=== PATIENT | female | born 1990 | race Caucasian/White ===

== ENCOUNTER 2016-11-08 17:25 | Emergency (ER) | payer MEDICARE, MEDICAID ==
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
[2016-11-08 18:37] LABS: Hematocrit 39 % (35-47); Hemoglobin 13.2 g/dl (12.0-16.0); Mean Corpuscular HGB Conc 33 g/dl (31-36); Mean Corpuscular Hemoglobin 28 pg (27-31); Mean Corpuscular Volume 83 fL (80-97); Mean Platelet Volume 9 um3 (7.4-10.4); Red Blood Count 4.75 10^6/ul (4.0-5.4); Red Cell Distribution Width 14 % (10.5-15); White Blood Count 6.5 10^3/ul (3.5-10.8)
[2016-11-08 18:47] LABS: Urine Bilirubin Negative (Negative); Urine Glucose Negative (Negative); Urine Nitrite Negative (Negative)
[2016-11-08 18:54] LABS: ALT 37 U/L (7-52); AST 22 U/L (13-39); Albumin 3.7 g/dL (3.2-5.2); Alkaline Phosphatase 75 U/L (34-104); Anion Gap 8 mmol/L (2-11); BUN/Creatinine Ratio 9.9 (8-20); Blood Urea Nitrogen 8 mg/dL (6-24); CO2 Carbon Dioxide 22 mmol/L (22-32); Calcium 9.1 mg/dL (8.6-10.3); Chloride 108 mmol/L (101-111); EGFR African American 109.9 (>60); EGFR Non-African American 85.5 (>60); Globulin 3.1 g/dL (2-4); Glucose 98 mg/dL (70-100); Potassium 3.9 mmol/L (3.5-5.0); Sodium 138 mmol/L (133-145); Total Protein 6.8 g/dL (6.4-8.9)
[2016-11-08 18:57] LABS: Benzodiazepine Urine Screen None Detected (None Detect)
[2016-11-08 19:03] LABS: Acetaminophen < 15 mcg/mL; Alcohol < 10 mg/dL (<10); Salicylate < 2.50 mg/dL (<30)
[2016-11-08 19:13] LABS: TSH (Thyroid Stimulating Horm) 6.97 mcIU/mL (0.34-5.60)
[2016-11-08 22:31] VITALS: BP 130/84
== END 2016-11-08 22:28 | disposition home or self-care (01) ==
LOC: ED 17:25
DX: F32.9 Major depressive disorder, single episode, unspecified (principal); F99 Mental disorder, not otherwise specified; R62.50 Unspecified lack of expected normal physiological development in childhood; F41.9 Anxiety disorder, unspecified; E07.9 Disorder of thyroid, unspecified
CPT/HCPCS: 36415; 80053; 80164; 80307; 80320; 80329; 81003; 84443; 84702; 85025; 99283; G0480

== ENCOUNTER 2016-11-09 12:57 | Inpatient (IN) | payer MEDICARE, MEDICAID ==
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
[2016-11-09 14:29] LABS: Urine Bilirubin Negative (Negative); Urine Glucose Negative (Negative); Urine Nitrite Negative (Negative)
[2016-11-09] MEDS ORDERED: LORazepam TAB(*) 1 MG PO ONE ×2 (14:48→19:15)
[2016-11-09] MEDS ORDERED: diPHENhydraMINE PO* 50 MG PO ONE (19:15)
[2016-11-09] MEDS ORDERED: diPHENhydraMINE PO* 50 MG ONE (19:17)
[2016-11-09] MEDS ORDERED: LORazepam TAB(*) 1 MG ONE (19:17)
[2016-11-10] MEDS ORDERED: Divalproex DR TAB(*) 500 MG PO ONE (08:52)
[2016-11-10] MEDS ORDERED: Topiramate TAB(*) 100 MG PO ONE (08:53)
[2016-11-10] MEDS ORDERED: Venlafaxine ER (NF) 150 MG CAP.ER PO ONE (08:54)
[2016-11-10] MEDS ORDERED: Methylphenidate TAB* 10 MG PO ONE (08:54)
[2016-11-10] MEDS ORDERED: Venlafaxine EXT RELEASE CAP* 75 MG PO ONE (10:00)
[2016-11-10] MEDS ORDERED: risperiDONE TAB* 1 MG PO ONE (12:00)
[2016-11-10] MEDS ORDERED: risperiDONE TAB* 2 MG PO SCH (12:00)
[2016-11-10] MEDS: Topiramate TAB(*) 100 MG PO SCH ×2 (12:24→21:40)
[2016-11-10] MEDS: risperiDONE TAB* 1 MG PO SCH (12:27)
[2016-11-10] MEDS: Divalproex DR TAB(*) 500 MG PO SCH ×2 (14:05→21:39)
--- NOTE | 2016-11-10 18:34 | PN ---
ED Flex Patient Progress Note Subjective: This is a 25 year-old F who is pending admission to [facility]. Pt resting comfortably and offers no complaints at this time. Objective: Vitals: Most recent vital signs documented below. General NAD, Alert and oriented x3. Heart: rrr Lungs: CTA without rales, rhonchi, or wheezing Laboratory: Current laboratory results documented below. Assessment: Stable awaiting admission to [facility] Plan: Pending psychiatric admit. Will follow up daily. Vital Signs Temp Pulse Resp BP Pulse Ox 97.2 F 96 16 121/79 98 11/10/16 11:28 11/10/16 11:28 11/10/16 11:28 11/10/16 11:28 11/10/16 11:28 Lab Results - Entire Visit 11/09/16 13:11 Urine Color Yellow Urine Appearance Cloudy Urine pH 7.0 Ur Specific [place] 1.014 Urine Protein Negative Urine Ketones Negative Urine Blood Negative Urine Nitrate Negative Urine Bilirubin Negative Urine Urobilinogen Negative Ur Leukocyte Esterase Negative Urine Glucose Negative
[2016-11-10] MEDS ORDERED: Al Hydrox/Mg Hydrox/Simet LIQ* 30 ML UDC PO PRN (20:27)
[2016-11-11] MEDS ORDERED: Vitamin THERAPEUTIC TAB ONE (05:33)
[2016-11-11] MEDS ORDERED: Venlafaxine EXT RELEASE CAP* 75 MG ONE (05:34)
[2016-11-11] MEDS: Levothyroxine TAB* 25 MCG TAB PO SCH (05:35)
[2016-11-11] MEDS: Topiramate TAB(*) 100 MG PO SCH ×2 (05:35→19:48)
[2016-11-11] MEDS: risperiDONE TAB* 1 MG PO SCH (05:35)
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
[2016-11-11] MEDS: Divalproex DR TAB(*) 500 MG PO SCH ×3 (14:54→19:48)
[2016-11-11] MEDS: Acetaminophen TAB* 325 MG PO PRN ×2 (15:34→20:18)
[2016-11-11] MEDS: Vitamin THERAPEUTIC TAB PO SCH (18:58)
[2016-11-11] MEDS: Venlafaxine EXT RELEASE CAP* 75 MG PO SCH (18:58)
[2016-11-11] MEDS: Ferrous Sulfate TAB* 325 MG PO SCH (18:59)
[2016-11-12] MEDS ORDERED: Haloperidol TAB* 5 MG ONE (05:02)
[2016-11-12] MEDS ORDERED: LORazepam TAB(*) 1 MG ONE (05:02)
[2016-11-12] MEDS: Levothyroxine TAB* 25 MCG TAB PO SCH (05:08)
[2016-11-12] MEDS: Ferrous Sulfate TAB* 325 MG PO SCH (08:18)
[2016-11-12] MEDS: risperiDONE TAB* 1 MG PO SCH (08:18)
[2016-11-12] MEDS: Topiramate TAB(*) 100 MG PO SCH ×2 (08:19→20:31)
[2016-11-12] MEDS: Divalproex DR TAB(*) 500 MG PO SCH ×3 (08:19→20:30)
[2016-11-12] MEDS: Vitamin THERAPEUTIC TAB PO SCH (08:19)
[2016-11-12] MEDS: Venlafaxine EXT RELEASE CAP* 75 MG PO SCH (08:20)
--- NOTE | 2016-11-12 11:48 | PN ---
Subjective - Subjective Service Type: 13157 Hosp care 15 min low complexity Subjective: Lyndsey was sleepy. She said she does not feel ready to go home because of urges to hurt herself ( denies acting on it or planning a suicide attempt). She said tomorrow will work for her. She acknowledged that her threatening and disruptive behavior was inappropriate. In Treatment Team the impression is (with input from [facility] staff) that she wants to avoid going to her residence prior to work at 1 pm tomorrow. Objective - Appearance Appearance: Obese Hygiene: Mal-odorous Grooming: Disheveled - Behavior Psychomotor Activities: Abnormal-Decreased - Attitude and Relatedness Attitude and Relatedness: Child Like Eye Contact: Good - Speech Quality: Unpressured Latencies: Normal Quantity: Terse - Mood Patient's Decription of Mood: "Sad" - Affect Observed Affect: Non-labile Affect Consistent with: Dysphoria - Thought Process Patient's Thought Process: Goal Directed, Impoverished Thought Content: No Passive Wish, No Suicidal Planning, No Homicidal Ideation, No Paranoid Ideation - Sensorium Experiencing Hallucinations: No, Sensorium is Clear - Level of Consciousness Level of Consciousness: Alert - Impulse Control Impulse Control: Poor - Insight and Judgement Insight and Judgement: Poor Assessment - Assessment Merits Inpatient Hospitalization: For Stabilization, To Initiate Treatment, For Ongoing Evaluation, For Discharge Planning Inpatient DSM-IV Dx: 1. Adjustment disorder, not otherwise specified. 2. Impulse control disorder. 3. Intellectual disability. 4. History of ADHD. 5. Depressive disorder, not otherwise specified. Clinical Impression: 25-year-old female with a history of intellectual disability, chronic impulse control problems, periodic self harm, admitted due to concern over acute suicidal ideation, minor self harm behaviors in the setting of apparent destabilizing family conflicts. Doing poorly here, with behavioral setbacks last evening. Unit programming is not expected to have durable benefit, and may compromise overall approach of outpt. behavior plan. Must aim for a brief admission with stabilizing purposes - plan discharge for tomorrow. Medication management: continuing the outpatient medication regimen. We have temporarily held controlled stimulants. Plan - Plan Treatment Plan: Name: LYNDSEY WISE Birthdate: 1990 [id number] Continued Medication Management: Continue Outpt Medication Medications: Current Medications Acetaminophen (Tylenol Tab*) 650 mg PO Q4H PRN PRN Reason: PAIN or TEMP > 101 F Last Admin: 11/11/16 20:18 Dose: 650 mg Al Hydrox/Mg Hydrox/Simethicone (Maalox Plus*) 30 ml PO Q4H PRN PRN Reason: INDIGESTION Divalproex Sodium (Depakote Dr Tab(*)) 500 mg PO TID [facility] Last Admin: 11/12/16 08:19 Dose: 500 mg Ferrous Sulfate (Ferrous Sulfate Tab*) 325 mg PO DAILY [facility] Last Admin: 11/12/16 08:18 Dose: 325 mg Levothyroxine Sodium (Synthroid Tab*) 25 mcg PO 0600 [facility] Last Admin: 11/12/16 05:08 Dose: 25 mcg Multivitamins (Theragran Tab*) 1 tab PO DAILY [facility] Last Admin: 11/12/16 08:19 Dose: 1 tab Risperidone (Risperdal*) 1 mg PO DAILY [facility] Last Admin: 11/12/16 08:18 Dose: 1 mg Topiramate (Topamax(*)) 100 mg PO BID [facility] Last Admin: 11/12/16 08:19 Dose: 100 mg Venlafaxine HCl (Effexor Xr Cap*) 150 mg PO DAILY [facility] Last Admin: 11/12/16 08:20 Dose: 150 mg - Discharge Plan Discharge Plan: Outpatient Follow Up
[2016-11-12] MEDS ORDERED: QUEtiapine TAB* 25 MG ONE (20:18)
[2016-11-12] MEDS ORDERED: QUEtiapine TAB* 25 MG PO PRN (20:27)
[2016-11-13] MEDS: Levothyroxine TAB* 25 MCG TAB PO SCH (07:19)
[2016-11-13 07:57] VITALS: BP 120/75
[2016-11-13] MEDS: risperiDONE TAB* 1 MG PO SCH (08:33)
[2016-11-13] MEDS: Vitamin THERAPEUTIC TAB PO SCH (08:33)
[2016-11-13] MEDS: Divalproex DR TAB(*) 500 MG PO SCH ×2 (08:33→14:01)
[2016-11-13] MEDS: Ferrous Sulfate TAB* 325 MG PO SCH (08:34)
[2016-11-13] MEDS: Venlafaxine EXT RELEASE CAP* 75 MG PO SCH (08:34)
[2016-11-13] MEDS: Topiramate TAB(*) 100 MG PO SCH (08:34)
[2016-11-13] MEDS: Acetaminophen TAB* 325 MG PO PRN (11:40)
--- NOTE | 2016-11-13 13:22 | DS ---
Subjective - Subjective Service Types: 24050 Hosp HI Day Mgmt simple under 30 min Discharge Date: 11/13/16 Subjective: Lyndsey agreed with discharge, affirms she would "be okay" and acknowledged doing better today. Last evening she endorsed some level of suicidal ideation and self harm or self harm urges, but affirms she is safe in her behavior. We reviewed aftercare plan, together here with staff from [facility]. She was regressed and ambivalent, preferring to "See mom first" rather than go to a mental health visit. Objective - Appearance Appearance: Obese Hygiene: Normal Grooming: Fairly Well Kept - Behavior Psychomotor Activities: Abnormal-Decreased - Attitude and Relatedness Attitude and Relatedness: Child Like Eye Contact: Poor - Speech Quality: Unpressured Latencies: Normal Quantity: Terse - Mood Patient's Decription of Mood: "Irritable" - Affect Observed Affect: Non-labile Affect Consistent with: Dysphoria - Thought Process Patient's Thought Process: Goal Directed, Impoverished Thought Content: No Passive Wish, No Suicidal Planning, No Homicidal Ideation, No Paranoid Ideation - Sensorium Experiencing Hallucinations: No, Sensorium is Clear - Level of Consciousness Level of Consciousness: Alert - Impulse Control Impulse Control: Poor - Insight and Judgement Insight and Judgement: Poor Treatment Course & Assessment Clinical Course & Impression: 25-year-old female with a history of intellectual disability, chronic impulse control problems, periodic self harm, admitted due to concern over acute suicidal ideation, minor self harm behaviors in the setting of apparent destabilizing family conflicts. 11/13/16 Clear for release. Lyndsey was basically stable in terms of dangerous behavior. She was aggressive and angry at times. Grabbed a staff member's arm once, made some threatening comments to peers in an instance. She expressed intermitted ideas of harming herself and some level of suicidal thinking, without active planning. She did not engage effectively in unit programming; and is not expected to have durable benefits from it. Discourse with [facility] supported shortest stay possible, as institutional behaviors and avoidance of routines and consequences may compromise overall approach of outpt. behavior plan. Medication management: continued the outpatient medication regimen, temporarily holding controlled stimulants. Lyndsey did not have a robust response here, and is not expected to. Risk of harm to self/other is high at baseline and elevated subacutely. Acute risk of serious harm (serious suicidal behavior or major violence) is not expected to be high. Factors are apparent low lethality and psychological seriousness behaviors - impulsive demonstrative behaviors in context of chronic limited coping abilities. Clear for Discharge: Acceptable Safety Profile, Low Utility of In Care Inpatient DSM-IV Dx: 1. Adjustment disorder, not otherwise specified. 2. Impulse control disorder. 3. Intellectual disability. 4. History of ADHD. 5. Depressive disorder, not otherwise specified. Discharge Planning - Discharge Planning Discharge Plan: Outpatient Follow Up Recommendations for Continuing Care: Medication Management, Psychotherapy, Routine Metabolic Monitoring, Therapeutic Drug Levels Medications: Current Medications Acetaminophen (Tylenol Tab*) 650 mg PO Q4H PRN PRN Reason: PAIN or TEMP > 101 F Last Admin: 11/13/16 11:40 Dose: 650 mg Al Hydrox/Mg Hydrox/Simethicone (Maalox Plus*) 30 ml PO Q4H PRN PRN Reason: INDIGESTION Divalproex Sodium (Depakote Dr Tab(*)) 500 mg PO TID [facility] Last Admin: 11/13/16 08:33 Dose: 500 mg Ferrous Sulfate (Ferrous Sulfate Tab*) 325 mg PO DAILY [facility] Last Admin: 11/13/16 08:34 Dose: 325 mg Levothyroxine Sodium (Synthroid Tab*) 25 mcg PO 0600 [facility] Last Admin: 11/13/16 07:19 Dose: 25 mcg Multivitamins (Theragran Tab*) 1 tab PO DAILY [facility] Last Admin: 11/13/16 08:33 Dose: 1 tab Quetiapine Fumarate (Seroquel Tab*) 50 mg PO Q4H PRN PRN Reason: AGITATION Risperidone (Risperdal*) 1 mg PO DAILY [facility] Last Admin: 11/13/16 08:33 Dose: 1 mg Topiramate (Topamax(*)) 100 mg PO BID [facility] Last Admin: 11/13/16 08:34 Dose: 100 mg Venlafaxine HCl (Effexor Xr Cap*) 150 mg PO DAILY [facility] Last Admin: 11/13/16 08:34 Dose: 150 mg Discharge Planning: Prescriptions provided for discharge [] Yes [x] No Follow up care details as per social work arrangements. Patient response to discharge plan: [] eager for discharge [x] agreeable with discharge plan [] ambivalent about discharge [] disagrees with discharge today
== END 2016-11-13 14:00 | disposition home or self-care (01) | DRG 882 ==
LOC: ED 12:57 → BSU 11-10 19:30
PROVIDERS: ADMIT Psychiatry & Neurology Psychiatry; ATTEND Psychiatry & Neurology Psychiatry
DX: F43.20 Adjustment disorder, unspecified (principal); Z68.42 Body mass index [BMI] 45.0-49.9, adult; F79 Unspecified intellectual disabilities; F32.9 Major depressive disorder, single episode, unspecified; F63.9 Impulse disorder, unspecified; F90.9 Attention-deficit hyperactivity disorder, unspecified type; E66.9 Obesity, unspecified; F63.81 Intermittent explosive disorder; E03.9 Hypothyroidism, unspecified; R62.50 Unspecified lack of expected normal physiological development in childhood; F41.9 Anxiety disorder, unspecified
CPT/HCPCS: 36415; 80053; 80164; 80307; 80320; 80329; 81003; 84443; 84702; 85025; 99222; 99231; 99238; 99283; A9270-GY; G0480

== ENCOUNTER 2017-01-26 10:14 | Emergency (ER) | payer MEDICARE, MEDICAID ==
[2017-01-26 10:41] LABS: Urine Bilirubin Negative (Negative); Urine Glucose Negative (Negative); Urine Nitrite Negative (Negative)
[2017-01-26 10:59] LABS: Hematocrit 39 % (35-47); Hemoglobin 12.9 g/dl (12.0-16.0); Mean Corpuscular HGB Conc 33 g/dl (31-36); Mean Corpuscular Hemoglobin 28 pg (27-31); Mean Corpuscular Volume 83 fL (80-97); Mean Platelet Volume 8 um3 (7.4-10.4); Red Blood Count 4.67 10^6/ul (4.0-5.4); Red Cell Distribution Width 15 % (10.5-15); White Blood Count 8.1 10^3/ul (3.5-10.8)
--- NOTE | 2017-01-26 11:14 | ED ---
Psychiatric Complaint - HPI Summary HPI Summary: Patient presents with her caregiver with SI due to feeling overwhelmed. She has a history of SI. She has a plan of using a knife to cut herself. She denies HI. - History Of Current Complaint Chief Complaint: EDMentalHealth Time Seen by Provider: 01/26/17 10:17 Hx Obtained From: Patient, Family/Rack Carrier Hx Last Menstrual Period: mid August ?: No Onset/Duration: Gradual Onset Timing: Constant Severity Initially: Severe Severity Currently: Severe Character: Depressed Aggravating Factor(s): Recent Stress - boyfriend Alleviating Factor(s): Nothing Associated Signs And Symptoms: Positive: Negative Related History: Positive For: Prior Psychiatric Issues Has Suicidal: Reports: Thoughts, With A Plan - Allergies/Home Medications Allergies/Adverse Reactions: Allergies Allergy/AdvReac Type Severity Reaction Status Date / Time No Known Allergies Allergy Verified 11/08/16 17:34 Home Medications: Home Medications Venlafaxine EXT RELEASE CAP* [Effexor Xr CAP*] 150 mg PO DAILY 01/26/17 [ History Confirmed 01/26/17] PMH/Surg Hx/FS Hx/Imm Hx Endocrine/Hematology History: Reports: Hx Thyroid Disease Denies: Hx Anticoagulant Therapy, Hx Diabetes Cardiovascular History: Denies: Hx Hypertension Respiratory History: Reports: Hx Seasonal Allergies Denies: Hx Asthma, Hx Chronic Obstructive Pulmonary Disease (COPD) GI History: Denies: Hx Ulcer Sensory History: Reports: Hx Contacts or Glasses Opthamlomology History: Reports: Hx Contacts or Glasses Neurological History: Reports: Hx Developmental Delay Psychiatric History: Reports: Hx Anxiety, Hx Attention Deficit Hyperactivity Disorder, Hx Depression, Hx Inpatient Treatment, Hx Community Mental Health Tx, Hx Suicide Attempt, Hx of Violent Episodes Against Others, Other Psychiatric Issues/Disorders - DEVELOPMENTALLY DELAYED Denies: Hx Eating Disorder Infectious Disease History: Denies: Hx Clostridium Difficile, Hx Hepatitis, Hx Human Immunodeficiency Virus (HIV), Hx of Known/Suspected MRSA, Hx Shingles, Hx Tuberculosis, Hx Known/ Suspected VRE, Hx Known/Suspected VRSA, History Other Infectious Disease, Traveled Outside the [place] in Last 30 Days - Family History Known Family History: Negative: Cardiac Disease - Social History Occupation: Disabled Lives: Assisted Living Alcohol Use: None Substance Use Type: Reports: None Smoking Status (MU): Never Smoked Tobacco Have You Smoked in the Last Year: No Review of Systems Positive: Depressed All Other Systems Reviewed And Are Negative: Yes Physical Exam Triage Information Reviewed: Yes Vital Signs Reviewed: Yes Appearance: Positive: Well-Appearing, No Pain Distress, Obese Skin: Positive: Warm, Skin Color Reflects Adequate Perfusion, Dry, Soft Head/Face: Positive: Normal Head/Face Inspection Eyes: Positive: EOMI, RITA, Conjunctiva Clear ENT: Positive: Hearing grossly normal, Pharynx normal Neck: Positive: Supple, Nontender, No Lymphadenopathy Respiratory/Lung Sounds: Positive: Clear to Auscultation, Breath Sounds Present Cardiovascular: Positive: RRR Abdomen Description: Positive: Nontender, Soft Bowel Sounds: Positive: Present Musculoskeletal: Negative: Edema Left, Edema Right Neurological: Positive: Sensory/Motor Intact, Alert, Oriented to Person Place, Time, NV Bundle Intact Distally, Normal Gait Psychiatric: Positive: Depressed AVPU Assessment: Alert Diagnostics - Laboratory Lab Results: Lab Results 01/26/17 Range/Units 10:25 Urine Color Yellow Urine Appearance Cloudy Urine pH 7.0 (5-9) Ur Specific [place] 1.009 L (1.010-1.030) Urine Protein Negative (Negative) Urine Ketones Negative (Negative) Urine Blood Negative (Negative) Urine Nitrate Negative (Negative) Urine Bilirubin Negative (Negative) Urine Urobilinogen Negative (Negative) Ur Leukocyte Esterase Negative (Negative) Urine Glucose Negative (Negative) Result Diagrams: 01/26/17 10:40 01/26/17 10:40 Lab Statement: Any lab studies that have been ordered have been reviewed, and results considered in the medical decision making process. Course/Dx - Differential Dx/Clinical Impression Differential Diagnosis/HQI/PQRI: Positive: Acute Psychosis, Anxiety, Bipolar Disorder, Depression, Homicidal Ideation, Schizophrenia, Suicidal Ideation Provider Diagnosis: Persistent mood [affective] disorder, unspecified - Physician Notifications Patient Is Medically Stable For: Psych Evaluation Discharge - Discharge Plan Condition: Stable Disposition: HOME Referrals: Macie Jarrett MD [Primary Care Provider] -
[2017-01-26 11:17] LABS: ALT 34 U/L (7-52); AST 25 U/L (13-39); Albumin 3.7 g/dL (3.2-5.2); Alkaline Phosphatase 72 U/L (34-104); Anion Gap 7 mmol/L (2-11); BUN/Creatinine Ratio 15.9 (8-20); Blood Urea Nitrogen 11 mg/dL (6-24); CO2 Carbon Dioxide 21 mmol/L (22-32); Chloride 109 mmol/L (101-111); EGFR African American 131.3 (>60); EGFR Non-African American 102.1 (>60); Globulin 3.1 g/dL (2-4); Glucose 91 mg/dL (70-100); Potassium 3.9 mmol/L (3.5-5.0); Sodium 137 mmol/L (133-145); Total Protein 6.8 g/dL (6.4-8.9)
[2017-01-26 11:24] LABS: Benzodiazepine Urine Screen None Detected (None Detect)
[2017-01-26 11:31] LABS: Acetaminophen < 15 mcg/mL; Alcohol < 10 mg/dL (<10); Salicylate < 2.50 mg/dL (<30)
[2017-01-26 11:41] LABS: TSH (Thyroid Stimulating Horm) 2.99 mcIU/mL (0.34-5.60)
[2017-01-26 15:06] VITALS: BP 126/86
== END 2017-01-26 15:30 | disposition home or self-care (01) ==
LOC: ED 10:14
DX: F39 Unspecified mood [affective] disorder (principal); F32.9 Major depressive disorder, single episode, unspecified; R45.851 Suicidal ideations
CPT/HCPCS: 36415; 80053; 80307; 80320; 80329; 81003; 84443; 85025; 99285; G0480

== ENCOUNTER 2017-02-03 10:13 | Emergency (ER) | payer MEDICARE, MEDICAID ==
[2017-02-03 10:47] LABS: Hematocrit 40 % (35-47); Hemoglobin 13.2 g/dl (12.0-16.0); Mean Corpuscular HGB Conc 33 g/dl (31-36); Mean Corpuscular Hemoglobin 28 pg (27-31); Mean Corpuscular Volume 83 fL (80-97); Mean Platelet Volume 8 um3 (7.4-10.4); Red Blood Count 4.77 10^6/ul (4.0-5.4); Red Cell Distribution Width 15 % (10.5-15); White Blood Count 8.8 10^3/ul (3.5-10.8)
[2017-02-03 10:51] LABS: Urine Bilirubin Negative (Negative); Urine Glucose Negative (Negative); Urine Nitrite Negative (Negative)
[2017-02-03 11:11] LABS: ALT 49 U/L (7-52); AST 36 U/L (13-39); Albumin 3.8 g/dL (3.2-5.2); Alkaline Phosphatase 84 U/L (34-104); Anion Gap 10 mmol/L (2-11); Blood Urea Nitrogen 16 mg/dL (6-24); CO2 Carbon Dioxide 20 mmol/L (22-32); Calcium 9.5 mg/dL (8.6-10.3); Chloride 108 mmol/L (101-111); EGFR African American 97.8 (>60); EGFR Non-African American 76.1 (>60); Globulin 3.3 g/dL (2-4); Glucose 95 mg/dL (70-100); Sodium 138 mmol/L (133-145); Total Protein 7.1 g/dL (6.4-8.9)
[2017-02-03 11:22] LABS: Benzodiazepine Urine Screen None Detected (None Detect)
[2017-02-03 11:44] LABS: Acetaminophen < 15 mcg/mL; Alcohol < 10 mg/dL (<10); Salicylate < 2.50 mg/dL (<30)
[2017-02-03 12:34] VITALS: BP 113/68
--- NOTE | 2017-02-03 14:04 | ED ---
Zach Kulkarni Adam, scribed for Bigg Wright MD on 02/03/17 at 1035 . Psychiatric Complaint - HPI Summary HPI Summary: Pt is a 26 year old female presenting with depression and SI. She states that she has been feeling like killing herself since yesterday because she hates her life. Her partner states that she recently lost her job which has contributed to her depression. She has a hx of depression but denies any hx of suicidal attempts. Her partner states that she was scratching her wrist with a fork yesterday in a suicidal gesture. Pt denies any other PMHx, FMHx, or surgical hx. She denies any hx of alcohol/tobacco/drug use. She lives at a custodial. - History Of Current Complaint Time Seen by Provider: 02/03/17 10:28 Hx Obtained From: Patient Onset/Duration: Gradual Onset, Lasting Days, Still Present Timing: Constant Severity Initially: Moderate Severity Currently: Moderate Character: Depressed Aggravating Factor(s): Recent Stress Alleviating Factor(s): Nothing Related History: Positive For: Prior Psychiatric Issues Has Suicidal: Reports: Thoughts, Demonstrates Gesture - Allergies/Home Medications Allergies/Adverse Reactions: Allergies Allergy/AdvReac Type Severity Reaction Status Date / Time No Known Allergies Allergy Verified 02/03/17 10:51 PMH/Surg Hx/FS Hx/Imm Hx Endocrine/Hematology History: Reports: Hx Thyroid Disease Denies: Hx Anticoagulant Therapy, Hx Diabetes Cardiovascular History: Denies: Hx Hypertension Respiratory History: Reports: Hx Seasonal Allergies Denies: Hx Asthma, Hx Chronic Obstructive Pulmonary Disease (COPD) GI History: Denies: Hx Ulcer Sensory History: Reports: Hx Contacts or Glasses Opthamlomology History: Reports: Hx Contacts or Glasses Neurological History: Reports: Hx Developmental Delay Psychiatric History: Reports: Hx Anxiety, Hx Attention Deficit Hyperactivity Disorder, Hx Depression, Hx Inpatient Treatment, Hx Community Mental Health Tx, Hx Suicide Attempt, Hx of Violent Episodes Against Others, Other Psychiatric Issues/Disorders - DEVELOPMENTALLY DELAYED Denies: Hx Eating Disorder Infectious Disease History: Denies: Hx Clostridium Difficile, Hx Hepatitis, Hx Human Immunodeficiency Virus (HIV), Hx of Known/Suspected MRSA, Hx Shingles, Hx Tuberculosis, Hx Known/ Suspected VRE, Hx Known/Suspected VRSA, History Other Infectious Disease, Traveled Outside the [place] in Last 30 Days - Family History Known Family History: Positive: None - Pt denies any FMHx Negative: Cardiac Disease - Social History Occupation: Unemployed Lives: Detention Alcohol Use: None Hx Substance Use: No Substance Use Type: Reports: None Hx Tobacco Use: No Smoking Status (MU): Never Smoked Tobacco Have You Smoked in the Last Year: No Review of Systems Skin: Negative Positive: Depressed All Other Systems Reviewed And Are Negative: Yes Physical Exam - Summary Physical Exam Summary: VITAL SIGNS: Reviewed. GENERAL: Patient is a well developed and nourished who is lying comfortable in the stretcher. Patient is not in any acute respiratory distress. HEAD AND FACE: No signs of trauma. No ecchymosis, hematomas or skull depressions. No sinus tenderness. EYES: PERRLA, EOMI x 2, No injected conjunctiva, no nystagmus. EARS: Hearing grossly intact. Ear canals and tympanic membranes are within normal limits. MOUTH: Oropharynx within normal limits. NECK: Supple, trachea is midline, no adenopathy, no JVD, no carotid bruit, no c- spine tenderness, neck with full ROM. CHEST: Symmetric, no tenderness at palpation LUNGS: Clear to auscultation bilaterally. No wheezing or crackles. CVS: Regular rate and rhythm, S1 and S2 present, no murmurs or gallops appreciated. ABDOMEN: Soft, non-tender. No signs of distention. No rebound no guarding, and no masses palpated. Bowel sounds are normal. EXTREMITIES: FROM in all major joints, no edema, no cyanosis or clubbing. NEURO: Alert and oriented x 3. No acute neurological deficits. Speech is normal and follows commands. SKIN: Dry and warm PSYCH: Depressed, quiet, positive suicidal thoughts w/o plan. No homicidal thoughts or plan. No signs of psychosis or pressure speech. No tangential speech. Triage Information Reviewed: Yes Vital Signs On Initial Exam: Initial Vitals Temp Pulse Resp BP Pulse Ox 98.5 F 78 26 104/79 97 02/03/17 10:20 02/03/17 10:20 02/03/17 10:20 02/03/17 10:20 02/03/17 10:20 Vital Signs Reviewed: Yes Diagnostics - Vital Signs Vital Signs Temp Pulse Resp BP Pulse Ox 02/03/17 10:20 98.5 F 78 26 104/79 97 - Laboratory Lab Results: Lab Results 02/03/17 02/03/17 Range/Units 10:30 10:30 WBC 8.8 (3.5-10.8) 10^3/ul RBC 4.77 (4.0-5.4) 10^6/ul Hgb 13.2 (12.0-16.0) g/dl Hct 40 (35-47) % MCV 83 (80-97) fL MCH 28 (27-31) pg MCHC 33 (31-36) g/dl RDW 15 (10.5-15) % Plt Count 236 (150-450) 10^3/ul MPV 8 (7.4-10.4) um3 Neut % (Auto) 69.8 (38-83) % Lymph % (Auto) 21.2 L (25-47) % [place] % (Auto) 6.5 (1-9) % Eos % (Auto) 1.6 (0-6) % Baso % (Auto) 0.9 (0-2) % Absolute Neuts (auto) 6.1 (1.5-7.7) 10^3/ul Absolute Lymphs (auto) 1.9 (1.0-4.8) 10^3/ul Absolute Monos (auto) 0.6 (0-0.8) 10^3/ul Absolute Eos (auto) 0.1 (0-0.6) 10^3/ul Absolute Basos (auto) 0.1 (0-0.2) 10^3/ul Absolute Nucleated RBC 0.01 10^3/ul Nucleated RBC % 0.1 Urine Color Yellow Urine Appearance Cloudy Urine pH 7.0 (5-9) Ur Specific [place] 1.016 (1.010-1.030) Urine Protein Negative (Negative) Urine Ketones Trace H (Negative) Urine Blood Negative (Negative) Urine Nitrate Negative (Negative) Urine Bilirubin Negative (Negative) Urine Urobilinogen Negative (Negative) Ur Leukocyte Esterase Negative (Negative) Urine Glucose Negative (Negative) Urine Ascorbic Acid * H (Negative) Result Diagrams: 02/03/17 10:30 02/03/17 10:30 Lab Statement: Any lab studies that have been ordered have been reviewed, and results considered in the medical decision making process. Course/Dx - Course Assessment/Plan: Pt is a 26 year old female presenting with depression and SI. She states that she has been feeling like killing herself since yesterday because she hates her life. Her partner states that she recently lost her job which has contributed to her depression. She has a hx of depression but denies any hx of suicidal attempts. Her partner states that she was scratching her wrist with a fork yesterday in a suicidal gesture. Pt denies any other PMHx, FMHx, or surgical hx. She denies any hx of alcohol/tobacco/drug use. She lives at a custodial. All blood work WNL. She is medically cleared. She is awaiting for a MHE. Patient is hemodynamically stable and A+O x 3. Patient was assessed By Dr. Avila (Psychiatry). He recommends to discharge patients home withf f/u with Mental health as an outpatient. - Differential Dx/Clinical Impression Differential Diagnosis/HQI/PQRI: Positive: Anxiety, Depression, Suicidal Ideation, Suicidal Gesture Provider Diagnosis: Suicidal ideation, Depression Discharge - Discharge Plan Condition: Stable Disposition: OTHER Discharge Disposition Comment: Pending mental health evaluation Referrals: Ethan Mcguire MD [Primary Care Provider] - The documentation as recorded by the Zach jordan Adam accurately reflects the service I personally performed and the decisions made by me, Bigg Wright MD.
== END 2017-02-03 13:58 | disposition home or self-care (01) ==
LOC: ED 10:13
DX: F32.9 Major depressive disorder, single episode, unspecified (principal); R45.851 Suicidal ideations; E07.9 Disorder of thyroid, unspecified; F41.9 Anxiety disorder, unspecified; R62.50 Unspecified lack of expected normal physiological development in childhood; F90.9 Attention-deficit hyperactivity disorder, unspecified type
CPT/HCPCS: 36415; 80053; 80307; 80320; 80329; 81003; 84443; 85025; 99285; G0480

== ENCOUNTER 2017-03-19 17:14 | Emergency (ER) | payer MEDICARE, MEDICAID ==
[2017-03-19] MEDS ORDERED: Magnesium CITRATE* 300 ML BTL PO ONE (19:27)
--- NOTE | 2017-03-19 19:37 | ED ---
Jason Kulkarni Benjamin, scribed for Hector Pan MD on 03/19/17 at 1925 . Abdominal Pain/Female - HPI Summary HPI Summary: 26yo female c/o constipation for 4 days, however, pt had BM during her stay in the ED. Pt states she normally have one BM per day. Denies any changes in diet, activities, or lifestyle lately. Pt describes her BM today as hard stool, without black tone or blood in it. Pt also reports diffuse cramping abdominal pain. Pain has eased up since she had a BM today, but still present. No GI surgical hx. - History of Current Complaint Chief Complaint: EDAbdPain Stated Complaint: CONSTIPATION Time Seen by Provider: 03/19/17 19:00 Hx Obtained From: Patient, Family/Paint Formulator - father Hx Last Menstrual Period: mid August ?: Yes Onset/Duration: Gradual Onset, Lasting Days - 4, Resolved Timing: Constant Severity Initially: Mild Severity Currently: Mild Pain Intensity: 5 Pain Scale Used: 0-10 Numeric Location: Diffuse Radiates: No Character: Cramping Aggravating Factor(s): Nothing Alleviating Factor(s): Bowel Movement Associated Signs and Symptoms: Positive: Constipation Allergies/Adverse Reactions: Allergies Allergy/AdvReac Type Severity Reaction Status Date / Time No Known Allergies Allergy Verified 02/03/17 10:51 PMH/Surg Hx/FS Hx/Imm Hx Endocrine/Hematology History: Reports: Hx Thyroid Disease Denies: Hx Anticoagulant Therapy, Hx Diabetes Cardiovascular History: Denies: Hx Hypertension Respiratory History: Reports: Hx Seasonal Allergies Denies: Hx Asthma, Hx Chronic Obstructive Pulmonary Disease (COPD) GI History: Denies: Hx Ulcer Sensory History: Reports: Hx Contacts or Glasses Opthamlomology History: Reports: Hx Contacts or Glasses Neurological History: Reports: Hx Developmental Delay Psychiatric History: Reports: Hx Anxiety, Hx Attention Deficit Hyperactivity Disorder, Hx Depression, Hx Inpatient Treatment, Hx Community Mental Health Tx, Hx Suicide Attempt, Hx of Violent Episodes Against Others, Other Psychiatric Issues/Disorders - DEVELOPMENTALLY DELAYED Denies: Hx Eating Disorder Infectious Disease History: No Infectious Disease History: Denies: Hx Clostridium Difficile, Hx Hepatitis, Hx Human Immunodeficiency Virus (HIV), Hx of Known/Suspected MRSA, Hx Shingles, Hx Tuberculosis, Hx Known/ Suspected VRE, Hx Known/Suspected VRSA, History Other Infectious Disease, Traveled Outside the [place] in Last 30 Days - Family History Known Family History: Positive: None - Pt denies any FMHx Negative: Cardiac Disease - Social History Occupation: Disabled Lives: With Family Alcohol Use: None Hx Substance Use: No Substance Use Type: Reports: None Hx Tobacco Use: No Smoking Status (MU): Never Smoked Tobacco Have You Smoked in the Last Year: No Review of Systems Constitutional: Negative Eyes: Negative ENT: Negative Cardiovascular: Negative Respiratory: Negative Positive: Abdominal Pain, Other - constipation Genitourinary: Negative Musculoskeletal: Negative Skin: Negative Neurological: Negative Psychological: Normal All Other Systems Reviewed And Are Negative: Yes Physical Exam Triage Information Reviewed: Yes Vital Signs On Initial Exam: Initial Vitals Temp Pulse Resp BP Pulse Ox 97.3 F 105 19 132/95 97 03/19/17 17:15 03/19/17 17:15 03/19/17 17:15 03/19/17 17:15 03/19/17 17:15 Vital Signs Reviewed: Yes Appearance: Positive: Well-Appearing, No Pain Distress, Obese Skin: Positive: Warm, Skin Color Reflects Adequate Perfusion, Dry Head/Face: Positive: Temporal Artery Tenderness Eyes: Positive: EOMI, RITA ENT: Positive: Normal ENT inspection Neck: Positive: Supple, Nontender Respiratory/Lung Sounds: Positive: Clear to Auscultation, Breath Sounds Present Cardiovascular: Positive: RRR Abdomen Description: Positive: No Organomegaly, Soft, Other: - minimal diffuse tenderness, no rebound, no guarding, no focal tenderness. Bowel Sounds: Positive: Hypoactive Musculoskeletal: Positive: Normal, Strength/ROM Intact Neurological: Positive: Normal, Sensory/Motor Intact Psychiatric: Positive: Normal, Affect/Mood Appropriate - Mike Coma Scale Coma Scale Total: 15 Diagnostics - Vital Signs Vital Signs Temp Pulse Resp BP Pulse Ox 03/19/17 19:06 90 97 03/19/17 19:03 116/72 03/19/17 17:15 97.3 F 105 19 132/95 97 - Laboratory Lab Statement: Any lab studies that have been ordered have been reviewed, and results considered in the medical decision making process. Abdominal Pain Fem Course/Dx - Course Course Of Treatment: NO CRITICAL CARE TIME. PATIENT HAD A BM IN ED AND FEELS BETTER. NO FEVER, NO FOCAL ABD PAIN. DISCUSSED LABS/CT BUT, WITH IMPROVEMENT AFTER BM AND NO FEVER/FOCAL PAIN, WILL TREAT CONSTIPATION; RETURN IF WORSE OR QUESTIONS OR CONCERNS. - Diagnoses Provider Diagnoses: Constipation, Abdominal pain Discharge - Discharge Plan Condition: Stable Disposition: HOME Prescriptions: Psyllium [Metamucil Fiber] 1 teasp PO DAILY #1 powder Referrals: Ethan Mcguire MD [Primary Care Provider] - Additional Instructions: FOLLOW UP WITH YOUR DOCTOR. TAKE THE MAGNESIUM CITRATE TONIGHT. DRINK PLENTY OF WATER EVERY DAY. TAKE THE METAMUCIL DAILY DIRECTED, 1 TEASPOON IN 8 OZ OF WATER, DAILY. RETURN TO THE EMERGENCY DEPARTMENT FOR ANY WORSENING OF YOUR CONDITION; PAIN, FEVER, VOMITING, YOU FEEL ILL, BLOOD IN YOUR STOOL OR QUESTIONS OR CONCERNS. The documentation as recorded by the Jason jordan Benjamin accurately reflects the service I personally performed and the decisions made by me, Hector Pan MD.
[2017-03-19 19:57] VITALS: BP 125/81
== END 2017-03-19 19:55 | disposition home or self-care (01) ==
LOC: ED 17:14
DX: K59.00 Constipation, unspecified (principal); R10.9 Unspecified abdominal pain; F90.9 Attention-deficit hyperactivity disorder, unspecified type; R62.50 Unspecified lack of expected normal physiological development in childhood
CPT/HCPCS: 99282; A9270-GY

== ENCOUNTER 2017-03-25 11:27 | Emergency (ER) | payer MEDICARE, MEDICAID ==
--- NOTE | 2017-03-25 13:02 | RAD ---
INDICATION: Right thumb injury. TECHNIQUE: 3 views of the right thumb were obtained. FINDINGS: The bones are in normal alignment. No fracture is seen. Joint spaces appear maintained. IMPRESSION: NO EVIDENCE FOR FRACTURE.
--- NOTE | 2017-03-25 13:05 | RAD ---
INDICATION: Right wrist injury. TECHNIQUE: 4 views of the right wrist were obtained. FINDINGS: The bones are normal alignment. There is a faint radiolucent line seen in the midportion of the scaphoid bone possibly representing a nondisplaced fracture. No other fractures are seen. Joint spaces appear maintained. IMPRESSION: POSSIBLE NONDISPLACED FRACTURE OF THE SCAPHOID BONE. RECOMMEND EITHER MR OR CT IMAGING FOR FURTHER EVALUATION.
--- NOTE | 2017-03-25 13:28 | UC ---
Hand/Wrist HPI - HPI Summary HPI Summary: 26 female presents with complaints of right wrist pain and thumb pain after an injury while playing basketball this morning 03/25/17. Patient states she was trying to catch a basketball when her wrist and thumb were bent backwards. Since she has been experiencing pain that worsens when making a fist and moving her thumb. She denies numbness/tingling. Is able to flex/extend with pain. Has not taken any medications. Admits to some swelling but denies bruising. No PMHx. - History Of Current Complaint Chief Complaint: UCUpperExtremity Stated Complaint: WRIST PAIN Time Seen by Provider: 03/25/17 12:38 Hx Obtained From: Patient Hx Last Menstrual Period: unknown ?: No Mechanism Of Injury: catching a basketball Onset/Duration: Sudden Onset, Still Present Severity Initially: Moderate Severity Currently: Moderate Pain Intensity: 6 Pain Scale Used: 0-10 Numeric Character Of Pain: Sharp, Aching Aggravating Factor(s): Movement, Extension, Internal/External Rotation Alleviating: Rest Associated Signs And Symptoms: Positive: Swelling Related History: Dominant Hand Right - Allergies/Home Medications Allergies/Adverse Reactions: Allergies Allergy/AdvReac Type Severity Reaction Status Date / Time No Known Allergies Allergy Verified 02/03/17 10:51 Home Medications: Home Medications Fexofenadine (NF) [Hannah 180 (NF)] 180 mg PO DAILY 03/25/17 [History Confirmed 03/25/17] PMH/Surg Hx/FS Hx/Imm Hx - Additional Past Medical History Additional PMH: denies diabetes, htn and asthma. is disabled Other History Of: Negative For: Anticoagulant Therapy - Surgical History Surgical History: None - Family History Known Family History: Positive: None - Pt denies any FMHx Negative: Cardiac Disease - Social History Alcohol Use: None Substance Use Type: None Smoking Status (MU): Never Smoked Tobacco Have You Smoked in the Last Year: No - Immunization History Most Recent Influenza Vaccination: 2016 Most Recent Tetanus Shot: unknown Most Recent Pneumonia Vaccination: never Review of Systems Constitutional: Negative Skin: Other - swelling right wrist Respiratory: Negative Cardiovascular: Negative Motor: Negative Neurovascular: Negative Musculoskeletal: Arthralgia, Edema - right wrist, Myalgia Neurological: Negative All Other Systems Reviewed And Are Negative: Yes Physical Exam Triage Information Reviewed: Yes Appearance: Well-Appearing, No Pain Distress, Well-Nourished, Pain Distress - mild when moving, Obese Vital Signs: Initial Vital Signs Temp 97.3 F 03/25/17 12:18 Pulse 89 03/25/17 12:18 Resp 18 03/25/17 12:18 BP 152/83 03/25/17 12:18 Pulse Ox 99 03/25/17 12:18 BP was re-taken and 100/60. Vital Signs Reviewed: Yes Eyes: Positive: Conjunctiva Clear ENT: Positive: Normal ENT inspection, Hearing grossly normal Neck: Positive: Supple, Nontender Respiratory: Positive: Chest non-tender, Lungs clear, Normal breath sounds, No respiratory distress, No accessory muscle use Cardiovascular: Positive: RRR, No Murmur, Pulses Normal - 2+ radial b/l, Brisk Capillary Refill - <2 seconds, neurovascular intact Musculoskeletal: Positive: Strength Limited @, ROM Limited @ - right wrist, able but causes pain especially with flexion/extension of thumb, Edema @ - very minimal when compared to left wrist, no ecchymosis or obvious deformity Neurological: Positive: Alert - sensation intact, Muscle Tone Normal Skin Exam: Normal Procedures - Splinting Pre-Made Type: velcro Splint: thumb spica Pre-Proc Neuro Vasc Exam: normal Post-Proc Neuro Vasc Exam: normal, unchanged from pre-exam Diagnostics - Radiology right thumb Xray Interpretation: No Acute Changes - no evidence for fracture right wrist Xray Interpretation: Positive (See Comments) - POSSIBLE NONDISPLACED FRACTURE OF THE SCAPHOID BONE. RECOMMEND EITHER MR OR CT IMAGING FOR FURTHER EVALUATION. Radiology Interpretation Completed By: Radiologist Hand/Wrist Course/Dx - Course Course Of Treatment: x-ray obtained of thumb and wrist. showed possible nondisplaced scaphoid fracture of right wrist. put in thumb spica splint. make an appointment with ortho within next couple of days for further imaging as recommended on x-ray and evaluation/casting. aware of worsening signs and symptoms to watch out for. Follow up with PCP. ibuprofen or aleve for pain/ inflammation. given naproxen while in office. - Differential Dx/Diagnosis Differential Diagnosis/HQI/PQRI: Dislocation, Fracture, Sprain, Strain, Other Provider Diagnoses: nondisplaced scaphoid fracture of right wrist Discharge - Discharge Plan Condition: Stable Disposition: HOME Patient Education Materials: Scaphoid Fracture (ED) Referrals: Ethan Mcguire MD [Primary Care Provider] - Maine Velasco MD [Medical Doctor] - Additional Instructions: Take ibuprofen/aleve for pain and inflammation. Rest, ice and elevate your wrist. Keep splint applied, do not remove. Do not get wet. Call and make an appointment with orthopedics to be seen in the next couple of days for further imaging and evaluation. If symptoms worsen or new symptoms develop such as increased pain, numbness/ tingling etc please return or seek medical attention promptly.
[2017-03-25] MEDS ORDERED: Naproxen TAB* 250 MG PO ONE (13:34)
[2017-03-25 14:02] VITALS: BP 100/60
== END 2017-03-25 14:32 | disposition home or self-care (01) ==
LOC: UCEAST 11:27
DX: S62.001A Unspecified fracture of navicular [scaphoid] bone of right wrist, initial encounter for closed fracture (principal)
CPT/HCPCS: 99213; A9270-GY; G0463

== ENCOUNTER → 2017-04-12 08:04 | Emergency (ER) | payer MEDICARE, MEDICAID ==
[2017-04-12 08:12] VITALS: BP 126/91
[2017-04-12 08:52] LABS: Urine Bacteria 1+ (Absent); Urine Bilirubin Negative (Negative); Urine Glucose Negative (Negative); Urine Nitrite Negative (Negative)
[2017-04-12 09:03] LABS: Hematocrit 39 % (35-47); Hemoglobin 12.8 g/dl (12.0-16.0); Mean Corpuscular HGB Conc 33 g/dl (31-36); Mean Corpuscular Hemoglobin 28 pg (27-31); Mean Corpuscular Volume 84 fL (80-97); Mean Platelet Volume 8 um3 (7.4-10.4); Red Blood Count 4.63 10^6/ul (4.0-5.4); Red Cell Distribution Width 15 % (10.5-15); White Blood Count 8.1 10^3/ul (3.5-10.8)
[2017-04-12 09:07] LABS: Benzodiazepine Urine Screen None Detected (None Detect)
[2017-04-12 09:14] LABS: ALT 31 U/L (7-52); AST 25 U/L (13-39); Albumin 3.8 g/dL (3.2-5.2); Alkaline Phosphatase 74 U/L (34-104); Anion Gap 9 mmol/L (2-11); BUN/Creatinine Ratio 15.4 (8-20); Blood Urea Nitrogen 12 mg/dL (6-24); CO2 Carbon Dioxide 20 mmol/L (22-32); Calcium 9.1 mg/dL (8.6-10.3); Chloride 108 mmol/L (101-111); EGFR African American 113.9 (>60); EGFR Non-African American 88.6 (>60); Globulin 3.1 g/dL (2-4); Glucose 102 mg/dL (70-100); Sodium 137 mmol/L (133-145); Total Protein 6.9 g/dL (6.4-8.9)
[2017-04-12 09:56] LABS: Acetaminophen < 15 mcg/mL; Alcohol < 10 mg/dL (<10); Salicylate < 2.50 mg/dL (<30)
[2017-04-12 10:06] LABS: TSH (Thyroid Stimulating Horm) 5.23 mcIU/mL (0.34-5.60)
--- NOTE | 2017-04-13 09:20 | ED ---
I, Oh,Soohyun, scribed for Bigg Wright MD on 04/12/17 at 0810 . Psychiatric Complaint - HPI Summary HPI Summary: This 26 y/o female presents to ED for SI with plan "I feel like killing myself" . Plan involves cutting. Pt identifies Father's Day as trigger. PMHx includes ADHD, MR, and impulse control disorder. Pt denies any FHx of depression. Pt currently lives in long-term. - History Of Current Complaint Hx Obtained From: Patient, Medical Records Hx Last Menstrual Period: unknown Onset/Duration: Sudden Onset, Still Present Timing: Constant Aggravating Factor(s): Nothing Alleviating Factor(s): Nothing Associated Signs And Symptoms: Positive: Negative Related History: Positive For: Prior Psychiatric Issues - Allergies/Home Medications Allergies/Adverse Reactions: Allergies Allergy/AdvReac Type Severity Reaction Status Date / Time No Known Allergies Allergy Verified 02/03/17 10:51 PMH/Surg Hx/FS Hx/Imm Hx Endocrine/Hematology History: Reports: Hx Thyroid Disease Denies: Hx Anticoagulant Therapy, Hx Diabetes Cardiovascular History: Denies: Hx Hypertension Respiratory History: Reports: Hx Seasonal Allergies Denies: Hx Asthma, Hx Chronic Obstructive Pulmonary Disease (COPD) GI History: Denies: Hx Ulcer Sensory History: Reports: Hx Contacts or Glasses Opthamlomology History: Reports: Hx Contacts or Glasses Neurological History: Reports: Hx Developmental Delay Psychiatric History: Reports: Hx Anxiety, Hx Attention Deficit Hyperactivity Disorder, Hx Depression, Hx Inpatient Treatment, Hx Community Mental Health Tx, Hx Suicide Attempt, Hx of Violent Episodes Against Others, Other Psychiatric Issues/Disorders - DEVELOPMENTALLY DELAYED Denies: Hx Eating Disorder Infectious Disease History: Denies: Hx Clostridium Difficile, Hx Hepatitis, Hx Human Immunodeficiency Virus (HIV), Hx of Known/Suspected MRSA, Hx Shingles, Hx Tuberculosis, Hx Known/ Suspected VRE, Hx Known/Suspected VRSA, History Other Infectious Disease - Family History Known Family History: Negative: Cardiac Disease - Social History Lives: [facility] Alcohol Use: None Hx Substance Use: No Substance Use Type: Reports: None Hx Tobacco Use: No Smoking Status (MU): Never Smoked Tobacco Have You Smoked in the Last Year: No Review of Systems Negative: Fever Positive: Depressed, Other - Positive All Other Systems Reviewed And Are Negative: Yes Physical Exam - Summary Physical Exam Summary: VITAL SIGNS: Reviewed. GENERAL: Patient is an OBESE FEMALE who is lying comfortable in the stretcher. Patient is not in any acute respiratory distress. HEAD AND FACE: No signs of trauma. No ecchymosis, hematomas or skull depressions. No sinus tenderness. EYES: PERRLA, EOMI x 2, No injected conjunctiva, no nystagmus. EARS: Hearing grossly intact. Ear canals and tympanic membranes are within normal limits. MOUTH: Oropharynx within normal limits. NECK: Supple, trachea is midline, no adenopathy, no JVD, no carotid bruit, no c- spine tenderness, neck with full ROM. CHEST: Symmetric, no tenderness at palpation LUNGS: Clear to auscultation bilaterally. No wheezing or crackles. CVS: Regular rate and rhythm, S1 and S2 present, no murmurs or gallops appreciated. ABDOMEN: Soft, non-tender. No signs of distention. No rebound no guarding, and no masses palpated. Bowel sounds are normal. EXTREMITIES: FROM in all major joints, no edema, no cyanosis or clubbing. NEURO: Alert and oriented x 3. No acute neurological deficits. Speech is normal and follows commands. SKIN: Dry and warm Psych: Depressed, quiet, and reports positive suicidal plan involving cutting. No homicidal thoughts or plan. No signs of psychosis or pressure speech. Triage Information Reviewed: Yes Vital Signs On Initial Exam: Initial Vitals Temp Pulse Resp BP Pulse Ox 99.2 F 92 20 126/91 98 04/12/17 08:08 04/12/17 08:08 04/12/17 08:08 04/12/17 08:08 04/12/17 08:08 Vital Signs Reviewed: Yes Diagnostics - Vital Signs Vital Signs Temp Pulse Resp BP Pulse Ox 04/12/17 08:08 99.2 F 92 20 126/91 98 - Laboratory Lab Results: Lab Results 04/12/17 04/12/17 04/12/17 Range/Units 08:30 08:30 08:51 WBC 8.1 (3.5-10.8) 10^3/ul RBC 4.63 (4.0-5.4) 10^6/ul Hgb 12.8 (12.0-16.0) g/dl Hct 39 (35-47) % MCV 84 (80-97) fL MCH 28 (27-31) pg MCHC 33 (31-36) g/dl RDW 15 (10.5-15) % Plt Count 234 (150-450) 10^3/ul MPV 8 (7.4-10.4) um3 Neut % (Auto) 72.1 (38-83) % Lymph % (Auto) 19.7 L (25-47) % [place] % (Auto) 5.9 (1-9) % Eos % (Auto) 1.6 (0-6) % Baso % (Auto) 0.7 (0-2) % Absolute Neuts (auto) 5.8 (1.5-7.7) 10^3/ul Absolute Lymphs (auto) 1.6 (1.0-4.8) 10^3/ul Absolute Monos (auto) 0.5 (0-0.8) 10^3/ul Absolute Eos (auto) 0.1 (0-0.6) 10^3/ul Absolute Basos (auto) 0.1 (0-0.2) 10^3/ul Absolute Nucleated RBC 0.01 10^3/ul Nucleated RBC % 0.1 Sodium (133-145) mmol/L Potassium (3.5-5.0) mmol/L Chloride (101-111) mmol/L Carbon Dioxide (22-32) mmol/L Anion Gap (2-11) mmol/L BUN (6-24) mg/dL Creatinine (0.51-0.95) mg/dL Est GFR ( Amer) (>60) Est GFR (Non-Af Amer) (>60) BUN/Creatinine Ratio (8-20) Glucose (70-100) mg/dL Calcium (8.6-10.3) mg/dL Total Bilirubin (0.2-1.0) mg/dL AST (13-39) U/L ALT (7-52) U/L Alkaline Phosphatase (34-104) U/L Total Protein (6.4-8.9) g/dL Albumin (3.2-5.2) g/dL Globulin (2-4) g/dL Albumin/Globulin Ratio (1-3) TSH (0.34-5.60) mcIU/mL Urine Color Yellow Urine Appearance Clear Urine pH 6.0 (5-9) Ur Specific [place] 1.006 L (1.010-1.030) Urine Protein Negative (Negative) Urine Ketones Negative (Negative) Urine Blood 1+ H (Negative) Urine Nitrate Negative (Negative) Urine Bilirubin Negative (Negative) Urine Urobilinogen Negative (Negative) Ur Leukocyte Esterase Negative (Negative) Urine WBC (Auto) Absent (Absent) Urine RBC (Auto) Trace(0-2/hpf) (Absent) Ur Squamous Epith Cells Present H (Absent) Urine Bacteria 1+ H (Absent) Urine Glucose Negative (Negative) Salicylates (<30) mg/dL Urine Opiates Screen None detected (None Detect) Acetaminophen mcg/mL Ur Barbiturates Screen None detected (None Detect) Ur Phencyclidine Scrn None detected (None Detect) Ur Amphetamines Screen None detected (None Detect) U Benzodiazepines Scrn None detected (None Detect) Urine Cocaine Screen None detected (None Detect) U Cannabinoids Screen None detected (None Detect) Serum Alcohol (<10) mg/dL 04/12/17 Range/Units 08:51 WBC (3.5-10.8) 10^3/ul RBC (4.0-5.4) 10^6/ul Hgb (12.0-16.0) g/dl Hct (35-47) % MCV (80-97) fL MCH (27-31) pg MCHC (31-36) g/dl RDW (10.5-15) % Plt Count (150-450) 10^3/ul MPV (7.4-10.4) um3 Neut % (Auto) (38-83) % Lymph % (Auto) (25-47) % [place] % (Auto) (1-9) % Eos % (Auto) (0-6) % Baso % (Auto) (0-2) % Absolute Neuts (auto) (1.5-7.7) 10^3/ul Absolute Lymphs (auto) (1.0-4.8) 10^3/ul Absolute Monos (auto) (0-0.8) 10^3/ul Absolute Eos (auto) (0-0.6) 10^3/ul Absolute Basos (auto) (0-0.2) 10^3/ul Absolute Nucleated RBC 10^3/ul Nucleated RBC % Sodium 137 (133-145) mmol/L Potassium 4.0 (3.5-5.0) mmol/L Chloride 108 (101-111) mmol/L Carbon Dioxide 20 L (22-32) mmol/L Anion Gap 9 (2-11) mmol/L BUN 12 (6-24) mg/dL Creatinine 0.78 (0.51-0.95) mg/dL Est GFR ( Amer) 113.9 (>60) Est GFR (Non-Af Amer) 88.6 (>60) BUN/Creatinine Ratio 15.4 (8-20) Glucose 102 H (70-100) mg/dL Calcium 9.1 (8.6-10.3) mg/dL Total Bilirubin 0.20 (0.2-1.0) mg/dL AST 25 (13-39) U/L ALT 31 (7-52) U/L Alkaline Phosphatase 74 (34-104) U/L Total Protein 6.9 (6.4-8.9) g/dL Albumin 3.8 (3.2-5.2) g/dL Globulin 3.1 (2-4) g/dL Albumin/Globulin Ratio 1.2 (1-3) TSH 5.23 (0.34-5.60) mcIU/mL Urine Color Urine Appearance Urine pH (5-9) Ur Specific [place] (1.010-1.030) Urine Protein (Negative) Urine Ketones (Negative) Urine Blood (Negative) Urine Nitrate (Negative) Urine Bilirubin (Negative) Urine Urobilinogen (Negative) Ur Leukocyte Esterase (Negative) Urine WBC (Auto) (Absent) Urine RBC (Auto) (Absent) Ur Squamous Epith Cells (Absent) Urine Bacteria (Absent) Urine Glucose (Negative) Salicylates < 2.50 (<30) mg/dL Urine Opiates Screen (None Detect) Acetaminophen < 15 mcg/mL Ur Barbiturates Screen (None Detect) Ur Phencyclidine Scrn (None Detect) Ur Amphetamines Screen (None Detect) U Benzodiazepines Scrn (None Detect) Urine Cocaine Screen (None Detect) U Cannabinoids Screen (None Detect) Serum Alcohol < 10 (<10) mg/dL Result Diagrams: 04/12/17 08:51 04/12/17 08:51 Lab Statement: Any lab studies that have been ordered have been reviewed, and results considered in the medical decision making process. Course/Dx - Course Assessment/Plan: This 26 y/o female presents to ED for SI with plan "I feel like killing myself". Plan involves cutting. Pt identifies Father's Day as trigger. PMHx includes ADHD, MR, and impulse control disorder. Pt denies any FHx of depression. Pt currently lives in long-term. All blood work WNL. He is medically cleared. He is awaiting for a MHE. Patient is hemodynamically stable and A+O x 3. Dr. Avila (Psychiatry) saw and examined the patient and clear the patient and recommends to discharge the patient home with outpatient follow up. - Differential Dx/Clinical Impression Differential Diagnosis/HQI/PQRI: Positive: Anxiety, Depression, Suicidal Ideation Provider Diagnosis: Depression, Mood disorder - Physician Notifications Patient Is Medically Stable For: Psych Evaluation - Medically cleared at 0808 AM Discharge - Discharge Plan Condition: Stable Disposition: HOME Referrals: Ethan Mcguire MD [Primary Care Provider] - The documentation as recorded by the Nabil jordan Soohyun accurately reflects the service I personally performed and the decisions made by me, Bigg Wright MD.
== END | disposition home or self-care (01) ==
LOC: ED 08:04
DX: F32.9 Major depressive disorder, single episode, unspecified (principal); R45.851 Suicidal ideations; E07.9 Disorder of thyroid, unspecified; J30.2 Other seasonal allergic rhinitis; E66.9 Obesity, unspecified
CPT/HCPCS: 36415; 80053; 80307; 80320; 80329; 81003; 81015; 84443; 85025; 87086; 99285; G0480

== ENCOUNTER 2017-04-20 20:57 | Emergency (ER) | payer MEDICARE, MEDICAID ==
[2017-04-20 21:35] LABS: Urine Bilirubin Negative (Negative); Urine Glucose Negative (Negative); Urine Nitrite Negative (Negative)
[2017-04-20 21:42] LABS: Benzodiazepine Urine Screen None Detected (None Detect)
[2017-04-20 21:44] LABS: Hematocrit 39 % (35-47); Hemoglobin 12.9 g/dl (12.0-16.0); Mean Corpuscular HGB Conc 33 g/dl (31-36); Mean Corpuscular Hemoglobin 28 pg (27-31); Mean Corpuscular Volume 86 fL (80-97); Mean Platelet Volume 9 um3 (7.4-10.4); Red Cell Distribution Width 14 % (10.5-15); White Blood Count 9.4 10^3/ul (3.5-10.8)
[2017-04-20] MEDS ORDERED: hydrOXYzine HCL TAB* 50 MG PO ONE (21:49)
[2017-04-20 21:58] LABS: ALT 24 U/L (7-52); AST 18 U/L (13-39); Albumin 3.9 g/dL (3.2-5.2); Alkaline Phosphatase 70 U/L (34-104); Anion Gap 8 mmol/L (2-11); BUN/Creatinine Ratio 16.1 (8-20); Blood Urea Nitrogen 14 mg/dL (6-24); CO2 Carbon Dioxide 19 mmol/L (22-32); Calcium 9.2 mg/dL (8.6-10.3); Chloride 108 mmol/L (101-111); EGFR African American 100.4 (>60); EGFR Non-African American 78.1 (>60); Glucose 99 mg/dL (70-100); Potassium 3.7 mmol/L (3.5-5.0); Sodium 135 mmol/L (133-145); Total Protein 6.9 g/dL (6.4-8.9)
[2017-04-20 22:10] LABS: Acetaminophen < 15 mcg/mL; Alcohol < 10 mg/dL (<10); Salicylate < 2.50 mg/dL (<30)
--- NOTE | 2017-04-21 00:04 | ED ---
Luis Fernando Kulkarni Salem, scribed for Eron Hook MD on 04/20/17 at 2122 . Psychiatric Complaint - HPI Summary HPI Summary: Patient is a 26 y/o F who presents with a psychiatric complaint. She reports SI since yesterday and states that she has a plan (with a butter knife). She states that she tried to cut her wrist with a fork. She denies trouble sleeping , loss of appetite, or hearing voices. She states that she was hospitalized 3 weeks ago at [facility]. Pt denies Tobacco, EtOH, or substance use. She is right- handed. She lives in a detention. - History Of Current Complaint Chief Complaint: EDMentalHealth Time Seen by Provider: 04/20/17 21:03 Hx Obtained From: Patient Hx Last Menstrual Period: unknown Onset/Duration: Gradual Onset, Lasting Days, Still Present Timing: Constant Severity Initially: Moderate Severity Currently: Moderate Character: Depressed Aggravating Factor(s): Nothing Alleviating Factor(s): Nothing Associated Signs And Symptoms: Positive: Negative Related History: Positive For: Prior Psychiatric Issues Has Suicidal: Reports: Thoughts - Allergies/Home Medications Allergies/Adverse Reactions: Allergies Allergy/AdvReac Type Severity Reaction Status Date / Time No Known Allergies Allergy Verified 02/03/17 10:51 Home Medications: Home Medications Hydrocortisone 1% CREAM* 1 applic TOPICAL DAILY 04/20/17 [History Confirmed ] Ketoconazole 2 % CREAM (NF) [Nizoral 2% CREAM (NF)] 1 applic TOPICAL EVERY OTHER DAY 04/20/17 [History Confirmed 04/20/17] Neutrogena T/Gel 1 applic TOPICAL EVERY OTHER DAY 04/20/17 [History Confirmed ] Triamcinolone NASAL SPRAY* [Nasacort Aq Nasal [place]*] 55 mcg INH DAILY 04/20/17 [History Confirmed 04/20/17] PMH/Surg Hx/FS Hx/Imm Hx Endocrine/Hematology History: Reports: Hx Thyroid Disease Denies: Hx Anticoagulant Therapy, Hx Diabetes Cardiovascular History: Denies: Hx Hypertension Respiratory History: Reports: Hx Seasonal Allergies Denies: Hx Asthma, Hx Chronic Obstructive Pulmonary Disease (COPD) GI History: Denies: Hx Ulcer Sensory History: Reports: Hx Contacts or Glasses Opthamlomology History: Reports: Hx Contacts or Glasses Neurological History: Reports: Hx Developmental Delay Psychiatric History: Reports: Hx Anxiety, Hx Attention Deficit Hyperactivity Disorder, Hx Depression, Hx Inpatient Treatment, Hx Community Mental Health Tx, Hx Suicide Attempt, Hx of Violent Episodes Against Others, Other Psychiatric Issues/Disorders - DEVELOPMENTALLY DELAYED Denies: Hx Eating Disorder Infectious Disease History: No Infectious Disease History: Denies: Hx Clostridium Difficile, Hx Hepatitis, Hx Human Immunodeficiency Virus (HIV), Hx of Known/Suspected MRSA, Hx Shingles, Hx Tuberculosis, Hx Known/ Suspected VRE, Hx Known/Suspected VRSA, History Other Infectious Disease, Traveled Outside the US in Last 30 Days - Family History Known Family History: Positive: None - Pt denies any FMHx. Negative: Cardiac Disease - Social History Alcohol Use: None Hx Substance Use: No Substance Use Type: Reports: None Hx Tobacco Use: No Smoking Status (MU): Never Smoked Tobacco Have You Smoked in the Last Year: No Review of Systems Constitutional: Negative Negative: Fever Positive: Depressed, Other - SI. See HPI. All Other Systems Reviewed And Are Negative: Yes Physical Exam - Summary Physical Exam Summary: The patient is well-nourished in no acute distress and in no acute pain. The skin is warm and dry and skin color reflects adequate perfusion. No evidence of cuts or scratches on extremities. HEENT: The head is normocephalic and atraumatic. The pupils are equal and reactive. The conjunctivae are clear and without drainage. Nares are patent and without drainage. Mouth reveals moist mucous membranes and the throat is without erythema and exudate. Neck is supple with full range of motion and non-tender. Respiratory: Chest is non-tender. Lungs are clear to auscultation and breath sounds are symmetrical and equal. Cardiovascular: Heart is regular rate and rhythm. There is no murmur or rub auscultated. Abdomen: The abdomen is soft, non-tender, and obese. Musculoskeletal: There is no back pain noted. Extremities are non-tender with full range of motion. Neurological: Patient is alert and oriented to person, place and time. The patient has symmetrical motor strength in all four extremities. Triage Information Reviewed: Yes Vital Signs On Initial Exam: Initial Vitals Temp Pulse Resp BP Pulse Ox 98.8 F 97 18 108/80 95 04/20/17 21:03 04/20/17 21:03 04/20/17 21:03 04/20/17 21:03 04/20/17 21:03 Vital Signs Reviewed: Yes Diagnostics - Vital Signs Vital Signs Temp Pulse Resp BP Pulse Ox 04/20/17 21:03 98.8 F 97 18 108/80 95 - Laboratory Lab Results: Lab Results 04/20/17 04/20/17 04/20/17 Range/Units 21:20 21:20 21:35 WBC 9.4 (3.5-10.8) 10^3/ul RBC 4.60 (4.0-5.4) 10^6/ul Hgb 12.9 (12.0-16.0) g/dl Hct 39 (35-47) % MCV 86 (80-97) fL MCH 28 (27-31) pg MCHC 33 (31-36) g/dl RDW 14 (10.5-15) % Plt Count 245 (150-450) 10^3/ul MPV 9 (7.4-10.4) um3 Neut % (Auto) 69.6 (38-83) % Lymph % (Auto) 21.9 L (25-47) % [place] % (Auto) 6.2 (1-9) % Eos % (Auto) 1.6 (0-6) % Baso % (Auto) 0.7 (0-2) % Absolute Neuts (auto) 6.6 (1.5-7.7) 10^3/ul Absolute Lymphs (auto) 2.1 (1.0-4.8) 10^3/ul Absolute Monos (auto) 0.6 (0-0.8) 10^3/ul Absolute Eos (auto) 0.1 (0-0.6) 10^3/ul Absolute Basos (auto) 0.1 (0-0.2) 10^3/ul Absolute Nucleated RBC 0.01 10^3/ul Nucleated RBC % 0.1 Sodium (133-145) mmol/L Potassium (3.5-5.0) mmol/L Chloride (101-111) mmol/L Carbon Dioxide (22-32) mmol/L Anion Gap (2-11) mmol/L BUN (6-24) mg/dL Creatinine (0.51-0.95) mg/dL Est GFR ( Amer) (>60) Est GFR (Non-Af Amer) (>60) BUN/Creatinine Ratio (8-20) Glucose (70-100) mg/dL Calcium (8.6-10.3) mg/dL Total Bilirubin (0.2-1.0) mg/dL AST (13-39) U/L ALT (7-52) U/L Alkaline Phosphatase (34-104) U/L Total Protein (6.4-8.9) g/dL Albumin (3.2-5.2) g/dL Globulin (2-4) g/dL Albumin/Globulin Ratio (1-3) TSH (0.34-5.60) mcIU/mL Urine Color Straw Urine Appearance Clear Urine pH 7.0 (5-9) Ur Specific [place] 1.005 L (1.010-1.030) Urine Protein Negative (Negative) Urine Ketones Negative (Negative) Urine Blood Negative (Negative) Urine Nitrate Negative (Negative) Urine Bilirubin Negative (Negative) Urine Urobilinogen Negative (Negative) Ur Leukocyte Esterase Negative (Negative) Urine Glucose Negative (Negative) Salicylates (<30) mg/dL Urine Opiates Screen None detected (None Detect) Acetaminophen mcg/mL Ur Barbiturates Screen None detected (None Detect) Valproic Acid (50-100) mcg/mL Ur Phencyclidine Scrn None detected (None Detect) Ur Amphetamines Screen None detected (None Detect) U Benzodiazepines Scrn None detected (None Detect) Urine Cocaine Screen None detected (None Detect) U Cannabinoids Screen None detected (None Detect) Serum Alcohol (<10) mg/dL 04/20/17 Range/Units 21:35 WBC (3.5-10.8) 10^3/ul RBC (4.0-5.4) 10^6/ul Hgb (12.0-16.0) g/dl Hct (35-47) % MCV (80-97) fL MCH (27-31) pg MCHC (31-36) g/dl RDW (10.5-15) % Plt Count (150-450) 10^3/ul MPV (7.4-10.4) um3 Neut % (Auto) (38-83) % Lymph % (Auto) (25-47) % [place] % (Auto) (1-9) % Eos % (Auto) (0-6) % Baso % (Auto) (0-2) % Absolute Neuts (auto) (1.5-7.7) 10^3/ul Absolute Lymphs (auto) (1.0-4.8) 10^3/ul Absolute Monos (auto) (0-0.8) 10^3/ul Absolute Eos (auto) (0-0.6) 10^3/ul Absolute Basos (auto) (0-0.2) 10^3/ul Absolute Nucleated RBC 10^3/ul Nucleated RBC % Sodium 135 (133-145) mmol/L Potassium 3.7 (3.5-5.0) mmol/L Chloride 108 (101-111) mmol/L Carbon Dioxide 19 L (22-32) mmol/L Anion Gap 8 (2-11) mmol/L BUN 14 (6-24) mg/dL Creatinine 0.87 (0.51-0.95) mg/dL Est GFR ( Amer) 100.4 (>60) Est GFR (Non-Af Amer) 78.1 (>60) BUN/Creatinine Ratio 16.1 (8-20) Glucose 99 (70-100) mg/dL Calcium 9.2 (8.6-10.3) mg/dL Total Bilirubin 0.30 (0.2-1.0) mg/dL AST 18 (13-39) U/L ALT 24 (7-52) U/L Alkaline Phosphatase 70 (34-104) U/L Total Protein 6.9 (6.4-8.9) g/dL Albumin 3.9 (3.2-5.2) g/dL Globulin 3.0 (2-4) g/dL Albumin/Globulin Ratio 1.3 (1-3) TSH 5.90 H (0.34-5.60) mcIU/mL Urine Color Urine Appearance Urine pH (5-9) Ur Specific [place] (1.010-1.030) Urine Protein (Negative) Urine Ketones (Negative) Urine Blood (Negative) Urine Nitrate (Negative) Urine Bilirubin (Negative) Urine Urobilinogen (Negative) Ur Leukocyte Esterase (Negative) Urine Glucose (Negative) Salicylates < 2.50 (<30) mg/dL Urine Opiates Screen (None Detect) Acetaminophen < 15 mcg/mL Ur Barbiturates Screen (None Detect) Valproic Acid 80.0 (50-100) mcg/mL Ur Phencyclidine Scrn (None Detect) Ur Amphetamines Screen (None Detect) U Benzodiazepines Scrn (None Detect) Urine Cocaine Screen (None Detect) U Cannabinoids Screen (None Detect) Serum Alcohol < 10 (<10) mg/dL Result Diagrams: 04/20/17 21:35 04/20/17 21:35 Lab Statement: Any lab studies that have been ordered have been reviewed, and results considered in the medical decision making process. Re-Evaluation - Re-Evaluation First Eval Re-Evaluation Time: 21:48 Comment: Pt is requesting something for anxiety. She receives Atarax at the detention. Course/Dx - Course Course Of Treatment: 26 y/o F presents with SI and plan consists of using a butter knife. She denies Tobacco, EtOH, or substance use. Pt received Atarax for anxiety in ED course. She is medically cleared at 2120. Pt pending mental health evaluation. - Differential Dx/Clinical Impression Differential Diagnosis/HQI/PQRI: Positive: Depression, Suicidal Ideation, Suicidal Gesture Provider Diagnosis: Suicidal ideation, Depression Discharge - Discharge Plan Condition: Stable Disposition: OTHER Discharge Disposition Comment: Pt signed out at shift change. Pending mental health evaluation. Referrals: Ethan Mcguire MD [Primary Care Provider] - The documentation as recorded by the Luis Fernando jordan Salem accurately reflects the service I personally performed and the decisions made by me, Eorn Hook MD.
[2017-04-21] MEDS ORDERED: chlorproMAZINE TAB* 50 MG PO PRN (00:54)
[2017-04-21] MEDS ORDERED: diPHENhydraMINE PO* 50 MG PO PRN (00:55)
[2017-04-21] MEDS ORDERED: Divalproex ER TAB(*) 500 MG ONE (00:58)
[2017-04-21] MEDS ORDERED: Divalproex ER TAB(*) 500 MG PO ONE (01:00)
[2017-04-21] MEDS ORDERED: Divalproex DR TAB(*) 500 MG PO ONE (01:00)
[2017-04-21 07:45] VITALS: BP 124/86
== END 2017-04-21 09:30 ==
LOC: ED 20:57
DX: F32.9 Major depressive disorder, single episode, unspecified (principal); R45.851 Suicidal ideations
CPT/HCPCS: 36415; 80053; 80164; 80307; 80320; 80329; 81003; 84443; 85025; 99285; A9270-GY; G0480

== ENCOUNTER → 2017-04-30 12:25 | Emergency (ER) | payer MEDICARE, MEDICAID ==
[2017-04-30 12:59] VITALS: BP 111/74
[2017-04-30 13:45] LABS: Urine Bilirubin Negative (Negative); Urine Glucose Negative (Negative); Urine Nitrite Negative (Negative)
[2017-04-30 13:53] LABS: Benzodiazepine Urine Screen None Detected (None Detect)
--- NOTE | 2017-04-30 17:31 | ED ---
Rohit Kulkarni SooYoung, scribed for Holly Serrano MD on 04/30/17 at 1403 . Psychiatric Complaint - HPI Summary HPI Summary: A 26 y/o F presents to ED BIBA with c/o SI with gesture onset THERAPIST'S ASSISTANT. Pt found a knife in an unlocked closet and used it to cut her wrists. Per [facility] nurse, pt said she wanted to be with her two brothers, who both passed a few years ago from an accident. Associated sx: angry, mild abd pain. Denies sore throat, BAILEY, fever, rash, dysuria. Pt denies physical complaints. Nml BM today. Pain rated as 4 out of 10 at bedside. Pt denies SI at bedside. Pt states she wants to go home. [facility]: unknown, a few months ago per [facility] nurse. She denies being sexually active. - History Of Current Complaint Chief Complaint: EDMentalHealth Time Seen by Provider: 04/30/17 13:00 Hx Obtained From: Patient, Family/Beer Brewer - Naun nurse from [facility] Hx Last Menstrual Period: unknown Onset/Duration: Sudden Onset, Lasting Hours, Still Present, Resolved - SI denied at bedside Severity Initially: Moderate Severity Currently: Moderate Character: Depressed, Angry Aggravating Factor(s): Nothing Alleviating Factor(s): Nothing Associated Signs And Symptoms: Positive: Hostile - per [facility] nurse Has Suicidal: Reports: Thoughts, Demonstrates Gesture Has Homicidal: Denies: Thoughts - Risk Factor(s) Completed Suicide Risk Factors: Past Suicide Attempt - Allergies/Home Medications Allergies/Adverse Reactions: Allergies Allergy/AdvReac Type Severity Reaction Status Date / Time No Known Allergies Allergy Verified 02/03/17 10:51 PMH/Surg Hx/FS Hx/Imm Hx Previously Healthy: No Endocrine/Hematology History: Reports: Hx Thyroid Disease Denies: Hx Anticoagulant Therapy, Hx Diabetes Cardiovascular History: Denies: Hx Hypertension Respiratory History: Reports: Hx Seasonal Allergies Denies: Hx Asthma, Hx Chronic Obstructive Pulmonary Disease (COPD) GI History: Denies: Hx Ulcer Sensory History: Reports: Hx Contacts or Glasses Opthamlomology History: Reports: Hx Contacts or Glasses Neurological History: Reports: Hx Developmental Delay Psychiatric History: Reports: Hx Anxiety, Hx Attention Deficit Hyperactivity Disorder, Hx Depression, Hx Inpatient Treatment, Hx Community Mental Health Tx, Hx Suicide Attempt, Hx of Violent Episodes Against Others, Other Psychiatric Issues/Disorders - DEVELOPMENTALLY DELAYED Denies: Hx Eating Disorder Infectious Disease History: No Infectious Disease History: Denies: Hx Clostridium Difficile, Hx Hepatitis, Hx Human Immunodeficiency Virus (HIV), Hx of Known/Suspected MRSA, Hx Shingles, Hx Tuberculosis, Hx Known/ Suspected VRE, Hx Known/Suspected VRSA, History Other Infectious Disease, Traveled Outside the [place] in Last 30 Days - Family History Known Family History: Negative: Cardiac Disease - Social History Occupation: Disabled Lives: [employer] Alcohol Use: None Hx Substance Use: No Substance Use Type: Reports: None Hx Tobacco Use: No Smoking Status (MU): Never Smoked Tobacco Have You Smoked in the Last Year: No Review of Systems Constitutional: Negative Eyes: Negative ENT: Negative Cardiovascular: Negative Respiratory: Negative Positive: Abdominal Pain Musculoskeletal: Negative Skin: Negative Neurological: Negative Psychological: Other - pos: SI with gesture Positive: Other - pos: angry per [facility] nurse All Other Systems Reviewed And Are Negative: Yes Physical Exam Triage Information Reviewed: Yes Vital Signs On Initial Exam: Initial Vitals Temp Pulse Resp BP Pulse Ox 98.0 F 86 15 111/74 98 04/30/17 12:51 04/30/17 12:51 04/30/17 12:51 04/30/17 12:51 04/30/17 12:51 Vital Signs Reviewed: Yes Appearance: Positive: Well-Appearing, No Pain Distress Skin: Positive: Warm, Skin Color Reflects Adequate Perfusion, Other - L wrist ventral surface 2cm superficial lac, bleeding controlled. Head/Face: Positive: Normal Head/Face Inspection Eyes: Positive: Conjunctiva Clear ENT: Positive: Normal ENT inspection Neck: Positive: Supple Respiratory/Lung Sounds: Positive: Clear to Auscultation, Breath Sounds Present Cardiovascular: Positive: RRR, Pulses are Symmetrical in both Upper and Lower Extremities. Negative: Murmur Abdomen Description: Positive: Soft, Other: - mild abd pain above umbilicus Bowel Sounds: Positive: Present Musculoskeletal: Positive: Strength/ROM Intact Neurological: Positive: Sensory/Motor Intact, Alert, Oriented to Person Place, Time. Negative: Facial Droop, Focal Deficit @, Slurred Speech Psychiatric: Positive: Normal Diagnostics - Vital Signs Vital Signs Temp Pulse Resp BP Pulse Ox 04/30/17 12:51 98.0 F 86 15 111/74 98 - Laboratory Lab Results: Lab Results 04/30/17 Range/Units 13:30 Urine Color Straw Urine Appearance Clear Urine pH 6.0 (5-9) Ur Specific [place] 1.005 L (1.010-1.030) Urine Protein Negative (Negative) Urine Ketones Negative (Negative) Urine Blood Negative (Negative) Urine Nitrate Negative (Negative) Urine Bilirubin Negative (Negative) Urine Urobilinogen Negative (Negative) Ur Leukocyte Esterase Negative (Negative) Urine Glucose Negative (Negative) Lab Statement: Any lab studies that have been ordered have been reviewed, and results considered in the medical decision making process. Course/Dx - Course Course Of Treatment: Pt is a 26 y/o F presenting with SI with gesture onset THERAPIST'S ASSISTANT. Pt found a knife in an unlocked closet and used it to cut her wrists. Per [facility] nurse, pt said she wanted to be with her two brothers, who both passed a few years ago from an accident. Associated sx: angry, mild abd pain. Pt denies other physical complaints. Pain rated as 4/10 at bedside. Denies SI at bedside. Pt states she wants to go home. [facility]: unknown, a few months ago per [facility] nurse. She denies being sexually active. Pt is medically cleared at 1403 for [facility]. Per [facility], pt will be D/C home. - Differential Dx/Clinical Impression Differential Diagnosis/HQI/PQRI: Positive: Acute Psychosis, Bipolar Disorder, Depression, Suicidal Ideation, Suicidal Gesture Provider Diagnosis: Suicide and self-inflicted injury Discharge - Discharge Plan Condition: Stable Disposition: HOME Referrals: Ethan Mcgiure MD [Primary Care Provider] - The documentation as recorded by the Rohit jordan SooYoung accurately reflects the service I personally performed and the decisions made by me, Holly Serrano MD.
== END | disposition home or self-care (01) ==
LOC: ED 12:25
DX: S61.519A Laceration without foreign body of unspecified wrist, initial encounter (principal); T14.91 Suicide attempt; X78.1XXA Intentional self-harm by knife, initial encounter; Y93.9 Activity, unspecified; Y92.89 Other specified places as the place of occurrence of the external cause
CPT/HCPCS: 36415; 80307; 81003; 99283

== ENCOUNTER → 2017-05-01 06:19 | Emergency (ER) | payer MEDICARE, MEDICAID ==
[2017-05-01 06:25] VITALS: BP 115/75
[2017-05-01 06:50] LABS: Urine Bilirubin Negative (Negative); Urine Glucose Negative (Negative); Urine Nitrite Negative (Negative)
[2017-05-01 07:18] LABS: Hematocrit 40 % (35-47); Hemoglobin 13.2 g/dl (12.0-16.0); Mean Corpuscular HGB Conc 33 g/dl (31-36); Mean Corpuscular Hemoglobin 28 pg (27-31); Mean Corpuscular Volume 86 fL (80-97); Mean Platelet Volume 9 um3 (7.4-10.4); Red Blood Count 4.65 10^6/ul (4.0-5.4); Red Cell Distribution Width 15 % (10.5-15); White Blood Count 7.3 10^3/ul (3.5-10.8)
[2017-05-01 07:23] LABS: Benzodiazepine Urine Screen None Detected (None Detect)
[2017-05-01 07:28] LABS: ALT 28 U/L (7-52); AST 22 U/L (13-39); Albumin 3.9 g/dL (3.2-5.2); Alkaline Phosphatase 66 U/L (34-104); Anion Gap 8 mmol/L (2-11); BUN/Creatinine Ratio 14.8 (8-20); Blood Urea Nitrogen 12 mg/dL (6-24); CO2 Carbon Dioxide 21 mmol/L (22-32); Calcium 9.3 mg/dL (8.6-10.3); Chloride 107 mmol/L (101-111); EGFR African American 109.1 (>60); EGFR Non-African American 84.8 (>60); Globulin 3.1 g/dL (2-4); Glucose 84 mg/dL (70-100); Sodium 136 mmol/L (133-145)
[2017-05-01 08:11] LABS: Acetaminophen < 15 mcg/mL; Alcohol < 10 mg/dL (<10); Salicylate < 2.50 mg/dL (<30)
[2017-05-01 08:21] LABS: TSH (Thyroid Stimulating Horm) 4.08 mcIU/mL (0.34-5.60)
--- NOTE | 2017-05-01 15:38 | ED ---
Tori Kulkarni Edward, scribed for Eron Hook MD on 05/01/17 at 0736 . Psychiatric Complaint - HPI Summary HPI Summary: 26 y/o female presents to ED SI starting yesterday. Patient cut her L arm yesterday with a knife, but denies any pain or weakness in the L arm. Denies issues with sleep, changes in appetite, hallucinations any cuts anywhere else. Also attempted to use forks and cut glass. No EtOH, tobacco or drug use. PMHx depression, anxiety, and SI. - History Of Current Complaint Chief Complaint: EDMentalHealth Time Seen by Provider: 05/01/17 07:25 Hx Obtained From: Patient Hx Last Menstrual Period: unknown Onset/Duration: Lasting Days - Since yesterday Timing: Constant Character: Depressed Related History: Positive For: Prior Psychiatric Issues - Depression, anxiety, suicide attempt Has Suicidal: Reports: Thoughts, Demonstrates Gesture - Cut arm with a knife yesterday, Has Prior Attempt(s) - Allergies/Home Medications Allergies/Adverse Reactions: Allergies Allergy/AdvReac Type Severity Reaction Status Date / Time No Known Allergies Allergy Verified 05/01/17 06:22 PMH/Surg Hx/FS Hx/Imm Hx Previously Healthy: No Endocrine/Hematology History: Reports: Hx Thyroid Disease Denies: Hx Anticoagulant Therapy, Hx Diabetes Cardiovascular History: Denies: Hx Hypertension Respiratory History: Reports: Hx Seasonal Allergies Denies: Hx Asthma, Hx Chronic Obstructive Pulmonary Disease (COPD) GI History: Denies: Hx Ulcer Sensory History: Reports: Hx Contacts or Glasses Opthamlomology History: Reports: Hx Contacts or Glasses Neurological History: Reports: Hx Developmental Delay Psychiatric History: Reports: Hx Anxiety, Hx Attention Deficit Hyperactivity Disorder, Hx Depression, Hx Inpatient Treatment, Hx Community Mental Health Tx, Hx Suicide Attempt, Hx of Violent Episodes Against Others, Other Psychiatric Issues/Disorders - DEVELOPMENTALLY DELAYED Denies: Hx Eating Disorder Infectious Disease History: No Infectious Disease History: Denies: Hx Clostridium Difficile, Hx Hepatitis, Hx Human Immunodeficiency Virus (HIV), Hx of Known/Suspected MRSA, Hx Shingles, Hx Tuberculosis, Hx Known/ Suspected VRE, Hx Known/Suspected VRSA, History Other Infectious Disease, Traveled Outside the [place] in Last 30 Days - Family History Known Family History: Negative: Cardiac Disease - Social History Alcohol Use: None Hx Substance Use: No Substance Use Type: Reports: None Hx Tobacco Use: No Smoking Status (MU): Never Smoked Tobacco Have You Smoked in the Last Year: No Review of Systems Constitutional: Negative Eyes: Negative ENT: Negative Cardiovascular: Negative Respiratory: Negative Gastrointestinal: Negative Genitourinary: Negative Musculoskeletal: Negative Skin: Negative Neurological: Negative Positive: Depressed All Other Systems Reviewed And Are Negative: Yes Physical Exam - Summary Physical Exam Summary: The patient is well-nourished in no acute distress and in no acute pain. Skin: The skin is warm and dry and skin color reflects adequate perfusion. There is a superficial laceration on the dorsal aspect of the L forearm; distal neurovascular intact. HEENT: The head is normocephalic and atraumatic. The pupils are equal and reactive. The conjunctivae are clear and without drainage. Nares are patent and without drainage. Mouth reveals moist mucous membranes and the throat is without erythema and exudate. The external ears are intact. The ear canals are patent and without drainage. The tympanic membranes are intact. Neck is supple with full range of motion and non-tender. There are no carotid bruits. There is no neck vein distension. Respiratory: Chest is non-tender. Lungs are clear to auscultation and breath sounds are symmetrical and equal. Cardiovascular: Hear is regular rate and rhythm. There is no murmur or rub auscultated. There is no peripheral edema and pulses are symmetrical and equal. Abdomen: The abdomen is soft and non-tender. There are normal bowel sounds heard in all four quadrants and there is no organomegaly palpated. Musculoskeletal: There is no back pain noted. Extremities are non-tender with full range of motion. There is good capillary refill. There is no peripheral edema or calf tenderness elicited. Neurological: Patient is alert and oriented to person, place and time. The patient has symmetrical motor strength in all four extremities. Cranial nerves are grossly intact. Deep tendon reflexes are symmetrical and equal in all four extremities. Psychiatric: The patient has an appropriate affect and does not exhibit any anxiety or depression. Triage Information Reviewed: Yes Vital Signs On Initial Exam: Initial Vitals Temp Pulse Resp BP Pulse Ox 96.8 F 93 18 115/75 98 05/01/17 06:22 05/01/17 06:22 05/01/17 06:22 05/01/17 06:22 05/01/17 06:22 Vital Signs Reviewed: Yes Diagnostics - Vital Signs Vital Signs Temp Pulse Resp BP Pulse Ox 05/01/17 06:22 96.8 F 93 18 115/75 98 - Laboratory Lab Results: Lab Results 05/01/17 05/01/17 05/01/17 Range/Units 06:41 06:41 07:06 WBC 7.3 (3.5-10.8) 10^3/ul RBC 4.65 (4.0-5.4) 10^6/ul Hgb 13.2 (12.0-16.0) g/dl Hct 40 (35-47) % MCV 86 (80-97) fL MCH 28 (27-31) pg MCHC 33 (31-36) g/dl RDW 15 (10.5-15) % Plt Count 186 (150-450) 10^3/ul MPV 9 (7.4-10.4) um3 Neut % (Auto) 68.0 (38-83) % Lymph % (Auto) 22.6 L (25-47) % [place] % (Auto) 7.0 (1-9) % Eos % (Auto) 1.7 (0-6) % Baso % (Auto) 0.7 (0-2) % Absolute Neuts (auto) 5.0 (1.5-7.7) 10^3/ul Absolute Lymphs (auto) 1.7 (1.0-4.8) 10^3/ul Absolute Monos (auto) 0.5 (0-0.8) 10^3/ul Absolute Eos (auto) 0.1 (0-0.6) 10^3/ul Absolute Basos (auto) 0.1 (0-0.2) 10^3/ul Absolute Nucleated RBC 0.01 10^3/ul Nucleated RBC % 0.1 Urine Color Straw Urine Appearance Clear Urine pH 6.0 (5-9) Ur Specific [place] 1.005 L (1.010-1.030) Urine Protein Negative (Negative) Urine Ketones Negative (Negative) Urine Blood Negative (Negative) Urine Nitrate Negative (Negative) Urine Bilirubin Negative (Negative) Urine Urobilinogen Negative (Negative) Ur Leukocyte Esterase Negative (Negative) Urine Glucose Negative (Negative) Urine Opiates Screen None detected (None Detect) Ur Barbiturates Screen None detected (None Detect) Ur Phencyclidine Scrn None detected (None Detect) Ur Amphetamines Screen None detected (None Detect) U Benzodiazepines Scrn None detected (None Detect) Urine Cocaine Screen None detected (None Detect) U Cannabinoids Screen None detected (None Detect) Result Diagrams: 05/01/17 07:06 05/01/17 07:06 Lab Statement: Any lab studies that have been ordered have been reviewed, and results considered in the medical decision making process. Course/Dx - Course Assessment/Plan: Patient was medically cleared for U evaluation @ 09:[address] Eron Hook. Dx depression per last repairer. - Differential Dx/Clinical Impression Differential Diagnosis/HQI/PQRI: Positive: Depression, Suicidal Ideation, Suicidal Gesture Provider Diagnosis: Depressed Discharge - Discharge Plan Condition: Stable Disposition: HOME Patient Education Materials: Depression (ED) Referrals: Ethan Mcguire MD [Primary Care Provider] - 3 Days (Please follow up in 2-3 days.) The documentation as recorded by the Tori jordan Edward accurately reflects the service I personally performed and the decisions made by Miladys robles Drew, MD.
== END | disposition home or self-care (01) ==
LOC: ED 06:19
DX: F32.9 Major depressive disorder, single episode, unspecified (principal)
CPT/HCPCS: 36415; 80053; 80164; 80201; 80307; 80320; 80329; 81003; 84443; 85025; 99284; G0480

== ENCOUNTER 2017-05-07 21:10 | Emergency (ER) | payer MEDICARE, MEDICAID ==
[2017-05-07] MEDS ORDERED: Naproxen TAB* 250 MG PO ONE (23:39)
--- NOTE | 2017-05-07 23:53 | ED ---
Upper Extremity Pain - HPI Summary HPI Summary: 26 female presents with complaints of left wrist pain after punching a garage door on purpose this morning around 11:30am 05/07/17. Patient states she was angry. Denies any other injuries. States the pain is on the back of her hand, thumb and wrist. Admits to swelling and bruising. Was seen at her primary care office who told her to get an x-ray. Patient stated the pain was so bad that she wanted to get an x-ray tonight and is the reason she came to the ED. Took ibuprofen 400mg around 7pm with some relief. Has been wrapping it with an thong bandage. Denies numbness/tingling. - History of Current Complaint Chief Complaint: EDExtremityUpper Stated Complaint: LT WRIST PAIN Time Seen by Provider: 05/07/17 22:27 Hx Obtained From: Patient Hx Last Menstrual Period: unknown Mechanism Of Injury: Blunt Trauma - punched a garage door Onset/Duration: Started Hours Ago, Traumatic, Still Present, Worse Since Timing: Constant Severity Initially: Moderate Severity Currently: Moderate Pain Location: Hand - left Character: Aching Aggravating Factor(s): Movement Alleviating Factor(s): Rest, Compression Associated Signs & Symptoms: Positive: Swelling, Bruising - Allergies/Home Medications Allergies/Adverse Reactions: Allergies Allergy/AdvReac Type Severity Reaction Status Date / Time No Known Allergies Allergy Verified 05/07/17 21:17 PMH/Surg Hx/FS Hx/Imm Hx Endocrine/Hematology History: Reports: Hx Thyroid Disease Denies: Hx Anticoagulant Therapy, Hx Diabetes Cardiovascular History: Denies: Hx Hypertension Respiratory History: Reports: Hx Seasonal Allergies Denies: Hx Asthma, Hx Chronic Obstructive Pulmonary Disease (COPD) GI History: Denies: Hx Ulcer Sensory History: Reports: Hx Contacts or Glasses Opthamlomology History: Reports: Hx Contacts or Glasses Neurological History: Reports: Hx Developmental Delay Psychiatric History: Reports: Hx Anxiety, Hx Attention Deficit Hyperactivity Disorder, Hx Depression, Hx Inpatient Treatment, Hx Community Mental Health Tx, Hx Suicide Attempt, Hx of Violent Episodes Against Others, Other Psychiatric Issues/Disorders - DEVELOPMENTALLY DELAYED Denies: Hx Eating Disorder - Surgical History Surgery Procedure, Year, and Place: none - Immunization History Immunizations Up to Date: Yes Infectious Disease History: No Infectious Disease History: Denies: Hx Clostridium Difficile, Hx Hepatitis, Hx Human Immunodeficiency Virus (HIV), Hx of Known/Suspected MRSA, Hx Shingles, Hx Tuberculosis, Hx Known/ Suspected VRE, Hx Known/Suspected VRSA, History Other Infectious Disease, Traveled Outside the [place] in Last 30 Days - Family History Known Family History: Positive: None - Pt denies any FMHx. Negative: Cardiac Disease - Social History Alcohol Use: None Hx Substance Use: No Substance Use Type: Reports: None Hx Tobacco Use: No Smoking Status (MU): Never Smoked Tobacco Have You Smoked in the Last Year: No Review of Systems Constitutional: Negative Cardiovascular: Negative Respiratory: Negative Positive: Arthralgia, Myalgia, Decreased ROM, Edema - left hand/ wrist Positive: Bruising - hand Neurological: Negative All Other Systems Reviewed And Are Negative: Yes Physical Exam Triage Information Reviewed: Yes Vital Signs On Initial Exam: Initial Vitals Temp Pulse Resp BP Pulse Ox 96.5 F 88 16 111/78 98 05/07/17 21:10 05/07/17 21:10 05/07/17 21:10 05/07/17 21:10 05/07/17 21:10 Vital Signs Reviewed: Yes Appearance: Positive: Well-Appearing, Well-Nourished, Pain Distress - mild when moving or touching left hand/wrist Skin: Positive: Warm, Skin Color Reflects Adequate Perfusion, Dry. Negative: Numb, Tender, Cyanosis @, Erythema @ Head/Face: Positive: Normal Head/Face Inspection Eyes: Positive: Normal, Conjunctiva Clear ENT: Positive: Hearing grossly normal Neck: Positive: Supple, Nontender Respiratory/Lung Sounds: Positive: Clear to Auscultation, Breath Sounds Present. Negative: Rales, Rhonchi, Wheezes Cardiovascular: Positive: Normal, RRR, Pulses are Symmetrical in both Upper and Lower Extremities - 2+ radial b/l. Negative: Murmur, Rub Musculoskeletal: Positive: Strength/ROM Intact - of fingers and wrist, Limited @ - left hand and wrist due to pain, Pain @ - dorsal left hand due on palpation and with movement,, Edema Left - posterior hand when compared to right, mild little ecchymosis also noted, Other - no crepitus, step off, or obvious deformity noted. edema of left dorsal hand noted.. Negative: Interruption @ Neurological: Positive: Normal, Sensory/Motor Intact - sensation intact, Alert, Oriented to Person Place, Time, CN Intact II-III, Reflexes Intact, NV Bundle Intact Distally, Normal Gait Diagnostics - Vital Signs Vital Signs Temp Pulse Resp BP Pulse Ox 05/07/17 22:40 96.5 F 88 16 111/78 98 05/07/17 21:10 96.5 F 88 16 111/78 98 - Laboratory Lab Statement: Any lab studies that have been ordered have been reviewed, and results considered in the medical decision making process. - Radiology left wrist Xray Interpretation: No Acute Changes Radiology Interpretation Completed By: ED Physician - Dr Jimenez left hand Xray Interpretation: No Acute Changes Radiology Interpretation Completed By: ED Physician - Dr Jimenez Course/Dx - Course Course Of Treatment: give naproxen for pain and inflammation. x-ray of left wrist and hand obtained and negative at this time. Thong wrap, RICE and NSAIDs. Follow up with PCP. Aware of worsening signs and symptoms to watch out for. - Diagnoses Differential Diagnosis/HQI/PQRI: Positive: Fracture (Closed), Hematoma, Strain, Sprain Provider Diagnoses: Contusion of left hand, Sprain of hand, left Discharge - Discharge Plan Condition: Stable Disposition: HOME Patient Education Materials: Hand Sprain (ED), Contusion in Adults (ED) Referrals: Ethan Mcguire MD [Primary Care Provider] - Additional Instructions: Continue icing, resting, elevation and thong wrap for the next week, while symptoms persist. Continue taking ibuprofen or naproxen for pain and inflammation, with food, for the next 3-5 days. If symptoms persist or do not improve within the next week please seek medical attention and possibly make an appointment with orthopedics. Follow up with PCP.
[2017-05-08 01:22] VITALS: BP 119/69
--- NOTE | 2017-05-08 08:03 | RAD ---
HISTORY: Left], injury COMPARISONS: October 23, 2013 VIEWS: 4, Frontal, lateral, and oblique views of the left hand FINDINGS: BONE DENSITY: Normal. BONES: There is no displaced fracture. JOINTS: There is no arthropathy. ALIGNMENT: There is no dislocation. SOFT TISSUES: Unremarkable. OTHER FINDINGS: None. IMPRESSION: NO ACUTE OSSEOUS INJURY. IF SYMPTOMS PERSIST, RECOMMEND REPEAT IMAGING.
--- NOTE | 2017-05-08 08:03 | RAD ---
HISTORY: Pain, injury, left wrist COMPARISONS: None VIEWS: 3, Frontal, lateral, and oblique views of the left wrist FINDINGS: BONE DENSITY: Normal. BONES: There is no displaced fracture. JOINTS: There is no arthropathy. ALIGNMENT: There is no dislocation. SOFT TISSUES: Unremarkable. OTHER FINDINGS: None. IMPRESSION: NO ACUTE OSSEOUS INJURY. IF SYMPTOMS PERSIST, RECOMMEND REPEAT IMAGING.
== END 2017-05-08 01:22 | disposition home or self-care (01) ==
LOC: ED 21:10
DX: S60.222A Contusion of left hand, initial encounter (principal); S63.92XA Sprain of unspecified part of left wrist and hand, initial encounter; M25.532 Pain in left wrist; W22.8XXA Striking against or struck by other objects, initial encounter; Y93.89 Activity, other specified; Y92.89 Other specified places as the place of occurrence of the external cause
CPT/HCPCS: 99281; A9270-GY

== ENCOUNTER 2017-06-01 13:07 | Emergency (ER) | payer MEDICARE, MEDICAID ==
[2017-06-01] MEDS ORDERED: Acetaminophen TAB* 325 MG PO ONE (15:29)
--- NOTE | 2017-06-01 15:34 | UC ---
Jason Kulkarni Benjamin, scribed for Silva Scott MD on 06/01/17 at 1530 . Hand/Wrist HPI - HPI Summary HPI Summary: 26yo female sprained left wrist last week playing basketball. Then yesterday, pt played basketball with her existing wrist injury without her brace when pt injured her left wrist again. Pain has gotten worse after her second sprain. 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 Pt reports pain through her left wrist and 2nd and 3rd fingers but denies any elbow or shoulder pain. Pt denies any fall episode. Pt RHD. Hx of right hand fx, thyroid disorder, and mood disorder. Reviewed pts medication and allergy lists. - History Of Current Complaint Chief Complaint: UCUpperExtremity Stated Complaint: WRIST RE-INJURY Hx Obtained From: Patient Hx Last Menstrual Period: now Onset/Duration: Sudden Onset - 1 week, Still Present, Worse Since - yesterday Severity Initially: Moderate Severity Currently: Severe Pain Intensity: 10 Pain Scale Used: 0-10 Numeric Character Of Pain: Aching Aggravating Factor(s): Movement Alleviating: Ice, OTC Meds - tylenol Associated Signs And Symptoms: Positive: Swelling Related History: Dominant Hand Right - Allergies/Home Medications Allergies/Adverse Reactions: Allergies Allergy/AdvReac Type Severity Reaction Status Date / Time No Known Allergies Allergy Verified 06/01/17 14:02 Home Medications: Home Medications ARIPiprazole TAB* [Abilify TAB*] 15 mg PO DAILY 06/01/17 [History Confirmed 05/11] Norgestimate-Eth Estradiol(NF) [Ortho Tri-Cyclen (NF)] 1 tab PO DAILY 06/01/17 [ History Confirmed 06/01/17] Psyllium IRIS* [Metamucil IRIS*] 1 pkt PO DAILY 06/01/17 [History Confirmed ] PMH/Surg Hx/FS Hx/Imm Hx Previously Healthy: Yes Endocrine History: Thyroid Disease Psychological History: Other - mood disorder; ADHD; development delay Other Psychological History: mood d/o Other History Of: Negative For: Anticoagulant Therapy - Surgical History Surgical History: None Surgery Procedure, Year, and Place: none - Family History Known Family History: Positive: None - Pt denies any FMHx. Negative: Cardiac Disease, Hypertension - Social History Occupation: Disabled Lives: Alone Alcohol Use: None Substance Use Type: None Smoking Status (MU): Never Smoked Tobacco Have You Smoked in the Last Year: No - Immunization History Most Recent Influenza Vaccination: 2016 Most Recent Tetanus Shot: unknown Most Recent Pneumonia Vaccination: never Review of Systems Constitutional: Negative Skin: Negative Eyes: Negative ENT: Negative Respiratory: Negative Cardiovascular: Negative Gastrointestinal: Negative Genitourinary: Negative Motor: Negative Neurovascular: Negative Musculoskeletal: Arthralgia - left wrist, Decreased ROM - left wrist, due to pain, Edema - left wrist Neurological: Negative Psychological: Negative All Other Systems Reviewed And Are Negative: Yes Physical Exam Triage Information Reviewed: Yes Appearance: Well-Appearing, No Pain Distress, Well-Nourished Vital Signs: Initial Vital Signs Temp 96.6 F 06/01/17 13:57 Pulse 89 06/01/17 13:57 Resp 20 06/01/17 13:57 BP 134/83 06/01/17 13:57 Pulse Ox 100 06/01/17 13:57 Vital Signs Reviewed: Yes Eyes: Negative: Discharge ENT: Positive: Hearing grossly normal Neck: Positive: Supple, Nontender Respiratory: Positive: Normal breath sounds, No respiratory distress, No accessory muscle use Cardiovascular: Positive: Other: Musculoskeletal: Positive: Other: - + flex/ext elbow + pronate/supinate elbow + flex/ext wrist with pain lateral aspect right wrist no crepitus no snuffbox pain No pain along carpals, metacarpals, phalynx Neurological: Positive: Other: - + thumb up, a ok, finger spread, finger cross Psychological Exam: Normal Skin Exam: Normal Skin: Positive: Other - no edema, ecchymosis Diagnostics - Radiology Left wrist XR Xray Interpretation: No Acute Changes Radiology Interpretation Completed By: Radiologist Re-Evaluation - Re-Evaluation First Eval Re-Evaluation Time: 16:08 Comment: Discussed imaging results with the pt, as well as pt's course of treatment and disposition. Hand/Wrist Course/Dx - Course Course Of Treatment: Pt with wrist pain. Pt states injured approx 1 week ago - pt was playing basketball yesterday without wrist splint and reinjured. Pt with pain on left distal radius. no edema. no snuffbox. Will check imaging. APAP. if neg - splint. medical forms completed for facility - Differential Dx/Diagnosis Provider Diagnoses: left wrist sprain Discharge - Discharge Plan Condition: Stable Disposition: HOME Patient Education Materials: Wrist Sprain (ED) Referrals: Ethan Mcguire MD [Primary Care Provider] - Additional Instructions: - Wear briseida wrap for comfort and support until you are seen in follow-up - Apply ice (20 min at a time) every 2-3 hours for the next 2 days - Okay to alternate ibuprofen (Advil, Motrin) 400mg and Tylenol 650mg every 3hours for pain. Take with food. Do NOT Take for more than 4-5 day - Contact your doctor to arrange a follow-up appointment in 5-7 days. - Contact your doctor or return with questions or concerns The documentation as recorded by the Jason jordan Benjamin accurately reflects the service I personally performed and the decisions made by , Silva Scott MD.
[2017-06-01 15:39] VITALS: BP 132/98
--- NOTE | 2017-06-01 15:57 | RAD ---
HISTORY: Distal radius pain, injury COMPARISONS: May 08, 2017 VIEWS: 3, Frontal, lateral, and oblique views of the left wrist FINDINGS: BONE DENSITY: Normal. BONES: There is no displaced fracture. JOINTS: There is no arthropathy. ALIGNMENT: There is no dislocation. SOFT TISSUES: Unremarkable. OTHER FINDINGS: None. IMPRESSION: NO ACUTE OSSEOUS INJURY. IF SYMPTOMS PERSIST, RECOMMEND REPEAT IMAGING.
== END 2017-06-01 16:13 | disposition home or self-care (01) ==
LOC: UCEAST 13:07
DX: S63.502A Unspecified sprain of left wrist, initial encounter (principal); E07.9 Disorder of thyroid, unspecified; F90.9 Attention-deficit hyperactivity disorder, unspecified type; F39 Unspecified mood [affective] disorder; R62.50 Unspecified lack of expected normal physiological development in childhood; Y93.67 Activity, basketball; X58.XXXA Exposure to other specified factors, initial encounter
CPT/HCPCS: 99212; A9270-GY; G0463

== ENCOUNTER 2017-06-07 18:24 | Emergency (ER) | payer MEDICARE, MEDICAID ==
[2017-06-07 18:33] VITALS: BP 137/87
[2017-06-07 19:02] LABS: Urine Bacteria 1+ (Absent); Urine Bilirubin Negative (Negative); Urine Glucose Negative (Negative); Urine Nitrite Negative (Negative)
[2017-06-07 19:10] LABS: Hematocrit 37 % (35-47); Hemoglobin 12.5 g/dl (12.0-16.0); Mean Corpuscular HGB Conc 34 g/dl (31-36); Mean Corpuscular Hemoglobin 28 pg (27-31); Mean Corpuscular Volume 83 fL (80-97); Mean Platelet Volume 8 um3 (7.4-10.4); Red Blood Count 4.46 10^6/ul (4.0-5.4); Red Cell Distribution Width 14 % (10.5-15); White Blood Count 8.7 10^3/ul (3.5-10.8)
[2017-06-07 19:12] LABS: Benzodiazepine Urine Screen None Detected (None Detect)
[2017-06-07 19:24] LABS: ALT 25 U/L (7-52); AST 19 U/L (13-39); Albumin 3.7 g/dL (3.2-5.2); Alkaline Phosphatase 66 U/L (34-104); Anion Gap 6 mmol/L (2-11); BUN/Creatinine Ratio 14.6 (8-20); Blood Urea Nitrogen 12 mg/dL (6-24); CO2 Carbon Dioxide 22 mmol/L (22-32); Calcium 8.9 mg/dL (8.6-10.3); Chloride 108 mmol/L (101-111); EGFR African American 107.5 (>60); EGFR Non-African American 83.6 (>60); Glucose 101 mg/dL (70-100); Sodium 136 mmol/L (133-145); Total Protein 6.7 g/dL (6.4-8.9)
[2017-06-07 19:46] LABS: Acetaminophen < 15 mcg/mL; Alcohol < 10 mg/dL (<10); Salicylate < 2.50 mg/dL (<30)
[2017-06-07 19:56] LABS: TSH (Thyroid Stimulating Horm) 3.11 mcIU/mL (0.34-5.60)
--- NOTE | 2017-06-07 21:05 | ED ---
Rohit Kulkarni SooYoung, scribed for Karli Davis MD on 06/07/17 at 1918 . 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 Pt states being depressed and she attempted to cut her throat and wrist. She notes recent family problems, a lot of yelling. Denies taking drugs. Pert PMHx: psychiatrist illness. Pt lives in a care home. 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 Hx Last Menstrual Period: now Onset/Duration: Sudden Onset, Still Present Character: Depressed Related History: Positive For: Prior Psychiatric Issues Has Suicidal: Reports: Demonstrates Gesture - Allergies/Home Medications Allergies/Adverse Reactions: Allergies Allergy/AdvReac Type Severity Reaction Status Date / Time No Known Allergies Allergy Verified 06/01/17 14:02 PMH/Surg Hx/FS Hx/Imm Hx Previously Healthy: No Endocrine/Hematology History: Reports: Hx Thyroid Disease Denies: Hx Anticoagulant Therapy, Hx Diabetes Cardiovascular History: Denies: Hx Hypertension Respiratory History: Reports: Hx Seasonal Allergies Denies: Hx Asthma, Hx Chronic Obstructive Pulmonary Disease (COPD) GI History: Denies: Hx Ulcer Sensory History: Reports: Hx Contacts or Glasses Opthamlomology History: Reports: Hx Contacts or Glasses Neurological History: Reports: Hx Developmental Delay Psychiatric History: Reports: Hx Anxiety, Hx Attention Deficit Hyperactivity Disorder, Hx Depression, Hx Inpatient Treatment, Hx Community Mental Health Tx, Hx Suicide Attempt, Hx of Violent Episodes Against Others, Other Psychiatric Issues/Disorders - DEVELOPMENTALLY DELAYED Denies: Hx Eating Disorder - Surgical History Surgery Procedure, Year, and Place: none Infectious Disease History: No Infectious Disease History: Denies: Hx Clostridium Difficile, Hx Hepatitis, Hx Human Immunodeficiency Virus (HIV), Hx of Known/Suspected MRSA, Hx Shingles, Hx Tuberculosis, Hx Known/ Suspected VRE, Hx Known/Suspected VRSA, History Other Infectious Disease, Traveled Outside the [place] in Last 30 Days - Family History Known Family History: Positive: Other - pos: depression Negative: Cardiac Disease, Hypertension - Social History Occupation: Disabled Lives: Correction Alcohol Use: None Hx Substance Use: No Substance Use Type: Reports: None Hx Tobacco Use: No Smoking Status (MU): Never Smoked Tobacco Have You Smoked in the Last Year: No Review of Systems Negative: Fever Psychological: Other - pos: SI with gesture Positive: Depressed All Other Systems Reviewed And Are Negative: Yes Physical Exam Triage Information Reviewed: Yes Vital Signs On Initial Exam: Initial Vitals Temp Pulse Resp BP Pulse Ox 97.6 F 93 20 137/87 99 06/07/17 18:31 06/07/17 18:31 06/07/17 18:31 06/07/17 18:31 06/07/17 18:31 Vital Signs Reviewed: Yes Appearance: Positive: Well-Appearing, No Pain Distress Skin: Positive: Warm, Skin Color Reflects Adequate Perfusion, Dry Eyes: Positive: EOMI, RITA Neck: Positive: Supple, Nontender Respiratory/Lung Sounds: Positive: Clear to Auscultation, Breath Sounds Present. Negative: Rales, Rhonchi, Wheezes Cardiovascular: Positive: RRR. Negative: Murmur, Rub, Other - ne: gallop Abdomen Description: Positive: Nontender, Soft. Negative: Distended, Guarding, Other: - neg: rebounding Bowel Sounds: Positive: Present Musculoskeletal: Positive: Strength/ROM Intact. Negative: Edema Left, Edema Right Neurological: Positive: Sensory/Motor Intact, Alert, Oriented to Person Place, Time, CN Intact II-III Psychiatric: Positive: Affect/Mood Appropriate - Mike Coma Scale Coma Scale Total: 15 Diagnostics - Vital Signs Vital Signs Temp Pulse Resp BP Pulse Ox 06/07/17 18:50 97.6 F 91 16 137/87 95 06/07/17 18:31 97.6 F 93 20 137/87 99 - Laboratory Lab Results: Lab Results 06/07/17 Range/Units 18:50 Urine Color Yellow Urine Appearance Cloudy Urine pH 6.0 (5-9) Ur Specific [place] 1.008 L (1.010-1.030) Urine Protein Negative (Negative) Urine Ketones Negative (Negative) Urine Blood Negative (Negative) Urine Nitrate Negative (Negative) Urine Bilirubin Negative (Negative) Urine Urobilinogen Negative (Negative) Ur Leukocyte Esterase 1+ H (Negative) Urine WBC (Auto) Trace(0-5/hpf) (Absent) Urine RBC (Auto) Trace(0-2/hpf) (Absent) Ur Squamous Epith Cells Present H (Absent) Urine Bacteria 1+ H (Absent) Urine Glucose Negative (Negative) Urine Ascorbic Acid * H (Negative) Result Diagrams: 06/07/17 19:00 06/07/17 19:00 Lab Statement: Any lab studies that have been ordered have been reviewed, and results considered in the medical decision making process. Course/Dx - Course Course Of Treatment: Pt is medically cleared for MHE at 1956. Pt will be signed out to Dr. Jimenez for further evaluation - Differential Dx/Clinical Impression Provider Diagnosis: Suicide gesture Discharge - Discharge Plan Condition: Stable Disposition: OTHER Discharge Disposition Comment: to be determined The documentation as recorded by the Rohit jordan SooYoung accurately reflects the service I personally performed and the decisions made by me, Karli Davis MD.
== END 2017-06-07 21:54 ==
LOC: ED 18:24
DX: R45.851 Suicidal ideations (principal); F32.9 Major depressive disorder, single episode, unspecified; Z86.39 Personal history of other endocrine, nutritional and metabolic disease
CPT/HCPCS: 36415; 80053; 80164; 80307; 80320; 80329; 81003; 81015; 84443; 85025; 87086; 99284; G0480

== ENCOUNTER 2017-06-10 19:00 | Emergency (ER) | payer MEDICARE, MEDICAID ==
[2017-06-10 19:05] VITALS: BP 128/87
[2017-06-10 20:15] LABS: Urine Bilirubin Negative (Negative); Urine Glucose Negative (Negative); Urine Nitrite Negative (Negative)
[2017-06-10 20:59] LABS: Benzodiazepine Urine Screen None Detected (None Detect)
--- NOTE | 2017-06-10 23:34 | ED ---
Marianna Kulkarni Alfonso, scribed for Hector Pan MD on 06/10/17 at 1916 . Altered Mental Status - HPI Summary HPI Summary: This patient is a 26 year old F brought in by police 941 to [facility] for SI earlier today. She states I feel like cutting myself with a knife. The patient rates the pain 0/10 in severity. Symptoms aggravated and alleviated by nothing. Patient reports medication compliance. Patient denies substance use today. PMHx of anxiety, ADHD, depression, suicide attempts, and violent episodes against others. Patient medically cleared for MHE at 1950. - History Of Current Complaint Chief Complaint: EDMentalHealth Stated Complaint: 941 Hx Obtained From: Patient Onset/Duration: Still Present Timing: Constant Severity Initially: Mild Severity Currently: Mild Aggravating Factor(s): Nothing Alleviating Factor(s): Nothing Has Suicidal: Thoughts, With A Plan - Allergies/Home Medications Allergies/Adverse Reactions: Allergies Allergy/AdvReac Type Severity Reaction Status Date / Time No Known Allergies Allergy Verified 06/01/17 14:02 PMH/Surg Hx/FS Hx/Imm Hx Endocrine/Hematology History: Reports: Hx Thyroid Disease Denies: Hx Anticoagulant Therapy, Hx Diabetes Cardiovascular History: Denies: Hx Hypertension Respiratory History: Reports: Hx Seasonal Allergies Denies: Hx Asthma, Hx Chronic Obstructive Pulmonary Disease (COPD) GI History: Denies: Hx Ulcer Sensory History: Reports: Hx Contacts or Glasses Opthamlomology History: Reports: Hx Contacts or Glasses Neurological History: Reports: Hx Developmental Delay Psychiatric History: Reports: Hx Anxiety, Hx Attention Deficit Hyperactivity Disorder, Hx Depression, Hx Inpatient Treatment, Hx Community Mental Health Tx, Hx Suicide Attempt, Hx of Violent Episodes Against Others, Other Psychiatric Issues/Disorders - DEVELOPMENTALLY DELAYED Denies: Hx Eating Disorder - Surgical History Surgery Procedure, Year, and Place: none Infectious Disease History: Denies: Hx Clostridium Difficile, Hx Hepatitis, Hx Human Immunodeficiency Virus (HIV), Hx of Known/Suspected MRSA, Hx Shingles, Hx Tuberculosis, Hx Known/ Suspected VRE, Hx Known/Suspected VRSA, History Other Infectious Disease, Traveled Outside the [place] in Last 30 Days - Family History Known Family History: Positive: Other - pos: depression Negative: Cardiac Disease, Hypertension - Social History Alcohol Use: None Hx Substance Use: No Substance Use Type: Reports: None Hx Tobacco Use: No Smoking Status (MU): Never Smoked Tobacco Have You Smoked in the Last Year: No Review of Systems Negative: Fever Neurological: Other - Positive SI, I feel like cutting myself with a knife." Negative substance use today. All Other Systems Reviewed And Are Negative: Yes Physical Exam Triage Information Reviewed: Yes Vital Signs On Initial Exam: Initial Vitals Temp Pulse Resp BP Pulse Ox 96.9 F 83 17 128/87 98 06/10/17 19:03 06/10/17 19:03 06/10/17 19:03 06/10/17 19:03 06/10/17 19:03 Vital Signs Reviewed: Yes Appearance: Positive: Well-Appearing, No Pain Distress Skin: Positive: Warm, Skin Color Reflects Adequate Perfusion, Dry Head/Face: Positive: Normal Head/Face Inspection Eyes: Positive: EOMI, RITA ENT: Positive: Normal ENT inspection Neck: Positive: Supple, Nontender Respiratory/Lung Sounds: Positive: Clear to Auscultation, Breath Sounds Present Cardiovascular: Positive: RRR Abdomen Description: Positive: Nontender, Soft Bowel Sounds: Positive: Present Musculoskeletal: Positive: Normal, Strength/ROM Intact Neurological: Positive: Normal, Sensory/Motor Intact, Alert, Oriented to Person Place, Time Psychiatric: Positive: Other - Angry Diagnostics - Vital Signs Vital Signs Temp Pulse Resp BP Pulse Ox 06/10/17 19:03 96.9 F 83 17 128/87 98 - Laboratory Lab Results: Lab Results 06/10/17 06/10/17 Range/Units 19:50 19:50 Urine Color Yellow Urine Appearance Clear Urine pH 7.0 (5-9) Ur Specific [place] 1.011 (1.010-1.030) Urine Protein Negative (Negative) Urine Ketones Negative (Negative) Urine Blood Negative (Negative) Urine Nitrate Negative (Negative) Urine Bilirubin Negative (Negative) Urine Urobilinogen Negative (Negative) Ur Leukocyte Esterase Negative (Negative) Urine Glucose Negative (Negative) Urine Ascorbic Acid * H (Negative) Urine Opiates Screen None detected (None Detect) Ur Barbiturates Screen None detected (None Detect) Ur Phencyclidine Scrn None detected (None Detect) Ur Amphetamines Screen None detected (None Detect) U Benzodiazepines Scrn None detected (None Detect) Urine Cocaine Screen None detected (None Detect) U Cannabinoids Screen None detected (None Detect) Lab Statement: Any lab studies that have been ordered have been reviewed, and results considered in the medical decision making process. Altered Mental Statu Course/Dx - Course Course Of Treatment: DISCHARGE HOME AFTER MHE - Diagnoses Discharge Diagnoses: Mental health problem Discharge - Discharge Plan Condition: Stable Disposition: HOME Patient Education Materials: Depression (ED), Suicide Prevention for Adults (ED ) Referrals: Ethan Mcguire MD [Primary Care Provider] - The documentation as recorded by the Marianna jordan Alfonso accurately reflects the service I personally performed and the decisions made by me, Hector Pan MD.
== END 2017-06-10 22:04 | disposition home or self-care (01) ==
LOC: ED 19:00
DX: Z00.8 Encounter for other general examination (principal); R45.851 Suicidal ideations
CPT/HCPCS: 36415; 80307; 81003; 99285

== ENCOUNTER → 2017-06-11 09:32 | Emergency (ER) | payer MEDICARE, MEDICAID ==
--- NOTE | 2017-06-11 10:25 | RAD ---
HISTORY: Left hand pain and injury COMPARISONS: May 08, 2017 VIEWS: 3, Frontal, lateral, and oblique views of the left hand FINDINGS: BONE DENSITY: Normal. BONES: There is no displaced fracture. JOINTS: There is no arthropathy. ALIGNMENT: There is no dislocation. SOFT TISSUES: Unremarkable. OTHER FINDINGS: None. IMPRESSION: NO ACUTE OSSEOUS INJURY. IF SYMPTOMS PERSIST, RECOMMEND REPEAT IMAGING.
[2017-06-11 10:45] LABS: Urine Bilirubin Negative (Negative); Urine Glucose Negative (Negative); Urine Nitrite Negative (Negative)
[2017-06-11 10:48] LABS: Hematocrit 38 % (35-47); Hemoglobin 12.7 g/dl (12.0-16.0); Mean Corpuscular HGB Conc 33 g/dl (31-36); Mean Corpuscular Hemoglobin 27 pg (27-31); Mean Corpuscular Volume 83 fL (80-97); Mean Platelet Volume 8 um3 (7.4-10.4); Red Blood Count 4.62 10^6/ul (4.0-5.4); Red Cell Distribution Width 14 % (10.5-15); White Blood Count 6.8 10^3/ul (3.5-10.8)
--- NOTE | 2017-06-11 10:50 | ED ---
Psychiatric Complaint - HPI Summary HPI Summary: 26 female presents to ED as 941 with thoughts of wanting to hurt herself and others. Patient states these thoughts have been ongoing since Thursday. She was here last night and discharged home. Patient states on Thursday she attempted to hurt herself with a fork. Patient has not hurt herself since. She states her roommates make her angry and cause her to want to hurt herself and others. She also punched a wall while at care home and complains of left hand pain/ soreness. Patient denies hallucinations and use of alcohol or drugs. Has been taking her mental health medications. No other complaints or PMHx. - History Of Current Complaint Chief Complaint: EDMentalHealth Time Seen by Provider: 06/11/17 09:54 Hx Obtained From: Patient Hx Last Menstrual Period: now ?: No Onset/Duration: Sudden Onset, Lasting Days, Still Present Timing: Constant Severity Initially: Moderate Severity Currently: Moderate Character: Depressed, Angry, Frustrated Aggravating Factor(s): Recent Stress - "roommates" Alleviating Factor(s): Nothing Associated Signs And Symptoms: Positive: Negative Related History: Positive For: Prior Psychiatric Issues Has Suicidal: Reports: Thoughts, With A Plan, Demonstrates Gesture - thursday, Has Prior Attempt(s) Has Homicidal: Reports: Thoughts. Denies: With A Plan, Demonstrates Gesture - Allergies/Home Medications Allergies/Adverse Reactions: Allergies Allergy/AdvReac Type Severity Reaction Status Date / Time No Known Allergies Allergy Verified 06/11/17 09:49 Home Medications: Home Medications [place] Tar Extract [Neutrogena T/Gel] 0.5 % TOPICAL EVERY OTHER DAY 06/11/17 [ History Confirmed 06/11/17] Hydrocortisone 1% CREAM* [Hytone Cream 1%*] 1 applic TOPICAL DAILY PRN 06/11/17 [History Confirmed 06/11/17] Triamcinolone NASAL SPRAY* [Nasacort AQ Nasal [place]*] 1 spray BOTH NARES DAILY 06/11/17 [History Confirmed 06/11/17] Venlafaxine ER (NF) [Effexor ER (NF)] 150 mg PO DAILY 06/11/17 [History Confirmed 06/11/17] PMH/Surg Hx/FS Hx/Imm Hx Endocrine/Hematology History: Reports: Hx Thyroid Disease Denies: Hx Anticoagulant Therapy, Hx Diabetes Cardiovascular History: Denies: Hx Hypertension Respiratory History: Reports: Hx Seasonal Allergies Denies: Hx Asthma, Hx Chronic Obstructive Pulmonary Disease (COPD) GI History: Denies: Hx Ulcer Sensory History: Reports: Hx Contacts or Glasses Opthamlomology History: Reports: Hx Contacts or Glasses Neurological History: Reports: Hx Developmental Delay Psychiatric History: Reports: Hx Anxiety, Hx Attention Deficit Hyperactivity Disorder, Hx Depression, Hx Inpatient Treatment, Hx Community Mental Health Tx, Hx Suicide Attempt, Hx of Violent Episodes Against Others, Other Psychiatric Issues/Disorders - DEVELOPMENTALLY DELAYED Denies: Hx Eating Disorder - Surgical History Surgery Procedure, Year, and Place: none - Immunization History Immunizations Up to Date: Yes Infectious Disease History: Denies: Hx Clostridium Difficile, Hx Hepatitis, Hx Human Immunodeficiency Virus (HIV), Hx of Known/Suspected MRSA, Hx Shingles, Hx Tuberculosis, Hx Known/ Suspected VRE, Hx Known/Suspected VRSA, History Other Infectious Disease, Traveled Outside the [place] in Last 30 Days - Family History Known Family History: Positive: None - Pt denies any FMHx. , Other - pos: depression Negative: Cardiac Disease, Hypertension - Social History Alcohol Use: None Hx Substance Use: No Substance Use Type: Reports: None Hx Tobacco Use: No Smoking Status (MU): Never Smoked Tobacco Have You Smoked in the Last Year: No Review of Systems Constitutional: Negative Cardiovascular: Negative Respiratory: Negative Gastrointestinal: Negative Skin: Negative Neurological: Negative Positive: Anxious, Depressed, Other - suicidal All Other Systems Reviewed And Are Negative: Yes Physical Exam Triage Information Reviewed: Yes Vital Signs On Initial Exam: Initial Vitals Temp Pulse Resp BP Pulse Ox 96.4 F 80 18 123/91 98 06/11/17 09:49 06/11/17 09:49 06/11/17 09:49 06/11/17 09:49 06/11/17 09:49 Vital Signs Reviewed: Yes Appearance: Positive: Well-Appearing, No Pain Distress, Well-Nourished Skin: Positive: Warm, Skin Color Reflects Adequate Perfusion, Dry. Negative: Cold, Soft, Pale, Erythema @ Head/Face: Positive: Normal Head/Face Inspection Eyes: Positive: Conjunctiva Clear ENT: Positive: Pharynx normal Neck: Positive: Supple, Nontender, No Lymphadenopathy Respiratory/Lung Sounds: Positive: Clear to Auscultation, Breath Sounds Present. Negative: Rales, Rhonchi, Wheezes Cardiovascular: Positive: Normal, RRR, Pulses are Symmetrical in both Upper and Lower Extremities. Negative: Murmur, Rub Abdomen Description: Positive: Nontender, Soft Bowel Sounds: Positive: Present Musculoskeletal: Positive: Strength/ROM Intact, Limited @ - painful left hand movement, but able, Abnormal @, Pain @ - left dorsal hand, Other - no edema appreciated however some ecchymosis noted over 4/5th PIP. No crepitus, step off or obvious deformity.. Negative: Interruption @, Eleni Sign Left, Eleni Sign Right Neurological: Positive: Normal, Sensory/Motor Intact - sensation intact, Alert, Oriented to Person Place, Time, CN Intact II-III, Reflexes Intact, NV Bundle Intact Distally, Normal Gait Psychiatric: Positive: Affect/Mood Appropriate, Other - appears to be attention seeking - Mike Coma Scale Best Eye Response: 4 - Spontaneous Best Motor Response: 6 - Obeys Commands Best Verbal Response: 5 - Oriented Diagnostics - Vital Signs Vital Signs Temp Pulse Resp BP Pulse Ox 06/11/17 09:49 96.4 F 80 18 123/91 98 - Laboratory Result Diagrams: 06/11/17 10:40 06/11/17 10:40 Lab Statement: Any lab studies that have been ordered have been reviewed, and results considered in the medical decision making process. - Radiology left hand Xray Interpretation: No Acute Changes - NO ACUTE OSSEOUS INJURY. IF SYMPTOMS PERSIST, RECOMMEND REPEAT IMAGING. Radiology Interpretation Completed By: Radiologist Course/Dx - Course Course Of Treatment: x-ray of left hand obtained and negative. labs and urinalysis obtained. unremarkable. cleared for mental health evaluation. normal PE findings. given briseida bandage for left hand. no concern for any medical issues at this time. spoke with MARIE and DR Avila psychiatrist who stated patient will be discharged home as it appears to be attention seeking, lives at care home, is safe and spoke with outpatient psychiatrist. Will be d/c home. - Differential Dx/Clinical Impression Differential Diagnosis/HQI/PQRI: Positive: Acute Psychosis, Depression, Homicidal Ideation, Suicidal Ideation, Suicidal Gesture Provider Diagnosis: Suicidal thoughts, Mood disorder - Physician Notifications Discussed Care Of Patient With: Dr Austin SAALZAR Time Discussed With Above Provider: 12:55 Instructed by Provider To: Other - patient will follow up with at home psych who was spoken to today as well Patient Is Medically Stable For: Psych Evaluation Discharge - Discharge Plan Condition: Stable Disposition: HOME Patient Education Materials: Mood Disorders (ED) Referrals: Ethan Mcguire MD [Primary Care Provider] -
[2017-06-11 11:00] LABS: Benzodiazepine Urine Screen None Detected (None Detect)
[2017-06-11 11:02] LABS: ALT 26 U/L (7-52); AST 23 U/L (13-39); Albumin 3.7 g/dL (3.2-5.2); Alkaline Phosphatase 56 U/L (34-104); Anion Gap 7 mmol/L (2-11); BUN/Creatinine Ratio 10.8 (8-20); Blood Urea Nitrogen 8 mg/dL (6-24); CO2 Carbon Dioxide 20 mmol/L (22-32); Calcium 9.3 mg/dL (8.6-10.3); Chloride 110 mmol/L (101-111); EGFR African American 121.1 (>60); EGFR Non-African American 94.1 (>60); Globulin 3.2 g/dL (2-4); Glucose 88 mg/dL (70-100); Sodium 137 mmol/L (133-145); Total Protein 6.9 g/dL (6.4-8.9)
[2017-06-11 11:25] LABS: Acetaminophen < 15 mcg/mL; Alcohol < 10 mg/dL (<10); Salicylate < 2.50 mg/dL (<30)
[2017-06-11 11:36] LABS: TSH (Thyroid Stimulating Horm) 3.29 mcIU/mL (0.34-5.60)
[2017-06-11 14:11] VITALS: BP 121/84
== END | disposition home or self-care (01) ==
LOC: ED 09:32
DX: F41.9 Anxiety disorder, unspecified (principal); T14.91 Suicide attempt; F32.9 Major depressive disorder, single episode, unspecified; F39 Unspecified mood [affective] disorder
CPT/HCPCS: 36415; 80053; 80307; 80320; 80329; 81003; 84443; 85025; 99284; G0480

== ENCOUNTER 2017-06-16 13:49 | Emergency (ER) | payer MEDICARE, MEDICAID ==
[2017-06-16 14:29] VITALS: BP 128/72
[2017-06-16 15:03] LABS: Urine Bilirubin Negative (Negative); Urine Glucose Negative (Negative); Urine Nitrite Negative (Negative)
[2017-06-16 15:04] LABS: Benzodiazepine Urine Screen None Detected (None Detect)
[2017-06-16 15:23] LABS: Hematocrit 38 % (35-47); Hemoglobin 12.8 g/dl (12.0-16.0); Mean Corpuscular HGB Conc 34 g/dl (31-36); Mean Corpuscular Hemoglobin 28 pg (27-31); Mean Corpuscular Volume 82 fL (80-97); Mean Platelet Volume 8 um3 (7.4-10.4); Red Blood Count 4.62 10^6/ul (4.0-5.4); Red Cell Distribution Width 14 % (10.5-15); White Blood Count 8.2 10^3/ul (3.5-10.8)
[2017-06-16 15:41] LABS: ALT 24 U/L (7-52); AST 21 U/L (13-39); Albumin 3.8 g/dL (3.2-5.2); Alkaline Phosphatase 57 U/L (34-104); Anion Gap 7 mmol/L (2-11); BUN/Creatinine Ratio 9.8 (8-20); Blood Urea Nitrogen 8 mg/dL (6-24); CO2 Carbon Dioxide 23 mmol/L (22-32); Calcium 9.2 mg/dL (8.6-10.3); Chloride 106 mmol/L (101-111); EGFR African American 107.5 (>60); EGFR Non-African American 83.6 (>60); Globulin 3.1 g/dL (2-4); Glucose 85 mg/dL (70-100); Potassium 3.8 mmol/L (3.5-5.0); Sodium 136 mmol/L (133-145); Total Protein 6.9 g/dL (6.4-8.9)
[2017-06-16 16:03] LABS: Acetaminophen < 15 mcg/mL; Alcohol < 10 mg/dL (<10); Salicylate < 2.50 mg/dL (<30)
[2017-06-16 16:06] LABS: TSH (Thyroid Stimulating Horm) 2.36 mcIU/mL (0.34-5.60)
[2017-06-16] MEDS ORDERED: LORazepam TAB(*) 1 MG PO ONE (17:44)
[2017-06-16] MEDS ORDERED: LORazepam TAB(*) 1 MG ONE (17:47)
--- NOTE | 2017-06-16 20:35 | ED ---
Giacomo Kulkarni Rebecca, scribed for Bigg Ortega MD on 06/16/17 at 1426 . Psychiatric Complaint - HPI Summary HPI Summary: Pt is a 26 y/o F BIBA as a 945 who presents to ED c/o SIs s/p attempt [employer]. [facility] called the pt in to the hospital today after she attempted suicide. Pt reports that she tried hanging herself with a rope earlier today. She was stopped by staff prior to any injury or harm. When asked why she has SI she states "I just hate my life" and that she ahs for "a while." No recent stressors prompting symptoms today. Sx aggravated and alleviated by nothing. PMHx anxiety, depression. Pt denies any prior suicide attempts, though she has a documented PMHx of suicide attempt. SHx no drug or alcohol use. NKDA. Pt is a resident at the [facility]. - History Of Current Complaint Chief Complaint: EDMentalHealth Time Seen by Provider: 06/16/17 14:24 Hx Obtained From: Patient Hx Last Menstrual Period: now Onset/Duration: Still Present Aggravating Factor(s): Nothing Alleviating Factor(s): Nothing Related History: Positive For: Prior Psychiatric Issues - Anxiety, depression Has Suicidal: Reports: Thoughts, With A Plan, Demonstrates Gesture - Tried to hand self with rope earlier today - Allergies/Home Medications Allergies/Adverse Reactions: Allergies Allergy/AdvReac Type Severity Reaction Status Date / Time No Known Allergies Allergy Verified 06/11/17 09:49 PMH/Surg Hx/FS Hx/Imm Hx Endocrine/Hematology History: Reports: Hx Thyroid Disease Denies: Hx Anticoagulant Therapy, Hx Diabetes Cardiovascular History: Denies: Hx Hypertension Respiratory History: Reports: Hx Seasonal Allergies Denies: Hx Asthma, Hx Chronic Obstructive Pulmonary Disease (COPD) GI History: Denies: Hx Ulcer Sensory History: Reports: Hx Contacts or Glasses Opthamlomology History: Reports: Hx Contacts or Glasses Neurological History: Reports: Hx Developmental Delay Psychiatric History: Reports: Hx Anxiety, Hx Attention Deficit Hyperactivity Disorder, Hx Depression, Hx Inpatient Treatment, Hx Community Mental Health Tx, Hx Suicide Attempt, Hx of Violent Episodes Against Others, Other Psychiatric Issues/Disorders - DEVELOPMENTALLY DELAYED Denies: Hx Eating Disorder - Surgical History Surgery Procedure, Year, and Place: none Infectious Disease History: Denies: Hx Clostridium Difficile, Hx Hepatitis, Hx Human Immunodeficiency Virus (HIV), Hx of Known/Suspected MRSA, Hx Shingles, Hx Tuberculosis, Hx Known/ Suspected VRE, Hx Known/Suspected VRSA, History Other Infectious Disease - Family History Known Family History: Positive: Other - pos: depression Negative: Cardiac Disease, Hypertension - Social History Alcohol Use: None Hx Substance Use: No Substance Use Type: Reports: None Hx Tobacco Use: No Smoking Status (MU): Never Smoked Tobacco Have You Smoked in the Last Year: No Review of Systems Negative: Fever 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 All Other Systems Reviewed And Are Negative: Yes Physical Exam Triage Information Reviewed: Yes Vital Signs On Initial Exam: Initial Vitals Temp Pulse Resp BP Pulse Ox 97.3 F 88 16 128/72 99 06/16/17 14:18 06/16/17 14:18 06/16/17 14:18 06/16/17 14:18 06/16/17 14:18 Vital Signs Reviewed: Yes Appearance: Positive: Well-Appearing, No Pain Distress Skin: Positive: Warm Head/Face: Positive: Normal Head/Face Inspection Eyes: Positive: EOMI ENT: Positive: Pharynx normal Neck: Positive: Nontender Respiratory/Lung Sounds: Positive: Clear to Auscultation, Breath Sounds Present Cardiovascular: Positive: RRR. Negative: Murmur Abdomen Description: Positive: Nontender Musculoskeletal: Positive: Strength/ROM Intact Neurological: Positive: Sensory/Motor Intact, Alert, Oriented to Person Place, Time, CN Intact II-III Psychiatric: Positive: Depressed, Other - verbalizes suicidal ideation Diagnostics - Vital Signs Vital Signs Temp Pulse Resp BP Pulse Ox 06/16/17 14:18 97.3 F 88 16 128/72 99 - Laboratory Lab Results: Lab Results 06/16/17 06/16/17 Range/Units 14:10 14:10 Urine Color Yellow Urine Appearance Cloudy Urine pH 5.0 (5-9) Ur Specific [place] 1.014 (1.010-1.030) Urine Protein Negative (Negative) Urine Ketones Negative (Negative) Urine Blood Negative (Negative) Urine Nitrate Negative (Negative) Urine Bilirubin Negative (Negative) Urine Urobilinogen Negative (Negative) Ur Leukocyte Esterase Negative (Negative) Urine Glucose Negative (Negative) Urine Opiates Screen None detected (None Detect) Ur Barbiturates Screen None detected (None Detect) Ur Phencyclidine Scrn None detected (None Detect) Ur Amphetamines Screen None detected (None Detect) U Benzodiazepines Scrn None detected (None Detect) Urine Cocaine Screen None detected (None Detect) U Cannabinoids Screen None detected (None Detect) Result Diagrams: 06/16/17 15:15 06/16/17 15:15 Lab Statement: Any lab studies that have been ordered have been reviewed, and results considered in the medical decision making process. Course/Dx - Course Course Of Treatment: 26 yr old with threat of SI by hanging with a rope. Awaiting mental health eval and final dispo. Signed out to Dr Montes with dispo pending. - Differential Dx/Clinical Impression Provider Diagnosis: Suicidal ideation Discharge - Discharge Plan Condition: Good Disposition: OTHER Discharge Disposition Comment: sign out to Dr Montes 1900 with dispo pending. The documentation as recorded by the Giacomo jordan Rebecca accurately reflects the service I personally performed and the decisions made by , Bigg Ortega MD.
== END 2017-06-16 21:00 | disposition home or self-care (01) ==
LOC: ED 13:49
DX: R45.851 Suicidal ideations (principal)
CPT/HCPCS: 36415; 80053; 80307; 80320; 80329; 81003; 84443; 84702; 85025; 99283; A9270-GY; G0480

== ENCOUNTER 2017-07-06 21:21 | Inpatient (IN) | payer MEDICARE, MEDICAID ==
[2017-07-06 22:10] LABS: Hematocrit 38 % (35-47); Hemoglobin 12.7 g/dl (12.0-16.0); Mean Corpuscular HGB Conc 34 g/dl (31-36); Mean Corpuscular Hemoglobin 28 pg (27-31); Mean Corpuscular Volume 82 fL (80-97); Mean Platelet Volume 9 um3 (7.4-10.4); Red Blood Count 4.58 10^6/ul (4.0-5.4); Red Cell Distribution Width 15 % (10.5-15); White Blood Count 8.7 10^3/ul (3.5-10.8)
[2017-07-06 22:18] LABS: ALT 15 U/L (7-52); AST 13 U/L (13-39); Albumin 3.6 g/dL (3.2-5.2); Alkaline Phosphatase 66 U/L (34-104); Anion Gap 8 mmol/L (2-11); BUN/Creatinine Ratio 11.6 (8-20); Blood Urea Nitrogen 10 mg/dL (6-24); CO2 Carbon Dioxide 24 mmol/L (22-32); Calcium 9.1 mg/dL (8.6-10.3); Chloride 105 mmol/L (101-111); EGFR African American 101.8 (>60); EGFR Non-African American 79.2 (>60); Globulin 2.8 g/dL (2-4); Glucose 102 mg/dL (70-100); Potassium 3.8 mmol/L (3.5-5.0); Sodium 137 mmol/L (133-145); Total Protein 6.4 g/dL (6.4-8.9)
[2017-07-06] MEDS ORDERED: LORazepam TAB(*) 1 MG PO ONE (22:36)
[2017-07-06] MEDS ORDERED: LORazepam TAB(*) 1 MG ONE (22:37)
[2017-07-06 22:46] LABS: Urine Bacteria 1+ (Absent); Urine Bilirubin Negative (Negative); Urine Glucose Negative (Negative); Urine Nitrite Negative (Negative)
[2017-07-06 23:00] LABS: Acetaminophen < 15 mcg/mL; Alcohol < 10 mg/dL (<10); Salicylate < 2.50 mg/dL (<30)
[2017-07-06 23:02] LABS: Benzodiazepine Urine Screen None Detected (None Detect)
[2017-07-06 23:10] LABS: TSH (Thyroid Stimulating Horm) 3.94 mcIU/mL (0.34-5.60)
[2017-07-06] MEDS ORDERED: Acetaminophen TAB* 325 MG PO ONE (23:33)
[2017-07-07] MEDS ORDERED: Haloperidol INJ IV/IM* 5 MG/ML AMP IM ONE (01:02)
[2017-07-07] MEDS ORDERED: diPHENhydraMINE IV* 50 MG/ML 1 ml VIAL (BENADRYL) IM ONE (01:02)
[2017-07-07] MEDS ORDERED: diPHENhydraMINE IV* 50 MG/ML 1 ml VIAL (BENADRYL) ONE (01:03)
[2017-07-07] MEDS ORDERED: Haloperidol INJ IV/IM* 5 MG/ML AMP ONE (01:03)
[2017-07-07] MEDS ORDERED: Acetaminophen TAB* 325 MG PO PRN (02:17)
[2017-07-07] MEDS ORDERED: Al Hydrox/Mg Hydrox/Simet LIQ* 30 ML UDC PO PRN (02:17)
[2017-07-07] MEDS ORDERED: Hydrocortisone 1% CREAM* 30 GM TUBE TOPICAL PRN (02:19)
--- NOTE | 2017-07-07 02:34 | ED ---
Sterling Kulkarni Nikita, scribed for Hector Pan MD on 07/06/17 at 2137 . Psychiatric Complaint - HPI Summary HPI Summary: This patient is a 26 year old F BIBA and police to ED with psychiatric complaint since 1200. Pt was angry because of abdominal pain. A worker from [employer] reports that the pt seemed fine. Then the pt was found walking up a street trying to perform self-harm on her L wrist with a fork. Pt does not want to live. Pt refuses to take night medications. Symptoms aggravated by nothing. Symptoms alleviated by nothing. - History Of Current Complaint Chief Complaint: EDMentalHealth Time Seen by Provider: 07/06/17 21:26 Hx Obtained From: Patient Hx Last Menstrual Period: now Onset/Duration: Sudden Onset - 1200, Still Present Timing: Constant Character: Angry - about stomach ache Aggravating Factor(s): Nothing Alleviating Factor(s): Nothing Related History: Positive For: Prior Psychiatric Issues Has Suicidal: Reports: Thoughts - wants to kill herself, With A Plan - cuts her L wrist with a fork, Demonstrates Gesture, Has Prior Attempt(s) - Allergies/Home Medications Allergies/Adverse Reactions: Allergies Allergy/AdvReac Type Severity Reaction Status Date / Time No Known Allergies Allergy Verified 07/06/17 21:38 Home Medications: Home Medications Chlorhexidine MOUTHWASH 0.12%* [Peridex Mouth Wash 0.12%*] 5 ml MT BID 07/07/17 [History Confirmed 07/07/17] PMH/Surg Hx/FS Hx/Imm Hx Endocrine/Hematology History: Reports: Hx Thyroid Disease Denies: Hx Anticoagulant Therapy, Hx Diabetes Cardiovascular History: Denies: Hx Hypertension Respiratory History: Reports: Hx Seasonal Allergies Denies: Hx Asthma, Hx Chronic Obstructive Pulmonary Disease (COPD) GI History: Denies: Hx Ulcer Sensory History: Reports: Hx Contacts or Glasses Opthamlomology History: Reports: Hx Contacts or Glasses Neurological History: Reports: Hx Developmental Delay Psychiatric History: Reports: Hx Anxiety, Hx Attention Deficit Hyperactivity Disorder, Hx Depression, Hx Inpatient Treatment, Hx Community Mental Health Tx, Hx Suicide Attempt, Hx of Violent Episodes Against Others, Other Psychiatric Issues/Disorders - DEVELOPMENTALLY DELAYED Denies: Hx Eating Disorder - Surgical History Surgery Procedure, Year, and Place: none Infectious Disease History: Denies: Hx Clostridium Difficile, Hx Hepatitis, Hx Human Immunodeficiency Virus (HIV), Hx of Known/Suspected MRSA, Hx Shingles, Hx Tuberculosis, Hx Known/ Suspected VRE, Hx Known/Suspected VRSA, History Other Infectious Disease, Traveled Outside the [place] in Last 30 Days - Family History Known Family History: Positive: Other - pos: depression Negative: Cardiac Disease, Hypertension - Social History Alcohol Use: None Hx Substance Use: No Substance Use Type: Reports: None Hx Tobacco Use: No Smoking Status (MU): Never Smoked Tobacco Have You Smoked in the Last Year: No Review of Systems Positive: Abdominal Pain - Not currently complaining of pain Positive: Other - Pt was angry at her abdominal pain at onset. Pt attempted self -harm at L wrist with a fork. Pt does not want to live. Pt refuses to take night medications. All Other Systems Reviewed And Are Negative: Yes Physical Exam - Summary Physical Exam Summary: General: well-appearing, no pain distress Skin: warm, color reflects adequate perfusion, dry Head: normal Eyes: EOMI, RITA ENT: normal Neck: supple, nontender Respiratory: CTA, breath sounds present Cardiovascular: RRR Abdomen: soft, nontender Bowel: present Musculoskeletal: normal, strength/ROM intact, old scar at L wrist, no new lacerations or cuts Neurological: normal, sensory/motor intact, A&O x3 Triage Information Reviewed: Yes Vital Signs On Initial Exam: Initial Vitals Temp Pulse Resp BP Pulse Ox 97.6 F 105 18 136/76 97 07/06/17 21:33 07/06/17 21:33 07/06/17 21:33 07/06/17 21:33 07/06/17 21:33 Vital Signs Reviewed: Yes Diagnostics - Vital Signs Vital Signs Temp Pulse Resp BP Pulse Ox 07/06/17 22:38 20 07/06/17 21:33 97.6 F 105 18 136/76 97 - Laboratory Lab Results: Lab Results 07/06/17 07/06/17 07/06/17 Range/Units 21:29 21:29 21:53 WBC (3.5-10.8) 10^3/ul RBC (4.0-5.4) 10^6/ul Hgb (12.0-16.0) g/dl Hct (35-47) % MCV (80-97) fL MCH (27-31) pg MCHC (31-36) g/dl RDW (10.5-15) % Plt Count (150-450) 10^3/ul MPV (7.4-10.4) um3 Neut % (Auto) (38-83) % Lymph % (Auto) (25-47) % [place] % (Auto) (1-9) % Eos % (Auto) (0-6) % Baso % (Auto) (0-2) % Absolute Neuts (auto) (1.5-7.7) 10^3/ul Absolute Lymphs (auto) (1.0-4.8) 10^3/ul Absolute Monos (auto) (0-0.8) 10^3/ul Absolute Eos (auto) (0-0.6) 10^3/ul Absolute Basos (auto) (0-0.2) 10^3/ul Absolute Nucleated RBC 10^3/ul Nucleated RBC % Sodium 137 (133-145) mmol/L Potassium 3.8 (3.5-5.0) mmol/L Chloride 105 (101-111) mmol/L Carbon Dioxide 24 (22-32) mmol/L Anion Gap 8 (2-11) mmol/L BUN 10 (6-24) mg/dL Creatinine 0.86 (0.51-0.95) mg/dL Est GFR ( Amer) 101.8 (>60) Est GFR (Non-Af Amer) 79.2 (>60) BUN/Creatinine Ratio 11.6 (8-20) Glucose 102 H (70-100) mg/dL Calcium 9.1 (8.6-10.3) mg/dL Total Bilirubin 0.20 (0.2-1.0) mg/dL AST 13 (13-39) U/L ALT 15 (7-52) U/L Alkaline Phosphatase 66 (34-104) U/L Total Protein 6.4 (6.4-8.9) g/dL Albumin 3.6 (3.2-5.2) g/dL Globulin 2.8 (2-4) g/dL Albumin/Globulin Ratio 1.3 (1-3) TSH 3.94 (0.34-5.60) mcIU/mL Beta HCG, Quant < 0.60 mIU/mL Urine Color Straw Urine Appearance Clear Urine pH 6.0 (5-9) Ur Specific [place] 1.006 L (1.010-1.030) Urine Protein Negative (Negative) Urine Ketones Negative (Negative) Urine Blood 2+ H (Negative) Urine Nitrate Negative (Negative) Urine Bilirubin Negative (Negative) Urine Urobilinogen Negative (Negative) Ur Leukocyte Esterase Negative (Negative) Urine WBC (Auto) 1+(6-10/hpf) H (Absent) Urine RBC (Auto) Trace(0-2/hpf) (Absent) Ur Squamous Epith Cells Present H (Absent) Urine Bacteria 1+ H (Absent) Urine Glucose Negative (Negative) Salicylates < 2.50 (<30) mg/dL Urine Opiates Screen None detected (None Detect) Acetaminophen < 15 mcg/mL Ur Barbiturates Screen None detected (None Detect) Valproic Acid 69.0 (50-100) mcg/mL Ur Phencyclidine Scrn None detected (None Detect) Ur Amphetamines Screen None detected (None Detect) U Benzodiazepines Scrn None detected (None Detect) Urine Cocaine Screen None detected (None Detect) U Cannabinoids Screen None detected (None Detect) Serum Alcohol < 10 (<10) mg/dL 07/06/17 Range/Units 21:53 WBC 8.7 (3.5-10.8) 10^3/ul RBC 4.58 (4.0-5.4) 10^6/ul Hgb 12.7 (12.0-16.0) g/dl Hct 38 (35-47) % MCV 82 (80-97) fL MCH 28 (27-31) pg MCHC 34 (31-36) g/dl RDW 15 (10.5-15) % Plt Count 278 (150-450) 10^3/ul MPV 9 (7.4-10.4) um3 Neut % (Auto) 65.9 (38-83) % Lymph % (Auto) 24.3 L (25-47) % [place] % (Auto) 6.2 (1-9) % Eos % (Auto) 3.0 (0-6) % Baso % (Auto) 0.6 (0-2) % Absolute Neuts (auto) 5.7 (1.5-7.7) 10^3/ul Absolute Lymphs (auto) 2.1 (1.0-4.8) 10^3/ul Absolute Monos (auto) 0.5 (0-0.8) 10^3/ul Absolute Eos (auto) 0.3 (0-0.6) 10^3/ul Absolute Basos (auto) 0.1 (0-0.2) 10^3/ul Absolute Nucleated RBC 0 10^3/ul Nucleated RBC % 0 Sodium (133-145) mmol/L Potassium (3.5-5.0) mmol/L Chloride (101-111) mmol/L Carbon Dioxide (22-32) mmol/L Anion Gap (2-11) mmol/L BUN (6-24) mg/dL Creatinine (0.51-0.95) mg/dL Est GFR ( Amer) (>60) Est GFR (Non-Af Amer) (>60) BUN/Creatinine Ratio (8-20) Glucose (70-100) mg/dL Calcium (8.6-10.3) mg/dL Total Bilirubin (0.2-1.0) mg/dL AST (13-39) U/L ALT (7-52) U/L Alkaline Phosphatase (34-104) U/L Total Protein (6.4-8.9) g/dL Albumin (3.2-5.2) g/dL Globulin (2-4) g/dL Albumin/Globulin Ratio (1-3) TSH (0.34-5.60) mcIU/mL Beta HCG, Quant mIU/mL Urine Color Urine Appearance Urine pH (5-9) Ur Specific [place] (1.010-1.030) Urine Protein (Negative) Urine Ketones (Negative) Urine Blood (Negative) Urine Nitrate (Negative) Urine Bilirubin (Negative) Urine Urobilinogen (Negative) Ur Leukocyte Esterase (Negative) Urine WBC (Auto) (Absent) Urine RBC (Auto) (Absent) Ur Squamous Epith Cells (Absent) Urine Bacteria (Absent) Urine Glucose (Negative) Salicylates (<30) mg/dL Urine Opiates Screen (None Detect) Acetaminophen mcg/mL Ur Barbiturates Screen (None Detect) Valproic Acid (50-100) mcg/mL Ur Phencyclidine Scrn (None Detect) Ur Amphetamines Screen (None Detect) U Benzodiazepines Scrn (None Detect) Urine Cocaine Screen (None Detect) U Cannabinoids Screen (None Detect) Serum Alcohol (<10) mg/dL Result Diagrams: 07/06/17 21:53 07/06/17 21:53 Lab Statement: Any lab studies that have been ordered have been reviewed, and results considered in the medical decision making process. Course/Dx - Course Course Of Treatment: ADMIT MHU Assessment/Plan: This patient is a 26 year old F BIBA and police to ED with psychiatric complaint since 1200. Pt was angry because of abdominal pain. A worker from [employer] reports that the pt seemed fine. Then the pt was found walking up a street trying to perform self-harm on her L wrist with a fork. Pt does not want to live. Pt refuses to take night medications. Symptoms aggravated by nothing. Symptoms alleviated by nothing. Pt will be admitted. Pt is agreeable with this plan. - Differential Dx/Clinical Impression Provider Diagnosis: Mental health problem Discharge - Discharge Plan Condition: Stable Disposition: ADMITTED TO [facility] The documentation as recorded by the Sterling jordan Nikita accurately reflects the service I personally performed and the decisions made by me, Hector Pan MD.
[2017-07-07] MEDS: Levothyroxine TAB* 25 MCG TAB PO SCH (07:34)
[2017-07-07] MEDS: Ferrous Sulfate TAB* 325 MG PO SCH ×2 (07:56→09:02)
[2017-07-07] MEDS: Cetirizine* 10 MG TAB PO SCH (07:56)
[2017-07-07] MEDS: Divalproex DR TAB(*) 500 MG PO SCH ×3 (07:57→21:50)
[2017-07-07] MEDS: Venlafaxine EXT RELEASE CAP* 75 MG PO SCH (07:57)
[2017-07-07] MEDS: ARIPiprazole TAB* 20 MG PO SCH (07:57)
[2017-07-07] MEDS: Fluticasone NASAL SPRAY 50MCG* 16 gm SPRAY BTL BOTH NARES SCH (07:59)
[2017-07-07] MEDS: Norgestimate-Eth Estradiol(NF) TAB PO SCH (08:04)
[2017-07-07] MEDS: Chlorhexidine MOUTHWASH 0.12%* 15 ML UDC SWISH SPIT SCH ×2 (08:19→21:42)
[2017-07-07] MEDS ORDERED: [UNRECOGNIZED DRUG - OTHER] TOPICAL SCH (09:00)
[2017-07-07] MEDS ORDERED: Influenza VAC *QUAD* 2017-18* 0.5 ML SYRINGE IM ONE (09:00)
[2017-07-07] MEDS ORDERED: NEUTROGENA T TOPICAL SCH (09:00)
[2017-07-07] MEDS ORDERED: NIZORAL TOPICAL SCH (09:00)
--- NOTE | 2017-07-07 14:54 | HP ---
PSYCHIATRIC ASSESSMENT: DATE OF ADMISSION: 07/07/17 JUSTIFICATION FOR ADMISSION: The patient is in need of 24-hour supervision and care secondary to suicidal ideations with the plan to cut her wrist. HISTORY OF PRESENT ILLNESS: The patient is a 26-year-old intellectually disabled white female with a history of borderline personality disorder in chronic self harm as well as chronic suicidal ideation in the community, who returns to the hospital being brought in by representatives of her residential program through the [facility] secondary to suicidal ideations. The patient is reporting that she is sad because her brother 2 years ago and this is the anniversary of his , she has been thinking about cutting herself. She reports that she does not like other residents at the [facility] and that she thinks about harming them. This is a typical presentation given that the fact that the patient has multiple ER visits, for example she was seen 6 times in the ED during the month of May, non of which required hospitalization. Typically the patient is highly behavioral and attention seeking and we try not to hospitalize her, given the fact that hospitalization tends to worsen her behaviors. The patient denies recent psychotic symptoms, she denies dissociative symptoms or PTSD. She denies persistent symptoms of depression, anhedonia, or neurovegetative symptoms. Reports good quality sleep with short sleep latency with adequate energy through the day. PAST PSYCHIATRIC HISTORY: She has had six hospitalizations in 2014 under similar circumstances along with another hospitalization in October 2016 under the service of Dr. Solitario Sanchez. Currently she has outpatient care at [facility], where she is enrolled in the [facility] program. She currently sees Dr. Isaac Medrano for psychiatric treatment in [facility] for psychotherapy. Most recently she has been receiving behavioral services through the [facility]. Prior diagnoses included ADHD, impulse control disorder, intermittent explosive disorder, depression, intellectual disability. She has a tendency towards parasuicidal behavior in terms of cutting herself, but she has no history of seriously harming herself or others. PAST MEDICAL HISTORY: Significant for anemia, obesity, and hypothyroidism. MEDICATIONS: Her current medications are as follows: 1. She takes Abilify 20 mg daily. 2. Zyrtec 10 mg daily. 3. Chlorhexidine mouthwash 15mL swish and spit once daily. 4. Depakote 500 mg p.o. t.i.d. 5. Ferrous sulfate 325 mg p.o. daily. 6. Flonase 1 spray for both nares inhaled once daily. 7. Hydrocortisone 1% cream applied topically once daily. 8. Synthroid 25 mcg daily. 9. Effexor 150 mg p.o. daily. 10. Dgrft-Gle-Nvjzov 1 tablet p.o. daily. ALLERGIES: She has No known drug allergies. SUBSTANCE USE HISTORY: No denies use of alcohol, illicit drugs or tobacco. FAMILY PSYCHIATRIC HISTORY: Previously has denied illnesses or suicides in the family. SOCIAL HISTORY: The patient resides in a shelter in [place] with apparently 10 other residents. She does has a roommate, this is coeducational. She reports getting along well with some of her peers, but dislikes others. She enjoys television in her leisure time and also enjoys reading. She grew up in the [facility], raised by both of her parents. Both of her parents have . She has one sister who resides with the family in [place], [place]. 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 She had been living with her parents until approximately 3 to 4 years ago when she moved into the [facility] and her parents remained involved in her life. REVIEW OF SYSTEMS: She denies headache or double vision. She denies sore throat, cough, chest pain, or difficulty breathing. She denies abdominal pain, nausea, vomiting, diarrhea, or constipation. She denies difficulty walking, rashes, enlarged lymph nodes, changes in weight or fevers. PHYSICAL EXAMINATION VITAL SIGNS: Blood pressure 134/86, heart rate 90, respiratory rate 16, temperature is 97.4, oxygen saturations are 99% on room air. HEENT: Head is normocephalic, atraumatic. NECK: Supple. CHEST: Clear to auscultation bilaterally. CARDIAC: Exam reveals normal heart sounds. ABDOMEN: Soft, obese, and nontender. NEUROLOGICAL: She is grossly intact with no focal deficits. SKIN: Exam reveals superficial cutting to left dorsal wrist. LABORATORY DATA: CBC is within normal limits. Complete blood count in within normal limits. Urinalysis shows 2+ blood, 1+ white blood cells, and 1+ bacteria. Urine drug screen is negative for all substances tested and her valproic acid level is therapeutic at 69. MENTAL STATUS EXAMINATION: The patient is an obese, white female causally dressed with dyed short black hair. She is clean, well groomed, clam, cooperative. Mood appears to be euthymic with a full affect. Thought process is linear and goal directed. Thought content is significant for her desire to be in the hospital. She is endorsing suicidal ideation with thoughts of cutting her wrist as well as violent ideation stating she wants to punch staff at the [facility] in the face. Insight and judgment appear to be poor given her over utilization of hospital psychiatric resources. Cognitively, she is developmentally delayed and quite limited, although she is awake and alert. DIAGNOSES: Are as follows: [place] I: Unspecified mood disorder. [place] II: Borderline personality disorder; mild intellectual disability. [place] III: Obesity, hypothyroidism, and chronic anemia. [place] IV: Severe housing stressors. [place] V: At this time is 50. IMPRESSION: The patient is a 26-year-old single white female with a history of intellectual deficits and borderline personality disorder, who tends to utilize hospital psychiatric resources when she desires attention. I do not think that this setting is likely to be helpful to her as she appears to simply want attention. We will contact family and staff at the [facility] for further collateral information. PLAN: The patient is admitted to the adult behavioral health unit, where she was placed on q. 15-minute checks for her own safety. We will be renewing her medications as previously prescribed on the outpatient setting. The patient will be referred back to the [facility] for further housing support and we will be taking with [facility] to make the referral for further outpatient treatment. [id number]/[facility] #: [id number] MADELINE
[2017-07-07] MEDS ORDERED: diPHENhydraMINE PO* 50 MG PO PRN (18:37)
[2017-07-07] MEDS ORDERED: LORazepam TAB(*) 1 MG PO PRN (18:37)
[2017-07-07] MEDS ORDERED: LORazepam TAB(*) 1 MG ONE (18:41)
[2017-07-07] MEDS ORDERED: diPHENhydraMINE PO* 50 MG ONE (18:42)
[2017-07-08] MEDS: Levothyroxine TAB* 25 MCG TAB PO SCH (07:30)
[2017-07-08 08:19] VITALS: BP 118/78
[2017-07-08] MEDS: Chlorhexidine MOUTHWASH 0.12%* 15 ML UDC SWISH SPIT SCH (10:13)
[2017-07-08] MEDS: Fluticasone NASAL SPRAY 50MCG* 16 gm SPRAY BTL BOTH NARES SCH (10:13)
[2017-07-08] MEDS: Ferrous Sulfate TAB* 325 MG PO SCH (10:13)
[2017-07-08] MEDS: ARIPiprazole TAB* 20 MG PO SCH (10:13)
[2017-07-08] MEDS: Venlafaxine EXT RELEASE CAP* 75 MG PO SCH (10:15)
[2017-07-08] MEDS: Divalproex DR TAB(*) 500 MG PO SCH (10:15)
[2017-07-08] MEDS: Cetirizine* 10 MG TAB PO SCH (10:15)
[2017-07-08] MEDS: Norgestimate-Eth Estradiol(NF) TAB PO SCH (10:25)
--- NOTE | 2017-07-09 01:35 | DS ---
DISCHARGE SUMMARY: DATE OF ADMISSION: 07/07/17 DATE OF DISCHARGE: 07/08/17 DISCHARGE DIAGNOSES: [place] I: Unspecified mood disorder. [place] II: Borderline personality disorder, mild intellectual disability. [place] III: Obesity, hypothyroidism, and chronic anemia. [place] IV: Severe housing stressors. [place] V: At the time of admission was 50 and at the time of discharge was 60. CONDITION AT THE TIME OF DISCHARGE: Improved. The patient is denying suicidal or homicidal ideations. She has been safe on all checks. Most of what we have observed during this brief hospitalization are behaviors characteristic of her attention seeking pathology. This clinician feels that borderline personality disorder is her main diagnosis at this time and she often uses inpatient and emergency room resources in order to gain attention. The patient does not have any history of serious suicide attempts, but mostly self-harm and agitated behavior towards peers when she wants something and is not getting it. This clinician strongly feels that inpatient psychiatric hospitalization has extremely low benefit and I would caution other clinicians to reconsider inpatient hospitalizations as an affective modality in her treatment. With that being said, the patient is willing to go back to the [facility], which is providing her residential services and they are willing to pick her up this afternoon. The patient is agreeable to following up with [facility] and remaining on her medications. MENTAL STATUS EXAM: At the time of discharge, the patient is an obese white female, casually dressed with dyed short black hair. She is clean and well groomed, calm, cooperative. Mood appears to be euthymic with a full affect. Thought process is linear and goal-directed. Thought content is significant for her disagreement with discharge. She feels specifically that this unit provides her meaningful treatment and would like to remain on the unit. She denies suicidal or homicidal ideations currently. Insight and judgment appeared to be poor given her over utilization of hospital psychiatric resources. Cognitively, she is developmentally delayed and quite limited, although she is awake and alert. DISCHARGE INSTRUCTIONS: To the patient are as follows: A. Medications: 1. She is taking Abilify 20 mg p.o. daily. 2. Zyrtec 10 mg p.o. daily. 3. Chlorhexidine mouthwash 15 mL swish and spit once daily. 4. Depakote 500 mg p.o. t.i.d. 5. Ferrous sulfate 325 mg p.o. daily. 6. Flonase 1 spray for both nares inhaled once daily. 7. Cortisone 1% cream applied topically once daily. 8. Synthroid 25 mcg p.o. daily. 9. Effexor 150 mg p.o. daily. 10. Ortho Tri-Cyclen 1 tablet p.o. daily. B. Diet: Regular. C. Activity: As tolerated. The patient is a nonsmoker. There are no laboratory or diagnostic studies pending at the time of discharge. D. Followup care: The patient will be seen tomorrow, which is 07/09/17, at the [facility] program. She will also be seeing Dr. Isaac Medrano within 2 weeks of discharge, who is her outpatient psychiatrist. HOSPITAL COURSE: Part A: Reason for admission: The patient is a 26-year-old intellectually disabled white female with a history of borderline personality disorder with chronic self-harm as well as chronic suicidal ideation in the community who returns to the hospital being brought in by representatives of her residential treatment program through the [facility] secondary to suicidal ideation. The patient is reporting that she is sad because her brother 2 years ago and this is the anniversary of his . She has been thinking about cutting herself. She reported that she did not like the other residence at the [facility] and she thinks about harming them. This is a typical presentation given the fact that the patient has had multiple ER visits. For example, she was seen 6 times in the ED during the month of May , none of which required hospitalization. Typically, the patient is highly behavioral and attention seeking and we try not to hospitalize her given the fact that hospitalization tends to worsen her behaviors. The patient denies recent psychotic symptoms. She denies dissociative symptoms of PTSD. She denies persistent symptoms of depression, anhedonia, neurovegetative symptoms. At the time of admission, she was reporting good quality sleep with short sleep latency and adequate energy throughout the day. Part B: Psychiatric treatment rendered: The patient was admitted to the adult behavioral health unit and placed on q.15-minute checks for her own safety. Due to her typical presentation, she was often quite needy, attention seeking, threatening herself at times, but then laughing about it, inappropriately trying to enter the nurses station and then giggling to staff. We did not observe any behavior that was consistent with her claimed thoughts of suicide. Instead, she appeared to want to make friends on the unit and use this as a place to socialize. She had limited benefit from group programing due to her cognitive and intellectual deficits, which are well documented. At this time, we feel that she is not benefiting much from the inpatient setting and we feel that outpatient treatment is much more appropriate for her. She is being referred back to the [facility] where she receives not only residential services, but also behavioral modification and she will be following up with [facility]. [id number]/[facility] #: [id number] MADELINE
== END 2017-07-08 14:05 | disposition home or self-care (01) | DRG 885 ==
LOC: ED 21:21 → BSU 07-07 01:42
PROVIDERS: ADMIT Psychiatry & Neurology Psychiatry; ATTEND Psychiatry & Neurology Psychiatry
PROC: 3E0234Z Introduction of Serum, Toxoid and Vaccine into Muscle, Percutaneous Approach (ICD-10-PCS; principal; 2017-07-07)
DX: F39 Unspecified mood [affective] disorder (principal); R45.851 Suicidal ideations; Z68.42 Body mass index [BMI] 45.0-49.9, adult; E66.9 Obesity, unspecified; F60.3 Borderline personality disorder; F70 Mild intellectual disabilities; E03.9 Hypothyroidism, unspecified; D64.9 Anemia, unspecified; R62.50 Unspecified lack of expected normal physiological development in childhood; F41.9 Anxiety disorder, unspecified; F90.9 Attention-deficit hyperactivity disorder, unspecified type; F32.9 Major depressive disorder, single episode, unspecified; J30.2 Other seasonal allergic rhinitis; Z91.5 Personal history of self-harm; Z81.8 Family history of other mental and behavioral disorders; Z23 Encounter for immunization
CPT/HCPCS: 36415; 80053; 80164; 80307; 80320; 80329; 81003; 81015; 84443; 84702; 85025; 87086; 90686; A9270-GY; G0480; J1200; J1630

== ENCOUNTER 2017-07-13 23:22 | Emergency (ER) | payer MEDICARE, MEDICAID ==
[2017-07-14 04:20] VITALS: BP 127/76
[2017-07-14] MEDS ORDERED: Azithromycin TAB* 250 MG PO ONE (05:36)
--- NOTE | 2017-07-14 14:24 | RAD ---
INDICATION: Cough and shortness of breath COMPARISON: Chest x-ray dated January 04, 2014 report TECHNIQUE: PA and lateral views of the chest were obtained. FINDINGS: The heart and mediastinum are normal in size and contour. The lungs are grossly clear. There is no evidence of large pleural effusion. Visualized bones are normal for the patient's age. There is no radiographic evidence of free air beneath the diaphragm IMPRESSION: No radiographic evidence of acute cardiopulmonary disease.
--- NOTE | 2017-07-15 04:14 | ED ---
Giacomo Kulkarni Rebecca, scribed for Hector Pan MD on 07/14/17 at 0538 . Shortness of Breath - HPI Summary HPI Summary: Pt is a 26 y/o F BIBA who presents to ED c/o SOB. Sx began yesterday and is characterized as dyspnea at rest. Sx aggravated and alleviated by nothing. Additionally c/o productive cough with green sputum and slight ear pain. Denies wheezing. Pt is a resident at the [facility] and is accompanied by a staff member. Confirms she has used an albuterol inhaler before. - History of Current Complaint Chief Complaint: EDShortnessOfBreath Time Seen by Provider: 07/14/17 05:29 Hx Obtained From: Patient Onset/Duration: Lasting Days - yesterday, Still Present Dyspnea At: Rest Aggrevating Factors: Nothing Alleviating Factors: Nothing Associated Signs & Symptoms: Cough (Productive) - Allergy/Home Medications Allergies/Adverse Reactions: Allergies Allergy/AdvReac Type Severity Reaction Status Date / Time No Known Allergies Allergy Verified 07/13/17 23:40 PMH/Surg Hx/FS Hx/Imm Hx Endocrine/Hematology History: Reports: Hx Thyroid Disease Denies: Hx Anticoagulant Therapy, Hx Diabetes Cardiovascular History: Denies: Hx Hypertension Respiratory History: Reports: Hx Seasonal Allergies Denies: Hx Asthma, Hx Chronic Obstructive Pulmonary Disease (COPD) GI History: Denies: Hx Ulcer Sensory History: Reports: Hx Contacts or Glasses Denies: Hx Hearing Aid Opthamlomology History: Reports: Hx Contacts or Glasses Neurological History: Reports: Hx Developmental Delay Psychiatric History: Reports: Hx Anxiety, Hx Attention Deficit Hyperactivity Disorder, Hx Depression, Hx Inpatient Treatment, Hx Community Mental Health Tx, Hx Suicide Attempt, Hx of Violent Episodes Against Others, Other Psychiatric Issues/Disorders - DEVELOPMENTALLY DELAYED Denies: Hx Eating Disorder - Surgical History Surgery Procedure, Year, and Place: none Infectious Disease History: No Infectious Disease History: Denies: Hx Clostridium Difficile, Hx Hepatitis, Hx Human Immunodeficiency Virus (HIV), Hx of Known/Suspected MRSA, Hx Shingles, Hx Tuberculosis, Hx Known/ Suspected VRE, Hx Known/Suspected VRSA, History Other Infectious Disease, Traveled Outside the [place] in Last 30 Days - Family History Known Family History: Positive: Other - pos: depression Negative: Cardiac Disease, Hypertension - Social History Alcohol Use: None Hx Substance Use: No Substance Use Type: Reports: None Hx Tobacco Use: No Smoking Status (MU): Never Smoked Tobacco Amount Used/How Often: pt does not and has never used tobacco products of any kind Have You Smoked in the Last Year: No Review of Systems Positive: Ear Ache - slight Positive: Shortness Of Breath, Cough - productive, Other - NEGATIVE: Wheezing All Other Systems Reviewed And Are Negative: Yes Physical Exam - Summary Physical Exam Summary: General: well-appearing, no pain distress Skin: warm, color reflects adequate perfusion, dry Head: normal Eyes: EOMI, RITA ENT: rhinorrhea Neck: supple, nontender Respiratory: CTA, breath sounds present Cardiovascular: RRR Abdomen: soft, nontender Bowel: present Musculoskeletal: normal, strength/ROM intact Neurological: normal, sensory/motor intact, A&O x3 Psychological: affect/mood appropriate Triage Information Reviewed: Yes Vital Signs On Initial Exam: Initial Vitals Temp Pulse Resp BP Pulse Ox 97.2 F 103 20 129/88 98 07/13/17 23:38 07/13/17 23:38 07/13/17 23:38 07/13/17 23:38 07/13/17 23:38 Vital Signs Reviewed: Yes - Mike Coma Scale Coma Scale Total: 15 Diagnostics - Vital Signs Vital Signs Temp Pulse Resp BP Pulse Ox 07/14/17 04:16 98.2 F 84 18 127/76 100 07/14/17 03:08 97.6 F 79 18 119/75 100 07/14/17 01:57 97.9 F 88 14 121/80 97 07/14/17 00:36 97.4 F 102 20 129/91 99 07/13/17 23:40 97.2 F 103 20 129/88 98 07/13/17 23:38 97.2 F 103 20 129/88 98 - Laboratory Lab Statement: Any lab studies that have been ordered have been reviewed, and results considered in the medical decision making process. - Radiology CXR Xray Interpretation: No Acute Changes Radiology Interpretation Completed By: ED Physician Course/Dx - Course Assessment/Plan: Pt is a 26 y/o F BIBA who presents to ED c/o SOB. Sx began yesterday and is characterized as dyspnea at rest. Sx aggravated and alleviated by nothing. Additionally c/o productive cough with green sputum and slight ear pain. Denies wheezing. Pt is a resident at the [facility] and is accompanied by a staff member. Confirms she has used an albuterol inhaler before. CXR, as read by ED physician, reveals no acute findings. In the ED course, pt received Zithromax. She will be D/C to home with Dx of bronchitis, Rx for Zithromax and a follow up with her PCP. She understands and agrees. Elevated BP noted and advised to f/u with PCP. - Diagnoses Provider Diagnoses: Bronchitis Discharge - Discharge Plan Condition: Stable Disposition: HOME Prescriptions: Azithromycin TAB* [Zithromax TAB (Z-IRIS) 250 mg #6 tabs] 250 mg PO DAILY #4 tab Patient Education Materials: Acute Bronchitis (ED) Referrals: Ethan Mcguire MD [Primary Care Provider] - Additional Instructions: FOLLOW UP WITH YOUR DOCTOR. RETURN TO THE EMERGENCY DEPARTMENT FOR ANY WORSENING OF YOUR CONDITION OR QUESTIONS OR CONCERNS. The documentation as recorded by the Giacomo jordan Rebecca accurately reflects the service I personally performed and the decisions made by me, Hector Pan MD.
== END 2017-07-14 05:51 | disposition home or self-care (01) ==
LOC: ED 23:22
DX: J40 Bronchitis, not specified as acute or chronic (principal); R06.02 Shortness of breath; H92.09 Otalgia, unspecified ear; R05 Cough
CPT/HCPCS: 71020; 99282; A9270-GY

== ENCOUNTER 2017-07-20 21:25 | Emergency (ER) | payer MEDICARE, MEDICAID ==
[2017-07-20 21:31] VITALS: BP 120/83
[2017-07-20 23:19] LABS: Hematocrit 39 % (35-47); Mean Corpuscular HGB Conc 34 g/dl (31-36); Mean Corpuscular Hemoglobin 28 pg (27-31); Mean Corpuscular Volume 82 fL (80-97); Mean Platelet Volume 8 um3 (7.4-10.4); Red Blood Count 4.71 10^6/ul (4.0-5.4); Red Cell Distribution Width 15 % (10.5-15); White Blood Count 8.8 10^3/ul (3.5-10.8)
[2017-07-20 23:27] LABS: Urine Bilirubin Negative (Negative); Urine Glucose Negative (Negative); Urine Nitrite Negative (Negative)
[2017-07-20 23:32] LABS: ALT 16 U/L (7-52); AST 17 U/L (13-39); Albumin 3.8 g/dL (3.2-5.2); Alkaline Phosphatase 63 U/L (34-104); Anion Gap 7 mmol/L (2-11); BUN/Creatinine Ratio 9.6 (8-20); Blood Urea Nitrogen 9 mg/dL (6-24); CO2 Carbon Dioxide 25 mmol/L (22-32); Chloride 104 mmol/L (101-111); EGFR African American 91.9 (>60); EGFR Non-African American 71.4 (>60); Globulin 3.1 g/dL (2-4); Glucose 94 mg/dL (70-100); Potassium 4.1 mmol/L (3.5-5.0); Sodium 136 mmol/L (133-145); Total Protein 6.9 g/dL (6.4-8.9)
[2017-07-20 23:33] LABS: Acetaminophen < 15 mcg/mL; Alcohol < 10 mg/dL (<10); Salicylate < 2.50 mg/dL (<30)
[2017-07-20 23:41] LABS: Benzodiazepine Urine Screen None Detected (None Detect)
[2017-07-20 23:43] LABS: TSH (Thyroid Stimulating Horm) 7.19 mcIU/mL (0.34-5.60)
--- NOTE | 2017-07-21 06:58 | ED ---
Kobe Kulkarni Nilda, scribed for Hector Pan MD on 07/21/17 at 0449 . Psychiatric Complaint - HPI Summary HPI Summary: Pt is a 26 y.o F accompanied by house staff member with a chief complaint of depression with SI. Symptoms are aggravated and alleviated by nothing. Patient notes that she feels safe returning home. She is currently on thyroid medication and missed a dose today. - History Of Current Complaint Chief Complaint: EDMentalHealth Time Seen by Provider: 07/20/17 23:41 Hx Obtained From: Patient Hx Last Menstrual Period: now Onset/Duration: Still Present Character: Depressed Aggravating Factor(s): Nothing Alleviating Factor(s): Nothing Related History: Positive For: Prior Psychiatric Issues - anxiety, depression, ADHD Has Suicidal: Reports: Thoughts - Allergies/Home Medications Allergies/Adverse Reactions: Allergies Allergy/AdvReac Type Severity Reaction Status Date / Time No Known Allergies Allergy Verified 07/20/17 21:31 PMH/Surg Hx/FS Hx/Imm Hx Endocrine/Hematology History: Reports: Hx Thyroid Disease Denies: Hx Anticoagulant Therapy, Hx Diabetes Cardiovascular History: Denies: Hx Hypertension Respiratory History: Reports: Hx Seasonal Allergies Denies: Hx Asthma, Hx Chronic Obstructive Pulmonary Disease (COPD) GI History: Denies: Hx Ulcer Sensory History: Reports: Hx Contacts or Glasses Denies: Hx Hearing Aid Opthamlomology History: Reports: Hx Contacts or Glasses Neurological History: Reports: Hx Developmental Delay Psychiatric History: Reports: Hx Anxiety, Hx Attention Deficit Hyperactivity Disorder, Hx Depression, Hx Inpatient Treatment, Hx Community Mental Health Tx, Hx Suicide Attempt, Hx of Violent Episodes Against Others, Other Psychiatric Issues/Disorders - DEVELOPMENTALLY DELAYED Denies: Hx Eating Disorder - Surgical History Surgery Procedure, Year, and Place: none Infectious Disease History: No Infectious Disease History: Denies: Hx Clostridium Difficile, Hx Hepatitis, Hx Human Immunodeficiency Virus (HIV), Hx of Known/Suspected MRSA, Hx Shingles, Hx Tuberculosis, Hx Known/ Suspected VRE, Hx Known/Suspected VRSA, History Other Infectious Disease, Traveled Outside the [place] in Last 30 Days - Family History Known Family History: Positive: None - Pt denies any FMHx. , Other - pos: depression Negative: Cardiac Disease, Hypertension - Social History Alcohol Use: None Hx Substance Use: No Substance Use Type: Reports: None Hx Tobacco Use: No Smoking Status (MU): Never Smoked Tobacco Amount Used/How Often: pt does not and has never used tobacco products of any kind Have You Smoked in the Last Year: No Review of Systems Negative: Shortness Of Breath Positive: Depressed - suicidal ideation All Other Systems Reviewed And Are Negative: Yes Physical Exam - Summary Physical Exam Summary: General: well-appearing, no pain distress Skin: warm, color reflects adequate perfusion, dry Head: normal Eyes: EOMI, RITA ENT: normal Neck: supple, nontender Respiratory: CTA, breath sounds present Cardiovascular: RRR Abdomen: soft, nontender Bowel: present Musculoskeletal: normal, strength/ROM intact Neurological: normal, sensory/motor intact, A&O x3 Psychological: affect/mood appropriate Triage Information Reviewed: Yes Vital Signs On Initial Exam: Initial Vitals Temp Pulse Resp BP Pulse Ox 97.9 F 90 18 120/83 99 07/20/17 21:27 07/20/17 21:27 07/20/17 21:27 07/20/17 21:27 07/20/17 21:27 Vital Signs Reviewed: Yes - [place] Coma Scale Coma Scale Total: 15 Diagnostics - Vital Signs Vital Signs Temp Pulse Resp BP Pulse Ox 07/20/17 21:27 97.9 F 90 18 120/83 99 - Laboratory Lab Results: Lab Results 07/20/17 07/20/17 07/20/17 Range/Units 21:49 21:49 23:08 WBC (3.5-10.8) 10^3/ul RBC (4.0-5.4) 10^6/ul Hgb (12.0-16.0) g/dl Hct (35-47) % MCV (80-97) fL MCH (27-31) pg MCHC (31-36) g/dl RDW (10.5-15) % Plt Count (150-450) 10^3/ul MPV (7.4-10.4) um3 Neut % (Auto) (38-83) % Lymph % (Auto) (25-47) % [place] % (Auto) (1-9) % Eos % (Auto) (0-6) % Baso % (Auto) (0-2) % Absolute Neuts (auto) (1.5-7.7) 10^3/ul Absolute Lymphs (auto) (1.0-4.8) 10^3/ul Absolute Monos (auto) (0-0.8) 10^3/ul Absolute Eos (auto) (0-0.6) 10^3/ul Absolute Basos (auto) (0-0.2) 10^3/ul Absolute Nucleated RBC 10^3/ul Nucleated RBC % Sodium 136 (133-145) mmol/L Potassium 4.1 (3.5-5.0) mmol/L Chloride 104 (101-111) mmol/L Carbon Dioxide 25 (22-32) mmol/L Anion Gap 7 (2-11) mmol/L BUN 9 (6-24) mg/dL Creatinine 0.94 (0.51-0.95) mg/dL Est GFR ( Amer) 91.9 (>60) Est GFR (Non-Af Amer) 71.4 (>60) BUN/Creatinine Ratio 9.6 (8-20) Glucose 94 (70-100) mg/dL Calcium 9.0 (8.6-10.3) mg/dL Total Bilirubin 0.20 (0.2-1.0) mg/dL AST 17 (13-39) U/L ALT 16 (7-52) U/L Alkaline Phosphatase 63 (34-104) U/L Total Protein 6.9 (6.4-8.9) g/dL Albumin 3.8 (3.2-5.2) g/dL Globulin 3.1 (2-4) g/dL Albumin/Globulin Ratio 1.2 (1-3) TSH 7.19 H (0.34-5.60) mcIU/mL Urine Color Straw Urine Appearance Clear Urine pH 6.0 (5-9) Ur Specific [place] 1.006 L (1.010-1.030) Urine Protein Negative (Negative) Urine Ketones Negative (Negative) Urine Blood Negative (Negative) Urine Nitrate Negative (Negative) Urine Bilirubin Negative (Negative) Urine Urobilinogen Negative (Negative) Ur Leukocyte Esterase Negative (Negative) Urine Glucose Negative (Negative) Salicylates < 2.50 (<30) mg/dL Urine Opiates Screen None detected (None Detect) Acetaminophen < 15 mcg/mL Ur Barbiturates Screen None detected (None Detect) Valproic Acid 92.0 (50-100) mcg/mL Ur Phencyclidine Scrn None detected (None Detect) Ur Amphetamines Screen None detected (None Detect) U Benzodiazepines Scrn None detected (None Detect) Urine Cocaine Screen None detected (None Detect) U Cannabinoids Screen None detected (None Detect) Serum Alcohol < 10 (<10) mg/dL 07/20/17 Range/Units 23:08 WBC 8.8 (3.5-10.8) 10^3/ul RBC 4.71 (4.0-5.4) 10^6/ul Hgb 13.0 (12.0-16.0) g/dl Hct 39 (35-47) % MCV 82 (80-97) fL MCH 28 (27-31) pg MCHC 34 (31-36) g/dl RDW 15 (10.5-15) % Plt Count 322 (150-450) 10^3/ul MPV 8 (7.4-10.4) um3 Neut % (Auto) 65.3 (38-83) % Lymph % (Auto) 26.5 (25-47) % [place] % (Auto) 5.7 (1-9) % Eos % (Auto) 2.3 (0-6) % Baso % (Auto) 0.2 (0-2) % Absolute Neuts (auto) 5.7 (1.5-7.7) 10^3/ul Absolute Lymphs (auto) 2.3 (1.0-4.8) 10^3/ul Absolute Monos (auto) 0.5 (0-0.8) 10^3/ul Absolute Eos (auto) 0.2 (0-0.6) 10^3/ul Absolute Basos (auto) 0 (0-0.2) 10^3/ul Absolute Nucleated RBC 0.01 10^3/ul Nucleated RBC % 0.1 Sodium (133-145) mmol/L Potassium (3.5-5.0) mmol/L Chloride (101-111) mmol/L Carbon Dioxide (22-32) mmol/L Anion Gap (2-11) mmol/L BUN (6-24) mg/dL Creatinine (0.51-0.95) mg/dL Est GFR ( Amer) (>60) Est GFR (Non-Af Amer) (>60) BUN/Creatinine Ratio (8-20) Glucose (70-100) mg/dL Calcium (8.6-10.3) mg/dL Total Bilirubin (0.2-1.0) mg/dL AST (13-39) U/L ALT (7-52) U/L Alkaline Phosphatase (34-104) U/L Total Protein (6.4-8.9) g/dL Albumin (3.2-5.2) g/dL Globulin (2-4) g/dL Albumin/Globulin Ratio (1-3) TSH (0.34-5.60) mcIU/mL Urine Color Urine Appearance Urine pH (5-9) Ur Specific [place] (1.010-1.030) Urine Protein (Negative) Urine Ketones (Negative) Urine Blood (Negative) Urine Nitrate (Negative) Urine Bilirubin (Negative) Urine Urobilinogen (Negative) Ur Leukocyte Esterase (Negative) Urine Glucose (Negative) Salicylates (<30) mg/dL Urine Opiates Screen (None Detect) Acetaminophen mcg/mL Ur Barbiturates Screen (None Detect) Valproic Acid (50-100) mcg/mL Ur Phencyclidine Scrn (None Detect) Ur Amphetamines Screen (None Detect) U Benzodiazepines Scrn (None Detect) Urine Cocaine Screen (None Detect) U Cannabinoids Screen (None Detect) Serum Alcohol (<10) mg/dL Result Diagrams: 07/20/17 23:08 07/20/17 23:08 Lab Statement: Any lab studies that have been ordered have been reviewed, and results considered in the medical decision making process. Course/Dx - Course Course Of Treatment: DISCUSSED RESULTS WITH PATIENT. SHE WILL F/U WITH HER PMD FOR THE ELEVATED TSH. DENIES SI/HI. FEELS SAFE GOING HOME. SPEEDER HAND ALSO FEELS SAFE PATIENT GOING HOME. NO CRITICAL CARE TIME. - Differential Dx/Clinical Impression Provider Diagnosis: Mental health problem, Hypothyroidism Discharge - Discharge Plan Condition: Stable Disposition: HOME Patient Education Materials: Hypothyroidism (ED) Referrals: Ethan Mcguire MD [Primary Care Provider] - Additional Instructions: FOLLOW UP WITH YOUR DOCTOR. CALL THEM TOMORROW ABOUT YOUR TSH BEING ELEVATED. RETURN TO THE EMERGENCY DEPARTMENT FOR ANY WORSENING OF YOUR CONDITION OR QUESTIONS OR CONCERNS. The documentation as recorded by the oKbe jordan Nilda accurately reflects the service I personally performed and the decisions made by me, Hector Pan MD.
== END 2017-07-21 00:05 | disposition home or self-care (01) ==
LOC: ED 21:25
DX: F99 Mental disorder, not otherwise specified (principal); F32.9 Major depressive disorder, single episode, unspecified; E03.9 Hypothyroidism, unspecified; F41.9 Anxiety disorder, unspecified; F90.9 Attention-deficit hyperactivity disorder, unspecified type; R62.50 Unspecified lack of expected normal physiological development in childhood
CPT/HCPCS: 36415; 80053; 80164; 80307; 80320; 80329; 81003; 84443; 85025; 99282; G0480

== ENCOUNTER 2017-07-21 17:28 | Emergency (ER) | payer MEDICARE, MEDICAID ==
[2017-07-21] MEDS ORDERED: NS 0.9% 1000 ML* 2,000 ML IV ONE (19:28)
[2017-07-21 19:46] LABS: Hematocrit 40 % (35-47); Hemoglobin 13.3 g/dl (12.0-16.0); Mean Corpuscular HGB Conc 33 g/dl (31-36); Mean Corpuscular Hemoglobin 27 pg (27-31); Mean Corpuscular Volume 82 fL (80-97); Mean Platelet Volume 8 um3 (7.4-10.4); Red Blood Count 4.87 10^6/ul (4.0-5.4); Red Cell Distribution Width 15 % (10.5-15); White Blood Count 8.4 10^3/ul (3.5-10.8)
[2017-07-21 19:49] LABS: Urine Bilirubin Negative (Negative); Urine Glucose Negative (Negative); Urine Nitrite Negative (Negative)
[2017-07-21 20:05] LABS: ALT 15 U/L (7-52); AST 16 U/L (13-39); Albumin 3.7 g/dL (3.2-5.2); Alkaline Phosphatase 55 U/L (34-104); Anion Gap 7 mmol/L (2-11); BUN/Creatinine Ratio 13.1 (8-20); Blood Urea Nitrogen 11 mg/dL (6-24); CO2 Carbon Dioxide 25 mmol/L (22-32); Calcium 9.4 mg/dL (8.6-10.3); Chloride 104 mmol/L (101-111); EGFR African American 104.6 (>60); EGFR Non-African American 81.3 (>60); Globulin 3.4 g/dL (2-4); Glucose 98 mg/dL (70-100); Lipase 11 U/L (11.0-82.0); Potassium 4.2 mmol/L (3.5-5.0); Sodium 136 mmol/L (133-145); Total Protein 7.1 g/dL (6.4-8.9)
[2017-07-21] MEDS ORDERED: Pantoprazole IV* 40 MG IV ONE (20:06)
[2017-07-21] MEDS ORDERED: Ketorolac INJ* 30 MG/ML 1 ML VIAL IV ONE (20:06)
[2017-07-21] MEDS ORDERED: Ondansetron INJ* 2 MG/ML VIAL IV ONE (20:06)
[2017-07-21] MEDS ORDERED: Iohexol 300* (CONTRAST) 10 ML SDV IV ONE (21:42)
--- NOTE | 2017-07-21 21:45 | RAD ---
INDICATION: Upper abdominal pain. COMPARISON: There are no prior studies available for comparison. TECHNIQUE: Multiple real-time images of the right upper quadrant were obtained. FINDINGS: The gallbladder is not visualized. The liver is mildly enlarged. No significant focal abnormality is seen. No intra or extra hepatic ductal distention is noted. The common bile duct measures 0.5 cm in diameter. The pancreas is partially obscured by overlying bowel gas. The visualized portion of the pancreas appears to be within normal limits. The right kidney is normal in size without evidence for hydronephrosis. IMPRESSION: 1. THE GALLBLADDER IS NOT VISUALIZED. 2. THE LIVER IS MILDLY ENLARGED.
--- NOTE | 2017-07-22 00:14 | ED ---
Marianna Kulkarni Alfonso, scribed for Hector Pan MD on 07/21/17 at 2006 . Abdominal Pain/Female - HPI Summary HPI Summary: This patient is a 26 year old F BIBA to [facility] with a chief complaint of abdominal pain since last night. The patient rates the sharp pain 9/10 in severity. Symptoms aggravated by movement and palpation. Symptoms alleviated by nothing. Patient reports chills, nausea (mild), vomiting (once), and diarrhea ( since yesterday). Patient denies fever, urinary symptoms, blood in the stools, and vaginal discharge. LMP last month. She denies abdominal PSHx. She denies PMHx of GERD. - History of Current Complaint Chief Complaint: EDAbdPain Stated Complaint: ABD/WRIST PAIN Time Seen by Provider: 07/21/17 19:54 Hx Obtained From: Patient Hx Last Menstrual Period: last month Onset/Duration: Sudden Onset, Lasting Days - last night, Still Present Timing: Constant Severity Currently: Severe Pain Intensity: 8 Pain Scale Used: 0-10 Numeric Character: Sharp Aggravating Factor(s): Movement, Other: - palpation Alleviating Factor(s): Nothing Associated Signs and Symptoms: Positive: Other: - chills, nausea (mild), vomiting (once), and diarrhea (since yesterday). Patient denies fever, urinary symptoms, blood in the stools, and vaginal discharge. Allergies/Adverse Reactions: Allergies Allergy/AdvReac Type Severity Reaction Status Date / Time No Known Allergies Allergy Verified 07/20/17 21:31 PMH/Surg Hx/FS Hx/Imm Hx Endocrine/Hematology History: Reports: Hx Thyroid Disease Denies: Hx Anticoagulant Therapy, Hx Diabetes Cardiovascular History: Denies: Hx Hypertension Respiratory History: Reports: Hx Seasonal Allergies Denies: Hx Asthma, Hx Chronic Obstructive Pulmonary Disease (COPD) GI History: Denies: Hx Gastroesophageal Reflux Disease, Hx Ulcer Sensory History: Reports: Hx Contacts or Glasses Denies: Hx Hearing Aid Opthamlomology History: Reports: Hx Contacts or Glasses Neurological History: Reports: Hx Developmental Delay Psychiatric History: Reports: Hx Anxiety, Hx Attention Deficit Hyperactivity Disorder, Hx Depression, Hx Inpatient Treatment, Hx Community Mental Health Tx, Hx Suicide Attempt, Hx of Violent Episodes Against Others, Other Psychiatric Issues/Disorders - DEVELOPMENTALLY DELAYED Denies: Hx Eating Disorder - Surgical History Surgery Procedure, Year, and Place: none Infectious Disease History: No Infectious Disease History: Denies: Hx Clostridium Difficile, Hx Hepatitis, Hx Human Immunodeficiency Virus (HIV), Hx of Known/Suspected MRSA, Hx Shingles, Hx Tuberculosis, Hx Known/ Suspected VRE, Hx Known/Suspected VRSA, History Other Infectious Disease, Traveled Outside the [place] in Last 30 Days - Family History Known Family History: Positive: Other - pos: depression Negative: Cardiac Disease, Hypertension - Social History Alcohol Use: None Hx Substance Use: No Substance Use Type: Reports: None Hx Tobacco Use: No Smoking Status (MU): Never Smoked Tobacco Amount Used/How Often: pt does not and has never used tobacco products of any kind Have You Smoked in the Last Year: No Review of Systems Positive: Chills. Negative: Fever Positive: Abdominal Pain, Vomiting, Diarrhea, Nausea, Other - negative blood in the stools Positive: no symptoms reported, other - Negative vaginal discharge All Other Systems Reviewed And Are Negative: Yes Physical Exam - Summary Physical Exam Summary: General: well-appearing, mild pain distress Skin: warm, color reflects adequate perfusion, dry Head: normal Eyes: EOMI, RITA ENT: normal Neck: supple, nontender Respiratory: CTA, breath sounds present Cardiovascular: RRR Abdomen: soft. LUQ, RUQ, and epigastrium tenderness. Non tender in lower abdomen. Bowel: present Musculoskeletal: normal, strength/ROM intact Neurological: normal, sensory/motor intact, A&O x3 Psychological: affect/mood appropriate Triage Information Reviewed: Yes Vital Signs On Initial Exam: Initial Vitals Temp Pulse Resp BP Pulse Ox 97.7 F 95 20 132/88 98 07/21/17 17:29 07/21/17 17:29 07/21/17 17:29 07/21/17 17:29 07/21/17 17:29 Vital Signs Reviewed: Yes - [place] Coma Scale Coma Scale Total: 15 Diagnostics - Vital Signs Vital Signs Temp Pulse Resp BP Pulse Ox 07/21/17 20:00 86 97 07/21/17 19:30 91 109/88 96 07/21/17 19:00 83 109/82 97 07/21/17 18:58 87 97 07/21/17 17:29 97.7 F 95 20 132/88 98 - Laboratory Lab Results: Lab Results 07/21/17 07/21/17 07/21/17 Range/Units 19:15 19:35 19:35 WBC 8.4 (3.5-10.8) 10^3/ul RBC 4.87 (4.0-5.4) 10^6/ul Hgb 13.3 (12.0-16.0) g/dl Hct 40 (35-47) % MCV 82 (80-97) fL MCH 27 (27-31) pg MCHC 33 (31-36) g/dl RDW 15 (10.5-15) % Plt Count 303 (150-450) 10^3/ul MPV 8 (7.4-10.4) um3 Neut % (Auto) 64.9 (38-83) % Lymph % (Auto) 25.8 (25-47) % [place] % (Auto) 7.0 (1-9) % Eos % (Auto) 1.7 (0-6) % Baso % (Auto) 0.6 (0-2) % Absolute Neuts (auto) 5.4 (1.5-7.7) 10^3/ul Absolute Lymphs (auto) 2.2 (1.0-4.8) 10^3/ul Absolute Monos (auto) 0.6 (0-0.8) 10^3/ul Absolute Eos (auto) 0.1 (0-0.6) 10^3/ul Absolute Basos (auto) 0.1 (0-0.2) 10^3/ul Absolute Nucleated RBC 0 10^3/ul Nucleated RBC % 0 Lactic Acid 1.7 (0.5-2.0) mmol/L Urine Color Yellow Urine Appearance Cloudy Urine pH 6.0 (5-9) Ur Specific [place] 1.006 L (1.010-1.030) Urine Protein Negative (Negative) Urine Ketones Negative (Negative) Urine Blood Negative (Negative) Urine Nitrate Negative (Negative) Urine Bilirubin Negative (Negative) Urine Urobilinogen Negative (Negative) Ur Leukocyte Esterase Negative (Negative) Urine Glucose Negative (Negative) Result Diagrams: 07/21/17 19:35 07/21/17 19:35 Lab Statement: Any lab studies that have been ordered have been reviewed, and results considered in the medical decision making process. - CT A/P CT Interpretation Completed By: Radiologist - 1. There is no acute abdominal and pelvic process. 2. There is absence of the gallbladder, consistent with cholecystectomy. - Additional Comments Diagnostic Additional Comments: US gallbladder reveals, per radiologist, 1. THE GALLBLADDER IS NOT VISUALIZED. 2. THE LIVER IS MILDLY ENLARGED. ED physician has reviewed this radiology report and agrees. Abdominal Pain Fem Course/Dx - Course Course Of Treatment: IMPROVED IN ED. DISCUSSED RESULTS WITH PATIENT. F/U PMD; RETURN IF WORSE. - Diagnoses Provider Diagnoses: Abdominal pain Discharge - Discharge Plan Condition: Stable Disposition: HOME Patient Education Materials: Abdominal Pain (ED) Referrals: Ethan Mcguire MD [Primary Care Provider] - Additional Instructions: FOLLOW UP WITH YOUR DOCTOR. RETURN TO THE EMERGENCY DEPARTMENT FOR ANY WORSENING OF YOUR CONDITION; PAIN, FEVER, VOMITING OR QUESTIONS OR CONCERNS. The documentation as recorded by the Marianna jordan Alfonso accurately reflects the service I personally performed and the decisions made by me, Hector Pan MD.
[2017-07-22 00:27] VITALS: BP 117/67
--- NOTE | 2017-07-22 07:55 | RAD ---
CLINICAL HISTORY: Upper abdominal pain COMPARISON: 12 ultrasound dated July 21, 2017 TECHNIQUE: Multiple contiguous axial CT scans were obtained of the abdomen and pelvis after the administration of intravenous contrast. Coronal and sagittal multiplanar reformations are submitted for review. Oral contrast was administered. Delayed images were obtained through the abdomen and pelvis. FINDINGS: LUNG BASES: The lung bases are clear. LIVER: The liver measures 21 cm in long axis. There are no focal hepatic parenchymal masses. BILE DUCTS: There is no intrahepatic or extrahepatic biliary dilatation. GALLBLADDER: The gallbladder is not visualized. PANCREAS: The pancreas is normal, without mass or ductal dilatation. SPLEEN: Normal in size and appearance. UPPER GI TRACT: Evaluation of the gastrointestinal tract is limited by incomplete gastric distention. The upper GI tract is unremarkable. SMALL BOWEL AND MESENTERY: The small bowel is normal in contour, course, and caliber. There is no obstruction or dilatation. COLON: The colon is normal in contour, course, caliber. There is no pericolonic inflammatory change. ADRENALS: Normal bilaterally. KIDNEYS: There is an extrarenal pelvis on the right. 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 PELVIC ORGANS: There is a 1.4 cm right ovarian cyst. AORTA: The aorta is normal. IVC: Unremarkable LYMPH NODES: There is no lymphadenopathy by size criteria. ABDOMINAL WALL: There is no evidence for abdominal wall hernia. BONES AND SOFT TISSUES: Unremarkable OTHER: None IMPRESSION: 1. HEPATOMEGALY. 2. THE GALLBLADDER IS NOT VISUALIZED.
== END 2017-07-22 00:27 | disposition home or self-care (01) ==
LOC: ED 17:28
DX: R10.9 Unspecified abdominal pain (principal); R16.0 Hepatomegaly, not elsewhere classified
CPT/HCPCS: 36415; 74177; 76705; 80053; 81003; 83605; 83690; 84702; 85025; 86140; 96374; 96375; 99282; J1885; J2405; Q9967

== ENCOUNTER 2017-07-23 11:46 | Emergency (ER) | payer MEDICARE, MEDICAID ==
[2017-07-23 13:04] LABS: Urine Bacteria Absent (Absent); Urine Bilirubin Negative (Negative); Urine Glucose Negative (Negative); Urine Nitrite Negative (Negative)
[2017-07-23 13:37] LABS: Benzodiazepine Urine Screen None Detected (None Detect)
[2017-07-23 14:03] LABS: Acetaminophen < 15 mcg/mL; Alcohol < 10 mg/dL (<10)
[2017-07-23 14:44] LABS: ALT 17 U/L (7-52); AST 20 U/L (13-39); Albumin 3.5 g/dL (3.2-5.2); Alkaline Phosphatase 48 U/L (34-104); Anion Gap 10 mmol/L (2-11); BUN/Creatinine Ratio 10.7 (8-20); Blood Urea Nitrogen 9 mg/dL (6-24); CO2 Carbon Dioxide 20 mmol/L (22-32); Calcium 8.7 mg/dL (8.6-10.3); Chloride 106 mmol/L (101-111); EGFR African American 104.6 (>60); EGFR Non-African American 81.3 (>60); Globulin 2.5 g/dL (2-4); Glucose 73 mg/dL (70-100); Potassium 4.4 mmol/L (3.5-5.0); Sodium 136 mmol/L (133-145)
[2017-07-23 15:02] LABS: TSH (Thyroid Stimulating Horm) 3.21 mcIU/mL (0.34-5.60)
[2017-07-23 15:08] LABS: Salicylate < 2.50 mg/dL (<30)
--- NOTE | 2017-07-23 15:10 | ED ---
Psychiatric Complaint - HPI Summary HPI Summary: Patient presents to the ED from mental health after stating to her counselor she is suicidal. She is denying suicidal thoughts on arrival. Denies HI. Denies drug or alcohol use. She states she is wanting to go home, is in NAD and has never had attempts of SI prior. Denies any physical symptoms. - History Of Current Complaint Chief Complaint: EDMentalHealth Time Seen by Provider: 07/23/17 11:56 Hx Obtained From: Patient Hx Last Menstrual Period: last month ?: No Onset/Duration: Sudden Onset Timing: Seconds Severity Initially: Mild Severity Currently: None Character: Depressed, Angry Aggravating Factor(s): Nothing Alleviating Factor(s): Counseling Associated Signs And Symptoms: Positive: Negative Related History: Positive For: Prior Psychiatric Issues Has Suicidal: Reports: Thoughts - none currently - Risk Factor(s) Completed Suicide Risk Factors: Negative - Allergies/Home Medications Allergies/Adverse Reactions: Allergies Allergy/AdvReac Type Severity Reaction Status Date / Time No Known Allergies Allergy Verified 07/23/17 12:03 PMH/Surg Hx/FS Hx/Imm Hx Previously Healthy: Yes Endocrine/Hematology History: Reports: Hx Thyroid Disease Denies: Hx Anticoagulant Therapy, Hx Diabetes Cardiovascular History: Denies: Hx Hypertension Respiratory History: Reports: Hx Seasonal Allergies Denies: Hx Asthma, Hx Chronic Obstructive Pulmonary Disease (COPD) GI History: Denies: Hx Gastroesophageal Reflux Disease, Hx Ulcer History: Denies: Hx Renal Disease Sensory History: Reports: Hx Contacts or Glasses Denies: Hx Hearing Aid Opthamlomology History: Reports: Hx Contacts or Glasses Neurological History: Reports: Hx Developmental Delay Psychiatric History: Reports: Hx Anxiety, Hx Attention Deficit Hyperactivity Disorder, Hx Depression, Hx Inpatient Treatment, Hx Community Mental Health Tx, Hx Suicide Attempt, Hx of Violent Episodes Against Others, Other Psychiatric Issues/Disorders - DEVELOPMENTALLY DELAYED Denies: Hx Eating Disorder - Surgical History Surgery Procedure, Year, and Place: none Infectious Disease History: Unable to Obtain/Confirm Infectious Disease History: Denies: Hx Clostridium Difficile, Hx Hepatitis, Hx Human Immunodeficiency Virus (HIV), Hx of Known/Suspected MRSA, Hx Shingles, Hx Tuberculosis, Hx Known/ Suspected VRE, Hx Known/Suspected VRSA, History Other Infectious Disease, Traveled Outside the [place] in Last 30 Days - Family History Known Family History: Positive: None - Pt denies any FMHx. , Other - pos: depression Negative: Cardiac Disease, Hypertension - Social History Occupation: Employed Part-time Lives: With Family Alcohol Use: None Hx Substance Use: No Substance Use Type: Reports: None Hx Tobacco Use: No Smoking Status (MU): Never Smoked Tobacco Amount Used/How Often: pt does not and has never used tobacco products of any kind Have You Smoked in the Last Year: No Review of Systems Constitutional: Negative Negative: Fever, Chills, Fatigue Eyes: Negative Cardiovascular: Negative Respiratory: Negative Gastrointestinal: Negative Positive: no symptoms reported, see HPI Musculoskeletal: Negative Neurological: Negative Positive: Anxious, Depressed All Other Systems Reviewed And Are Negative: Yes Physical Exam Triage Information Reviewed: Yes Vital Signs On Initial Exam: Initial Vitals Temp Pulse Resp BP Pulse Ox 97.8 F 86 16 135/64 98 07/23/17 11:46 07/23/17 11:46 07/23/17 11:46 07/23/17 11:46 07/23/17 11:46 Vital Signs Reviewed: Yes Appearance: Positive: Well-Appearing, Well-Nourished Skin: Positive: Warm, Skin Color Reflects Adequate Perfusion Head/Face: Positive: Normal Head/Face Inspection Eyes: Positive: EOMI, RITA, Conjunctiva Clear Neck: Positive: Nontender, No Lymphadenopathy Respiratory/Lung Sounds: Positive: Clear to Auscultation, Breath Sounds Present Cardiovascular: Positive: Normal, RRR Musculoskeletal: Positive: Normal, Strength/ROM Intact Neurological: Positive: Sensory/Motor Intact, Alert, Oriented to Person Place, Time Psychiatric: Positive: Anxious AVPU Assessment: Alert Diagnostics - Vital Signs Vital Signs Temp Pulse Resp BP Pulse Ox 07/23/17 11:46 97.8 F 86 16 135/64 98 - Laboratory Lab Results: Lab Results 07/23/17 07/23/17 07/23/17 Range/Units 12:15 12:15 13:03 Sodium 136 (133-145) mmol/L Potassium 4.4 (3.5-5.0) mmol/L Chloride 106 (101-111) mmol/L Carbon Dioxide 20 L (22-32) mmol/L Anion Gap 10 (2-11) mmol/L BUN 9 (6-24) mg/dL Creatinine 0.84 (0.51-0.95) mg/dL Est GFR ( Amer) 104.6 (>60) Est GFR (Non-Af Amer) 81.3 (>60) BUN/Creatinine Ratio 10.7 (8-20) Glucose 73 (70-100) mg/dL Calcium 8.7 (8.6-10.3) mg/dL Total Bilirubin 0.20 (0.2-1.0) mg/dL AST 20 (13-39) U/L ALT 17 (7-52) U/L Alkaline Phosphatase 48 (34-104) U/L Total Protein 6.0 L (6.4-8.9) g/dL Albumin 3.5 (3.2-5.2) g/dL Globulin 2.5 (2-4) g/dL Albumin/Globulin Ratio 1.4 (1-3) TSH Pending Urine Color Yellow Urine Appearance Clear Urine pH 7.0 (5-9) Ur Specific [place] 1.018 (1.010-1.030) Urine Protein Negative (Negative) Urine Ketones Negative (Negative) Urine Blood Negative (Negative) Urine Nitrate Negative (Negative) Urine Bilirubin Negative (Negative) Urine Urobilinogen Negative (Negative) Ur Leukocyte Esterase Trace H (Negative) Urine WBC (Auto) Trace(0-5/hpf) (Absent) Urine RBC (Auto) Trace(0-2/hpf) (Absent) Ur Squamous Epith Cells Present H (Absent) Urine Bacteria Absent (Absent) Urine Glucose Negative (Negative) Salicylates Pending Urine Opiates Screen None detected (None Detect) Acetaminophen < 15 mcg/mL Ur Barbiturates Screen None detected (None Detect) Ur Phencyclidine Scrn None detected (None Detect) Ur Amphetamines Screen None detected (None Detect) U Benzodiazepines Scrn None detected (None Detect) Urine Cocaine Screen None detected (None Detect) U Cannabinoids Screen None detected (None Detect) Serum Alcohol < 10 (<10) mg/dL Result Diagrams: 07/23/17 15:25 07/23/17 13:03 Lab Statement: Any lab studies that have been ordered have been reviewed, and results considered in the medical decision making process. Course/Dx - Course Course Of Treatment: Patient denies any SI. She is cleared for MHU. See HPI. - Differential Dx/Clinical Impression Differential Diagnosis/HQI/PQRI: Positive: Depression, Suicide Attempt, Suicidal Ideation, Suicidal Gesture Provider Diagnosis: Suicidal thoughts Discharge - Discharge Plan Condition: Stable Disposition: HOME Referrals: [facility] [Outside] (Meet with Ivelisse from [facility]) Ethan Mcguire MD [Primary Care Provider] -
[2017-07-23 15:33] LABS: Hematocrit 38 % (35-47); Hemoglobin 12.5 g/dl (12.0-16.0); Mean Corpuscular HGB Conc 33 g/dl (31-36); Mean Corpuscular Hemoglobin 27 pg (27-31); Mean Corpuscular Volume 82 fL (80-97); Mean Platelet Volume 9 um3 (7.4-10.4); Red Blood Count 4.59 10^6/ul (4.0-5.4); Red Cell Distribution Width 14 % (10.5-15); White Blood Count 8.5 10^3/ul (3.5-10.8)
[2017-07-23 15:45] LABS: Add Diff/Slide Review? Manual Diff Added; Comments Flag Yes
[2017-07-23 15:56] VITALS: BP 108/49
[2017-07-23 16:25] LABS: Eosinophils % 2 % (0-6); Immature Granulocytes 4 % (0-9); Neutrophil % 71 % (38-83)
[2017-07-23 16:26] LABS: Add Path Review? YES; Macrocytosis 1+; Microcytosis 1+
== END 2017-07-23 19:15 | disposition home or self-care (01) ==
LOC: ED 11:46
DX: R45.851 Suicidal ideations (principal); R62.50 Unspecified lack of expected normal physiological development in childhood; F90.9 Attention-deficit hyperactivity disorder, unspecified type
CPT/HCPCS: 36415; 80053; 80164; 80307; 80320; 80329; 81003; 81015; 84443; 85025; 85060; 87086; 99285; G0480

== ENCOUNTER 2017-09-14 13:11 | Emergency (ER) | payer MEDICARE, MEDICAID ==
[2017-09-14] MEDS ORDERED: Ketorolac INJ* 30 MG/ML 1 ML VIAL IV ONE (13:48)
[2017-09-14] MEDS ORDERED: Aspirin Low Dose CHEW TAB* 81 MG PO ONE (13:48)
--- NOTE | 2017-09-14 14:14 | RAD ---
INDICATION: 2 days of chest pain COMPARISON: Similar radiograph dated July 14, 2017 TECHNIQUE: Single AP portable view of the chest was obtained. FINDINGS: Image quality is compromised due to the relative inferiority of a portable chest x-ray. The heart and mediastinum exhibit normal size and contour. The lungs are grossly clear. There is no evidence of a large pleural effusion. Visualized bones are normal for the patient's age. IMPRESSION: No radiographic evidence for acute cardiopulmonary abnormality on this portable chest x-ray.
[2017-09-14 14:28] LABS: Hematocrit 39 % (35-47); Hemoglobin 13.1 g/dl (12.0-16.0); Mean Corpuscular HGB Conc 33 g/dl (31-36); Mean Corpuscular Hemoglobin 27 pg (27-31); Mean Corpuscular Volume 82 fL (80-97); Mean Platelet Volume 9 um3 (7.4-10.4); Red Blood Count 4.81 10^6/ul (4.0-5.4); Red Cell Distribution Width 15 % (10.5-15); White Blood Count 8.3 10^3/ul (3.5-10.8)
[2017-09-14 14:46] LABS: Albumin 3.9 g/dL (3.2-5.2); BUN/Creatinine Ratio 9.5 (8-20); Calcium 8.9 mg/dL (8.6-10.3); EGFR African American 104.6 (>60); EGFR Non-African American 81.3 (>60); Globulin 3.1 g/dL (2-4); Potassium 4.1 mmol/L (3.5-5.0); Total Bilirubin 0.2 mg/dL (0.2-1.0)
[2017-09-14 14:48] LABS: Troponin I 0.01 ng/mL (<0.04)
[2017-09-14 15:23] LABS: TSH (Thyroid Stimulating Horm) 4.75 mcIU/mL (0.34-5.60)
[2017-09-14 17:45] VITALS: BP 129/94
--- NOTE | 2017-09-14 18:38 | ED ---
Marianna Kulkarni Alfonso, scribed for Bigg Wright MD on 09/14/17 at 1352 . HPI Chest Pain - HPI Summary HPI Summary: This patient is a 26 year old F BIBA to [facility] with a chief complaint of sharp CP since yesterday. The patient rates the pain 6/10 in severity. Symptoms aggravated by movement and deep breaths. Symptoms alleviated by nothing. Patient reports fever and productive cough (2 days). Patient denies chills, vaginal discharge, and vaginal bleeding. LMP 08/21/17. - History of Current Complaint Chief Complaint: EDChestPainROMI Time Seen by Provider: 09/14/17 13:43 Hx Obtained From: Patient Hx Last Menstrual Period: 08/21/17 Onset/Duration: Started Days Ago, Still Present Timing: Constant Current Severity: Moderate Pain Intensity: 6 Pain Scale Used: 0-10 Numeric Character: Sharp/Stabbing Aggravating Factor(s): Movement, Deep Breaths Alleviating Factor(s): Nothing Associated Signs and Symptoms: Positive: Other: - Patient reports fever and productive cough (2 days). Patient denies chills, vaginal discharge, and vaginal bleeding. - Additional Pertinent History Primary Care Physician: CHRIS - Allergy/Home Medications Allergies/Adverse Reactions: Allergies Allergy/AdvReac Type Severity Reaction Status Date / Time No Known Allergies Allergy Verified 07/23/17 12:03 PMH/Surg Hx/FS Hx/Imm Hx Endocrine/Hematology History: Reports: Hx Thyroid Disease Denies: Hx Anticoagulant Therapy, Hx Diabetes Cardiovascular History: Denies: Hx Hypertension Respiratory History: Reports: Hx Seasonal Allergies Denies: Hx Asthma, Hx Chronic Obstructive Pulmonary Disease (COPD) GI History: Denies: Hx Gastroesophageal Reflux Disease, Hx Ulcer History: Denies: Hx Renal Disease Sensory History: Reports: Hx Contacts or Glasses Denies: Hx Hearing Aid Opthamlomology History: Reports: Hx Contacts or Glasses Neurological History: Reports: Hx Developmental Delay Psychiatric History: Reports: Hx Anxiety, Hx Attention Deficit Hyperactivity Disorder, Hx Depression, Hx Inpatient Treatment, Hx Community Mental Health Tx, Hx Suicide Attempt, Hx of Violent Episodes Against Others, Other Psychiatric Issues/Disorders - DEVELOPMENTALLY DELAYED Denies: Hx Eating Disorder - Surgical History Surgery Procedure, Year, and Place: none Infectious Disease History: No Infectious Disease History: Denies: Hx Clostridium Difficile, Hx Hepatitis, Hx Human Immunodeficiency Virus (HIV), Hx of Known/Suspected MRSA, Hx Shingles, Hx Tuberculosis, Hx Known/ Suspected VRE, Hx Known/Suspected VRSA, History Other Infectious Disease, Traveled Outside the [place] in Last 30 Days - Family History Known Family History: Positive: Other - pos: depression Negative: Cardiac Disease, Hypertension - Social History Alcohol Use: None Hx Substance Use: No Substance Use Type: Reports: None Hx Tobacco Use: No Smoking Status (MU): Never Smoked Tobacco Amount Used/How Often: pt does not and has never used tobacco products of any kind Have You Smoked in the Last Year: No Review of Systems Positive: Fever. Negative: Chills Positive: Chest Pain Positive: Cough Positive: other - Negative vaginal bleeding.. Negative: discharge All Other Systems Reviewed And Are Negative: Yes Physical Exam - Summary Physical Exam Summary: VITAL SIGNS: Reviewed. GENERAL: Patient is a well-developed and obese female who is lying comfortable in the stretcher. Patient is not in any acute respiratory distress. HEAD AND FACE: No signs of trauma. No ecchymosis, hematomas or skull depressions. No sinus tenderness. EYES: PERRLA, EOMI x 2, No injected conjunctiva, no nystagmus. EARS: Hearing grossly intact. Ear canals and tympanic membranes are within normal limits. MOUTH: Oropharynx within normal limits. NECK: Supple, trachea is midline, no adenopathy, no JVD, no carotid bruit, no c- spine tenderness, neck with full ROM. CHEST: Symmetric, tenderness at palpation LUNGS: Clear to auscultation bilaterally. No wheezing or crackles. CVS: Regular rate and rhythm, S1 and S2 present, no murmurs or gallops appreciated. ABDOMEN: Soft, non-tender. No signs of distention. No rebound no guarding, and no masses palpated. Bowel sounds are normal. EXTREMITIES: FROM in all major joints, no edema, no cyanosis or clubbing. NEURO: Alert and oriented x 3. No acute neurological deficits. Speech is normal and follows commands. SKIN: Dry and warm Triage Information Reviewed: Yes Vital Signs On Initial Exam: Initial Vitals Temp Pulse Resp BP Pulse Ox 98.7 F 93 20 112/68 99 09/14/17 13:34 09/14/17 13:34 09/14/17 13:34 09/14/17 13:34 09/14/17 13:34 Vital Signs Reviewed: Yes - [place] Coma Scale Coma Scale Total: 15 Diagnostics - Vital Signs Vital Signs Temp Pulse Resp BP Pulse Ox 09/14/17 13:34 98.7 F 93 20 112/68 99 - Laboratory Lab Results: Lab Results 09/14/17 09/14/17 09/14/17 Range/Units 14:13 14:13 14:13 WBC 8.3 (3.5-10.8) 10^3/ul RBC 4.81 (4.0-5.4) 10^6/ul Hgb 13.1 (12.0-16.0) g/dl Hct 39 (35-47) % MCV 82 (80-97) fL MCH 27 (27-31) pg MCHC 33 (31-36) g/dl RDW 15 (10.5-15) % Plt Count 278 (150-450) 10^3/ul MPV 9 (7.4-10.4) um3 Neut % (Auto) 67.6 (38-83) % Lymph % (Auto) 24.4 L (25-47) % [place] % (Auto) 5.2 (1-9) % Eos % (Auto) 2.1 (0-6) % Baso % (Auto) 0.7 (0-2) % Absolute Neuts (auto) 5.6 (1.5-7.7) 10^3/ul Absolute Lymphs (auto) 2.0 (1.0-4.8) 10^3/ul Absolute Monos (auto) 0.4 (0-0.8) 10^3/ul Absolute Eos (auto) 0.2 (0-0.6) 10^3/ul Absolute Basos (auto) 0.1 (0-0.2) 10^3/ul Absolute Nucleated RBC 0.01 10^3/ul Nucleated RBC % 0.1 Sodium 136 (133-145) mmol/L Potassium 4.1 (3.5-5.0) mmol/L Chloride 105 (101-111) mmol/L Carbon Dioxide 26 (22-32) mmol/L Anion Gap 5 (2-11) mmol/L BUN 8 (6-24) mg/dL Creatinine 0.84 (0.51-0.95) mg/dL Est GFR ( Amer) 104.6 (>60) Est GFR (Non-Af Amer) 81.3 (>60) BUN/Creatinine Ratio 9.5 (8-20) Glucose 86 (70-100) mg/dL Calcium 8.9 (8.6-10.3) mg/dL Total Bilirubin 0.20 (0.2-1.0) mg/dL AST 16 (13-39) U/L ALT 13 (7-52) U/L Alkaline Phosphatase 48 (34-104) U/L Total Creatine Kinase 130 (10-223) U/L Troponin I 0.01 (<0.04) ng/mL B-Natriuretic Peptide 30 ( - 100) pg/mL Total Protein 7.0 (6.4-8.9) g/dL Albumin 3.9 (3.2-5.2) g/dL Globulin 3.1 (2-4) g/dL Albumin/Globulin Ratio 1.3 (1-3) TSH 4.75 (0.34-5.60) mcIU/mL 11/20/17 Range/Units 16:38 WBC (3.5-10.8) 10^3/ul RBC (4.0-5.4) 10^6/ul Hgb (12.0-16.0) g/dl Hct (35-47) % MCV (80-97) fL MCH (27-31) pg MCHC (31-36) g/dl RDW (10.5-15) % Plt Count (150-450) 10^3/ul MPV (7.4-10.4) um3 Neut % (Auto) (38-83) % Lymph % (Auto) (25-47) % [place] % (Auto) (1-9) % Eos % (Auto) (0-6) % Baso % (Auto) (0-2) % Absolute Neuts (auto) (1.5-7.7) 10^3/ul Absolute Lymphs (auto) (1.0-4.8) 10^3/ul Absolute Monos (auto) (0-0.8) 10^3/ul Absolute Eos (auto) (0-0.6) 10^3/ul Absolute Basos (auto) (0-0.2) 10^3/ul Absolute Nucleated RBC 10^3/ul Nucleated RBC % Sodium (133-145) mmol/L Potassium (3.5-5.0) mmol/L Chloride (101-111) mmol/L Carbon Dioxide (22-32) mmol/L Anion Gap (2-11) mmol/L BUN (6-24) mg/dL Creatinine (0.51-0.95) mg/dL Est GFR ( Amer) (>60) Est GFR (Non-Af Amer) (>60) BUN/Creatinine Ratio (8-20) Glucose (70-100) mg/dL Calcium (8.6-10.3) mg/dL Total Bilirubin (0.2-1.0) mg/dL AST (13-39) U/L ALT (7-52) U/L Alkaline Phosphatase (34-104) U/L Total Creatine Kinase (10-223) U/L Troponin I 0.00 (<0.04) ng/mL B-Natriuretic Peptide ( - 100) pg/mL Total Protein (6.4-8.9) g/dL Albumin (3.2-5.2) g/dL Globulin (2-4) g/dL Albumin/Globulin Ratio (1-3) TSH (0.34-5.60) mcIU/mL Result Diagrams: 09/14/17 14:13 09/14/17 14:13 Lab Statement: Any lab studies that have been ordered have been reviewed, and results considered in the medical decision making process. - Radiology CXR Radiology Interpretation Completed By: Radiologist - No radiographic evidence for acute cardiopulmonary abnormality on this portable chest x-ray. ED physician has reviewed this radiology report and agrees. - EKG 1354 Cardiac Rate: NL EKG Rhythm: Sinus Rhythm - BPM 82 EKG Interpretation: Normal axis. No ST elevation. Chest Pain Course/Dx - Course Assessment/Plan: This patient is a 26 year old F BIBA to [facility] with a chief complaint of sharp CP since yesterday. The patient rates the pain 6/10 in severity. Symptoms aggravated by movement and deep breaths. Symptoms alleviated by nothing. Patient reports fever and productive cough (2 days). Patient denies chills, vaginal discharge, and vaginal bleeding. LMP 08/21/17. An EKG reveals Sinus Rhythm. CXR reveals, per radiologist, No radiographic evidence for acute cardiopulmonary abnormality on this portable chest x-ray. ED physician has reviewed this radiology report and agrees. Test results with no significant abnormalities. Troponin 1 is 0.00 and second troponin 4 hours later was 0.00. Symptoms improved with Toradol. I have no suspicion for PE since the patient is not hypoxic or tachycardic. I have no suspicion for acute coronary syndrome because the patient has no comorbidities and negative troponins. Patient will be discharged with follow up from PCP. The patient is agreeable with this plan. The patient is hemodynamically stable, alert and oriented x3. - Diagnoses Provider Diagnoses: Atypical chest pain Discharge - Discharge Plan Condition: Stable Disposition: HOME Patient Education Materials: Chest Pain (ED) Referrals: Ethan Mcguire MD [Primary Care Provider] - 1 Week Additional Instructions: RETURN TO THE EMERGENCY DEPARTMENT FOR CHANGING OR WORSENING SYMPTOMS. The documentation as recorded by the Marianna jordan Alfonso accurately reflects the service I personally performed and the decisions made by Kyle robles Walter, MD.
== END 2017-09-14 17:44 | disposition home or self-care (01) ==
LOC: ED 13:11
DX: R07.89 Other chest pain (principal)
CPT/HCPCS: 36415; 71010; 80053; 82550; 83880; 84443; 84484; 85025; 93005; 96374; 99283; A9270-GY; J1885

== ENCOUNTER 2017-10-08 13:28 | Emergency (ER) | payer MEDICARE, MEDICAID ==
[2017-10-08 13:53] VITALS: BP 119/68
--- NOTE | 2017-10-08 14:53 | UC ---
Respiratory Complaint HPI - HPI Summary HPI Summary: 26 year old female with history of hypothyrodism, behavioral disease and ? learning disability here with a complaint of productive cough for 3 days. Reports productive cough and later developed chest pain. She reports subjective fever but no n/v/d or any other complaints. She also reports bilateral ear pain. R>>L. Reports itchiness. - History of Current Complaint Chief Complaint: UCRespiratory Stated Complaint: COUGH Time Seen by Provider: 10/08/17 14:38 Hx Last Menstrual Period: 09/08/17 Onset/Duration: Gradual Onset Severity Initially: Mild Severity Currently: Mild Alleviating Factors: Bronchodilator - Allergies/Home Medications Allergies/Adverse Reactions: Allergies Allergy/AdvReac Type Severity Reaction Status Date / Time No Known Allergies Allergy Verified 10/08/17 13:53 PMH/Surg Hx/FS Hx/Imm Hx Previously Healthy: No Endocrine History: Thyroid Disease Other History Of: Negative For: Anticoagulant Therapy - Surgical History Surgical History: None Surgery Procedure, Year, and Place: none - Family History Known Family History: Positive: None - Pt denies any FMHx. , Other - pos: depression Negative: Cardiac Disease, Hypertension - Social History Alcohol Use: None Substance Use Type: None Smoking Status (MU): Never Smoked Tobacco Amount Used/How Often: pt does not and has never used tobacco products of any kind Have You Smoked in the Last Year: No - Immunization History Most Recent Influenza Vaccination: 2016 Most Recent Tetanus Shot: unknown Most Recent Pneumonia Vaccination: never Review of Systems Constitutional: Fever ENT: Sore Throat, Ear Ache Respiratory: Shortness Of Breath, Cough Gastrointestinal: Abdominal Pain, Vomiting Genitourinary: Negative All Other Systems Reviewed And Are Negative: Yes Physical Exam Triage Information Reviewed: Yes Appearance: Well-Appearing, No Pain Distress, Well-Nourished Vital Signs: Initial Vital Signs Temp 36.2 C 10/08/17 13:47 Pulse 91 10/08/17 13:47 Resp 16 10/08/17 13:47 BP 119/68 10/08/17 13:47 Pulse Ox 100 10/08/17 13:47 ENT: Positive: Pharyngeal erythema, TM bulging - Right, Uvula midline Respiratory: Positive: Lungs clear, Normal breath sounds, No respiratory distress Cardiovascular: Positive: RRR, No Murmur Abdomen Description: Positive: Nontender, No Organomegaly, Soft Neurological: Positive: Alert UC Diagnostic Evaluation - Laboratory O2 Sat by Pulse Oximetry: 100 - EKG Cardiac Rate: NL Cardiac Rhythm: Sinus: Normal Respiratory Course/Dx - Course Course Of Treatment: Patient has signs c/w viral illness with superimposed otitis media. - Differential Dx/Diagnosis Differential Diagnosis/HQI/PQRI: Bronchitis, Lower Resp Infection, Sinusitis Provider Diagnoses: Viral illness Discharge - Discharge Plan Condition: Good Disposition: HOME Prescriptions: Amoxicillin/Clavulanate TAB* [Augmentin TAB 875*] 875 mg PO BID 10 Days #20 tab Patient Education Materials: Otitis Media (ED) Forms: *Work Release Referrals: Ethan Mcguire MD [Primary Care Provider] - Additional Instructions: The antibiotics might decrease the efficacy of your control. Use protection when having intercourse to prevent .
[2017-10-08] MEDS: Amoxicillin/Clavulanate TAB* 875 MG PO ONE (15:02)
== END 2017-10-08 15:10 | disposition home or self-care (01) ==
LOC: UCEAST 13:28
DX: B34.9 Viral infection, unspecified (principal); H92.03 Otalgia, bilateral
CPT/HCPCS: 93005; 99212; A9270-GY; G0463

== ENCOUNTER 2017-10-09 16:16 | Emergency (ER) | payer MEDICARE, MEDICAID ==
--- NOTE | 2017-10-09 17:04 | ED ---
Psychiatric Complaint - HPI Summary HPI Summary: Pt here as she "tried to kill herself today with a butterknife". She does not provide a specific trigger - just that she was stressed. Points to Lt forearm where she cut herself - no marte are observed and pt states, "there's nothing there". Denies substance use and reports she lives by herself but has family in the area. She was out shopping today and bought gift cards as gifts. Looking forward to [place]. Denies physical complaints at this time. - History Of Current Complaint Chief Complaint: EDMentalHealth Time Seen by Provider: 10/09/17 16:27 Hx Obtained From: Patient Hx Last Menstrual Period: 09/08/17 - Allergies/Home Medications Allergies/Adverse Reactions: Allergies Allergy/AdvReac Type Severity Reaction Status Date / Time No Known Allergies Allergy Verified 10/14/17 02:25 PMH/Surg Hx/FS Hx/Imm Hx Previously Healthy: Yes Endocrine/Hematology History: Reports: Hx Thyroid Disease - hypo Denies: Hx Anticoagulant Therapy, Hx Diabetes Cardiovascular History: Denies: Hx Hypertension Respiratory History: Reports: Hx Seasonal Allergies Denies: Hx Asthma, Hx Chronic Obstructive Pulmonary Disease (COPD) GI History: Denies: Hx Gastroesophageal Reflux Disease, Hx Ulcer History: Denies: Hx Renal Disease Sensory History: Reports: Hx Contacts or Glasses Denies: Hx Hearing Aid Opthamlomology History: Reports: Hx Contacts or Glasses Neurological History: Reports: Hx Developmental Delay Psychiatric History: Reports: Hx Anxiety, Hx Attention Deficit Hyperactivity Disorder, Hx Depression, Hx Inpatient Treatment, Hx Community Mental Health Tx, Hx Suicide Attempt, Hx of Violent Episodes Against Others, Other Psychiatric Issues/Disorders - DEVELOPMENTALLY DELAYED Denies: Hx Eating Disorder - Surgical History Surgery Procedure, Year, and Place: none Infectious Disease History: No Infectious Disease History: Denies: Hx Clostridium Difficile, Hx Hepatitis, Hx Human Immunodeficiency Virus (HIV), Hx of Known/Suspected MRSA, Hx Shingles, Hx Tuberculosis, Hx Known/ Suspected VRE, Hx Known/Suspected VRSA, History Other Infectious Disease, Traveled Outside the [place] in Last 30 Days - Family History Known Family History: Positive: Other - pos: depression Negative: Cardiac Disease, Hypertension - Social History Occupation: Disabled Lives: Alone - per pt Alcohol Use: None Hx Substance Use: No Substance Use Type: Reports: None Hx Tobacco Use: No Smoking Status (MU): Never Smoked Tobacco Amount Used/How Often: pt does not and has never used tobacco products of any kind Have You Smoked in the Last Year: No Review of Systems Constitutional: Negative Negative: Fever, Chills, Fatigue ENT: Negative Negative: Sore Throat, Ear Ache, Nasal Discharge Cardiovascular: Negative Negative: Chest Pain Respiratory: Negative Negative: Shortness Of Breath, Cough Gastrointestinal: Negative Negative: Abdominal Pain, Vomiting, Diarrhea, Nausea Positive: no symptoms reported Musculoskeletal: Negative Skin: Negative Neurological: Negative Psychological: Other - as in HPI All Other Systems Reviewed And Are Negative: Yes Physical Exam Triage Information Reviewed: Yes Vital Signs On Initial Exam: Initial Vitals Temp Pulse Resp BP Pulse Ox 97.3 F 85 12 118/75 98 10/09/17 16:18 10/09/17 16:18 10/09/17 16:18 10/09/17 16:18 10/09/17 16:18 Vital Signs Reviewed: Yes Appearance: Positive: Well-Appearing, No Pain Distress, Obese Skin: Positive: Warm, Dry - no signs of self harm Head/Face: Positive: Normal Head/Face Inspection Eyes: Positive: Normal, EOMI, Conjunctiva Clear ENT: Positive: Normal ENT inspection, Hearing grossly normal, Pharynx normal - mucosa moist Neck: Positive: Supple, Nontender Respiratory/Lung Sounds: Positive: Clear to Auscultation, Breath Sounds Present Cardiovascular: Positive: Normal, RRR, S1, S2. Negative: Murmur, Rub Abdomen Description: Positive: Nontender, No Organomegaly, Soft Bowel Sounds: Positive: Present Musculoskeletal: Positive: Normal, Strength/ROM Intact Neurological: Positive: Normal, Sensory/Motor Intact, Alert, Oriented to Person Place, Time, CN Intact II-III Psychiatric: Positive: Other - giddy at times Diagnostics - Vital Signs Vital Signs Temp Pulse Resp BP Pulse Ox 10/09/17 16:18 97.3 F 85 12 118/75 98 - Laboratory Result Diagrams: 10/09/17 17:30 10/09/17 17:30 Lab Statement: Any lab studies that have been ordered have been reviewed, and results considered in the medical decision making process. Course/Dx - Course Course Of Treatment: Pt here w/ reports of "I tried to kill myself today" - "I cut my arm with a butterknife" - Lt arm is where she shows me her area of attempt. No marte are observed on arm and she acknowledges this as well. Pt has developmental delays as well as behavioral outbursts. Medically she is clear and awaiting MH evaluation. Discussed and signed out to Katie Garay PA-C. - Differential Dx/Clinical Impression Provider Diagnosis: Suicidal behavior with attempted self-injury Discharge - Discharge Plan Condition: Good Disposition: HOME Referrals: Ethan Mcguire MD [Primary Care Provider] - Additional Instructions: Per completion of a mental health evaluation, you are cleared for release and do not require inpatient psychiatric hospitalization at this time. Please go to nearest emergency room or call 911 if safety concerns arise or condition worsens. Arrange follow up appointment with Dr. Medrano Important Phone Numbers: [facility] [phone] Suicide Prevention and Crisis Services [phone] National Suicide Prevention Lifeline [phone] (7057) [facility] [phone] Alcoholics Anonymous [phone] [facility] [phone] [place] [employer] [phone]
[2017-10-09 17:47] LABS: Hematocrit 41 % (35-47); Hemoglobin 13.7 g/dl (12.0-16.0); Mean Corpuscular HGB Conc 34 g/dl (31-36); Mean Corpuscular Hemoglobin 28 pg (27-31); Mean Corpuscular Volume 82 fL (80-97); Mean Platelet Volume 9 um3 (7.4-10.4); Platelet Count 288 10^3/ul (150-450); Red Blood Count 4.93 10^6/ul (4.0-5.4); Red Cell Distribution Width 16 % (10.5-15); White Blood Count 8.9 10^3/ul (3.5-10.8)
[2017-10-09 17:55] LABS: EGFR Non-African American 87.3 (>60)
[2017-10-09 18:05] LABS: Monocytes % 8 % (0-13)
[2017-10-09 18:07] LABS: ABS Basophils 0 10^3/ul (0-0.2); ABS Eosinophils 0.2 10^3/ul (0-0.6); ABS Lymphocytes 2.2 10^3/ul (1.0-4.8); ABS Monocytes 0.7 10^3/ul (0-0.8); ABS Neutrophils 5.8 10^3/ul (1.5-7.7); ABS Nucleated RBC 0 10^3/ul
[2017-10-09 18:20] LABS: Urine Appearance Clear; Urine Blood Negative (Negative); Urine Color Straw; Urine Ketones Negative (Negative); Urine Protein Negative (Negative); Urine Specific Gravity 1.006 (1.010-1.030); Urine Urobilinogen Negative (Negative)
[2017-10-09] MEDS ORDERED: LORazepam TAB(*) 1 MG PO ONE (18:33)
[2017-10-09] MEDS ORDERED: LORazepam TAB(*) 1 MG ONE (18:37)
--- NOTE | 2017-10-09 22:35 | PN ---
Progress Note - Progress Note Date of Service: 10/09/17 Note: Patient signed out by Annette OLIVO pending MHE. Per dr coon after completion of mental health exam patient safe to be discharge home Diagnosis: impulse control disorder Disposition: home condition:stable
[2017-10-09 22:52] VITALS: BP 120/65
== END 2017-10-09 22:45 | disposition home or self-care (01) ==
LOC: ED 16:16
DX: T14.91XA Suicide attempt, initial encounter (principal); X78.8XXA Intentional self-harm by other sharp object, initial encounter; Y92.9 Unspecified place or not applicable
CPT/HCPCS: 36415; 80053; 80307; 80320; 80329; 81003; 84443; 84702; 85025; 85060; 99284; A9270-GY; G0480

== ENCOUNTER 2017-10-10 18:01 | Emergency (ER) | payer MEDICARE, MEDICAID ==
[2017-10-10] MEDS ORDERED: Ondansetron INJ* 2 MG/ML VIAL IV ONE (18:25)
[2017-10-10] MEDS ORDERED: NS 0.9% 1000 ML* 1,000 ML IV ONE (18:25)
[2017-10-10] MEDS ORDERED: Ketorolac INJ* 30 MG/ML 1 ML VIAL IV PUSH ONE (18:26)
--- NOTE | 2017-10-10 18:56 | ED ---
GI/ HPI - HPI Summary HPI Summary: 26F presents with nausea, vomiting, and diarrhea today. She admits to generalized abdominal pain. She has not taken anything for pain. She denies any fever. She denies any cough. She denies sore throat. She denies any vaginal discharge, dysuria, hematuria, frequency, flank pain, urgency. She denies any mucus or blood in her stool. She has been on augmentin for past two days for an ear infection. She denies any one else being sick. She has vomited multiple times and had couple episodes of diarrhea. - History of Current Complaint Chief Complaint: EDAbdPain Time Seen by Provider: 10/10/17 18:17 Stated Complaint: LOWER ABD PAIN Hx Last Menstrual Period: 09/08/17 Pain Intensity: 5 - Additional Pertinent History Primary Care Physician: CHRIS - Allergy/Home Medications Allergies/Adverse Reactions: Allergies Allergy/AdvReac Type Severity Reaction Status Date / Time No Known Allergies Allergy Verified 10/10/17 18:16 PMH/Surg Hx/FS Hx/Imm Hx Endocrine/Hematology History: Reports: Hx Thyroid Disease - hypo Denies: Hx Anticoagulant Therapy, Hx Diabetes Cardiovascular History: Denies: Hx Hypertension Respiratory History: Reports: Hx Seasonal Allergies Denies: Hx Asthma, Hx Chronic Obstructive Pulmonary Disease (COPD) GI History: Denies: Hx Gastroesophageal Reflux Disease, Hx Ulcer History: Denies: Hx Renal Disease Sensory History: Reports: Hx Contacts or Glasses Opthamlomology History: Reports: Hx Contacts or Glasses Neurological History: Reports: Hx Developmental Delay Psychiatric History: Reports: Hx Anxiety, Hx Attention Deficit Hyperactivity Disorder, Hx Depression, Hx Inpatient Treatment, Hx Community Mental Health Tx, Hx Suicide Attempt, Hx of Violent Episodes Against Others, Other Psychiatric Issues/Disorders - DEVELOPMENTALLY DELAYED Denies: Hx Eating Disorder - Surgical History Surgery Procedure, Year, and Place: none - Immunization History Date of Influenza Vaccine: 08/2017 Infectious Disease History: No Infectious Disease History: Denies: Hx Clostridium Difficile, Hx Hepatitis, Hx Human Immunodeficiency Virus (HIV), Hx of Known/Suspected MRSA, Hx Shingles, Hx Tuberculosis, Hx Known/ Suspected VRE, Hx Known/Suspected VRSA, History Other Infectious Disease, Traveled Outside the [place] in Last 30 Days - Family History Known Family History: Positive: Other - pos: depression Negative: Cardiac Disease, Hypertension - Social History Alcohol Use: None Hx Substance Use: No Substance Use Type: Reports: None Hx Tobacco Use: No Smoking Status (MU): Never Smoked Tobacco Amount Used/How Often: pt does not and has never used tobacco products of any kind Have You Smoked in the Last Year: No Review of Systems Negative: Fever Negative: Chest Pain Negative: Shortness Of Breath All Other Systems Reviewed And Are Negative: Yes Physical Exam Triage Information Reviewed: Yes Vital Signs On Initial Exam: Initial Vitals Temp Pulse Resp BP Pulse Ox 98.9 F 86 16 116/90 98 10/10/17 18:13 10/10/17 18:13 10/10/17 18:13 10/10/17 18:13 10/10/17 18:13 Vital Signs Reviewed: Yes Appearance: Positive: Well-Appearing Skin: Positive: Warm, Dry Head/Face: Positive: Normal Head/Face Inspection Eyes: Positive: Normal, EOMI, RITA, Conjunctiva Clear ENT: Positive: Normal ENT inspection, Pharynx normal, TMs normal Respiratory/Lung Sounds: Positive: Clear to Auscultation, Breath Sounds Present Cardiovascular: Positive: Normal, RRR Abdomen Description: Positive: Soft, Other: - mild diffuse tenderness Bowel Sounds: Positive: Present Musculoskeletal: Positive: Normal Neurological: Positive: Normal Psychiatric: Positive: Normal Diagnostics - Vital Signs Vital Signs Temp Pulse Resp BP Pulse Ox 10/10/17 18:13 98.9 F 86 16 116/90 98 - Laboratory Result Diagrams: 10/10/17 19:34 10/10/17 19:34 Lab Statement: Any lab studies that have been ordered have been reviewed, and results considered in the medical decision making process. Re-Evaluation - Re-Evaluation First Eval Re-Evaluation Time: 20:23 Change: Improved Comment: feeling better, unable to give stool sample. GIGU Course/Dx - Course Course Of Treatment: 26F presents with nausea, vomiting, and diarrhea today. She admits to generalized abdominal pain. She has not taken anything for pain. She denies any fever. She denies any cough. She denies sore throat. She denies any vaginal discharge, dysuria, hematuria, frequency, flank pain, urgency. She denies any mucus or blood in her stool. She has been on augmentin for past two days. She denies any one else being sick. She has vomited multiple times and had couple episodes of diarrhea. on exam mild diffuse tenderness abdomen. labs normal wbc. gave fluids feeling better. patient unable to provide stool sample will in ED to check for c diff. encourage to follow up with primary if continues to have diarrhea to give stool sample. patient understand and agrees with plan. - Diagnoses Differential Diagnoses - Female: Gastroenteritis (Viral), Gastroenteritis ( Bacterial), Other - c diff Provider Diagnoses: Abdominal pain, Nausea vomiting and diarrhea Discharge - Discharge Plan Condition: Good Disposition: HOME Prescriptions: Ondansetron ODT TAB* [Zofran 4 MG Odt TAB*] 4 mg PO Q6H PRN #12 tab.odt PRN Reason: Nausea Patient Education Materials: Acute Nausea and Vomiting (ED) Referrals: Ethan Mcguire MD [Primary Care Provider] - Additional Instructions: Can take Zofran every 6 hours as needed for nausea Drink small amounts of fluid as tolerated When able to eat follow BRAT diet: Bananas, rice, applesauce, toast Take ibuprofen or Tylenol for pain as needed every 6 hours Follow up with primary within 5 days Return to ED if develop fever that does not respond to Tylenol or ibuprofen, severe abdominal pain, or any new or worsening symptoms
[2017-10-10 19:47] LABS: Hematocrit 42 % (35-47); Hemoglobin 14.2 g/dl (12.0-16.0); Mean Corpuscular HGB Conc 34 g/dl (31-36); Mean Corpuscular Hemoglobin 28 pg (27-31); Mean Corpuscular Volume 82 fL (80-97); Mean Platelet Volume 9 um3 (7.4-10.4); Red Cell Distribution Width 16 % (10.5-15); White Blood Count 8.9 10^3/ul (3.5-10.8)
[2017-10-10 20:06] LABS: Urine Bacteria 1+ (Absent); Urine Bilirubin Negative (Negative); Urine Glucose Negative (Negative); Urine Nitrite Negative (Negative)
[2017-10-10 20:12] LABS: ALT 17 U/L (7-52); AST 19 U/L (13-39); Albumin 3.8 g/dL (3.2-5.2); Alkaline Phosphatase 53 U/L (34-104); Anion Gap 6 mmol/L (2-11); BUN/Creatinine Ratio 9.4 (8-20); Blood Urea Nitrogen 8 mg/dL (6-24); CO2 Carbon Dioxide 25 mmol/L (22-32); Calcium 9.4 mg/dL (8.6-10.3); Chloride 105 mmol/L (101-111); EGFR African American 103.2 (>60); EGFR Non-African American 80.2 (>60); Globulin 3.3 g/dL (2-4); Glucose 94 mg/dL (70-100); Lipase 12 U/L (11.0-82.0); Potassium 3.7 mmol/L (3.5-5.0); Sodium 136 mmol/L (133-145); Total Protein 7.1 g/dL (6.4-8.9)
[2017-10-10 20:57] VITALS: BP 141/87
== END 2017-10-10 20:56 | disposition home or self-care (01) ==
LOC: ED 18:01
DX: R10.84 Generalized abdominal pain (principal); R11.2 Nausea with vomiting, unspecified; R19.7 Diarrhea, unspecified; Z32.02 Encounter for pregnancy test, result negative; E03.9 Hypothyroidism, unspecified; J30.2 Other seasonal allergic rhinitis; R62.50 Unspecified lack of expected normal physiological development in childhood; F90.9 Attention-deficit hyperactivity disorder, unspecified type; F41.9 Anxiety disorder, unspecified; F32.9 Major depressive disorder, single episode, unspecified
CPT/HCPCS: 36415; 80053; 81003; 81015; 83690; 84702; 85025; 86141; 87086; 96374; 96375; 99282; J1885; J2405

== ENCOUNTER 2017-10-11 04:16 | Emergency (ER) | payer MEDICARE, MEDICAID ==
[2017-10-11 04:23] VITALS: BP 135/83
--- NOTE | 2017-10-11 06:41 | ED ---
Farnaz Kulkarni Jason, scribed for Abraham Bazan on 10/11/17 at 0434 . Psychiatric Complaint - HPI Summary HPI Summary: This patient is a 26 year old F presenting to [facility] with a chief complaint of SI since 0400 today. She states that she is suicidal because she hates her life and hates being alone. The patient was [facility] several hours ago and has returned due to SI. The patient rates the pain 0/10 in severity. Symptoms aggravated by nothing. Symptoms alleviated by nothing. Patient reports depression and anxiety. Patient denies schizophrenia, and suicidal action. - History Of Current Complaint Chief Complaint: EDMentalHealth Time Seen by Provider: 10/11/17 04:23 Hx Obtained From: Patient Hx Last Menstrual Period: 09/08/17 Onset/Duration: Gradual Onset, Still Present Character: Depressed Aggravating Factor(s): Nothing Alleviating Factor(s): Nothing Has Suicidal: Reports: Thoughts. Denies: Demonstrates Gesture - Allergies/Home Medications Allergies/Adverse Reactions: Allergies Allergy/AdvReac Type Severity Reaction Status Date / Time No Known Allergies Allergy Verified 10/11/17 04:23 PMH/Surg Hx/FS Hx/Imm Hx Previously Healthy: No Endocrine/Hematology History: Reports: Hx Thyroid Disease - hypo Denies: Hx Anticoagulant Therapy, Hx Diabetes Cardiovascular History: Denies: Hx Hypertension Respiratory History: Reports: Hx Seasonal Allergies Denies: Hx Asthma, Hx Chronic Obstructive Pulmonary Disease (COPD) GI History: Denies: Hx Gastroesophageal Reflux Disease, Hx Ulcer History: Denies: Hx Renal Disease Sensory History: Reports: Hx Contacts or Glasses Opthamlomology History: Reports: Hx Contacts or Glasses Neurological History: Reports: Hx Developmental Delay Psychiatric History: Reports: Hx Anxiety, Hx Attention Deficit Hyperactivity Disorder, Hx Depression, Hx Inpatient Treatment, Hx Community Mental Health Tx, Hx Suicide Attempt, Hx of Violent Episodes Against Others, Other Psychiatric Issues/Disorders - DEVELOPMENTALLY DELAYED Denies: Hx Eating Disorder - Surgical History Surgery Procedure, Year, and Place: none - Immunization History Date of Influenza Vaccine: 08/2017 Infectious Disease History: No Infectious Disease History: Denies: Hx Clostridium Difficile, Hx Hepatitis, Hx Human Immunodeficiency Virus (HIV), Hx of Known/Suspected MRSA, Hx Shingles, Hx Tuberculosis, Hx Known/ Suspected VRE, Hx Known/Suspected VRSA, History Other Infectious Disease, Traveled Outside the [place] in Last 30 Days - Family History Known Family History: Positive: Other - pos: depression Negative: Cardiac Disease, Hypertension - Social History Alcohol Use: None Hx Substance Use: No Substance Use Type: Reports: None Hx Tobacco Use: No Smoking Status (MU): Never Smoked Tobacco Amount Used/How Often: pt does not and has never used tobacco products of any kind Have You Smoked in the Last Year: No Review of Systems Negative: Fever Positive: Anxious, Depressed, Other - SI All Other Systems Reviewed And Are Negative: Yes Physical Exam - Summary Physical Exam Summary: Appearance: no pain distress, depressed affect Skin: warm, dry, reflects adequate perfusion Head/face: normal Eyes: EOMI, RITA ENT: normal Neck: supple, non-tender Respiratory: CTA, breath sounds present Cardiovascular: RRR, pulses symmetrical Abdomen: non-tender, soft Bowel: present Musculoskeletal: normal, strength/ROM intact Neuro: normal, sensory motor intact, A&Ox3 Triage Information Reviewed: Yes Vital Signs On Initial Exam: Initial Vitals Temp Pulse Resp BP Pulse Ox 98.1 F 72 16 135/83 99 10/11/17 04:20 10/11/17 04:20 10/11/17 04:20 10/11/17 04:20 10/11/17 04:20 Vital Signs Reviewed: Yes Diagnostics - Vital Signs Vital Signs Temp Pulse Resp BP Pulse Ox 10/11/17 04:20 98.1 F 72 16 135/83 99 - Laboratory Lab Statement: Any lab studies that have been ordered have been reviewed, and results considered in the medical decision making process. Course/Dx - Course Course Of Treatment: This patient is a 26 year old F presenting to [facility] with a chief complaint of SI since 399 today. The patient was cleard for a mental health evaluation at 0430 today. Patient will be discharged with a diagnosis of depression. Per completion of a mental health evaluation, the patient is cleared for release and does not require inpatient psychiatric hospitalization at this time. The patient is agreeable with this plan. - Differential Dx/Clinical Impression Differential Diagnosis/HQI/PQRI: Positive: Anxiety, Depression, Suicidal Ideation Provider Diagnosis: Depression Discharge - Discharge Plan Condition: Stable Disposition: HOME Patient Education Materials: Depression (ED) Referrals: Ethan Mcguire MD [Primary Care Provider] - 3 Days Additional Instructions: Per completion of a mental health evaluation, you are cleared for release and do not require inpatient psychiatric hospitalization at this time. Please go to nearest emergency room or call 911 if safety concerns arise or condition worsens. Follow up with Dr. Medrano. Important Phone Numbers: [facility] [phone] Suicide Prevention and Crisis Services [phone] National Suicide Prevention Lifeline [phone] (7726) [facility] [phone] Alcoholics Anonymous [phone] [facility] [phone] [facility] Police [phone] The documentation as recorded by the Farnaz jordan Jason accurately reflects the service I personally performed and the decisions made by , Abraham Bazan.
== END 2017-10-11 05:21 | disposition home or self-care (01) ==
LOC: ED 04:16
DX: F32.9 Major depressive disorder, single episode, unspecified (principal); F41.9 Anxiety disorder, unspecified
CPT/HCPCS: 99285

== ENCOUNTER 2017-10-12 15:00 | Emergency (ER) | payer MEDICARE, MEDICAID ==
[2017-10-12 15:22] LABS: Mean Corpuscular Hemoglobin 28 pg (27-31); Platelet Count 288 10^3/ul (150-450)
[2017-10-12 15:26] LABS: Hematocrit 41 % (35-47); Hemoglobin 13.6 g/dl (12.0-16.0); Mean Corpuscular HGB Conc 34 g/dl (31-36); Mean Corpuscular Volume 83 fL (80-97); Mean Platelet Volume 9 um3 (7.4-10.4); Red Blood Count 4.92 10^6/ul (4.0-5.4); Red Cell Distribution Width 15 % (10.5-15); White Blood Count 9.3 10^3/ul (3.5-10.8)
[2017-10-12 15:39] LABS: EGFR Non-African American 70.6 (>60)
[2017-10-12 15:57] LABS: Monocytes % 2 % (0-13)
[2017-10-12 15:58] LABS: ABS Basophils 0 10^3/ul (0-0.2); ABS Eosinophils 0.2 10^3/ul (0-0.6); ABS Lymphocytes 1.1 10^3/ul (1.0-4.8); ABS Monocytes 0.2 10^3/ul (0-0.8); ABS Neutrophils 7.8 10^3/ul (1.5-7.7)
[2017-10-12 16:28] LABS: Urine Appearance Cloudy; Urine Blood 3+ (Negative); Urine Color Amber; Urine Ketones Trace (Negative); Urine Protein 1+(30 mg/dL) (Negative); Urine Specific Gravity 1.032 (1.010-1.030); Urine Urobilinogen Negative (Negative)
[2017-10-12] MEDS ORDERED: LORazepam TAB(*) 1 MG PO ONE (16:44)
--- NOTE | 2017-10-12 18:27 | ED ---
Jose R Kulkarni Angela, scribed for Ray Uribe MD on 10/12/17 at 1514 . Psychiatric Complaint - HPI Summary HPI Summary: This pt is a 26 y/o female presenting to [facility] via EMS c/o SI today. Pt reports she does not feel safe and decided to come to the ED. Pt notes she spoke to a coordinator and was encouraged to come to the ED for a MHE. Pt was in the ED on 10/09/17 for a suicide attempt, cutting herself on her left forearm. She was discharged after MHE evaluation by Dr. Avila. PMHx includes anxiety and depression. - History Of Current Complaint Time Seen by Provider: 10/12/17 15:09 Hx Obtained From: Patient Hx Last Menstrual Period: 09/08/17 Onset/Duration: Lasting Days, Still Present Timing: Constant Character: Depressed, Anxious Has Suicidal: Reports: Thoughts. Denies: With A Plan - Allergies/Home Medications Allergies/Adverse Reactions: Allergies Allergy/AdvReac Type Severity Reaction Status Date / Time No Known Allergies Allergy Verified 10/11/17 04:23 PMH/Surg Hx/FS Hx/Imm Hx Endocrine/Hematology History: Reports: Hx Thyroid Disease - hypo Denies: Hx Anticoagulant Therapy, Hx Diabetes Cardiovascular History: Denies: Hx Hypertension Respiratory History: Reports: Hx Seasonal Allergies Denies: Hx Asthma, Hx Chronic Obstructive Pulmonary Disease (COPD) GI History: Denies: Hx Gastroesophageal Reflux Disease, Hx Ulcer History: Denies: Hx Renal Disease Sensory History: Reports: Hx Contacts or Glasses Opthamlomology History: Reports: Hx Contacts or Glasses Neurological History: Reports: Hx Developmental Delay Psychiatric History: Reports: Hx Anxiety, Hx Attention Deficit Hyperactivity Disorder, Hx Depression, Hx Inpatient Treatment, Hx Community Mental Health Tx, Hx Suicide Attempt, Hx of Violent Episodes Against Others, Other Psychiatric Issues/Disorders - DEVELOPMENTALLY DELAYED Denies: Hx Eating Disorder - Surgical History Surgery Procedure, Year, and Place: none - Immunization History Date of Influenza Vaccine: 08/2017 Infectious Disease History: Denies: Hx Clostridium Difficile, Hx Hepatitis, Hx Human Immunodeficiency Virus (HIV), Hx of Known/Suspected MRSA, Hx Shingles, Hx Tuberculosis, Hx Known/ Suspected VRE, Hx Known/Suspected VRSA, History Other Infectious Disease, Traveled Outside the [place] in Last 30 Days - Family History Known Family History: Positive: Other - pos: depression Negative: Cardiac Disease, Hypertension - Social History Alcohol Use: None Hx Substance Use: No Substance Use Type: Reports: None Hx Tobacco Use: No Smoking Status (MU): Never Smoked Tobacco Amount Used/How Often: pt does not and has never used tobacco products of any kind Have You Smoked in the Last Year: No Review of Systems Negative: Fever, Chills Eyes: Negative ENT: Negative Cardiovascular: Negative Respiratory: Negative Gastrointestinal: Negative Psychological: Other - SI thoughts/plan All Other Systems Reviewed And Are Negative: Yes Physical Exam - Summary Physical Exam Summary: Appearance: The patient is well-nourished in no acute distress and in no acute pain. Skin: The skin is warm and dry and skin color reflects adequate perfusion. There is an old scar on her left wrist. HEENT: The head is normocephalic and atraumatic. The pupils are equal and reactive. The conjunctivae are clear and without drainage. Nares are patent and without drainage. Mouth reveals moist mucous membranes and the throat is without erythema and exudate. The external ears are intact. The ear canals are patent and without drainage. The tympanic membranes are intact. Neck: the neck is supple with full range of motion and non-tender. There are no carotid bruits. There is no neck vein distension. Respiratory: Chest is non-tender. Lungs are clear to auscultation and breath sounds are symmetrical and equal. Cardiovascular: Heart is regular rate and rhythm. There is no murmur or rub auscultated. There is no peripheral edema and pulses are symmetrical and equal. Abdomen: The abdomen is soft and non-tender. There are normal bowel sounds heard in all four quadrants and there is no organomegaly palpated. Musculoskeletal: There is no back tenderness noted. Extremities are non-tender with full range of motion. There is good capillary refill. There is no peripheral edema or calf tenderness elicited. Neurological: Patient is alert and oriented to person, place and time. The patient has symmetrical motor strength in all four extremities. Cranial nerves are grossly intact. Deep tendon reflexes are symmetrical and equal in all four extremities. Psychiatric: The patient has an appropriate affect. Triage Information Reviewed: Yes Vital Signs On Initial Exam: Initial Vitals Temp Pulse Resp BP Pulse Ox 97.7 F 98 18 120/80 98 10/12/17 15:05 10/12/17 15:05 10/12/17 15:05 10/12/17 15:05 10/12/17 15:05 Vital Signs Reviewed: Yes Diagnostics - Vital Signs Vital Signs Temp Pulse Resp BP Pulse Ox 10/12/17 15:05 97.7 F 98 18 120/80 98 - Laboratory Lab Results: Lab Results 10/12/17 10/12/17 10/12/17 Range/Units 15:14 15:14 16:10 WBC 9.3 (3.5-10.8) 10^3/ul RBC 4.92 (4.0-5.4) 10^6/ul Hgb 13.6 (12.0-16.0) g/dl Hct 41 (35-47) % MCV 83 (80-97) fL MCH 28 (27-31) pg MCHC 34 (31-36) g/dl RDW 15 (10.5-15) % Plt Count 288 (150-450) 10^3/ul MPV 9 (7.4-10.4) um3 Absolute Neuts (auto) 7.8 H (1.5-7.7) 10^3/ul Absolute Lymphs (auto) 1.1 (1.0-4.8) 10^3/ul Absolute Monos (auto) 0.2 (0-0.8) 10^3/ul Absolute Eos (auto) 0.2 (0-0.6) 10^3/ul Absolute Basos (auto) 0 (0-0.2) 10^3/ul Absolute Nucleated RBC Not Reportable Neutrophils % 84 H (38-83) % Lymphocytes % 12 L (25-47) % Monocytes % 2 (0-13) % Eosinophils % 2 (0-6) % Normal RBC Morphology Normal (Normal) Hem Pathologist Commnt Pending Sodium 138 (133-145) mmol/L Potassium 4.0 (3.5-5.0) mmol/L Chloride 108 (101-111) mmol/L Carbon Dioxide 23 (22-32) mmol/L Anion Gap 7 (2-11) mmol/L BUN 10 (6-24) mg/dL Creatinine 0.95 (0.51-0.95) mg/dL Est GFR ( Amer) 90.7 (>60) Est GFR (Non-Af Amer) 70.6 (>60) BUN/Creatinine Ratio 10.5 (8-20) Glucose 89 (70-100) mg/dL Calcium 9.2 (8.6-10.3) mg/dL Total Bilirubin 0.30 (0.2-1.0) mg/dL AST 16 (13-39) U/L ALT 16 (7-52) U/L Alkaline Phosphatase 60 (34-104) U/L Total Protein 7.1 (6.4-8.9) g/dL Albumin 3.9 (3.2-5.2) g/dL Globulin 3.2 (2-4) g/dL Albumin/Globulin Ratio 1.2 (1-3) TSH 3.55 (0.34-5.60) mcIU/mL Beta HCG, Quant < 0.60 mIU/mL Urine Color Urine Appearance Urine pH (5-9) Ur Specific [place] (1.010-1.030) Urine Protein (Negative) Urine Ketones (Negative) Urine Blood (Negative) Urine Nitrate (Negative) Urine Bilirubin (Negative) Urine Urobilinogen (Negative) Ur Leukocyte Esterase (Negative) Urine WBC (Auto) (Absent) Urine RBC (Auto) (Absent) Ur Squamous Epith Cells (Absent) Urine Bacteria (Absent) Urine Glucose (Negative) Urine Ascorbic Acid (Negative) Salicylates < 2.50 (<30) mg/dL Urine Opiates Screen None detected (None Detect) Acetaminophen < 15 mcg/mL Ur Barbiturates Screen None detected (None Detect) Ur Phencyclidine Scrn None detected (None Detect) Ur Amphetamines Screen None detected (None Detect) U Benzodiazepines Scrn None detected (None Detect) Urine Cocaine Screen None detected (None Detect) U Cannabinoids Screen None detected (None Detect) Serum Alcohol < 10 (<10) mg/dL /18/17 Range/Units 16:10 WBC (3.5-10.8) 10^3/ul RBC (4.0-5.4) 10^6/ul Hgb (12.0-16.0) g/dl Hct (35-47) % MCV (80-97) fL MCH (27-31) pg MCHC (31-36) g/dl RDW (10.5-15) % Plt Count (150-450) 10^3/ul MPV (7.4-10.4) um3 Absolute Neuts (auto) (1.5-7.7) 10^3/ul Absolute Lymphs (auto) (1.0-4.8) 10^3/ul Absolute Monos (auto) (0-0.8) 10^3/ul Absolute Eos (auto) (0-0.6) 10^3/ul Absolute Basos (auto) (0-0.2) 10^3/ul Absolute Nucleated RBC Neutrophils % (38-83) % Lymphocytes % (25-47) % Monocytes % (0-13) % Eosinophils % (0-6) % Normal RBC Morphology (Normal) Hem Pathologist Commnt Sodium (133-145) mmol/L Potassium (3.5-5.0) mmol/L Chloride (101-111) mmol/L Carbon Dioxide (22-32) mmol/L Anion Gap (2-11) mmol/L BUN (6-24) mg/dL Creatinine (0.51-0.95) mg/dL Est GFR ( Amer) (>60) Est GFR (Non-Af Amer) (>60) BUN/Creatinine Ratio (8-20) Glucose (70-100) mg/dL Calcium (8.6-10.3) mg/dL Total Bilirubin (0.2-1.0) mg/dL AST (13-39) U/L ALT (7-52) U/L Alkaline Phosphatase (34-104) U/L Total Protein (6.4-8.9) g/dL Albumin (3.2-5.2) g/dL Globulin (2-4) g/dL Albumin/Globulin Ratio (1-3) TSH (0.34-5.60) mcIU/mL Beta HCG, Quant mIU/mL Urine Color Rocio Urine Appearance Cloudy Urine pH 5.0 (5-9) Ur Specific [place] 1.032 H (1.010-1.030) Urine Protein 1+(30 mg/dl) H (Negative) Urine Ketones Trace H (Negative) Urine Blood 3+ H (Negative) Urine Nitrate Negative (Negative) Urine Bilirubin Negative (Negative) Urine Urobilinogen Negative (Negative) Ur Leukocyte Esterase Trace H (Negative) Urine WBC (Auto) 1+(6-10/hpf) H (Absent) Urine RBC (Auto) 3+(>10/hpf) H (Absent) Ur Squamous Epith Cells Present H (Absent) Urine Bacteria Absent (Absent) Urine Glucose Negative (Negative) Urine Ascorbic Acid * H (Negative) Salicylates (<30) mg/dL Urine Opiates Screen (None Detect) Acetaminophen mcg/mL Ur Barbiturates Screen (None Detect) Ur Phencyclidine Scrn (None Detect) Ur Amphetamines Screen (None Detect) U Benzodiazepines Scrn (None Detect) Urine Cocaine Screen (None Detect) U Cannabinoids Screen (None Detect) Serum Alcohol (<10) mg/dL Result Diagrams: 10/12/17 15:14 10/12/17 15:14 Lab Statement: Any lab studies that have been ordered have been reviewed, and results considered in the medical decision making process. Course/Dx - Course Assessment/Plan: Pt is medically cleared at 17:14. Pt is waiting for MHE. - Differential Dx/Clinical Impression Provider Diagnosis: Borderline personality disorder Discharge - Discharge Plan Condition: Stable Disposition: OTHER Discharge Disposition Comment: Signed out to Dr. Bazan at change of shift. Referrals: Ethan Mcguire MD [Primary Care Provider] - The documentation as recorded by the Jose R jordan Angela accurately reflects the service I personally performed and the decisions made by me, Ray Uribe MD.
[2017-10-12 20:47] VITALS: BP 114/83
[2017-10-13] MEDS ORDERED: LORazepam TAB(*) 1 MG PO ONE ×2 (02:07→02:12)
[2017-10-13] MEDS ORDERED: Haloperidol TAB* 5 MG PO ONE (02:08)
[2017-10-13] MEDS ORDERED: diPHENhydraMINE PO* 50 MG PO ONE (02:09)
--- NOTE | 2017-10-13 06:48 | ED ---
Babatunde Kulkarni Tiffany, scribed for Abraham Bazan on 10/13/17 at 0642 . Progress - Consult/PCP Time Called: 19:20 Course/Dx - Course Course Of Treatment: Patient will be signed out to Dr. Adame at shift change, awaiting mental health evaluation. - Diagnoses Provider Diagnoses: Borderline personality disorder The documentation as recorded by the Babatunde jordan Tiffany accurately reflects the service I personally performed and the decisions made by Beni robles Emmanuel.
--- NOTE | 2017-10-13 09:38 | PN ---
ED Flex Patient Progress Note Date of Service: 10/12/17 Subjective: This is a 26 year-old F who is pending discharge to home once outpatient clinic appointment is set up. Pt offers no complaints at this time. Sleeping upon arrival. Was placed back into ED due to patient attempting to walk out of flex continuously. Objective: Vitals: Most recent vital signs documented below. General NAD, Alert and oriented x3. Heart: rrr at 90 bpm Lungs: CTA or with rales, rhonchi, wheezing Laboratory: Current laboratory results documented below. Assessment: pending discharge home after report with Dr Avila and making outpatient clinic appointment for follow up. depression Plan: Pending discharge. will follow up daily. Vital Signs Temp Pulse Resp BP Pulse Ox 98.1 F 104 16 114/83 100 10/12/17 20:46 10/12/17 20:46 10/13/17 02:16 10/12/17 20:46 10/12/17 20:46 Lab Results - Entire Visit 10/12/17 10/12/17 10/12/17 16:10 16:10 15:14 WBC 9.3 RBC 4.92 Hgb 13.6 Hct 41 MCV 83 MCH 28 MCHC 34 RDW 15 Plt Count 288 MPV 9 Absolute Neuts (auto) 7.8 H Absolute Lymphs (auto) 1.1 Absolute Monos (auto) 0.2 Absolute Eos (auto) 0.2 Absolute Basos (auto) 0 Absolute Nucleated RBC Not Reportable Neutrophils % 84 H Lymphocytes % 12 L Monocytes % 2 Eosinophils % 2 Normal RBC Morphology Normal Sodium Potassium Chloride Carbon Dioxide Anion Gap BUN Creatinine Est GFR ( Amer) Est GFR (Non-Af Amer) BUN/Creatinine Ratio Glucose Calcium Total Bilirubin AST ALT Alkaline Phosphatase Total Protein Albumin Globulin Albumin/Globulin Ratio TSH Beta HCG, Quant Urine Color Rocio Urine Appearance Cloudy Urine pH 5.0 Ur Specific [place] 1.032 H Urine Protein 1+(30 mg/dl) H Urine Ketones Trace H Urine Blood 3+ H Urine Nitrate Negative Urine Bilirubin Negative Urine Urobilinogen Negative Ur Leukocyte Esterase Trace H Urine WBC (Auto) 1+(6-10/hpf) H Urine RBC (Auto) 3+(>10/hpf) H Ur Squamous Epith Cells Present H Urine Bacteria Absent Urine Glucose Negative Urine Ascorbic Acid * H Salicylates Urine Opiates Screen None detected Acetaminophen Ur Barbiturates Screen None detected Ur Phencyclidine Scrn None detected Ur Amphetamines Screen None detected U Benzodiazepines Scrn None detected Urine Cocaine Screen None detected U Cannabinoids Screen None detected Serum Alcohol 10/12/17 15:14 WBC RBC Hgb Hct MCV MCH MCHC RDW Plt Count MPV Absolute Neuts (auto) Absolute Lymphs (auto) Absolute Monos (auto) Absolute Eos (auto) Absolute Basos (auto) Absolute Nucleated RBC Neutrophils % Lymphocytes % Monocytes % Eosinophils % Normal RBC Morphology Sodium 138 Potassium 4.0 Chloride 108 Carbon Dioxide 23 Anion Gap 7 BUN 10 Creatinine 0.95 Est GFR ( Amer) 90.7 Est GFR (Non-Af Amer) 70.6 BUN/Creatinine Ratio 10.5 Glucose 89 Calcium 9.2 Total Bilirubin 0.30 AST 16 ALT 16 Alkaline Phosphatase 60 Total Protein 7.1 Albumin 3.9 Globulin 3.2 Albumin/Globulin Ratio 1.2 TSH 3.55 Beta HCG, Quant < 0.60 Urine Color Urine Appearance Urine pH Ur Specific [place] Urine Protein Urine Ketones Urine Blood Urine Nitrate Urine Bilirubin Urine Urobilinogen Ur Leukocyte Esterase Urine WBC (Auto) Urine RBC (Auto) Ur Squamous Epith Cells Urine Bacteria Urine Glucose Urine Ascorbic Acid Salicylates < 2.50 Urine Opiates Screen Acetaminophen < 15 Ur Barbiturates Screen Ur Phencyclidine Scrn Ur Amphetamines Screen U Benzodiazepines Scrn Urine Cocaine Screen U Cannabinoids Screen Serum Alcohol < 10
== END 2017-10-13 10:20 ==
LOC: ED 15:00
DX: F60.3 Borderline personality disorder (principal); R45.851 Suicidal ideations; Z32.02 Encounter for pregnancy test, result negative; E03.9 Hypothyroidism, unspecified; R62.50 Unspecified lack of expected normal physiological development in childhood; F90.9 Attention-deficit hyperactivity disorder, unspecified type; F41.9 Anxiety disorder, unspecified; F32.9 Major depressive disorder, single episode, unspecified
CPT/HCPCS: 36415; 80053; 80307; 80320; 80329; 81003; 81015; 84443; 84702; 85025; 85060; 87086; 99285; A9270-GY; G0480

== ENCOUNTER 2017-10-14 02:20 | Emergency (ER) | payer MEDICARE, MEDICAID ==
[2017-10-14 02:25] VITALS: BP 95/72
--- NOTE | 2017-10-14 04:36 | ED ---
Gina Kulkarni Emily, scribed for Cathryn Roach MD on 10/14/17 at 0412 . Abdominal Pain/Female - HPI Summary HPI Summary: This patient is a 26 year old F BIBA to [facility] with a chief complaint of abd pain that began today. The patient rates the pain 6/10 in severity. Symptoms aggravated by nothing. Symptoms alleviated by nothing. Patient reports BAILEY, CP, SOB, and diarrhea. Patient denies dysuria, blurred vision, hematuria, dysuria, leg swelling, fever, and chills. Pt has a hx of anxiety and depression. - History of Current Complaint Chief Complaint: EDAbdPain Stated Complaint: ABD PAIN, DIZZINESS, SHAKY Time Seen by Provider: 10/14/17 03:54 Hx Obtained From: Patient Hx Last Menstrual Period: 09/08/17 Onset/Duration: Sudden Onset, Lasting Hours, Still Present Timing: Hours Severity Initially: Moderate Severity Currently: Moderate Pain Intensity: 6 Pain Scale Used: 0-10 Numeric Aggravating Factor(s): Nothing Alleviating Factor(s): Nothing Associated Signs and Symptoms: Positive: Other: - Positive BAILEY, CP, SOB, and diarrhea. Negative dysuria, blurred vision, hematuria, dysuria, leg swelling, fever, and chills Allergies/Adverse Reactions: Allergies Allergy/AdvReac Type Severity Reaction Status Date / Time No Known Allergies Allergy Verified 10/14/17 02:25 PMH/Surg Hx/FS Hx/Imm Hx Previously Healthy: No Endocrine/Hematology History: Reports: Hx Thyroid Disease - hypo Denies: Hx Anticoagulant Therapy, Hx Diabetes Cardiovascular History: Denies: Hx Hypertension Respiratory History: Reports: Hx Seasonal Allergies Denies: Hx Asthma, Hx Chronic Obstructive Pulmonary Disease (COPD) GI History: Denies: Hx Gastroesophageal Reflux Disease, Hx Ulcer History: Denies: Hx Renal Disease Sensory History: Reports: Hx Contacts or Glasses Opthamlomology History: Reports: Hx Contacts or Glasses Neurological History: Reports: Hx Developmental Delay Psychiatric History: Reports: Hx Anxiety, Hx Attention Deficit Hyperactivity Disorder, Hx Depression, Hx Inpatient Treatment, Hx Community Mental Health Tx, Hx Suicide Attempt, Hx of Violent Episodes Against Others, Other Psychiatric Issues/Disorders - DEVELOPMENTALLY DELAYED Denies: Hx Eating Disorder - Surgical History Surgery Procedure, Year, and Place: none - Immunization History Date of Influenza Vaccine: 08/2017 Infectious Disease History: No Infectious Disease History: Denies: Hx Clostridium Difficile, Hx Hepatitis, Hx Human Immunodeficiency Virus (HIV), Hx of Known/Suspected MRSA, Hx Shingles, Hx Tuberculosis, Hx Known/ Suspected VRE, Hx Known/Suspected VRSA, History Other Infectious Disease, Traveled Outside the [place] in Last 30 Days - Family History Known Family History: Positive: Other - pos: depression Negative: Cardiac Disease, Hypertension - Social History Occupation: Disabled Lives: Alone Alcohol Use: None Hx Substance Use: No Substance Use Type: Reports: None Hx Tobacco Use: No Smoking Status (MU): Never Smoked Tobacco Amount Used/How Often: pt does not and has never used tobacco products of any kind Have You Smoked in the Last Year: No Review of Systems Negative: Fever, Chills Negative: Blurred Vision, Diplopia Negative: Ear Ache Positive: Chest Pain Positive: Shortness Of Breath Positive: Abdominal Pain, Diarrhea Negative: dysuria, hematuria Negative: Edema Positive: Headache All Other Systems Reviewed And Are Negative: No Physical Exam - Summary Physical Exam Summary: Appearance: Alert, conversive, nontoxic appearing Skin: Warm, dry, no mottling, no rashes, no contusions HEENT: EOMI, PERRL, moist mucous membranes Neck: No masses on the neck, supple Respiratory: Clear to auscultation, breath sounds present, no rales, no rhonchi , no wheezes Cardiovascular: RRR, pulses are symmetrical in both lower and upper extremities Abdomen: Soft, non-tender Bowel Sounds: Present Musculoskeletal: No CVA tenderness, no obvious deformity, moving all extremities in a grossly normal manner Neurological: A&Ox3, CN II-XII Intact, moving all extremities symmetrically Psychiatric: Anxious Triage Information Reviewed: Yes Vital Signs On Initial Exam: Initial Vitals Temp Pulse Resp BP Pulse Ox 97.1 F 82 16 95/72 99 10/14/17 02:20 10/14/17 02:20 10/14/17 02:20 10/14/17 02:20 10/14/17 02:20 Vital Signs Reviewed: Yes Diagnostics - Vital Signs Vital Signs Temp Pulse Resp BP Pulse Ox 10/14/17 02:20 97.1 F 82 16 95/72 99 - Laboratory Lab Statement: Any lab studies that have been ordered have been reviewed, and results considered in the medical decision making process. Abdominal Pain Fem Course/Dx - Course Course Of Treatment: This patient is a 26 year old F BIBA to [facility] with a chief complaint of abd pain that began today. Pt has a hx of anxiety and depression. Physical Exam Findings. Anxious. Patient will be discharged with follow up from PCP. The patient is agreeable with this plan. - Diagnoses Provider Diagnoses: Anxiety disorder Discharge - Discharge Plan Condition: Stable Disposition: HOME Patient Education Materials: Generalized Anxiety Disorder (ED) Referrals: Ethan Mcguire MD [Primary Care Provider] - Additional Instructions: follow up with your primary care physician this week. return if worse or any new symptoms. Please take all medications as previously instructed. The documentation as recorded by the Gina jordan Emily accurately reflects the service I personally performed and the decisions made by , Cathryn Roach MD.
== END 2017-10-14 04:15 | disposition home or self-care (01) ==
LOC: ED 02:20
DX: F41.9 Anxiety disorder, unspecified (principal); R51 Headache; R07.9 Chest pain, unspecified; R06.02 Shortness of breath; R19.7 Diarrhea, unspecified
CPT/HCPCS: 99282

== ENCOUNTER 2017-10-14 18:44 | Emergency (ER) | payer MEDICARE, MEDICAID ==
[2017-10-14] MEDS ORDERED: diPHENhydraMINE PO* 25 MG PO ONE (19:31)
--- NOTE | 2017-10-14 19:35 | ED ---
Dizziness - HPI Summary HPI Summary: 26F presents dizziness today. She states her dizziness started before she ate dinner at [employer]. She admits to nausea and generalized abdominal pain s/p eatting dinner because she ate too much. She states this is the same pain that she had a couple days ago. She states she is dizzy all the time. not worst with positional changes. She denies any chest pain or SOB. She appears anxious. was seen her this morning for same symptoms. She is frequency patient in ED. no previous abdominal surgeries. She denies any vomiting but while in ED she stuck her fingers down her throat to try to vomit. She denies any diarrhea. no dysuria, hematuria, urgency or frequency. - History Of Current Complaint Chief Complaint: EDDizziness Stated Complaint: DIZZINESS Time Seen by Provider: 10/14/17 19:18 - Allergies/Home Medications Allergies/Adverse Reactions: Allergies Allergy/AdvReac Type Severity Reaction Status Date / Time No Known Allergies Allergy Verified 10/14/17 02:25 PMH/Surg Hx/FS Hx/Imm Hx Endocrine/Hematology History: Reports: Hx Thyroid Disease - hypo Denies: Hx Anticoagulant Therapy, Hx Diabetes Cardiovascular History: Denies: Hx Hypertension Respiratory History: Reports: Hx Seasonal Allergies Denies: Hx Asthma, Hx Chronic Obstructive Pulmonary Disease (COPD) GI History: Denies: Hx Gastroesophageal Reflux Disease, Hx Ulcer History: Denies: Hx Renal Disease Sensory History: Reports: Hx Contacts or Glasses Opthamlomology History: Reports: Hx Contacts or Glasses Neurological History: Reports: Hx Developmental Delay Psychiatric History: Reports: Hx Anxiety, Hx Attention Deficit Hyperactivity Disorder, Hx Depression, Hx Inpatient Treatment, Hx Community Mental Health Tx, Hx Suicide Attempt, Hx of Violent Episodes Against Others, Other Psychiatric Issues/Disorders - DEVELOPMENTALLY DELAYED Denies: Hx Eating Disorder - Surgical History Surgery Procedure, Year, and Place: none - Immunization History Date of Influenza Vaccine: 08/2017 Infectious Disease History: No Infectious Disease History: Denies: Hx Clostridium Difficile, Hx Hepatitis, Hx Human Immunodeficiency Virus (HIV), Hx of Known/Suspected MRSA, Hx Shingles, Hx Tuberculosis, Hx Known/ Suspected VRE, Hx Known/Suspected VRSA, History Other Infectious Disease, Traveled Outside the [place] in Last 30 Days - Family History Known Family History: Positive: Other - pos: depression Negative: Cardiac Disease, Hypertension - Social History Alcohol Use: None Hx Substance Use: No Substance Use Type: Reports: None Hx Tobacco Use: No Smoking Status (MU): Never Smoked Tobacco Amount Used/How Often: pt does not and has never used tobacco products of any kind Have You Smoked in the Last Year: No Review of Systems Negative: Fever Negative: Chest Pain Negative: Shortness Of Breath Positive: Abdominal Pain, Nausea. Negative: Vomiting, Diarrhea Neurological: Other - dizziness All Other Systems Reviewed And Are Negative: Yes Physical Exam Triage Information Reviewed: Yes Vital Signs On Initial Exam: Initial Vitals Temp Pulse Resp BP Pulse Ox 97.8 F 99 22 106/73 96 10/14/17 18:45 10/14/17 18:45 10/14/17 18:45 10/14/17 18:45 10/14/17 18:45 Vital Signs Reviewed: Yes Appearance: Positive: Well-Appearing Skin: Positive: Warm, Dry Head/Face: Positive: Normal Head/Face Inspection Eyes: Positive: Normal, Conjunctiva Clear ENT: Positive: Normal ENT inspection, Pharynx normal, TMs normal Respiratory/Lung Sounds: Positive: Clear to Auscultation, Breath Sounds Present Cardiovascular: Positive: Normal, RRR Abdomen Description: Positive: Soft, Other: - diffuse tenderness mild Bowel Sounds: Positive: Present Neurological: Positive: Sensory/Motor Intact, Alert, Oriented to Person Place, Time, CN Intact II-III, Finger to Nose - Mike Coma Scale Best Eye Response: 4 - Spontaneous Best Motor Response: 6 - Obeys Commands Best Verbal Response: 5 - Oriented Coma Scale Total: 15 Diagnostics - Vital Signs Vital Signs Temp Pulse Resp BP Pulse Ox 10/14/17 19:08 94 127/84 10/14/17 18:45 97.8 F 99 22 106/73 96 - Laboratory Result Diagrams: 10/14/17 19:25 10/14/17 19:25 Lab Statement: Any lab studies that have been ordered have been reviewed, and results considered in the medical decision making process. Dizzy Course/Dx - Course Course Of Treatment: 26F presents dizziness today. She states her dizziness started before she ate dinner at [employer]. She admits to nausea and generalized abdominal pain s/p eatting dinner because she ate too much. She states this is the same pain that she had a couple days ago. She states she is dizzy all the time. not worst with positional changes. She denies any chest pain or SOB. She appears anxious. was seen her this morning for same symptoms. She is frequency patient in ED. no previous abdominal surgeries. She denies any vomiting but while in ED she stuck her fingers down her throat to try to vomit. She denies any diarrhea. no dysuria, hematuria, urgency or frequency. normal neuro exam. orthostatic likely due to psych meds. no nystagmus. patient resting comfortable in bed. appears anxious. abdomen soft, mild diffuse tenderness. labs similiar to previous. will discharge to follow up with primary. patient understand and agrees with plan. - Diagnoses Differential Diagnosis/HQI/PQRI: Anxiety, Benign Paroxysmal Positional Vertigo, Metabolic Abnormality Provider Diagnoses: Dizziness, Abdominal pain Discharge - Discharge Plan Condition: Good Disposition: HOME Patient Education Materials: Dizziness (ED) Referrals: Ethan Mcguire MD [Primary Care Provider] - Additional Instructions: Follow up with primary within 5 days Stay hydrated Return to ED if develop any new or worsening symptoms
[2017-10-14 19:38] LABS: Hematocrit 39 % (35-47); Hemoglobin 13.2 g/dl (12.0-16.0); Mean Corpuscular HGB Conc 34 g/dl (31-36); Mean Corpuscular Hemoglobin 28 pg (27-31); Mean Corpuscular Volume 83 fL (80-97); Mean Platelet Volume 9 um3 (7.4-10.4); Red Blood Count 4.74 10^6/ul (4.0-5.4); Red Cell Distribution Width 15 % (10.5-15); White Blood Count 9.7 10^3/ul (3.5-10.8)
[2017-10-14 19:49] LABS: Albumin 3.8 g/dL (3.2-5.2); BUN/Creatinine Ratio 10.7 (8-20); Calcium 9.3 mg/dL (8.6-10.3); EGFR African American 104.6 (>60); EGFR Non-African American 81.3 (>60); Magnesium 1.8 mg/dL (1.9-2.7); Potassium 3.8 mmol/L (3.5-5.0); Total Bilirubin 0.2 mg/dL (0.2-1.0); Total Protein 6.8 g/dL (6.4-8.9)
[2017-10-14 19:51] LABS: Troponin I 0.01 ng/mL (<0.04)
[2017-10-14 21:08] VITALS: BP 95/71
== END 2017-10-14 21:05 | disposition home or self-care (01) ==
LOC: ED 18:44
DX: R42 Dizziness and giddiness (principal); R10.9 Unspecified abdominal pain; E03.9 Hypothyroidism, unspecified; R62.50 Unspecified lack of expected normal physiological development in childhood; F90.9 Attention-deficit hyperactivity disorder, unspecified type; F32.9 Major depressive disorder, single episode, unspecified
CPT/HCPCS: 36415; 80053; 80164; 83735; 84484; 85025; 99283; A9270-GY

== ENCOUNTER 2017-10-16 11:19 | Inpatient (IN) | payer MEDICARE, MEDICAID ==
[2017-10-16] MEDS ORDERED: diPHENhydraMINE IV* 50 MG/ML 1 ml VIAL (BENADRYL) IM ONE (11:44)
[2017-10-16] MEDS ORDERED: LORazepam INJ* 2 MG/ML 1 ML VIAL IM ONE (11:44)
[2017-10-16] MEDS ORDERED: Haloperidol INJ IV/IM* 5 MG/ML AMP IM ONE (11:44)
[2017-10-16] MEDS ORDERED: Haloperidol INJ IV/IM* 5 MG/ML AMP ONE (11:49)
[2017-10-16] MEDS ORDERED: diPHENhydraMINE IV* 50 MG/ML 1 ml VIAL (BENADRYL) ONE (11:49)
[2017-10-16] MEDS ORDERED: LORazepam INJ* 2 MG/ML 1 ML VIAL ONE (11:49)
--- NOTE | 2017-10-16 11:53 | ED ---
Psychiatric Complaint - HPI Summary HPI Summary: 26 female presents as a 945 brought in by police after stating she wanted to kill her self with a knife while at her outpatient psych appointment. Patient is very angry and frustrated upon examination and not speaking very much other than stating she wants to kill herself. Patient has not attempted other than punching things, hitting her head and attempting to choke herself with her hands. Visible during examination. Took her depakote and synthroid this morning. No alcohol or drug use. States everything has been making her more stressed. No other complaints at this time. No PMHx. Does have psych history that she takes medication for. Denies auditory and visual hallucinations. Threatening to hurt staff. - History Of Current Complaint Chief Complaint: EDMentalHealth Time Seen by Provider: 10/16/17 11:21 Hx Obtained From: Patient, Other: - [facility] Hx Last Menstrual Period: 09/08/17 Onset/Duration: Sudden Onset Timing: Constant Severity Currently: Moderate Character: Angry, Frustrated Aggravating Factor(s): Recent Stress Alleviating Factor(s): Nothing Associated Signs And Symptoms: Positive: Negative Related History: Positive For: Prior Psychiatric Issues Has Suicidal: Reports: Thoughts, With A Plan, Demonstrates Gesture - hitting her head, punching things, attempting to choke herself with her hands Has Homicidal: Reports: Thoughts - threatening to hurt staff. Denies: With A Plan - Allergies/Home Medications Allergies/Adverse Reactions: Allergies Allergy/AdvReac Type Severity Reaction Status Date / Time No Known Allergies Allergy Verified 10/14/17 02:25 Home Medications: Home Medications Norgestimate-Eth Estradiol(NF) [Ortho Tri-Cyclen (NF)] 1 tab PO DAILY 10/16/17 [ History Confirmed 10/16/17] PMH/Surg Hx/FS Hx/Imm Hx Endocrine/Hematology History: Reports: Hx Thyroid Disease - hypo Denies: Hx Anticoagulant Therapy, Hx Diabetes Cardiovascular History: Denies: Hx Hypertension Respiratory History: Reports: Hx Seasonal Allergies Denies: Hx Asthma, Hx Chronic Obstructive Pulmonary Disease (COPD) GI History: Denies: Hx Gastroesophageal Reflux Disease, Hx Ulcer History: Denies: Hx Renal Disease Sensory History: Reports: Hx Contacts or Glasses Opthamlomology History: Reports: Hx Contacts or Glasses Neurological History: Reports: Hx Developmental Delay Psychiatric History: Reports: Hx Anxiety, Hx Attention Deficit Hyperactivity Disorder, Hx Depression, Hx Inpatient Treatment, Hx Community Mental Health Tx, Hx Suicide Attempt, Hx of Violent Episodes Against Others, Other Psychiatric Issues/Disorders - DEVELOPMENTALLY DELAYED Denies: Hx Eating Disorder - Surgical History Surgery Procedure, Year, and Place: none - Immunization History Date of Influenza Vaccine: 08/2017 Infectious Disease History: No Infectious Disease History: Denies: Hx Clostridium Difficile, Hx Hepatitis, Hx Human Immunodeficiency Virus (HIV), Hx of Known/Suspected MRSA, Hx Shingles, Hx Tuberculosis, Hx Known/ Suspected VRE, Hx Known/Suspected VRSA, History Other Infectious Disease, Traveled Outside the [place] in Last 30 Days - Family History Known Family History: Positive: Other - pos: depression Negative: Cardiac Disease, Hypertension - Social History Alcohol Use: None Hx Substance Use: No Substance Use Type: Reports: None Hx Tobacco Use: No Smoking Status (MU): Never Smoked Tobacco Amount Used/How Often: pt does not and has never used tobacco products of any kind Have You Smoked in the Last Year: No Review of Systems Constitutional: Negative Cardiovascular: Negative Respiratory: Negative Positive: Other - suicidal, frustrated, angry All Other Systems Reviewed And Are Negative: Yes Physical Exam Triage Information Reviewed: Yes Vital Signs On Initial Exam: Initial Vitals Temp Pulse Resp BP Pulse Ox 98.3 F 85 16 123/69 99 10/16/17 11:31 10/16/17 11:31 10/16/17 11:31 10/16/17 11:31 10/16/17 11:31 Vital Signs Reviewed: Yes Appearance: Positive: Well-Appearing, No Pain Distress, Well-Nourished, Obese Skin: Positive: Warm, Skin Color Reflects Adequate Perfusion, Dry, Other - no signs of self harm noted, limited exam due to patient incooperative Head/Face: Negative: Scalp Eyes: Positive: Normal, EOMI, RITA, Conjunctiva Clear ENT: Positive: Hearing grossly normal, Pharynx normal Neck: Positive: Supple, Nontender Respiratory/Lung Sounds: Positive: Clear to Auscultation, Breath Sounds Present. Negative: Rales, Rhonchi, Wheezes Cardiovascular: Positive: Normal, RRR, Pulses are Symmetrical in both Upper and Lower Extremities. Negative: Murmur, Rub Musculoskeletal: Positive: Normal, Strength/ROM Intact Neurological: Positive: Normal, Sensory/Motor Intact, Alert, Oriented to Person Place, Time, NV Bundle Intact Distally, Normal Gait Psychiatric: Positive: Other - angry, frustrated, yelling, punching things, hitting her head with her hand - Mike Coma Scale Best Eye Response: 4 - Spontaneous Best Motor Response: 6 - Obeys Commands Best Verbal Response: 5 - Oriented Coma Scale Total: 15 Diagnostics - Vital Signs Vital Signs Temp Pulse Resp BP Pulse Ox 10/16/17 11:31 98.3 F 85 16 123/69 99 - Laboratory Result Diagrams: 10/16/17 12:58 10/16/17 12:58 Lab Statement: Any lab studies that have been ordered have been reviewed, and results considered in the medical decision making process. Re-Evaluation - Re-Evaluation First Eval Re-Evaluation Time: 14:55 Comment: sleeping Course/Dx - Course Course Of Treatment: brought in by police as 945 when at psych appointment and stating she is experiencing strong suicidal thoughts with gesture. Also stating she will harm staff. Patient very frustrated and angry upon exam. Attempting to hurt herself while on exam. Patient was given ativan, haldol and benadryl to calm her down and to refrain her from hurting herself. Vitals were monitored throughout visit. She was cleared for mental health examination with labs and urine. No other medical concern at this time. Labs and urine unremarkable. Patient has been in ED multiplt times with same complaint in the past week. Patient was still sedated at shift change. pending another psych eval. Spoke with Mayo SALAZAR who is awaiting patient to wake upfor another eval and dispo decision. Vitals checked constantly throughout stay. Was signed out to Dr Drake at shift change. - Differential Dx/Clinical Impression Differential Diagnosis/HQI/PQRI: Positive: Acute Psychosis, Anxiety, Bipolar Disorder, Depression, Homicidal Ideation, Suicide Attempt, Suicidal Ideation, Suicidal Gesture Provider Diagnosis: Suicidal ideation - Physician Notifications Discussed Care Of Patient With: Dr Noelle Nicole at shift change Patient Is Medically Stable For: Psych Evaluation Discharge - Discharge Plan Condition: Stable Disposition: OTHER Discharge Disposition Comment: signed out to Dr Drake at shift change Referrals: Ethan Mcguire MD [Primary Care Provider] -
[2017-10-16 13:12] LABS: Hematocrit 37 % (35-47); Hemoglobin 12.5 g/dl (12.0-16.0); Mean Corpuscular HGB Conc 34 g/dl (31-36); Mean Corpuscular Hemoglobin 28 pg (27-31); Mean Corpuscular Volume 82 fL (80-97); Mean Platelet Volume 8 um3 (7.4-10.4); Red Cell Distribution Width 16 % (10.5-15); White Blood Count 6.6 10^3/ul (3.5-10.8)
[2017-10-16 13:27] LABS: ALT 14 U/L (7-52); AST 14 U/L (13-39); Albumin 3.5 g/dL (3.2-5.2); Alkaline Phosphatase 57 U/L (34-104); Anion Gap 7 mmol/L (2-11); BUN/Creatinine Ratio 8.9 (8-20); Blood Urea Nitrogen 7 mg/dL (6-24); CO2 Carbon Dioxide 22 mmol/L (22-32); Calcium 8.8 mg/dL (8.6-10.3); Chloride 107 mmol/L (101-111); EGFR African American 112.3 (>60); EGFR Non-African American 87.3 (>60); Globulin 2.8 g/dL (2-4); Glucose 89 mg/dL (70-100); Potassium 3.7 mmol/L (3.5-5.0); Sodium 136 mmol/L (133-145); Total Protein 6.3 g/dL (6.4-8.9)
[2017-10-16 13:47] LABS: Acetaminophen < 15 mcg/mL; Alcohol < 10 mg/dL (<10); Salicylate < 2.50 mg/dL (<30)
[2017-10-16 14:03] LABS: TSH (Thyroid Stimulating Horm) 2.05 mcIU/mL (0.34-5.60)
[2017-10-16 14:06] LABS: Urine Bilirubin Negative (Negative); Urine Glucose Negative (Negative); Urine Nitrite Negative (Negative)
[2017-10-16 15:06] LABS: Benzodiazepine Urine Screen None Detected (None Detect)
[2017-10-16] MEDS ORDERED: Al Hydrox/Mg Hydrox/Simet LIQ* 30 ML UDC PO PRN (19:08)
[2017-10-16] MEDS ORDERED: GuaiFENesin DM* 5 ML UDC PO PRN (19:10)
[2017-10-16] MEDS ORDERED: Hydrocortisone 1% CREAM* 30 GM TUBE TOPICAL PRN (19:10)
--- NOTE | 2017-10-16 19:53 | ED ---
I, Katie Harrison, scribed for Ben Drake MD on 10/16/17 at 1953 . Progress - Consult/PCP Time Called: 17:00 Re-Evaluation - Re-Evaluation First Eval Re-Evaluation Time: 14:55 Comment: sleeping Course/Dx - Course Course Of Treatment: brought in by police as 945 when at psych appointment and stating she is experiencing strong suicidal thoughts with gesture. Also stating she will harm staff. Patient very frustrated and angry upon exam. Attempting to hurt herself while on exam. Patient was given ativan, haldol and benadryl to calm her down and to refrain her from hurting herself. Vitals were monitored throughout visit. She was cleared for mental health examination with labs and urine. No other medical concern at this time. Labs and urine unremarkable. Patient has been in ED multiplt times with same complaint in the past week. Patient was still sedated at shift change. pending another psych eval. Spoke with Mayo SALAZAR who is awaiting patient to wake upfor another eval and dispo decision. Vitals checked constantly throughout stay. Was signed out to Dr Drake at shift change. - Diagnoses Provider Diagnoses: Suicidal ideation, Borderline personality disorder, Unspecified mood [affective ] disorder The documentation as recorded by the eloyibHunter harper Stephanie accurately reflects the service I personally performed and the decisions made by me, Ben Drake MD.
[2017-10-16] MEDS: Divalproex DR TAB(*) 500 MG PO SCH (21:51)
[2017-10-16] MEDS: Amoxicillin/Clavulanate TAB* 875 MG PO SCH (21:52)
[2017-10-16] MEDS ORDERED: Mirtazapine TAB* 15 MG ONE (23:34)
[2017-10-16] MEDS ORDERED: LORazepam TAB(*) 1 MG ONE (23:34)
[2017-10-16] MEDS: Mirtazapine TAB* 15 MG PO SCH (23:45)
[2017-10-17] MEDS ORDERED: LORazepam TAB(*) 1 MG ONE ×2 (02:22→10:04)
[2017-10-17] MEDS ORDERED: diPHENhydraMINE PO* 50 MG ONE ×2 (02:23→10:04)
[2017-10-17] MEDS ORDERED: Haloperidol TAB* 5 MG ONE ×2 (02:23→10:05)
[2017-10-17] MEDS: Vitamin THERAPEUTIC TAB PO SCH (08:08)
[2017-10-17] MEDS: Venlafaxine EXT RELEASE CAP* 75 MG PO SCH (08:08)
[2017-10-17] MEDS: Divalproex DR TAB(*) 500 MG PO SCH ×3 (08:08→22:08)
[2017-10-17] MEDS: Levothyroxine TAB* 25 MCG TAB PO SCH (08:08)
[2017-10-17] MEDS: Ferrous Sulfate TAB* 325 MG PO SCH (08:08)
[2017-10-17] MEDS: Amoxicillin/Clavulanate TAB* 875 MG PO SCH ×2 (08:11→22:09)
[2017-10-17] MEDS: Norgestimate-Eth Estradiol(NF) TAB PO SCH (08:11)
[2017-10-17] MEDS ORDERED: ARIPiprazole TAB* 20 MG PO SCH (09:00)
[2017-10-17] MEDS: Mirtazapine TAB* 15 MG PO SCH (22:08)
--- NOTE | 2017-10-18 01:57 | HP ---
HISTORY AND PHYSICAL: DATE OF ADMISSION: IDENTIFYING DATA: Lyndsey is a 26-year-old single, domiciled, unemployed, intellectually disabled female, who was referred by her providers at [facility] because of suicidal ideation and inability to contract for safety and she was admitted on emergency status. CHIEF COMPLAINT: "I told my therapist that I felt angry and I had thoughts of cutting myself with a knife!" HISTORY OF PRESENT ILLNESS: Lyndsey has a history of previous inpatient psychiatric hospitalizations. She is currently connected to [facility] program at [facility]. She sees psychiatrist, Dr. Isaac Medrano , for management of her medications. She has previous diagnoses of mild intellectual disability, borderline personality disorder, and unspecified depressive and anxiety disorders. She has not been fully compliant with taking prescribed Effexor XR 150 mg daily, Depakote 500 mg 3 times daily, and at her visit with her psychiatrist on 10/14/17 Abilify was discontinued and she was started on Remeron because of insomnia. She previously lived in a shelter run by [facility] in [place] for about 2 years and about 3 weeks ago, she moved out to live in an apartment at the [facility]. Last , 10/15/17, she spent a night at her mother and she woke up on Thursday night feeling angry, sad, irritable with strong urges to self harm. She went to the [facility] program at [facility] that she attends daily and she told her providers she was feeling suicidal, had a plan to cut herself with a knife. She describes stressors of the holidays bringing memories of 2 brothers. Her 2 brothers reportedly were killed in a 4- lee accident in 2014. Additionally, she lists adjustment to her new dwelling and feeling socially isolated. REVIEW OF PSYCHIATRIC SYMPTOMS: The patient stated "I have been depressed all my life." She described recurrent periods lasting an hour to a week with sad mood, crying spells, decreased interest, difficulty with sleep, passive , urges to self mutilate, and feeling of worthlessness and helplessness. She denied classic manic symptoms other than irritability and impulsivity. She denied decreased need for sleep, increased goal directedness, racing thoughts, pressured speech, or grandiosity. The patient reported heightened anxiety in crowded environment and recurring panic attacks. She denied excessive worrying , irritability or muscle tension. The patient was classified learning disabled when she attended school, but she was unable to elaborate further about the nature of her difficulties. She denied symptoms of eating disorder. PAST PSYCHIATRIC HISTORY: This is her seventh or eighth inpatient psychiatric admission since 2014. Most recent admission was here in the June of 2017 in similar circumstances. The patient was diagnosed in the past with ADHD, impulse control disorder, intermittent explosive disorder, depression, intellectual disability. SUICIDE/HOMICIDE HISTORY: She has never made a lonnie suicide attempt, but she has a history of self injurious behavior. She denies any history of violence. PAST MEDICAL HISTORY: Remarkable for anemia, obesity and hypothyroidism for which she is on Synthroid 25 mcg daily. She is also on oral contraceptive pills. REVIEW OF MEDICAL SYMPTOMS: Obesity. MEDICATIONS: The patient report that she has had several previous trials of medication in the past but was unable to recall medication names. She was recently switched from Abilify to mirtazapine. FAMILY HISTORY: The patient denies any family history of psychiatric illnesses or completed suicides. SUBSTANCE ABUSE HISTORY: The patient denies the use of tobacco, alcohol, illicit drugs or misuse of her prescribed medications. PERSONAL AND SOCIAL HISTORY: She grew up in [place], [place]. Her parents are still and still live there. In 2014, her 2 brothers, aged 19 and 21, in a 4-lee accident. The patient has another 22-year-old sister, who reportedly lives at home. The patient spent 2 years at [facility] and recently transitioned to living independently in an apartment at [facility]. She completed high school with an IEP diploma. The patient attends the [facility] program daily. She identifies as being heterosexual, denies dating or sexual activity. She complains of feeling socially isolated. She visits with her mother as often as she can. PHYSICAL EXAMINATION ADMISSION VITAL SIGNS: Blood pressure is 103/78, pulse is 77, respiration is 16 , and temperature 98.7. The patient declined physical examination citing lack of need. We will reattempt during this admission. MENTAL STATUS EXAMINATION: Finds a morbidly obese 26-year-old white female with dark hair, who is dressed in hospital scrubs. She is poorly groomed. She is guarded and minimally cooperative. Her affect is irritable. Mood is dysphoric. No evidence of formal thought disorder. No overt delusions. She denies auditory or visual hallucinations. No abnormal movements are observed. Insight and judgment are limited. Impulse control is tenuous in this setting. The patient was medicated for agitation twice a day before. Attention, memory and concentration are all poor. Fund of knowledge is adequate. Intelligence is estimated to be in mildly intellectually disabled range. SUMMARY: A 26-year-old female with history of intellectual disability, self injury, psychiatric hospitalizations, current outpatient care, questionable adherence with prescribed medication, who was referred by her outpatient providers and because of suicidal ideation and inability to contract for safety and she was admitted on emergency status for safety. Her medical history is remarkable for anemia, obesity, and hypothyroidism. She denied any family history of psychiatric illnesses or completed suicides. She described stressors of anniversary of the of her brothers, adjustment to new living situation and feeling socially isolated. DIAGNOSTIC IMPRESSION: Mild intellectual disability. Unspecified mood disorder. Borderline personality disorder, by history. Obesity. Hypothyroidism. Chronic anemia. TREATMENT PLAN: Admit to mental health unit, 15-minute checks, full code status , legal status is emergency. Initiate comprehensive milieu, individual and group psychotherapeutic supports. Medication management will continue her current outpatient regimen of medication until conferring with her outpatient psychiatrist. Discharge planning will involve coordination of her aftercare with [facility]. [id number]/[facility] #: [id number] MADELINE
[2017-10-18] MEDS: Acetaminophen TAB* 325 MG PO PRN (03:50)
[2017-10-18] MEDS: Divalproex DR TAB(*) 500 MG PO SCH ×3 (07:00→20:38)
[2017-10-18] MEDS: Vitamin THERAPEUTIC TAB PO SCH (07:00)
[2017-10-18] MEDS: Venlafaxine EXT RELEASE CAP* 75 MG PO SCH (07:00)
[2017-10-18] MEDS: Levothyroxine TAB* 25 MCG TAB PO SCH ×2 (07:00→08:09)
[2017-10-18] MEDS: Ferrous Sulfate TAB* 325 MG PO SCH (07:00)
[2017-10-18] MEDS: diPHENhydraMINE PO* 50 MG PO PRN ×2 (07:57→15:50)
[2017-10-18] MEDS: LORazepam TAB(*) 1 MG PO PRN ×2 (07:57→15:51)
[2017-10-18] MEDS: Norgestimate-Eth Estradiol(NF) TAB PO SCH (08:09)
[2017-10-18] MEDS: Amoxicillin/Clavulanate TAB* 875 MG PO SCH ×2 (08:09→21:43)
[2017-10-18] MEDS: Haloperidol TAB* 5 MG PO PRN (08:17)
[2017-10-18] MEDS: Mirtazapine TAB* 15 MG PO SCH (21:43)
[2017-10-19] MEDS: diPHENhydraMINE PO* 50 MG PO PRN ×3 (04:10→21:42)
[2017-10-19] MEDS: LORazepam TAB(*) 1 MG PO PRN ×2 (04:10→10:36)
[2017-10-19] MEDS: Venlafaxine EXT RELEASE CAP* 75 MG PO SCH ×2 (06:46→10:30)
[2017-10-19] MEDS: Ferrous Sulfate TAB* 325 MG PO SCH ×2 (06:46→10:28)
[2017-10-19] MEDS: Levothyroxine TAB* 25 MCG TAB PO SCH (06:46)
[2017-10-19] MEDS: Divalproex DR TAB(*) 500 MG PO SCH ×4 (06:47→20:44)
[2017-10-19] MEDS: Norgestimate-Eth Estradiol(NF) TAB PO SCH (08:49)
[2017-10-19] MEDS: Amoxicillin/Clavulanate TAB* 875 MG PO SCH ×2 (10:08→20:44)
[2017-10-19] MEDS: Vitamin THERAPEUTIC TAB PO SCH (10:10)
[2017-10-19] MEDS: Acetaminophen TAB* 325 MG PO PRN (15:59)
--- NOTE | 2017-10-19 16:59 | PN ---
Subjective - Subjective Subjective: Lyndsey endorses restful sleep, euthymic mood, denies SI/HI or urges for sib or A/ VH. "I am keeping myself together!. She denies side effects from prescribed meds. She requests staff pass and computer privileges. Per staff, she is safe on checks and in intact behavioral control. Objective - Appearance Appearance: Obese Dysmorphic Features: No Hygiene: Normal Grooming: Well Kept - Behavior Psychomotor Activities: Normal Exhibits Abnormal Movement: No - Attitude and Relatedness Attitude and Relatedness: Superficially Cooperative Eye Contact: Fair - Speech Quality: Unpressured Latencies: Normal Quantity: Terse - Mood Patient's Decription of Mood: "Okay" - Affect Observed Affect: Constricted Affect Consistent with: Dysphoria - Thought Process Patient's Thought Process: Coherent, Goal Directed Thought Content: No Passive Wish, No Suicidal Planning, No Homicidal Ideation, No Paranoid Ideation - Sensorium Experiencing Hallucinations: No, Sensorium is Clear - Level of Consciousness Level of Consciousness: Alert Orientation: Yes Intact - Impulse Control Impulse Control: Intact - Insight and Judgement Insight and Judgement: Poor - Group Participation Particating in Group Activities: Yes - Medication Management Medication Management Adherence: Yes Assessment - Assessment Merits Inpatient Hospitalization: For Ongoing Evaluation, Consolidate Improvements, For Discharge Planning Inpatient DSM-IV Dx: Unspecifed mood disorder; Mild intellectual disability; Borderline PD. Clinical Impression: SUMMARY: A 26-year-old female with history of intellectual disability, self injury, psychiatric hospitalizations, current outpatient care, questionable adherence with prescribed medication, who was referred by her outpatient providers and because of suicidal ideation and inability to contract for safety and she was admitted on emergency status for safety. Her medical history is remarkable for anemia, obesity, and hypothyroidism. She denied any family history of psychiatric illnesses or completed suicides. She described stressors of anniversary of the of her brothers, adjustment to new living situation and feeling socially isolated. Stabilizing in this structured setting. Plan - Plan Treatment Plan: Name: LYNDSEY WISE Birthdate: 1990 [id number] Continued Medication Management: Continue Outpt Medication Medications: Current Medications Acetaminophen (Tylenol Tab*) 650 mg PO Q4H PRN PRN Reason: for pain; or Temp >101 F Last Admin: 10/19/17 15:59 Dose: 650 mg Al Hydrox/Mg Hydrox/Simethicone (Maalox Plus*) 30 ml PO Q4H PRN PRN Reason: INDIGESTION Amoxicillin/Clavulanate Potassium (Augmentin Tab*) 875 mg PO BID [facility] Last Admin: 10/19/17 10:08 Dose: Not Given Diphenhydramine HCl (Benadryl Po*) 50 mg PO Q6H PRN PRN Reason: ANXIETY, AGITATION Last Admin: 10/19/17 10:37 Dose: 50 mg Divalproex Sodium (Depakote Dr Tab(*)) 500 mg PO TID [facility] Last Admin: 10/19/17 13:58 Dose: 500 mg Ferrous Sulfate (Ferrous Sulfate Tab*) 325 mg PO DAILY [facility] Last Admin: 10/19/17 10:28 Dose: Not Given Guaifenesin/Dextromethorphan (Robitussin Dm*) 10 ml PO Q6H PRN PRN Reason: COUGH Haloperidol (Haldol Tab*) 5 mg PO Q6H PRN PRN Reason: ANXIETY, AGITATION Last Admin: 10/18/17 08:17 Dose: 5 mg Hydrocortisone (Hytone Cream 1%*) 1 applic TOPICAL DAILY PRN PRN Reason: ITCHING Levothyroxine Sodium (Synthroid Tab*) 25 mcg PO 0800 [facility] Last Admin: 10/19/17 06:46 Dose: 25 mcg Lorazepam (Ativan Tab(*)) 2 mg PO Q6H PRN PRN Reason: ANXIETY, AGITATION Last Admin: 10/19/17 10:36 Dose: 2 mg Mirtazapine (Remeron Tab*) 15 mg PO BEDTIME [facility] Last Admin: 10/18/17 21:43 Dose: 15 mg Multivitamins (Theragran Tab*) 1 tab PO DAILY [facility] Last Admin: 10/19/17 10:10 Dose: Not Given Norgestimate (Ortho Tri-Cyclen (Nf)) 1 tab PO DAILY [facility] Last Admin: 10/19/17 08:49 Dose: Not Given Venlafaxine HCl (Effexor Xr Cap*) 150 mg PO DAILY [facility] Last Admin: 10/19/17 10:30 Dose: Not Given - Discharge Plan Discharge Plan: Outpatient Follow Up Outpatient Program: [facility]
[2017-10-19] MEDS: Mirtazapine TAB* 15 MG PO SCH (21:42)
[2017-10-19] MEDS: Nystatin CREAM* 15 GM TUBE TOPICAL SCH (21:43)
[2017-10-20] MEDS: Acetaminophen TAB* 325 MG PO PRN ×2 (05:21→09:42)
[2017-10-20] MEDS: Venlafaxine EXT RELEASE CAP* 75 MG PO SCH ×2 (05:41→08:38)
[2017-10-20] MEDS: Divalproex DR TAB(*) 500 MG PO SCH ×3 (05:41→14:16)
[2017-10-20] MEDS: Levothyroxine TAB* 25 MCG TAB PO SCH ×2 (05:41→08:37)
[2017-10-20] MEDS: Ferrous Sulfate TAB* 325 MG PO SCH ×2 (05:41→08:37)
[2017-10-20 08:11] VITALS: BP 132/80
[2017-10-20] MEDS: Vitamin THERAPEUTIC TAB PO SCH (08:38)
[2017-10-20] MEDS: Norgestimate-Eth Estradiol(NF) TAB PO SCH (08:38)
[2017-10-20] MEDS: Nystatin CREAM* 15 GM TUBE TOPICAL SCH (09:14)
[2017-10-20] MEDS: Amoxicillin/Clavulanate TAB* 875 MG PO SCH (09:25)
[2017-10-20] MEDS: Haloperidol TAB* 5 MG PO PRN (09:42)
[2017-10-20] MEDS: LORazepam TAB(*) 1 MG PO PRN (10:01)
--- NOTE | 2017-10-21 02:03 | DS ---
DISCHARGE SUMMARY: DATE OF ADMISSION: 10/16/17 DATE OF DISCHARGE: 10/20/17 DISCHARGE DIAGNOSES: Are as follows: [place] I: Unspecified mood disorder. [place] II: Borderline personality disorder, mild intellectual disability. [place] III: Obesity, hypothyroidism, chronic anemia. [place] IV: Severe housing stressors. [place] V: At the time of admission was 49 and at the time of discharge is 59. CONDITION AT THE TIME OF DISCHARGE: Improved. The patient is denying suicidal or homicidal ideations. She has been safe on all checks, although she was making suicidal statements at times. During this hospitalization, it is perceived that these were due to her need to receive attention. For this reason , she was given privileges such as being able to use the comfort room and to go outside attended by staff. Most of what we have observed during this hospitalization were behaviors characteristic of her attention seeking. This clinician feels that her borderline personality pathology is her main diagnosis at this time and she often uses inpatient and emergency room resources in order to attain the attention she craves. The patient does not have any history of serious suicide attempts, but mostly self harm and agitative behavior towards peers and staff members when she want something and is not getting it. This clinician strongly feels that inpatient psychiatric hospitalization has extremely low benefit and I would caution other clinicians to reconsider inpatient hospitalizations as an effective modality in her treatment. She is willing to return to her apartment as provided by the [facility] and is willing to follow up with the [facility] program. We have had conversations with her outpatient providers and they are in agreement with this plan. MENTAL STATUS EXAM: At the time of discharge, the patient is an obese white female, casually dressed with dyed short black hair. She is clean, well groomed , calm, cooperative. Mood appears to be euthymic with a full affect. Thought process is linear and goal directed. Thought content is significant for her desire to be discharged from the hospital. She denies suicidal or homicidal ideations. Insight and judgment appeared to be poor given her over utilization of hospital psychiatric resources. Cognitively, she is developmentally delayed and quite limited, although she is awake and alert. DISCHARGE INSTRUCTIONS: To the patient are as follows: A. Medications: The patient is taking, 1. Depakote 500 mg p.o. t.i.d. 2. Ferrous sulfate 325 mg p.o. daily. 3. Cortisone 1% cream applied topically once daily. 4. Synthroid 25 mcg p.o. daily. 5. Effexor 150 mg p.o. daily. 6. Remeron 15 mg p.o. q.h.s. 7. Ortho Tri-Cyclen 1 tablet p.o. daily. B. Diet is regular. C. Activities: As tolerated. The patient is a nonsmoker. There are no laboratory or diagnostic studies pending at the time of discharge. D. Followup care: The patient will be seen on October 22 at 1 p.m. with her outpatient psychiatrist, Dr. Isaac Medrano. She also attends the [facility] program on a daily basis and will go there next on 10/21/17, which is the day after discharge. In addition, she receives housing and case management services through the [facility] who are made aware of her discharge. E. Substance abuse followup is nonapplicable. HOSPITAL COURSE: Part A: Reason for admission: The patient is a 26-year-old intellectually disabled white female with a history of borderline personality disorder with chronic self-harm as well as chronic suicidal ideations in the community, who returns to our hospital for her 8th visit in 1 week, having been sent by the [facility] secondary to suicidal ideations. Lyndsey has a history of making suicidal statements when upset. She is currently connected with the [facility] at [facility] and sees her psychiatrist, Dr. Isaac Medrano for management of her medications. Recently, she had her Abilify discontinued and she was started on Remeron because of insomnia. She previously lived in a chcf run by the [facility] in [place] for about 2 years, but 3 weeks prior to this admission, she moved out to live in an apartment in the [facility]. Last , 10/15/17, she spent a night with her mother and woke up on Thursday night feeling angry, sad, irritable with strong urges to self harm. She went to the [facility] program at [facility] and told provider she was feeling suicidal and had a plan to cut herself with a knife. She describes stressors of the holidays bringing memories of her 2 brothers who apparently were killed in a 4 lee accident in 2014. Additionally with her adjustment to her new apartment and feelings of social isolation as being stressors related to this decompensation. Part B: Psychiatric treatment rendered: The patient was admitted to the adult behavioral health unit and placed on q.15 minute checks for her own safety. Due to her typical presentation, she was often quite needy, attention seeking, threatening herself at times, but then laughing about it inappropriately, requesting staff attention when other patients on the unit were in Crisis. We did not observe any behavior that was consistent with her claimed thoughts of suicide, instead she appeared to want to make friends on the unit and use it as a place to socialize. She had limited benefit from group programming due to her cognitive and intellectual deficits, which are well documented and most frequently she skipped groups entirely. At this time, we feel that she is not benefiting much from the inpatient setting and we feel that outpatient treatment is a much more appropriate level of care for her. She is being referred back to the [facility] where she receives not only residential services, but also behavioral modification and case management and will also be following up with [facility]. [id number]/[facility] #: [id number] MADELINE
== END 2017-10-20 14:25 | disposition home or self-care (01) | DRG 885 ==
LOC: ED 11:19 → BSU 19:08
PROVIDERS: ADMIT Psychiatry & Neurology Psychiatry; ATTEND Psychiatry & Neurology Psychiatry
DX: F39 Unspecified mood [affective] disorder (principal); R45.851 Suicidal ideations; E66.01 Morbid (severe) obesity due to excess calories; Z68.41 Body mass index [BMI] 40.0-44.9, adult; F60.3 Borderline personality disorder; E03.9 Hypothyroidism, unspecified; K21.9 Gastro-esophageal reflux disease without esophagitis; F90.9 Attention-deficit hyperactivity disorder, unspecified type; F41.9 Anxiety disorder, unspecified; F32.9 Major depressive disorder, single episode, unspecified; J30.2 Other seasonal allergic rhinitis; R40.2362 Coma scale, best motor response, obeys commands, at arrival to emergency department; R40.2142 Coma scale, eyes open, spontaneous, at arrival to emergency department; R40.2252 Coma scale, best verbal response, oriented, at arrival to emergency department; F63.81 Intermittent explosive disorder; G47.00 Insomnia, unspecified; F70 Mild intellectual disabilities; D64.9 Anemia, unspecified; Z91.5 Personal history of self-harm; Z81.8 Family history of other mental and behavioral disorders; Z56.0 Unemployment, unspecified
CPT/HCPCS: 36415; 80053; 80164; 80307; 80320; 80329; 81003; 84443; 85025; 99222; 99231; 99238; A9270-GY; G0480; J1200; J1630; J2060

== ENCOUNTER 2017-10-22 13:06 | Emergency (ER) | payer MEDICARE, MEDICAID ==
[2017-10-22 13:46] VITALS: BP 129/78
--- NOTE | 2017-10-22 14:34 | UC ---
Upper Extremity HPI - HPI Summary HPI Summary: Pt presents with report of right wrist pain x 3 days. Pt denies trauma. States pain worse with movement. Pt has taken Motrin with little improvement. Pt is RHD. Pt denies fevers, chills. No edema. No ecchymosis. Pt with paresthesia all fingers. No weakness. No elbow, shoulder. No other complaints Pt's medications reviewed this visit - History of Current Complaint Chief Complaint: UCUpperExtremity Stated Complaint: PAIN IN RIGHT WRIST Time Seen by Provider: 10/22/17 14:26 Hx Obtained From: Patient Hx Last Menstrual Period: 10/15/17 Severity Initially: Mild Severity Currently: Mild Location Of Pain: Is Discrete @ - right wrist Character: Unable to Describe Aggravating Factor(s): Movement Alleviating Factor(s): OTC Meds, Rest Associated Signs And Symptoms: Positive: Negative - Allergies/Home Medications Allergies/Adverse Reactions: Allergies Allergy/AdvReac Type Severity Reaction Status Date / Time Amoxicillin [From Augmentin] Allergy Rash And Verified 10/22/17 13:46 Itching Clavulanic Acid Allergy Rash And Verified 10/22/17 13:46 [From Augmentin] Itching Home Medications: Home Medications Acetaminophen [Qc Pain Relief] 325 mg PO Q6H PRN 10/22/17 [History Confirmed ] Ibuprofen [Advil] 400 mg PO Q6H PRN 10/22/17 [History Confirmed 10/22/17] PMH/Surg Hx/FS Hx/Imm Hx Previously Healthy: Yes Psychological History: Anxiety, Depression Other History Of: Negative For: Anticoagulant Therapy - Surgical History Surgical History: None Surgery Procedure, Year, and Place: none - Family History Known Family History: Positive: Other - pos: depression Negative: Cardiac Disease, Hypertension - Social History Occupation: Disabled Lives: With Family Alcohol Use: None Substance Use Type: None Smoking Status (MU): Never Smoked Tobacco Amount Used/How Often: pt does not and has never used tobacco products of any kind Have You Smoked in the Last Year: No - Immunization History Most Recent Influenza Vaccination: 08/2017 Most Recent Tetanus Shot: unknown Most Recent Pneumonia Vaccination: never Review of Systems Constitutional: Negative Skin: Negative Neurovascular: Other - + paresthesia Musculoskeletal: Other: All Other Systems Reviewed And Are Negative: Yes Physical Exam Triage Information Reviewed: Yes Appearance: Well-Appearing, No Pain Distress, Well-Nourished Vital Signs: Initial Vital Signs Temp 98.0 F 10/22/17 13:43 Pulse 100 10/22/17 13:43 Resp 16 10/22/17 13:43 BP 129/78 10/22/17 13:43 Pulse Ox 99 10/22/17 13:43 Vital Signs Reviewed: Yes Eyes: Positive: Conjunctiva Clear Neck exam: Normal Neck: Positive: Supple, Nontender, No Lymphadenopathy Respiratory Exam: Normal Respiratory: Positive: Chest non-tender, Lungs clear, Normal breath sounds Cardiovascular: Positive: Other: - 2+ radial, 2+ ulnar CBT < 2 sec all digits Musculoskeletal: Positive: Other: - + TTP wrist right hand radius> ulnar no snuffbox pain no pain carpals, metacarpals no pain elbow Neurological: Positive: Other: - + thumb up, a ok, finger spread, finger cross Psychological Exam: Normal Skin Exam: Normal Diagnostics - Radiology No standard instances Radiology Interpretation Completed By: Radiologist - Attending Doctor: Silva Scott ([id number]) Visitor Services Coordinator: Osbaldo Coley ([id number]) Office Messenger: SUSANNEANCE (NUANCE) Report Date: 10/22/2017 14:50:00 Report Status: Final Begin of Report Content Patient Name: JAMIE WISE Medical Record#: [id number] Ordering Physician: Silva Scott MD Acct.#: [id number] : 1990 Age: 26 Sex: F Location: [facility] Exam Date: 10/22/17 1450 ADM Status: REG ER Order Information: WRIST RIGHT 3+ VWS Accession Number: [id number] CPT: 81041 INDICATION: Right wrist pain distal radius and ulna. TECHNIQUE: 3 views of the right wrist were obtained. FINDINGS: The bones are normal alignment. There is a prominent ulnar styloid process. No significant focal osseous abnormality or fracture is seen. Joint spaces appear maintained. IMPRESSION: PROMINENT ULNAR STYLOID PROCESS, OTHERWISE UNREMARKABLE STUDY. Upper Extremity Course/Dx - Course Course Of Treatment: Pt with pain right wrist radial>ulnar. no trauma. no crepitus, edema or ecchymosis. Will check xray. APAP. ice. splint. pcp f/ u. Pt comfortable and in agreement with plan - Differential Dx/Diagnosis Provider Diagnoses: wrist sprain, right Discharge - Discharge Plan Condition: Stable Disposition: HOME Patient Education Materials: Wrist Sprain (ED) Referrals: Ethan Mcguire MD [Primary Care Provider] - Additional Instructions: - wear splint for comfort and support as much as possible for the next 5-7 days - Alternate ibuprofen (Advil, Motrin) 600mg and tylenol every 3hours as needed for pain. Take with food. - okay to apply ice (20 minutes at a time) 2-3 times a day. Do not put ice directly on your skin as this can cause frostbite - Contact your doctor to schedule a follow-up appointment next week. Contact your doctor or return with questions or concerns
[2017-10-22] MEDS ORDERED: Acetaminophen TAB* 325 MG PO ONE (14:35)
--- NOTE | 2017-10-22 15:48 | RAD ---
INDICATION: Right wrist pain distal radius and ulna. TECHNIQUE: 3 views of the right wrist were obtained. FINDINGS: The bones are normal alignment. There is a prominent ulnar styloid process. No significant focal osseous abnormality or fracture is seen. Joint spaces appear maintained. IMPRESSION: PROMINENT ULNAR STYLOID PROCESS, OTHERWISE UNREMARKABLE STUDY.
== END 2017-10-22 15:52 | disposition home or self-care (01) ==
LOC: UCEAST 13:06
DX: S63.501A Unspecified sprain of right wrist, initial encounter (principal); X58.XXXA Exposure to other specified factors, initial encounter; Y93.9 Activity, unspecified; Y92.9 Unspecified place or not applicable; Y99.9 Unspecified external cause status
CPT/HCPCS: 99212; A9270-GY; G0463

== ENCOUNTER 2017-10-23 16:12 | Emergency (ER) | payer MEDICARE, MEDICAID ==
[2017-10-23] MEDS ORDERED: LORazepam TAB(*) 1 MG PO ONE ×2 (16:37→18:15)
[2017-10-23] MEDS ORDERED: LORazepam TAB(*) 1 MG ONE (16:40)
[2017-10-23 17:06] LABS: ABS Basophils 0.1 10^3/ul (0-0.2); ABS Eosinophils 0.1 10^3/ul (0-0.6); ABS Lymphocytes 1.7 10^3/ul (1.0-4.8); ABS Monocytes 0.4 10^3/ul (0-0.8); ABS Neutrophils 5.7 10^3/ul (1.5-7.7); ABS Nucleated RBC 0 10^3/ul; Eosinophil % 1.5 % (0-6); Hematocrit 40 % (35-47); Hemoglobin 13.4 g/dl (12.0-16.0); Lymphocyte % 21.6 % (25-47); Mean Corpuscular HGB Conc 33 g/dl (31-36); Mean Corpuscular Hemoglobin 28 pg (27-31); Mean Corpuscular Volume 83 fL (80-97); Mean Platelet Volume 9 um3 (7.4-10.4); Nucleated Red Blood Cells % 0; Platelet Count 250 10^3/ul (150-450); Red Blood Count 4.88 10^6/ul (4.0-5.4); Red Cell Distribution Width 16 % (10.5-15)
[2017-10-23 17:08] LABS: Urine Appearance Cloudy; Urine Blood Negative (Negative); Urine Color Yellow; Urine Ketones Trace (Negative); Urine Protein Negative (Negative); Urine Specific Gravity 1.021 (1.010-1.030); Urine Urobilinogen Negative (Negative)
[2017-10-23 17:20] LABS: EGFR Non-African American 75.1 (>60)
[2017-10-23 21:32] VITALS: BP 0/0
--- NOTE | 2017-11-03 11:44 | ED ---
Jose R Kulkarni Angela, scribed for Jhon Adame MD on 10/23/17 at 1631 . Psychiatric Complaint - HPI Summary HPI Summary: This pt is a 26 y/o female presenting to [facility] c/o SI thoughts and plan. Pt states "I just hate my life." She reports her SI plan is to overdose on her medication pills. Pt has had multiple visits to the ED. Pt notes she has been admitted before for psychiatric issues. Medications include Depakote. - History Of Current Complaint Chief Complaint: EDMentalHealth Time Seen by Provider: 10/23/17 16:19 Hx Obtained From: Patient Hx Last Menstrual Period: 10/15/17 Onset/Duration: Lasting Days, Still Present Timing: Days Character: Depressed Related History: Positive For: Prior Psychiatric Issues Has Suicidal: Reports: Thoughts, With A Plan - Allergies/Home Medications Allergies/Adverse Reactions: Allergies Allergy/AdvReac Type Severity Reaction Status Date / Time Amoxicillin [From Augmentin] Allergy Rash And Verified 10/22/17 13:46 Itching Clavulanic Acid Allergy Rash And Verified 10/22/17 13:46 [From Augmentin] Itching PMH/Surg Hx/FS Hx/Imm Hx Endocrine/Hematology History: Reports: Hx Thyroid Disease - hypo Denies: Hx Anticoagulant Therapy, Hx Diabetes Cardiovascular History: Denies: Hx Hypertension Respiratory History: Reports: Hx Seasonal Allergies Denies: Hx Asthma, Hx Chronic Obstructive Pulmonary Disease (COPD) GI History: Denies: Hx Gastroesophageal Reflux Disease, Hx Ulcer History: Denies: Hx Renal Disease Sensory History: Reports: Hx Contacts or Glasses - Reportedly uses contacts, unconfirmed by Pt at this time. Denies: Hx Hearing Aid Opthamlomology History: Reports: Hx Contacts or Glasses - Reportedly uses contacts, unconfirmed by Pt at this time. Neurological History: Reports: Hx Developmental Delay Psychiatric History: Reports: Hx Anxiety, Hx Attention Deficit Hyperactivity Disorder, Hx Depression, Hx Inpatient Treatment, Hx Community Mental Health Tx, Hx Suicide Attempt, Hx of Violent Episodes Against Others, Other Psychiatric Issues/Disorders - developmental delays Denies: Hx Eating Disorder - Surgical History Surgery Procedure, Year, and Place: none - Immunization History Date of Influenza Vaccine: 08/2017 Infectious Disease History: No Infectious Disease History: Denies: Hx Clostridium Difficile, Hx Hepatitis, Hx Human Immunodeficiency Virus (HIV), Hx of Known/Suspected MRSA, Hx Shingles, Hx Tuberculosis, Hx Known/ Suspected VRE, Hx Known/Suspected VRSA, History Other Infectious Disease, Traveled Outside the [place] in Last 30 Days - Family History Known Family History: Positive: Other - pos: depression Negative: Cardiac Disease, Hypertension - Social History Alcohol Use: None Hx Substance Use: No Substance Use Type: Reports: None Hx Tobacco Use: No Smoking Status (MU): Never Smoked Tobacco Amount Used/How Often: pt does not and has never used tobacco products of any kind Have You Smoked in the Last Year: No Review of Systems Negative: Fever, Chills Negative: Erythema Negative: Sore Throat Negative: Chest Pain Negative: Shortness Of Breath, Cough Negative: Abdominal Pain, Vomiting, Nausea Negative: dysuria, hematuria Negative: Myalgia, Edema Negative: Rash Neurological: Other - NEG: dizziness Psychological: Other - SI thoughts and plan Positive: Depressed All Other Systems Reviewed And Are Negative: Yes Physical Exam - Summary Physical Exam Summary: Constitutional: Well-developed, Well-nourished, Alert. (-) Distressed Skin: Warm, Dry HENT: Normocephalic; Atraumatic Eyes: Conjunctiva normal Neck: Musculoskeletal ROM normal neck. (-) JVD, (-) Stridor, (-) Tracheal deviation Cardio: Rhythm regular, rate normal, Heart sounds normal; Intact distal pulses; The pedal pulses are 2+ and symmetric. Radial pulses are 2+ and symmetric. (-) Murmur Pulmonary/Chest wall: Effort normal. (-) Respiratory distress, (-) Wheezes, (-) Rales Abd: Soft, (-) Tenderness, (-) Distension, (-) Guarding, (-) Rebound Musculoskeletal: (-) Edema Lymph: (-) Cervical adenopathy Neuro: Alert, Oriented x3 Psych: depressed Triage Information Reviewed: Yes Vital Signs On Initial Exam: Initial Vitals Temp Pulse Resp BP Pulse Ox 97.6 F 98 20 127/94 97 10/23/17 16:14 10/23/17 16:14 10/23/17 16:14 10/23/17 16:14 10/23/17 16:14 Vital Signs Reviewed: Yes Diagnostics - Vital Signs Vital Signs Temp Pulse Resp BP Pulse Ox 10/23/17 16:14 97.6 F 98 20 127/94 97 - Laboratory Lab Results: Lab Results 10/23/17 10/23/17 10/23/17 Range/Units 16:46 16:46 16:50 WBC (3.5-10.8) 10^3/ul RBC (4.0-5.4) 10^6/ul Hgb (12.0-16.0) g/dl Hct (35-47) % MCV (80-97) fL MCH (27-31) pg MCHC (31-36) g/dl RDW (10.5-15) % Plt Count (150-450) 10^3/ul MPV (7.4-10.4) um3 Neut % (Auto) (38-83) % Lymph % (Auto) (25-47) % Guadalupe % (Auto) (1-9) % Eos % (Auto) (0-6) % Baso % (Auto) (0-2) % Absolute Neuts (auto) (1.5-7.7) 10^3/ul Absolute Lymphs (auto) (1.0-4.8) 10^3/ul Absolute Monos (auto) (0-0.8) 10^3/ul Absolute Eos (auto) (0-0.6) 10^3/ul Absolute Basos (auto) (0-0.2) 10^3/ul Absolute Nucleated RBC 10^3/ul Nucleated RBC % Sodium 137 (133-145) mmol/L Potassium 3.6 (3.5-5.0) mmol/L Chloride 107 (101-111) mmol/L Carbon Dioxide 22 (22-32) mmol/L Anion Gap 8 (2-11) mmol/L BUN 5 L (6-24) mg/dL Creatinine 0.90 (0.51-0.95) mg/dL Est GFR ( Amer) 96.6 (>60) Est GFR (Non-Af Amer) 75.1 (>60) BUN/Creatinine Ratio 5.6 L (8-20) Glucose 99 (70-100) mg/dL Calcium 9.2 (8.6-10.3) mg/dL Total Bilirubin 0.20 (0.2-1.0) mg/dL AST 20 (13-39) U/L ALT 16 (7-52) U/L Alkaline Phosphatase 58 (34-104) U/L Total Protein 6.8 (6.4-8.9) g/dL Albumin 3.7 (3.2-5.2) g/dL Globulin 3.1 (2-4) g/dL Albumin/Globulin Ratio 1.2 (1-3) TSH 2.08 (0.34-5.60) mcIU/mL Urine Color Yellow Urine Appearance Cloudy Urine pH 5.0 (5-9) Ur Specific Berclair 1.021 (1.010-1.030) Urine Protein Negative (Negative) Urine Ketones Trace H (Negative) Urine Blood Negative (Negative) Urine Nitrate Negative (Negative) Urine Bilirubin Negative (Negative) Urine Urobilinogen Negative (Negative) Ur Leukocyte Esterase Negative (Negative) Urine Glucose Negative (Negative) Salicylates < 2.50 (<30) mg/dL Urine Opiates Screen None detected (None Detect) Acetaminophen < 15 mcg/mL Ur Barbiturates Screen None detected (None Detect) Valproic Acid 59.0 (50-100) mcg/mL Ur Phencyclidine Scrn None detected (None Detect) Ur Amphetamines Screen None detected (None Detect) U Benzodiazepines Scrn None detected (None Detect) Urine Cocaine Screen None detected (None Detect) U Cannabinoids Screen None detected (None Detect) Serum Alcohol < 10 (<10) mg/dL 10/23/ Range/Units 16:50 WBC 8.0 (3.5-10.8) 10^3/ul RBC 4.88 (4.0-5.4) 10^6/ul Hgb 13.4 (12.0-16.0) g/dl Hct 40 (35-47) % MCV 83 (80-97) fL MCH 28 (27-31) pg MCHC 33 (31-36) g/dl RDW 16 H (10.5-15) % Plt Count 250 (150-450) 10^3/ul MPV 9 (7.4-10.4) um3 Neut % (Auto) 71.3 (38-83) % Lymph % (Auto) 21.6 L (25-47) % [place]upe % (Auto) 4.9 (1-9) % Eos % (Auto) 1.5 (0-6) % Baso % (Auto) 0.7 (0-2) % Absolute Neuts (auto) 5.7 (1.5-7.7) 10^3/ul Absolute Lymphs (auto) 1.7 (1.0-4.8) 10^3/ul Absolute Monos (auto) 0.4 (0-0.8) 10^3/ul Absolute Eos (auto) 0.1 (0-0.6) 10^3/ul Absolute Basos (auto) 0.1 (0-0.2) 10^3/ul Absolute Nucleated RBC 0 10^3/ul Nucleated RBC % 0 Sodium (133-145) mmol/L Potassium (3.5-5.0) mmol/L Chloride (101-111) mmol/L Carbon Dioxide (22-32) mmol/L Anion Gap (2-11) mmol/L BUN (6-24) mg/dL Creatinine (0.51-0.95) mg/dL Est GFR ( Amer) (>60) Est GFR (Non-Af Amer) (>60) BUN/Creatinine Ratio (8-20) Glucose (70-100) mg/dL Calcium (8.6-10.3) mg/dL Total Bilirubin (0.2-1.0) mg/dL AST (13-39) U/L ALT (7-52) U/L Alkaline Phosphatase (34-104) U/L Total Protein (6.4-8.9) g/dL Albumin (3.2-5.2) g/dL Globulin (2-4) g/dL Albumin/Globulin Ratio (1-3) TSH (0.34-5.60) mcIU/mL Urine Color Urine Appearance Urine pH (5-9) Ur Specific Berclair (1.010-1.030) Urine Protein (Negative) Urine Ketones (Negative) Urine Blood (Negative) Urine Nitrate (Negative) Urine Bilirubin (Negative) Urine Urobilinogen (Negative) Ur Leukocyte Esterase (Negative) Urine Glucose (Negative) Salicylates (<30) mg/dL Urine Opiates Screen (None Detect) Acetaminophen mcg/mL Ur Barbiturates Screen (None Detect) Valproic Acid (50-100) mcg/mL Ur Phencyclidine Scrn (None Detect) Ur Amphetamines Screen (None Detect) U Benzodiazepines Scrn (None Detect) Urine Cocaine Screen (None Detect) U Cannabinoids Screen (None Detect) Serum Alcohol (<10) mg/dL Result Diagrams: 10/23/17 16:50 10/23/17 16:50 Lab Statement: Any lab studies that have been ordered have been reviewed, and results considered in the medical decision making process. Course/Dx - Course Course Of Treatment: This pt is a 26 y/o female presenting to [facility] c/o SI thoughts and plan. Pt states "I just hate my life." She reports her SI plan is to overdose on her medication pills. Pt has had multiple visits to the ED. Pt notes she has been admitted before for psychiatric issues. Medications include Depakote. Pt is medically cleared at 18:16. She is awaiting MHE. Pt will be signed out to the next ED attending, pending disposition, awaiting MHE. - Differential Dx/Clinical Impression Provider Diagnosis: Depression Discharge - Discharge Plan Condition: Stable Disposition: OTHER Discharge Disposition Comment: signed out to the next ED attending, pending dispo, awaiting MHE. Patient Education Materials: Anxiety (ED) Referrals: Ethan Mcguire MD [Primary Care Provider] - Additional Instructions: Per completion of a mental health evaluation, you are cleared for release and do not require inpatient psychiatric hospitalization at this time. Please go to nearest emergency room or call 911 if safety concerns arise or condition worsens. Important Phone Numbers: [facility]~~ ph:[phone] Suicide Prevention and Crisis Services~~~~~~~~~~~~~~~~~~~~~~~ ph:[phone] National Suicide Prevention Lifeline~~~~~~~~~~~~~~~~~~~~~~~ ~~ ph:[phone] (5344) [facility]~~~~~~~~~~~~~~~~~~ ~~ ph:[phone] Alcoholics Anonymous~~~~~~~~~~~~~~~~~~~~~~~~~~~~~~~~~~~~~~~~~~~~~~~~~ ph:[phone] [facility]~~~~~~ ~~ ph:[phone] [employer] ph:[phone] Follow up with [facility] and [facility] services. [facility] contacted and encouraged to consider applying for ACT services via [facility]. The documentation as recorded by the Jose R jordan Angela accurately reflects the service I personally performed and the decisions made by me, Jhon Adame MD.
== END 2017-10-23 19:10 ==
LOC: ED 16:12
DX: F32.9 Major depressive disorder, single episode, unspecified (principal); Z88.3 Allergy status to other anti-infective agents
CPT/HCPCS: 36415; 80053; 80164; 80307; 80320; 80329; 81003; 84443; 85025; 99285; A9270-GY; G0480

== ENCOUNTER 2018-05-28 12:21 | Emergency (ER) | payer MEDICAID, MEDICARE ==
[2018-05-28 12:29] VITALS: BP 109/71
--- NOTE | 2018-05-28 12:48 | RAD ---
HISTORY: twisted wrist 2 days ago COMPARISONS: October 22, 2017 VIEWS: 3, Frontal, lateral, and oblique views of the right wrist FINDINGS: BONE DENSITY: Normal. BONES: There is no displaced fracture. JOINTS: There is no arthropathy. ALIGNMENT: There is no dislocation. SOFT TISSUES: Unremarkable. OTHER FINDINGS: None. IMPRESSION: NO ACUTE OSSEOUS INJURY. IF SYMPTOMS PERSIST, RECOMMEND REPEAT IMAGING.
--- NOTE | 2018-05-28 14:00 | UC ---
Upper Extremity HPI - HPI Summary HPI Summary: Patient is a 27-year-old female presenting to the with a complaint of right dorsal wrist pain after twisting the wrist while climbing a tree yesterday. Endorses 5/10 pain, constant and throbbing. Denies any numbness or tingling. Denies any ecchymosis or other color changes. She has never injured the wrist in the past. She has not taken any medications [employer]. - History of Current Complaint Chief Complaint: UCUpperExtremity Stated Complaint: RIGHT WRIST PAIN Time Seen by Provider: 05/28/18 12:32 Hx Obtained From: Patient Hx Last Menstrual Period: 05/24/18 ?: No Onset/Duration: Sudden Onset Severity Initially: Mild Severity Currently: Mild Pain Intensity: 2 Pain Scale Used: 0-10 Numeric Location Of Pain: Is Discrete @ - Dorsal wrist pain Aggravating Factor(s): Movement, Lifting, Flexion Alleviating Factor(s): Nothing, Compression Associated Signs And Symptoms: Positive: Negative Related History: Dominant Hand Right - Risk Factors Non-Orthopedic Risk Factor: Negative DVT Risk Factors: Negative Septic Arthritis Risk Factor: Negative Compartment Syndrome Risk Factors: Pain - Allergies/Home Medications Allergies/Adverse Reactions: Allergies Allergy/AdvReac Type Severity Reaction Status Date / Time amoxicillin [From Augmentin] Allergy Rash Verified 05/28/18 12:25 clavulanic acid Allergy Rash Verified 05/28/18 12:25 [From Augmentin] PMH/Surg Hx/FS Hx/Imm Hx Previously Healthy: Yes Other History Of: Negative For: Anticoagulant Therapy - Surgical History Surgical History: None Surgery Procedure, Year, and Place: none - Family History Known Family History: Positive: Other - pos: depression Negative: Cardiac Disease, Hypertension - Social History Occupation: Unemployed Lives: With Family Alcohol Use: None Substance Use Type: None Smoking Status (MU): Never Smoked Tobacco Amount Used/How Often: pt does not and has never used tobacco products of any kind Have You Smoked in the Last Year: No - Immunization History Most Recent Influenza Vaccination: 08/2017 Most Recent Tetanus Shot: unknown Most Recent Pneumonia Vaccination: never Review of Systems Constitutional: Negative Skin: Negative Respiratory: Negative Cardiovascular: Negative Motor: Negative Neurovascular: Negative Musculoskeletal: Arthralgia - Dorsal wrist pain Neurological: Negative Psychological: Negative Is Patient Immunocompromised?: No All Other Systems Reviewed And Are Negative: Yes Physical Exam Triage Information Reviewed: Yes Appearance: Well-Appearing, Well-Nourished Vital Signs: Initial Vital Signs Temp 99 F 05/28/18 12:27 Pulse 82 05/28/18 12:27 Resp 17 05/28/18 12:27 BP 109/71 05/28/18 12:27 Pulse Ox 99 05/28/18 12:27 Vital Signs Reviewed: Yes Eye Exam: Normal Eyes: Positive: Conjunctiva Clear Neck exam: Normal Neck: Positive: Supple, No Lymphadenopathy Respiratory Exam: Normal Respiratory: Positive: Chest non-tender Cardiovascular Exam: Normal Cardiovascular: Positive: RRR Musculoskeletal Exam: Normal Musculoskeletal: Positive: Strength Intact Neurological Exam: Normal Neurological: Positive: Alert Psychological: Positive: Normal Response To Family Skin Exam: Normal Upper Extremity Course/Dx - Course Course Of Treatment: uring the course treatment, the patient is evaluated for right dorsal wrist pain. X-ray obtained which shows no fracture or other acute findings. Thong bandaged. Patient states she is already beginning to feel improved. However, she understands if symptoms worsen, she will return in 1 week for a recheck. Pulses +2 intact bilaterally. ROM intact. No feelings of tingling or decreased sensation. - Differential Dx/Diagnosis Provider Diagnoses: Wrist Sprain Discharge - Sign-Out/Discharge Documenting (check all that apply): Patient Departure - Discharge Plan Condition: Stable Disposition: HOME Patient Education Materials: Wrist Sprain (ED) Referrals: Ethan Mcguire MD [Primary Care Provider] - Additional Instructions: Ibuprofen 600mgs 3 times daily as needed for discomfort - Billing Disposition and Condition Condition: STABLE Disposition: Home
== END 2018-05-28 13:15 | disposition home or self-care (01) ==
LOC: UCEAST 12:21
DX: S63.501A Unspecified sprain of right wrist, initial encounter (principal); X50.1XXA Overexertion from prolonged static or awkward postures, initial encounter; Y93.39 Activity, other involving climbing, rappelling and jumping off; Y92.9 Unspecified place or not applicable; Z88.1 Allergy status to other antibiotic agents; Z88.0 Allergy status to penicillin
CPT/HCPCS: 99211; G0463

== ENCOUNTER 2018-06-01 15:36 | Emergency (ER) | payer MEDICARE, MEDICAID ==
[2018-06-01] MEDS ORDERED: Ondansetron ODT TAB* 4 MG PO ONE (17:47)
[2018-06-01 18:12] LABS: ABS Basophils 0.1 10^3/ul (0-0.2); ABS Eosinophils 0.1 10^3/ul (0-0.6); ABS Lymphocytes 1.9 10^3/ul (1.0-4.8); ABS Monocytes 0.6 10^3/ul (0-0.8); ABS Neutrophils 7.1 10^3/ul (1.5-7.7); ABS Nucleated RBC 0 10^3/ul; Eosinophil % 1.4 % (0-6); Hematocrit 41 % (35-47); Hemoglobin 13.9 g/dl (12.0-16.0); Lymphocyte % 19.3 % (25-47); Mean Corpuscular HGB Conc 34 g/dl (31-36); Mean Corpuscular Hemoglobin 28 pg (27-31); Mean Corpuscular Volume 82 fL (80-97); Mean Platelet Volume 8.4 um3 (7.4-10.4); Nucleated Red Blood Cells % 0; Platelet Count 262 10^3/ul (150-450); Red Blood Count 4.95 10^6/ul (4.00-5.40); Red Cell Distribution Width 14 % (10.5-15); White Blood Count 9.8 10^3/ul (3.5-10.8)
[2018-06-01 18:14] LABS: Urine Appearance Clear; Urine Blood Negative (Negative); Urine Color Colorless; Urine Ketones Negative (Negative); Urine Protein Negative (Negative); Urine Specific Gravity 1.003 (1.010-1.030); Urine Urobilinogen Negative (Negative)
[2018-06-01 18:49] LABS: EGFR Non-African American 85.4 (>60)
--- NOTE | 2018-06-01 19:21 | RAD ---
Indication: RIGHT upper quadrant pain since this morning. Jimenes's sign. Comparison: July 21, 2017 CT and ultrasound. Technique: RIGHT upper quadrant ultrasound. Report: Appropriate direction flow documented in the portal and hepatic veins. 20.1 cm liver is increased in echogenicity. Negative for focal hepatic lesions. Negative for intrahepatic biliary dilatation. 6.2 mm top normal diameter common bile duct. No conspicuous stones in the visualized common bile duct. No gallbladder visualized corresponding with absence of the gallbladder on previous ultrasound and CT exams consistent with normal variation. Tenderness noted when scanning over the region of the gallbladder fossa. Unremarkable well visualized pancreas. Negative for ascites. 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 IMPRESSION: #. Enlarged liver with hepatosteatosis. #. Congenital absence of the gallbladder. Tenderness noted when scanning over the region of the gallbladder fossa. #. Top normal diameter of the common bile duct without visualized ductal stones. #. Unremarkable pancreas. Negative for pancreatic duct dilatation.
--- NOTE | 2018-06-01 19:44 | ED ---
Abdominal Pain/Female - HPI Summary HPI Summary: Complains of diffuse abdominal pain, nausea starting this morning. Abdominal pain described as constant and sharp. History of same pain one year ago. Denies fever, cough, sore throat, CP, SOB, V/D, change in urine, vaginal symptoms, change in BM. Medical history is ADHD, hypothyroid. Abdominal/ pelvic surgical history is none. - History of Current Complaint Chief Complaint: EDAbdPain Stated Complaint: HEAD AND ABD PAIN Time Seen by Provider: 06/01/18 17:38 Hx Obtained From: Patient Hx Last Menstrual Period: 05/24/18 Onset/Duration: Sudden Onset Timing: Constant Severity Initially: Severe Severity Currently: Severe Pain Intensity: 10 Pain Scale Used: 0-10 Numeric Location: Diffuse Radiates: No Character: Sharp Aggravating Factor(s): Nothing Alleviating Factor(s): Nothing Associated Signs and Symptoms: Positive: Nausea Allergies/Adverse Reactions: Allergies Allergy/AdvReac Type Severity Reaction Status Date / Time amoxicillin [From Augmentin] Allergy Rash Verified 05/28/18 12:25 clavulanic acid Allergy Rash Verified 05/28/18 12:25 [From Augmentin] Home Medications: Home Medications Acetaminophen TAB* [Tylenol TAB*] 325 mg PO Q6H PRN 06/01/18 [History Confirmed 06/01/18] Ibuprofen TAB* [Motrin TAB* 400 MG] 400 mg PO Q6H PRN 06/01/18 [History Confirmed 06/01/18] PMH/Surg Hx/FS Hx/Imm Hx Endocrine/Hematology History: Reports: Hx Thyroid Disease - hypo Denies: Hx Anticoagulant Therapy, Hx Diabetes Cardiovascular History: Denies: Hx Hypertension Respiratory History: Reports: Hx Seasonal Allergies Denies: Hx Asthma, Hx Chronic Obstructive Pulmonary Disease (COPD) GI History: Denies: Hx Gastroesophageal Reflux Disease, Hx Ulcer History: Denies: Hx Renal Disease Sensory History: Reports: Hx Contacts or Glasses - Reportedly uses contacts, unconfirmed by Pt at this time. Denies: Hx Hearing Aid Opthamlomology History: Reports: Hx Contacts or Glasses - Reportedly uses contacts, unconfirmed by Pt at this time. Neurological History: Reports: Hx Developmental Delay Psychiatric History: Reports: Hx Anxiety, Hx Attention Deficit Hyperactivity Disorder, Hx Depression, Hx Inpatient Treatment, Hx Community Mental Health Tx, Hx Suicide Attempt, Hx of Violent Episodes Against Others, Other Psychiatric Issues/Disorders - developmental delays Denies: Hx Eating Disorder - Surgical History Surgery Procedure, Year, and Place: none - Immunization History Date of Influenza Vaccine: 08/2017 Infectious Disease History: No Infectious Disease History: Denies: Hx Clostridium Difficile, Hx Hepatitis, Hx Human Immunodeficiency Virus (HIV), Hx of Known/Suspected MRSA, Hx Shingles, Hx Tuberculosis, Hx Known/ Suspected VRE, Hx Known/Suspected VRSA, History Other Infectious Disease, Traveled Outside the [place] in Last 30 Days - Family History Known Family History: Positive: Other - pos: depression Negative: Cardiac Disease, Hypertension - Social History Alcohol Use: None Hx Substance Use: No Substance Use Type: Reports: None Hx Tobacco Use: No Smoking Status (MU): Never Smoked Tobacco Amount Used/How Often: pt does not and has never used tobacco products of any kind Have You Smoked in the Last Year: No Review of Systems Constitutional: Negative Eyes: Negative ENT: Negative Cardiovascular: Negative Respiratory: Negative Positive: Abdominal Pain, Nausea Genitourinary: Negative Musculoskeletal: Negative Skin: Negative Neurological: Negative Psychological: Normal All Other Systems Reviewed And Are Negative: Yes Physical Exam - Summary Physical Exam Summary: Patient most tender in right upper quadrant. Mildly tender diffusely in all other quadrants. Triage Information Reviewed: Yes Vital Signs On Initial Exam: Initial Vitals Temp Pulse Resp BP Pulse Ox 98.3 F 91 20 123/97 99 06/01/18 15:38 06/01/18 15:38 06/01/18 15:38 06/01/18 15:38 06/01/18 15:38 Vital Signs Reviewed: Yes Appearance: Positive: Well-Appearing Skin: Positive: Warm Head/Face: Positive: Normal Head/Face Inspection Eyes: Positive: Normal Neck: Positive: Supple Respiratory/Lung Sounds: Positive: Clear to Auscultation Cardiovascular: Positive: Normal Abdomen Description: Positive: Other: Musculoskeletal: Positive: Normal Neurological: Positive: Normal Psychiatric: Positive: Normal AVPU Assessment: Alert - Mike Coma Scale Best Eye Response: 4 - Spontaneous Best Motor Response: 6 - Obeys Commands Best Verbal Response: 5 - Oriented Coma Scale Total: 15 Diagnostics - Vital Signs Vital Signs Temp Pulse Resp BP Pulse Ox 06/01/18 17:39 72 109/69 96 06/01/18 17:34 78 76/46 97 06/01/18 17:32 75 98 06/01/18 15:38 98.3 F 91 20 123/97 99 - Laboratory Lab Results: Lab Results 06/01/18 06/01/18 06/01/18 Range/Units 18:04 18:04 18:05 WBC 9.8 (3.5-10.8) 10^3/ul RBC 4.95 (4.00-5.40) 10^6/ul Hgb 13.9 (12.0-16.0) g/dl Hct 41 (35-47) % MCV 82 (80-97) fL MCH 28 (27-31) pg MCHC 34 (31-36) g/dl RDW 14 (10.5-15) % Plt Count 262 (150-450) 10^3/ul MPV 8.4 (7.4-10.4) um3 Neut % (Auto) 72.8 (38-83) % Lymph % (Auto) 19.3 L (25-47) % Early % (Auto) 5.8 (0-7) % Eos % (Auto) 1.4 (0-6) % Baso % (Auto) 0.7 (0-2) % Absolute Neuts (auto) 7.1 (1.5-7.7) 10^3/ul Absolute Lymphs (auto) 1.9 (1.0-4.8) 10^3/ul Absolute Monos (auto) 0.6 (0-0.8) 10^3/ul Absolute Eos (auto) 0.1 (0-0.6) 10^3/ul Absolute Basos (auto) 0.1 (0-0.2) 10^3/ul Absolute Nucleated RBC 0 10^3/ul Nucleated RBC % 0 Sodium 141 (135-145) mmol/L Potassium 4.3 (3.5-5.0) mmol/L Chloride 109 (101-111) mmol/L Carbon Dioxide 25 (22-32) mmol/L Anion Gap 7 (2-11) mmol/L BUN 10 (6-24) mg/dL Creatinine 0.80 (0.51-0.95) mg/dL Est GFR ( Amer) 103.3 (>60) Est GFR (Non-Af Amer) 85.4 (>60) BUN/Creatinine Ratio 12.5 (8-20) Glucose 89 (70-100) mg/dL Calcium 9.6 (8.6-10.3) mg/dL Total Bilirubin 0.30 (0.2-1.0) mg/dL AST 14 (13-39) U/L ALT 9 (7-52) U/L Alkaline Phosphatase 73 (34-104) U/L C-Reactive Protein 4.69 (<8.01) mg/L Total Protein 7.4 (6.4-8.9) g/dL Albumin 4.3 (3.2-5.2) g/dL Globulin 3.1 (2-4) g/dL Albumin/Globulin Ratio 1.4 (1-3) Lipase 18 (11.0-82.0) U/L Beta HCG, Quant < 0.60 mIU/mL Urine Color Colorless Urine Appearance Clear Urine pH 7.0 (5-9) Ur Specific [place] 1.003 L (1.010-1.030) Urine Protein Negative (Negative) Urine Ketones Negative (Negative) Urine Blood Negative (Negative) Urine Nitrate Negative (Negative) Urine Bilirubin Negative (Negative) Urine Urobilinogen Negative (Negative) Ur Leukocyte Esterase Negative (Negative) Urine Glucose Negative (Negative) Result Diagrams: 06/01/18 18:04 06/01/18 18:04 Lab Statement: Any lab studies that have been ordered have been reviewed, and results considered in the medical decision making process. - Ultrasound No standard instances Ultrasound Interpretation: No Acute Changes - Congenitally missing gallbladder. Abdominal Pain Fem Course/Dx - Course Course Of Treatment: Complains of diffuse abdominal pain, nausea starting this morning. Abdominal pain described as constant and sharp. History of same pain one year ago. Denies fever, cough, sore throat, CP, SOB, V/D, change in urine, vaginal symptoms, change in BM. Medical history is ADHD, hypothyroid. Abdominal/pelvic surgical history is none. Physical exam:Patient most tender in right upper quadrant. Mildly tender diffusely in all other quadrants. History of same with prior CT and ultrasound for same. Congenital absence of gallbladder. Vital signs within normal limits. Labs unremarkable. Urine unremarkable. Follow-up with GI - Diagnoses Provider Diagnoses: Right upper quadrant abdominal pain Discharge - Sign-Out/Discharge Documenting (check all that apply): Patient Departure - Discharge Plan Condition: Stable Disposition: HOME Prescriptions: Dicyclomine CAP* [Bentyl CAP*] 20 mg PO TID PRN 10 Days #60 cap PRN Reason: Pain Promethazine TAB* [Phenergan TAB*] 25 mg PO Q8H PRN 5 Days #15 tab PRN Reason: Nausea Patient Education Materials: Acute Abdominal Pain (ED) Referrals: Ethan Mcguire MD [Primary Care Provider] - Evan Olivier MD [Medical Doctor] - Additional Instructions: Follow-up with GI specialist Dr. Olivier. Return to the ED for any new or worsening symptoms - Billing Disposition and Condition Condition: STABLE Disposition: Home
[2018-06-01 20:22] VITALS: BP 114/82
== END 2018-06-01 20:21 | disposition home or self-care (01) ==
LOC: ED 15:36
DX: R10.11 Right upper quadrant pain (principal); E03.9 Hypothyroidism, unspecified; F90.9 Attention-deficit hyperactivity disorder, unspecified type; Z88.3 Allergy status to other anti-infective agents
CPT/HCPCS: 36415; 76705; 80053; 81003; 83690; 84702; 85025; 86140; 86703; 99283; A9270-GY

== ENCOUNTER 2018-07-21 13:09 | Emergency (ER) | payer MEDICARE, MEDICAID ==
[2018-07-21 13:17] VITALS: BP 111/82
--- NOTE | 2018-07-21 13:36 | UC ---
UC General HPI - HPI Summary HPI Summary: This pt is a 27 y/o female presenting to [facility] c/o productive cough and rib cage pain x2 days. Pt reports she has productive cough with phlegm and chills. She states she developed bilateral rib cage pain possibly secondary to cough. Pt notes her pain is aggravated with coughing. Denies fever, sore throat, nausea, vomiting, calf pain. LMP: currently on her menstrual cycle. She denies chance of , pt notes she is not sexually active. - History of Current Complaint Chief Complaint: UCRespiratory Stated Complaint: RIB PAIN Time Seen by Provider: 07/21/18 13:21 Hx Obtained From: Patient Hx Last Menstrual Period: PRESENTLY Onset/Duration: Lasting Days - 2, Still Present Pain Intensity: 8 Pain Location at: ribs bilateral Aggravating: cough Alleviating: nothing Associated Signs & Symptoms: Positive: Cough, Other - POS: chills, productive cough. NEG: fever, sore throat. Negative: Abdominal Pain, Chest Pain, Fever, Nausea, Vomiting - Allergy/Home Medications Allergies/Adverse Reactions: Allergies Allergy/AdvReac Type Severity Reaction Status Date / Time amoxicillin [From Augmentin] Allergy Rash Verified 07/21/18 13:17 clavulanic acid Allergy Rash Verified 07/21/18 13:17 [From Augmentin] Home Medications: Home Medications Topiramate TAB(*) [Topamax 25 MG tab] 1 tab PO BID 07/21/18 [History Confirmed 07/21/18] PMH/Surg Hx/FS Hx/Imm Hx Endocrine History: Thyroid Disease - Hypothyroid Psychological History: Anxiety, Depression Other History Of: Negative For: Anticoagulant Therapy - Surgical History Surgical History: None Surgery Procedure, Year, and Place: none - Family History Known Family History: Positive: Other - pos: depression Negative: Cardiac Disease, Hypertension - Social History Alcohol Use: None Substance Use Type: None Smoking Status (MU): Never Smoked Tobacco Amount Used/How Often: pt does not and has never used tobacco products of any kind Have You Smoked in the Last Year: No - Immunization History Most Recent Influenza Vaccination: 08/2017 Most Recent Tetanus Shot: unknown Most Recent Pneumonia Vaccination: never Review of Systems Constitutional: Chills, Other - NEG: fever Skin: Negative Eyes: Negative ENT: Negative Respiratory: Cough Cardiovascular: Negative Gastrointestinal: Negative Genitourinary: Negative Motor: Negative Neurovascular: Negative Musculoskeletal: Other: - POS: bilateral rib cage pain Neurological: Negative Psychological: Negative All Other Systems Reviewed And Are Negative: Yes Physical Exam - Summary Physical Exam Summary: VITAL SIGNS: Reviewed. GENERAL: Patient is a well-developed and nourished female who is lying comfortable in the stretcher. Patient is not in any acute respiratory distress. HEAD AND FACE: Normocephalic EYES: PERRLA, EOMI x 2. EARS: Hearing grossly intact. MOUTH: Oropharynx within normal limits. NECK: Supple, trachea is midline, no adenopathy, no JVD, no carotid bruit. CHEST: Symmetric, no tenderness at palpation. LUNGS: Clear to auscultation bilaterally. No wheezing or crackles. Pt with pain on rib cage areas with deep breaths. CVS: Regular rate and rhythm, S1 and S2 present, no murmurs or gallops appreciated. ABDOMEN: Soft, non-tender. Bowel sounds are normal. No abdominal abnormal pulsations. EXTREMITIES: Full ROM in all major joints, no edema, no cyanosis or clubbing. NEURO: Alert and oriented x 3. No acute neurological deficits. Speech is normal and follows commands. SKIN: Dry and warm Triage Information Reviewed: Yes Vital Signs: Initial Vital Signs Temp 97.2 F 07/21/18 13:12 Pulse 77 07/21/18 13:12 Resp 18 07/21/18 13:12 BP 111/82 07/21/18 13:12 Pulse Ox 99 07/21/18 13:12 Vital Signs Reviewed: Yes Diagnostics - Radiology Chest XR Xray Interpretation: No Acute Changes - IMPRESSION: No active cardiopulmonary disease is noted. Dr. Wright has reviewed this report. Radiology Interpretation Completed By: Radiologist Course/Dx - Course Course Of Treatment: This pt is a 27 y/o female presenting to [facility] c/o productive cough and rib cage pain x2 days. Pt reports she has productive cough with phlegm and chills. She states she developed bilateral rib cage pain possibly secondary to cough. Pt notes her pain is aggravated with coughing. Denies fever, sore throat, nausea, vomiting. LMP: currently on her menstrual cycle. She denies chance of , pt notes she is not sexually active. Chest x-ray impression: No acute pathology. The patient doesn't have any tachycardia or hypoxia. She denies any smoking and also denies use of contraception. Therefore I have low suspicion for PE. She also reports no recent traveling. She denies any calf pain. I believe that her symptoms are secondary to the cough. Therefore the patient will be given tessalon tablets and naproxen for the pain. She was asked not to take ibuprofen. Pt will be discharged home with follow up from her PCP. The patient understands and agrees. She was also recommended to go to the emergency department if she develops any shortness of breath, associated with dizziness and chest pain. The patient understands and agrees. She is hemodynamically stable alert and oriented 3. - Differential Dx - Multi-Symptom Provider Diagnoses: Chest wall pain. Cough Discharge - Sign-Out/Discharge Documenting (check all that apply): Patient Departure - Discharge home All imaging exams completed and their final reports reviewed: Yes - Discharge Plan Condition: Stable Disposition: HOME Prescriptions: Benzonatate CAP* [Tessalon 100 MG CAP*] 100 mg PO TID PRN #12 cap PRN Reason: Cough Naproxen [Naproxen 500 mg tab] 500 mg PO BID #20 tablet. Patient Education Materials: Antitussives (By mouth), Upper Respiratory Infection (DC) Referrals: Ethan Mcguire MD [Primary Care Provider] - Additional Instructions: Take medications as instructed and adhere to plan Take Acetaminophen or ibuprofen for pain or fever Increase your fluid intake Return to the or go to the emergency department if symptoms worsen Follow-up with primary care physician in next 2-3 days - Billing Disposition and Condition Condition: STABLE Disposition: Home - Attestation Statements Document Initiated by Delroye: Yes Documenting Scribe: Stacey Odell Provider For Whom Randi is Documenting (Include Credential): Bigg Wright MD Scribe Attestation: Stacey Kulkarni scribed for Bigg Wright MD on 07/21/18 at 1422. Scribe Documentation Reviewed: Yes Provider Attestation: The documentation as recorded by the Stacey jordan accurately reflects the service I personally performed and the decisions made by me, Bigg Wright MD
--- NOTE | 2018-07-21 13:51 | RAD ---
Indication: Productive cough. 2 views of the chest including dual energy PA views demonstrates no mediastinal shift. Heart is of normal size and configuration. Lung ferrara are clear. IMPRESSION: No active cardiopulmonary disease is noted.
== END 2018-07-21 14:05 | disposition home or self-care (01) ==
LOC: UCEAST 13:09
DX: Z88.1 Allergy status to other antibiotic agents (principal); Z88.0 Allergy status to penicillin
CPT/HCPCS: 71046; 99212; G0463

== ENCOUNTER 2018-08-18 12:46 | Emergency (ER) | payer MEDICARE, MEDICAID ==
[2018-08-18 13:28] VITALS: BP 138/83
[2018-08-18] MEDS ORDERED: predniSONE TAB* 20 MG PO ONE (13:39)
[2018-08-18] MEDS ORDERED: Albuterol HFA INHALER* 8 gm MDI INH ONE (13:41)
--- NOTE | 2018-08-18 13:42 | UC ---
Respiratory Complaint HPI - HPI Summary HPI Summary: The patient is a 27-year-old female that has had nasal congestion sinus pressure and postnasal drip for about 4 days. For the past 2 days she has had cough and wheezing. She has never wheezed before. He has used her mother's nebulizer with improvement of her symptoms. She denies any fever or chills. - History of Current Complaint Chief Complaint: UCRespiratory Stated Complaint: CONGESTION Time Seen by Provider: 08/18/18 13:24 Hx Obtained From: Patient Hx Last Menstrual Period: 08/18/18 ?: No Onset/Duration: Sudden Onset, Lasting Days Timing: Constant Severity Initially: Mild Severity Currently: Moderate Pain Intensity: 4 Pain Scale Used: 0-10 Numeric Character: Cough: Nonproductive Aggravating Factors: Nothing Alleviating Factors: Bronchodilator Associated Signs And Symptoms: Positive: Nasal Congestion, Sinus Discomfort - Allergies/Home Medications Allergies/Adverse Reactions: Allergies Allergy/AdvReac Type Severity Reaction Status Date / Time amoxicillin [From Augmentin] Allergy Rash Verified 08/18/18 13:28 clavulanic acid Allergy Rash Verified 08/18/18 13:28 [From Augmentin] PMH/Surg Hx/FS Hx/Imm Hx Previously Healthy: Yes Psychological History: Bipolar Disorder Other History Of: Negative For: Anticoagulant Therapy - Surgical History Surgical History: None Surgery Procedure, Year, and Place: none - Family History Known Family History: Positive: Respiratory Disease, Other - pos: depression Negative: Cardiac Disease, Hypertension - Social History Alcohol Use: None Substance Use Type: None Smoking Status (MU): Never Smoked Tobacco Amount Used/How Often: pt does not and has never used tobacco products of any kind Have You Smoked in the Last Year: No - Immunization History Most Recent Influenza Vaccination: 08/2017 Most Recent Tetanus Shot: unknown Most Recent Pneumonia Vaccination: never Review of Systems Constitutional: Negative Skin: Negative Eyes: Negative ENT: Nasal Discharge, Sinus Congestion, Sinus Pain/Tenderness Respiratory: Cough Cardiovascular: Negative Gastrointestinal: Negative Genitourinary: Negative Motor: Negative Neurovascular: Negative Musculoskeletal: Negative Neurological: Negative Psychological: Negative All Other Systems Reviewed And Are Negative: Yes Physical Exam Triage Information Reviewed: Yes Appearance: Well-Appearing, No Pain Distress, Well-Nourished Vital Signs: Initial Vital Signs Temp 97.3 F 08/18/18 13:23 Pulse 90 08/18/18 13:23 Resp 18 08/18/18 13:23 BP 138/83 08/18/18 13:23 Pulse Ox 98 08/18/18 13:23 Eye Exam: Normal ENT Exam: Normal ENT: Positive: Uvula midline. Negative: Nasal congestion, Nasal drainage, Tonsillar swelling, Tonsillar exudate, Hoarse voice, Sinus tenderness Neck: Positive: Supple, Nontender, No Lymphadenopathy Respiratory: Positive: No respiratory distress, No accessory muscle use, Wheezing Cardiovascular: Positive: RRR, No Murmur Musculoskeletal: Positive: ROM Intact, No Edema Neurological: Positive: Alert Psychological Exam: Normal Skin Exam: Normal UC Diagnostic Evaluation - Laboratory O2 Sat by Pulse Oximetry: 98 - normal/not hypoxic Respiratory Course/Dx - Differential Dx/Diagnosis Provider Diagnoses: viral URI. rhino-sinusitis. bronchospasm Discharge - Sign-Out/Discharge Documenting (check all that apply): Patient Departure All imaging exams completed and their final reports reviewed: No Studies - Discharge Plan Condition: Stable Disposition: HOME Prescriptions: Fluticasone NASAL SPRAY 50MCG* [Flonase NASAL SPRAY 50MCG*] 2 spray BOTH NARES BID #1 btl predniSONE [Deltasone 20 MG TAB] 40 mg PO DAILY #10 tab Referrals: Ethan Mcguire MD [Primary Care Provider] - 5 Days (if not better ) Additional Instructions: use inhaler as directed - Billing Disposition and Condition Condition: STABLE Disposition: Home
== END 2018-08-18 13:58 | disposition home or self-care (01) ==
LOC: UCEAST 12:46
DX: J06.9 Acute upper respiratory infection, unspecified (principal); J32.9 Chronic sinusitis, unspecified; J98.01 Acute bronchospasm; Z88.1 Allergy status to other antibiotic agents; Z88.0 Allergy status to penicillin
CPT/HCPCS: 99212; A9270-GY; G0463; J7512

== ENCOUNTER 2018-10-04 11:38 | Emergency (ER) | payer MEDICARE, MEDICAID ==
[2018-10-04 12:40] VITALS: BP 114/70
--- NOTE | 2018-10-04 13:04 | UC ---
FLU HPI - HPI Summary HPI Summary: 27 year old female with sore throat, decreased voice since 09/24, + dry cough, no ear pain, + nausea, no vomiting. + sinus congestions for several days with increased sinus pressure, rash x 24 hours- raised, sandpaper over UEs b/l, not itchy. no medical problems, no new meds, contacts, no asthma. - History of Current Complaint Chief Complaint: UCGeneralIllness Stated Complaint: CONGESTED,RASH Time Seen by Provider: 10/04/18 12:36 Hx Obtained From: Patient Hx Last Menstrual Period: 10/01/18, was only spotty ?: No Onset/Duration: Gradual Onset, Lasting Weeks Severity Currently: Moderate Severity Initially: Moderate Pain Intensity: 4 Pain Scale Used: 0-10 Numeric Associated Signs & Symptoms: Positive: Cough, Sore Throat, Nasal Congestion. Negative: Fever, T Max - Allergy/Home Medications Allergies/Adverse Reactions: Allergies Allergy/AdvReac Type Severity Reaction Status Date / Time amoxicillin [From Augmentin] Allergy Rash Verified 10/04/18 12:31 clavulanic acid Allergy Rash Verified 10/04/18 12:31 [From Augmentin] PMH/Surg Hx/FS Hx/Imm Hx Previously Healthy: Yes Other History Of: Negative For: Anticoagulant Therapy - Surgical History Surgical History: None Surgery Procedure, Year, and Place: none - Family History Known Family History: Positive: Respiratory Disease, Other - pos: depression Negative: Cardiac Disease, Hypertension - Social History Alcohol Use: None Substance Use Type: None Smoking Status (MU): Never Smoked Tobacco Amount Used/How Often: pt does not and has never used tobacco products of any kind Have You Smoked in the Last Year: No - Immunization History Most Recent Influenza Vaccination: 08/2017 Most Recent Tetanus Shot: unknown Most Recent Pneumonia Vaccination: never Review of Systems All Other Systems Reviewed And Are Negative: Yes Constitutional: Positive: Chills Skin: Positive: Rash ENT: Positive: Sore Throat, Ear Ache, Nasal Discharge, Sinus Congestion, Sinus Pain/Tenderness Respiratory: Positive: Cough Gastrointestinal: Positive: Nausea Is Patient Immunocompromised?: No Physical Exam Triage Information Reviewed: Yes Appearance: No Pain Distress, Well-Nourished, Ill-Appearing - mild Vital Signs: Initial Vital Signs Temp 97.4 F 10/04/18 12:34 Pulse 94 12/10/18 12:34 Resp 20 10/04/18 12:34 BP 114/70 10/04/18 12:34 Pulse Ox 98 10/04/18 12:34 Vital Signs Reviewed: Yes Eyes: Positive: Conjunctiva Clear ENT: Positive: Nasal congestion, Nasal drainage, TMs normal, Tonsillar swelling , Tonsillar exudate - moderate, Sinus tenderness - b/l. Negative: Pharyngeal erythema - moderate Neck: Positive: Supple, Nontender, Enlarged Nodes @ - minimal submand Respiratory: Positive: Chest non-tender, Lungs clear, Normal breath sounds, No respiratory distress. Negative: No accessory muscle use, Respiratory distress, Crackles, Rhonchi, Stridor, Wheezing Cardiovascular: Positive: RRR, No Murmur Abdomen Description: Negative: CVA Tenderness (R), CVA Tenderness (L) Skin: Positive: Rashes - bernice sandpaper feeling rash over b/l UE's, no warmth, Other Flu Course/Dx - Course Course Of Treatment: Rapid strep negative. sinusitis, abx given - Differential Dx/Diagnosis Differential Diagnosis/HQI/PQRI: Bronchitis, Broncholiolitis Provider Diagnosis: Sinusitis, Pharyngitis Discharge - Sign-Out/Discharge Documenting (check all that apply): Patient Departure All imaging exams completed and their final reports reviewed: No Studies - Discharge Plan Condition: Good Disposition: HOME Prescriptions: Azithromyxin IRIS (NF) [Z-Iris (Zithromax) 250 mg tabs #6] 2 tab PO .TODAY, THEN 1 DAILY #6 tab Patient Education Materials: Sinusitis (ED), Pharyngitis (ED) Referrals: Ethan Mcguire MD [Primary Care Provider] - Additional Instructions: - Antibiotics given, take as directed - increase fluids - motrin as needed for pain - Continue to follow rash - Go to ER with shortness of breath, fever > 102, neck pain or headache - Billing Disposition and Condition Condition: GOOD Disposition: Home
== END 2018-10-04 13:15 | disposition home or self-care (01) ==
LOC: UCEAST 11:38
DX: J32.9 Chronic sinusitis, unspecified (principal); J02.9 Acute pharyngitis, unspecified; Z88.0 Allergy status to penicillin; Z88.8 Allergy status to other drugs, medicaments and biological substances
CPT/HCPCS: 87651; 99212; G0463

== ENCOUNTER 2019-01-03 11:24 | Emergency (ER) | payer MEDICARE, MEDICAID ==
[2019-01-03 11:34] VITALS: BP 139/91
--- NOTE | 2019-01-03 11:36 | UC ---
Respiratory Complaint HPI - HPI Summary HPI Summary: 28 yo female presents with left sided chest pain, SOB, and pain with breathing. She says that her symptoms started last night, but were mild and today are much worse. She states she has no history of asthma. No recent travel or OBC. No injury. She has had a mild cough since last night. Denies fever, chills, sinus symptoms, sore throat, abdominal pain, n/v. - History of Current Complaint Chief Complaint: UCChestPain Stated Complaint: TROUBLE BREATHING Time Seen by Provider: 01/03/19 11:29 Hx Obtained From: Patient Hx Last Menstrual Period: unsure Onset/Duration: Sudden Onset Severity Initially: Moderate Severity Currently: Severe Pain Intensity: 9 Pain Scale Used: 0-10 Numeric - Allergies/Home Medications Allergies/Adverse Reactions: Allergies Allergy/AdvReac Type Severity Reaction Status Date / Time amoxicillin [From Augmentin] Allergy Rash Verified 01/03/19 11:31 clavulanic acid Allergy Rash Verified 01/03/19 11:31 [From Augmentin] Home Medications: Home Medications guaiFENesin [Mucinex] 1,200 mg PO ONCE PRN 01/03/19 [History Confirmed 01/03/19] PMH/Surg Hx/FS Hx/Imm Hx Endocrine History: Hypothyroidism Psychological History: Anxiety, Depression, Bipolar Disorder Other History Of: Negative For: Anticoagulant Therapy - Surgical History Surgical History: None Surgery Procedure, Year, and Place: none - Family History Known Family History: Positive: Cardiac Disease, Respiratory Disease, Other - pos: depression Negative: Hypertension - Social History Alcohol Use: None Substance Use Type: None Smoking Status (MU): Never Smoked Tobacco Amount Used/How Often: pt does not and has never used tobacco products of any kind Have You Smoked in the Last Year: No - Immunization History Most Recent Influenza Vaccination: 08/2017 Most Recent Tetanus Shot: unknown Most Recent Pneumonia Vaccination: never Review of Systems All Other Systems Reviewed And Are Negative: Yes Constitutional: Positive: Negative Skin: Positive: Negative Eyes: Positive: Negative ENT: Positive: Negative Respiratory: Positive: Shortness Of Breath, Cough Cardiovascular: Positive: Chest Pain Gastrointestinal: Positive: Negative Genitourinary: Positive: Negative Neurovascular: Positive: Negative Neurological: Positive: Negative Psychological: Positive: Negative Physical Exam - Summary Physical Exam Summary: GENERAL: Tearful. Clutching chest and stating "my chest hurts" SKIN: No rashes, sores, lesions, or open wounds. HEENT: Head: AT/NC Eyes: EOM intact. Conjunctiva clear without inflammation or discharge. Ears: Hearing grossly normal. TMs intact, no bulging, erythema, or edema. Nose: Nasal mucosa pink and moist. NTTP maxillary and frontal sinus. Throat: Posterior oropharynx without exudates, erythema, or tonsillar enlargement. Uvula midline. NECK: Supple. Nontender. No lymphadenopathy. CHEST: CTAB. No r/r/w. Increased resp rate CV: Tachycardic. Without m/r/g. Pulses intact. Cap refill <2seconds ABDOMEN: Soft. NTTP. No CVA tenderness. Bowel sounds present NEURO: Alert. PSYCH: Age appropriate behavior. Triage Information Reviewed: Yes Vital Signs: Initial Vital Signs Temp 97.2 F 01/03/19 11:28 Pulse 112 01/03/19 11:28 Resp 22 01/03/19 11:28 BP 139/91 01/03/19 11:28 Pulse Ox 97 01/03/19 11:28 Vital Signs Reviewed: Yes Respiratory Course/Dx - Course Course Of Treatment: EKG: NSR 96bpm. No ST changes as read by Dr. Pan. Discussed with pt the need for further evaluation in the ED for r/o OK and PE and recommended ambulance transfer. She was agreeable to this. 324mg ASA given in clinic and given. Pt left via [place] in stable condition. - Differential Dx/Diagnosis Provider Diagnosis: Chest pain, Shortness of breath Discharge - Sign-Out/Discharge Documenting (check all that apply): Patient Departure All imaging exams completed and their final reports reviewed: No Studies - Discharge Plan Condition: Stable Disposition: TRANS HIGHER LVL OF CARE FAC Referrals: Radha Obrien MD [Primary Care Provider] - - Billing Disposition and Condition Condition: STABLE Disposition: Trans Higher Lvl of Care Fac
[2019-01-03] MEDS ORDERED: Aspirin 81 mg CHEW TAB* 81 MG TAB.CHEW PO ONE (11:41)
== END 2019-01-03 12:06 | disposition short-term general hospital (02) ==
LOC: UCEAST 11:24
DX: R07.89 Other chest pain (principal); R06.02 Shortness of breath; Z88.0 Allergy status to penicillin; Z88.1 Allergy status to other antibiotic agents
CPT/HCPCS: 93005; 99213; A9270-GY; G0463

== ENCOUNTER 2019-01-03 12:26 | Emergency (ER) | payer MEDICARE, MEDICAID ==
[2019-01-03 13:50] LABS: ABS Basophils 0 10^3/ul (0-0.2); ABS Eosinophils 0.2 10^3/ul (0-0.6); ABS Lymphocytes 1.7 10^3/ul (1.0-4.8); ABS Monocytes 0.6 10^3/ul (0-0.8); ABS Nucleated RBC 0 10^3/ul; Eosinophil % 3.1 %; Hematocrit 38 % (35-47); Hemoglobin 12.9 g/dl (12.0-16.0); Lymphocyte % 22.9 %; Mean Corpuscular HGB Conc 34 g/dl (31-36); Mean Corpuscular Hemoglobin 29 pg (27-31); Mean Corpuscular Volume 85 fL (80-97); Nucleated Red Blood Cells % 0.1; Platelet Count 221 10^3/ul (150-450); Red Blood Count 4.46 10^6/ul (4.00-5.40); Red Cell Distribution Width 15 % (10.5-15); White Blood Count 7.6 10^3/ul (3.5-10.8)
[2019-01-03 14:05] LABS: ALT 28 U/L (7-52); AST 23 U/L (13-39); Albumin 3.7 g/dL (3.2-5.2); Albumin/Globulin Ratio 1.2 (1-3); Alkaline Phosphatase 59 U/L (34-104); Anion Gap 7 mmol/L (2-11); BUN/Creatinine Ratio 12.5 (8-20); Blood Urea Nitrogen 9 mg/dL (6-24); CO2 Carbon Dioxide 21 mmol/L (22-32); Calcium 9.1 mg/dL (8.6-10.3); Chloride 110 mmol/L (101-111); EGFR African American 115.9 (>60); EGFR Non-African American 95.8 (>60); Glucose 91 mg/dL (70-100); Potassium 4.1 mmol/L (3.5-5.0); Sodium 138 mmol/L (135-145); Total Protein 6.7 g/dL (6.4-8.9)
[2019-01-03 14:10] LABS: HCG Pregnancy < 0.60 mIU/mL
[2019-01-03 14:38] VITALS: BP 122/74
--- NOTE | 2019-01-06 11:26 | ED ---
Respiratory - HPI Summary HPI Summary: Pt. is a 28 y.o female who was referred to the ER by IC for CP or cough. Pt. states she started with a cough and chest discomfort yesterday. She notes mild SOB. No associated sxs of fever, chills, abd. pain, V/D. Sxs are mild in severity. She notes a mild hx of asthma and states she has used an inhaler in the past when she gets a respiratory infection. Otherwise denies recent sx, long car/plane trips, hx of DVTs, hormonal control. Past history of psychiatric illness. No current modifying factors. - History of Current Complaint Chief Complaint: EDChestWallPain Stated Complaint: CHEST PAIN PER EMS Time Seen by Provider: 01/03/19 13:00 Pain Intensity: 0 - Allergy/Home Medications Allergies/Adverse Reactions: Allergies Allergy/AdvReac Type Severity Reaction Status Date / Time amoxicillin [From Augmentin] Allergy Rash Verified 01/03/19 11:31 clavulanic acid Allergy Rash Verified 01/03/19 11:31 [From Augmentin] PMH/Surg Hx/FS Hx/Imm Hx Previously Healthy: Yes Endocrine/Hematology History: Reports: Hx Thyroid Disease - hypo Denies: Hx Anticoagulant Therapy, Hx Diabetes Cardiovascular History: Denies: Hx Hypertension Respiratory History: Reports: Hx Seasonal Allergies Denies: Hx Asthma, Hx Chronic Obstructive Pulmonary Disease (COPD) GI History: Denies: Hx Gastroesophageal Reflux Disease, Hx Ulcer History: Denies: Hx Renal Disease Sensory History: Reports: Hx Contacts or Glasses - Reportedly uses contacts, unconfirmed by Pt at this time. Denies: Hx Hearing Aid Opthamlomology History: Reports: Hx Contacts or Glasses - Reportedly uses contacts, unconfirmed by Pt at this time. Neurological History: Reports: Hx Developmental Delay Psychiatric History: Reports: Hx Anxiety, Hx Attention Deficit Hyperactivity Disorder, Hx Depression, Hx Inpatient Treatment, Hx Community Mental Health Tx, Hx Suicide Attempt, Hx of Violent Episodes Against Others, Other Psychiatric Issues/Disorders - developmental delays Denies: Hx Eating Disorder - Surgical History Surgery Procedure, Year, and Place: none - Immunization History Date of Influenza Vaccine: 08/2017 Infectious Disease History: No Infectious Disease History: Denies: Hx Clostridium Difficile, Hx Hepatitis, Hx Human Immunodeficiency Virus (HIV), Hx of Known/Suspected MRSA, Hx Shingles, Hx Tuberculosis, Hx Known/ Suspected VRE, Hx Known/Suspected VRSA, History Other Infectious Disease, Traveled Outside the [place] in Last 30 Days - Family History Known Family History: Positive: Cardiac Disease, Respiratory Disease, Other - pos: depression Negative: Hypertension - Social History Occupation: Unemployed Lives: With Family Alcohol Use: None Hx Substance Use: No Substance Use Type: Reports: None Hx Tobacco Use: No Smoking Status (MU): Never Smoked Tobacco Amount Used/How Often: pt does not and has never used tobacco products of any kind Have You Smoked in the Last Year: No Review of Systems Constitutional: Negative Negative: Fever Eyes: Negative ENT: Negative Positive: Chest Pain Positive: Shortness Of Breath, Cough Gastrointestinal: Negative Genitourinary: Negative Musculoskeletal: Negative Skin: Negative Neurological: Negative All Other Systems Reviewed And Are Negative: Yes Physical Exam Triage Information Reviewed: Yes Vital Signs On Initial Exam: Initial Vitals Temp Pulse Resp BP Pulse Ox 98.0 F 107 22 00/00 99 01/03/19 12:36 01/03/19 12:36 01/03/19 12:36 01/03/19 12:36 01/03/19 12:36 Vital Signs Reviewed: Yes Appearance: Positive: Well-Appearing - Pt sitting on chair in NAD. Talkative Skin: Positive: Warm, Dry Head/Face: Positive: Normal Head/Face Inspection Eyes: Positive: Normal, EOMI ENT: Positive: Pharynx normal, TMs normal Respiratory/Lung Sounds: Positive: Clear to Auscultation, Breath Sounds Present. Negative: Rhonchi, Stridor, Wheezes Cardiovascular: Positive: Normal, RRR Neurological: Positive: Normal, CN Intact II-III Psychiatric: Positive: Affect/Mood Appropriate Diagnostics - Vital Signs Vital Signs Temp Pulse Resp BP Pulse Ox 01/03/19 14:37 97.8 F 74 14 122/74 98 01/03/19 12:36 98.0 F 107 22 00/00 99 - Laboratory Lab Results: Lab Results 01/03/19 01/03/19 01/03/19 Range/Units 13:35 13:35 13:35 WBC 7.6 (3.5-10.8) 10^3/ul RBC 4.46 (4.00-5.40) 10^6/ul Hgb 12.9 (12.0-16.0) g/dl Hct 38 (35-47) % MCV 85 (80-97) fL MCH 29 (27-31) pg MCHC 34 (31-36) g/dl RDW 15 (10.5-15) % Plt Count 221 (150-450) 10^3/ul MPV 8.0 (7.4-10.4) fL Neut % (Auto) 66.0 % Lymph % (Auto) 22.9 % [place] % (Auto) 7.7 % Eos % (Auto) 3.1 % Baso % (Auto) 0.3 % Absolute Neuts (auto) 5.0 (1.5-7.7) 10^3/ul Absolute Lymphs (auto) 1.7 (1.0-4.8) 10^3/ul Absolute Monos (auto) 0.6 (0-0.8) 10^3/ul Absolute Eos (auto) 0.2 (0-0.6) 10^3/ul Absolute Basos (auto) 0 (0-0.2) 10^3/ul Absolute Nucleated RBC 0 10^3/ul Nucleated RBC % 0.1 D-Dimer, Quantitative < 200 (Less Than 230) ng/mL Sodium 138 (135-145) mmol/L Potassium 4.1 (3.5-5.0) mmol/L Chloride 110 (101-111) mmol/L Carbon Dioxide 21 L (22-32) mmol/L Anion Gap 7 (2-11) mmol/L BUN 9 (6-24) mg/dL Creatinine 0.72 (0.51-0.95) mg/dL Est GFR ( Amer) 115.9 (>60) Est GFR (Non-Af Amer) 95.8 (>60) BUN/Creatinine Ratio 12.5 (8-20) Glucose 91 (70-100) mg/dL Calcium 9.1 (8.6-10.3) mg/dL Total Bilirubin 0.20 (0.2-1.0) mg/dL AST 23 (13-39) U/L ALT 28 (7-52) U/L Alkaline Phosphatase 59 (34-104) U/L Troponin I 0.00 (<0.04) ng/mL Total Protein 6.7 (6.4-8.9) g/dL Albumin 3.7 (3.2-5.2) g/dL Globulin 3.0 (2-4) g/dL Albumin/Globulin Ratio 1.2 (1-3) Beta HCG, Quant < 0.60 mIU/mL Result Diagrams: 01/03/19 13:35 01/03/19 13:35 Lab Statement: Any lab studies that have been ordered have been reviewed, and results considered in the medical decision making process. Disposition - Course Course Of Treatment: Pt. presenting for cough, CP, and SOB. Afebrile with stable VS. O2 saturation is 99% on RA which is normal. Pt. overall well appearing. Pt. stating she is hungry and wants to be dc so she can eat. ECG done at 1341 shows a sinus tach. of 101 bpm, normal axis, no ST elevation or depression. CXR negative for infiltrate or acute findgins per radiology. Labs are unremarkable including negative trop. and ddimer. Suspect viral etiology. Albuterol rx. Advised to increase fluids and rest. TYlenol or motrin for pain as directed. Close f.u with pcp in 2-3 days. To return to eR if sxs change or worsen. Pt. understands and agrees with plan. - Differential Dx - Cardiopulmonary Differential Diagnoses - Cardiopulmonary: Asthma, Bronchitis, Lower Resp Infection, Pericarditis, Pleurisy, Pneumothorax, Pulmonary Embolism - Diagnoses Provider Diagnoses: Respiratory tract infection, Atypical chest pain Discharge - Sign-Out/Discharge Documenting (check all that apply): Patient Departure Patient Received Moderate/Deep Sedation with Procedure: No - Discharge Plan Condition: Good Disposition: HOME Prescriptions: Albuterol HFA INHALER* [Ventolin HFA Inhaler*] 2 puff INH Q6H PRN #1 mdi PRN Reason: Shortness Of Breath Patient Education Materials: Costochondritis (ED), Acute Bronchitis (ED) Referrals: Radha Obrien MD [Primary Care Provider] - Additional Instructions: Follow up with your PCP in 2-3 days Increase fluids and rest Use inhaler as directed for shortness of breath Ibuprofen for pain as directed Return to ER if symptoms change or worsen - Billing Disposition and Condition Condition: GOOD Disposition: Home
== END 2019-01-03 14:37 | disposition home or self-care (01) ==
LOC: ED 12:26
DX: J06.9 Acute upper respiratory infection, unspecified (principal); R07.89 Other chest pain; R62.50 Unspecified lack of expected normal physiological development in childhood; F90.9 Attention-deficit hyperactivity disorder, unspecified type; F32.9 Major depressive disorder, single episode, unspecified; F41.9 Anxiety disorder, unspecified; E03.9 Hypothyroidism, unspecified; Z88.0 Allergy status to penicillin; Z88.1 Allergy status to other antibiotic agents
CPT/HCPCS: 36415; 71046; 80053; 84484; 84702; 85025; 85379; 93005; 99282

== ENCOUNTER 2019-02-14 09:22 | Emergency (ER) | payer MEDICARE, MEDICAID ==
[2019-02-14 09:45] LABS: ABS Basophils 0 10^3/ul (0-0.2); ABS Eosinophils 0.2 10^3/ul (0-0.6); ABS Lymphocytes 1.5 10^3/ul (1.0-4.8); ABS Monocytes 0.6 10^3/ul (0-0.8); ABS Neutrophils 3.7 10^3/ul (1.5-7.7); ABS Nucleated RBC 0 10^3/ul; Eosinophil % 3.5 %; Hematocrit 38 % (33-41); Hemoglobin 12.6 g/dL (12.0-16.0); Lymphocyte % 24.7 %; Mean Corpuscular HGB Conc 33 g/dL (31-36); Mean Corpuscular Hemoglobin 29 pg (27-31); Mean Corpuscular Volume 87 fL (80-97); Mean Platelet Volume 7.9 fL (7.4-10.4); Nucleated Red Blood Cells % 0.2; Platelet Count 228 10^3/uL (150-450); Red Blood Count 4.38 10^6 /uL (3.70-4.87); Red Cell Distribution Width 14 % (10.5-15)
[2019-02-14 10:03] LABS: ALT 38 U/L (7-52); AST 30 U/L (13-39); Albumin 3.6 g/dL (3.2-5.2); Albumin/Globulin Ratio 1.2 (1-3); Alkaline Phosphatase 57 U/L (34-104); Anion Gap 6 mmol/L (2-11); BUN/Creatinine Ratio 7.8 (8-20); Blood Urea Nitrogen 6 mg/dL (6-24); CO2 Carbon Dioxide 21 mmol/L (22-32); Calcium 8.7 mg/dL (8.6-10.3); Chloride 111 mmol/L (101-111); EGFR African American 107.2 (>60); EGFR Non-African American 88.6 (>60); Globulin 3.1 g/dL (2-4); Glucose 156 mg/dL (70-100); Magnesium 1.8 mg/dL (1.9-2.7); Potassium 3.9 mmol/L (3.5-5.0); Sodium 138 mmol/L (135-145); Total Protein 6.7 g/dL (6.4-8.9)
[2019-02-14 10:08] LABS: INR 0.98 (0.82-1.09)
[2019-02-14 10:12] LABS: HCG Pregnancy < 0.60 mIU/mL
--- OUTSIDE RECORDS SUMMARY | 2019-02-14 10:14 | XMS REPORT | Continuity of Care Document ---
:1990 External Reference #:[id number] Author Name Tej Alvares Care Team Providers Name Role Phone Radha Obrien MD Primary Care Physician Unavailable Payers Date Identification Numbers Payment Provider Subscriber Policy Number: [id number] Medicare Jamei Wise PayID: [id number] [address] [place] [address] Policy Number: [id number] Medicaid Jamie Wise PayID: [id number] [address] [place] [address] Advance Directives Description No Information Available Problems Date Description Provider Status Onset: 09/04/2011 History Personal Mental Disorder Macie Jarrett M.D. Active Other Onset: 10/06/2013 Referred otalgia Loy Grove M.D. Active Onset: 10/06/2013 Chronic otitis externa Loy Grove M.D. Active Onset: 10/06/2013 Acute upper respiratory infection of Loy Grove M.D. Active multiple sites Onset: 10/31/2016 Obstructive sleep apnea syndrome Kimberlyn Pate MD Active Onset: 10/31/2016 Obesity Kimberlyn Pate MD Active Family History Date Family Member(s) Observation Comments General No Current Problems General Unknown Social History Type Date Description Comments Sex Unknown Lives With residential ETOH Use Denies alcohol use Tobacco Use Start: Unknown Patient has never smoked Smoking Status Reviewed: 01/26/19 Patient has never smoked Exercise Type/Frequency Does not exercise Allergies, Adverse Reactions, Alerts Description No Known Drug Allergies Medications Medication Date Status Form Strength Qnty SIG Indications Ordering Provider Ritalin 10/30 Active Tablets 20mg 30tabs 1 by mouth qd Ritalin 10/30 Active Tablets 10mg 1 by mouth every day Effexor XR 10/30 Active Caps ER 150mg 1 by mouth 24HR every day Risperidone 10/30 Active Tablets 2mg 1 by mouth Dispers every day T-Gel 10/30 Active 3 x weekly as directed Nasacort 08/02 Active Aerosol 55mcg/Act 16.5uni 2 Sprays Macie Allergy 24HR /2014 ts Every Day Carina Jarrett M.D. Nostril (Allergies ) Nizoral A-D 06/12 Active Shampoo 1% 200unit Shampoo Macie s Hair Once Seferino Jarrett M.D. (Seborrhei c Dermitis) Hannah 180MG 06/06 Active 30units Take One Macie Tab Tablet By Brigette Jarrett M.DAndrew Every Day (Allergies ) Synthroid 01/16 Active Tablets 25mcg 30tabs take one Macie /2015 tablet by brigette Jarrett M.DAndrew every day (hypothyro idism) Ferrous 01/12 Active Tablets 324(38Fe) 60tabs by mouth Macie Gluconate /2015 mg daily Elba Jarrett Cotton Gloves 08/29 Active Misc 4units wear at 691.8 Macie bedtime Elba Jarrett Wrist Splint 12/20 Active Misc 1units rt abd 842.09 Macie left jorge a Jarrett M.D. neutral medium Humidifier 1.25 10/18 Active Misc 1.25Gal 1units use siddiqui 466.0 Macie Cailin /2012 Elba Jarrett Peridex Active Solution 0.12% 1units daily Unknown Depakote Active Tablets DR 500mg 1 tab by Unknown /0000 mouth tid Hydrocortisone Active Cream 1% use sparingly twice a day x 2 weeks Risperdal Active Tablets 1mg daily Unknown Topamax Active Tablets 100mg 1 tab by Unknown /0000 mouth twice a day Abilify Active Unknown Risperdal 10/30 Hx Tablets 1mg 1 by mouth every day - 02/22 Debrox 6.5% OT 12/04 Hx 15units 2 Drops Macie Evita 15ML /2015 Each Ear 3 Kolby, - Times A M.D. 03/27 Day For Days And Irrigate Ears as Needed Motrin Ib 12/04 Hx Tablets 200mg 60tabs Take Two Tablets By Kolby, - Mouth M.D. 03/27 Every Hours as Needed For Pain And Menses Sudogest 12/04 Hx Tablets ER 120mg 60tabs Take One Macie 12HR Tablet By Kolby, - Mouth M.D. 03/27 Every Hours as Needed For Congestion Hydrocortisone 08/21 Hx Cream 1% 45gm apply topically Kolby, - bid prn M.D. 03/27 Tylenol 325MG 02/27 Hx 120unit Take Two s Tablets By Kolby, - Mouth M.D. 04/05 Every Hours as Needed (For Fever >101 Degrees) Zoloft 01/18 Hx Tablets 100mg 2 by mouth every day Ordering - Provider 10/30 Sudogest 12/21 Hx Tablets ER 120mg 60tabs Take One Macie 12HR Tablet By Kolby, - Mouth M.D. 06/01 Every Hours as Needed For Congestion Debrox 12/08 Hx Solution 6.5% 2vials 2 drops 380.4 Macie each ear 3 Kolby, - times per M.D. 06/01 day, days and irrigate ears Triamcinolone 08/29 Hx Cream 0.1% 60gm apply thin 691.8 Macie Acetonide film twice Kolby, - daily M.D. 12/08 Rid Lice 08/24 Hx Shampoo 0.33-4% Bottle as dircted Macie Killing Shampoo /2013 Kolby, - M.D. 12/08 Nizoral A-D 07/25 Hx Shampoo 1% 200unit Shampoo s Hair Once Kolby, - Per Day M.D. 06/01 (Seborrhei c Dermitis) Valtrex 07/11 Hx Tablets 1gm 21tabs Take 1 B00.9 Tablet By Kolby, - Mouth 3 M.D. 04/05 Times Day For 7 Days (For Cold Sore Out Break) Trazodone HCL 06/20 Hx Tablets 50mg 15tabs 10/27 -1 tab 327.02 by mouth Kolby, - at bedtime M.D. 12/08 as needed Hydrocortisone 06/20 Hx Cream 45gm apply topically Kolby, - bid prn M.D. 08/21 Debrox 6.5% OT 04/27 Hx 15units Instill 2 Macie Evita 15ML Drops 3 Kolby, - Times A M.D. 06/20 Day For Days And Irrigate Ears Nizoral A-D 04/17 Hx Shampoo 1% 200unit Shampoo 690.11 s Hair Once Kolby, - Per Day M.D. 06/20 (Seborrh c Dermitis) Robitussin DM 01/16 Hx 473unit 10MLS By Macie Syp 480ML s Mouth Kolyb, - Every 4 M.D. 06/20 Hours Needed (For Cough Without Fever) Hydrocortisone 01/06 Hx Cream 45gm apply topically Kolby, - bid prn M.D. 06/20 Hydrocortisone 11/10 Hx Lotion 1% 1units apply topically Kolby, - qd M.D. 01/06 Hydrocortisone 11/09 Hx Ointment 1% 1units apply Macie 28.35GM topically Kolby, - qd M.D. 11/10 Amoxicillin/Cla 10/18 Hx Tablets 875-125mg 20tabs 1 tab po 466.0 Macie vulanate 2x per day Kolby Potassium - M.D. 10/18 Guaifenesin ER 10/18 Hx Tablets ER 600mg 30tabs 1 po bid 466.0 Macie /2013 12HR Kolby, - M.D. 06/20 Nizoral A-D 09/06 Hx Shampoo 1% 250cc shampoo 690.11 hair once Kolby, - per day M.D. 12/20 Selsun Blue Dry 08/16 Hx Shampoo 1% 250ml shampoo 690.11 Scalp scalp Kolby, - every day M.D. 12/20 Motrin Ib 08/11 Hx Tablets 200mg 60tabs take two tablets by Kolby, - mouth M.D. 06/20 every hours as needed for pain and menses Cortizone-10 01/10 Hx Ointment 1% 1units apply as 380.22 directed Ruparelia - one per , M.D. Debrox 12/21 Hx Solution 6.5% 2vials 2 drops 380.4 each ear 3 Kolby, - times per M.D. , days and irrigate ears Clotrimazole 3 09/09 Hx Cream 2% 45gm apply bid prn Kolby - M.D. 12/20 Flagyl 07/26 Hx Tablets 500mg 30tabs 1 po tid Kolby - M.D. 09/06 Flagyl 07/23 Hx Tablets 500mg 30tabs 4 tab po tid Kolby - M.D. 07/26 Metronidazole 07/22 Hx Gel 0.75% 1tube 1 Vaginal applicator Kolby, - intravagin M.D. 08/12 al for days Hydrocortisone 07/12 Hx Ointment 0.2% 15units Applied to 380.22 [facility] Valerate affected Rup[place] - area , M.D. 08/12 b.i.d. /2011 Ibuprofen 05/05 Hx Tablets 200mg 60tabs 2-3 tabs 789.07 q6h prn Kolby, - pain and M.D. 06/20 menses Bacitracin 04/05 Hx Ointment 500Unit/G 30gm apply to 692.9 M face 2 Kolby, - xper day M.D. 12/20 Amoxicillin 03/16 Hx Capsules 250mg 30caps 1 tab po 3 041.02 times per Kolby, - day every M.D. 04/23 Hannah 03/16 Hx Tablets 180mg 30tabs 1 po qd 041.02 Sanaz Jarrett M.D. 04/23 Nasacort Aq 01/12 Hx Aerosol 55mcg/Act 16.5uni 2 Sprays ts Every Day Kolby, - Each M.D. 08/02 Nostril (Allergies ) Lotrisone 12/18 Hx Cream 1-0.05% 45gmtub apply to 692.9 e area 2x Kolby - per day M.D. 04/23 Lubriderm 12/18 Hx Cream 1LargeB apply to 692.9 Macie o skin on Jarrett, Therapy - hands M.D. 06/20 after every wash. and to ches 2x per day as needed Lubriderm 11/27 Hx Cream 1LargeB apply to 692.9 Macie ottle skin on Kolby, Therapy - hands M.D. 06/08 after every wash. and to ches 2x per day Bacitracin 11/27 Hx Ointment 500Unit/G 1smallt apply to 692.9 M ube face 2 Kolby - xper day M.D. 12/18 Valtrex 11/06 Hx Tablets 1gm 12tabs 2 tab po 054.9 2x per day Sanaz Jarrett M.D. 04/23 Ritalin Hx Tablets 10mg 30tabs 1 po qd Sanaz Jarrett M.D. 12/18 Singulair Hx Tablets 10mg 30tabs 1 po qd Sanaz Jarrett M.D. 05/11 Flonase Hx Suspension 50mcg/Act 1units 2 intranasal Sanaz Jarrett puff to M.D. 04/23 nostril bid Debrox Hx Solution 6.5% 1bottle 4 drops in each ear Q - Month 11/27 Ritalin 0000 Hx Tablets 30mg 30tabs 1 po qd - 12/18 Ritalin 0000 Hx Tablets 10mg 30tabs 1 po qd - 06/08 Ritalin Hx Tablets 20mg 180tabs 1 po qd - 11/08 Zoloft Hx Tablets 50mg 30tabs 1 by mouth Macie /0000 every day Sanaz Jarrett M.D. 01/18 Hannah Allergy Hx Tablets 180mg 30tabs 1 po qd - 07/12 Maalox Advanced Hx Suspension 200-200-2 1bottle as needed Macie /0000 0mg/5ML Sanaz Jarrett M.D. 06/20 Clotrimazole Hx Cream 45Grams 45gm apply bid prn - 09/09 Bacitracin Hx Ointment 500Unit/G 3.500gm prn Unknown Ointment /0000 M - 04/06 Robitussin DM Hx Syrup 100-10mg/ 355ml take 1 Macie 0000 5ML teaspoons Sanaz Jarrett by brigette Arreola 06/20 every hours as needed for cough as needed Kaopectate Hx Liquid 30ml prn - 06/20 Emetrol Hx Solution 30ml prn - 06/20 Imodium A-D Hx Liquid 1mg/20ML prn - 06/20 Concerta Hx Tablets ER 36mg 90tabs 1 po qd - 08/29 Valtrex Hx Tablets 1gm 21tabs Take 1 Macie /0000 Tablet By Sanaz Jarrett 3 M.DAndrew 06/20 Times Day For 7 Days (For Cold Sore Out Break) Sudafed 12 Hour 00 Hx Tablets ER 120mg 60tabs 1 tab po Macie /0000 12HR q12h prn Sanaz Jarrett M.D. 06/20 Tylenol Hx Tablets 325mg 120tabs Take Two Macie /0000 Tablets By Sanaz Jarrett M.D. 06/20 Every Hours as Needed (For Fever >101 Degrees) Hannah 00 Hx Tablets 180mg 30tabs take one Macie /0000 tablet by Sanaz Jarrett.D. 06/04 every (allergies ) Atarax Hx 25mg prn Unknown /0000 - 03/27 Topamax Hx Tablets 100mg 1 tab by Unknown /0000 mouth - twice a Ferrous Sulfate Hx Tablets DR 324(65Fe) 1 by mouth Unknown /0000 mg twice a - day with 04/05 meals every month. Immunizations CPT Code Status Date Vaccine Lot # [id number] Given 07/26/2014 Influenza Virus Vaccine, Quadrivalent, Split, Preservative Free [id number] Given 04/25/2013 Gardasil (HPV) [id number] 51456 Given 02/17/2013 Hepatitis B Vaccine Adult Dosage [id number] 55075 Given 12/17/2012 Hepatitis B Vaccine Adult Dosage [id number] 71487 Given 09/15/2012 Hepatitis B Vaccine Adult Dosage 67512 Given 08/18/2012 Hepatitis B Vaccine Adult Dosage [id number] 06811 Given 08/12/2012 Gardasil (HPV) [id number] Q2038 Given 07/13/2012 Fluzone Vaccine [id number] 90367 Given 07/13/2012 Gardasil (HPV) [id number] 11364 Given 05/11/2012 Tdap - Tetanus/Diptheria/Acellular Pertussis [id number] 83911 Given 07/10/2011 Influenza Virus 3Yrs & Over [id number] Vital Signs Date Vital Result Comment 01/26/2019 11:20am Height 65.5 inches 5'5.50" Weight 266.00 lb BP Systolic 123 mmHg BP Diastolic 84 mmHg Respiratory Rate 16 /min Body Temperature 97.8 F Pain Level 9 BMI (Body Mass Index) 43.6 kg/m2 08/04/2017 2:33pm Height 65.5 inches 5'5.50" Weight 268.00 lb Heart Rate 72 /min BP Systolic 130 mmHg BP Diastolic 92 mmHg Respiratory Rate 20 /min Body Temperature 98.4 F Pain Level 9 BMI (Body Mass Index) 43.9 kg/m2 05/29/2017 10:37am Height 65.5 inches 5'5.50" Weight 274.00 lb Heart Rate 80 /min BP Systolic 128 mmHg BP Diastolic 88 mmHg Body Temperature 97.5 F Pain Level 2 BMI (Body Mass Index) 44.9 kg/m2 05/08/2017 1:27pm Height 65.5 inches 5'5.50" Weight 274.00 lb BP Systolic 124 mmHg BP Diastolic 84 mmHg Body Temperature 97.4 F BMI (Body Mass Index) 44.9 kg/m2 04/10/2017 1:22pm Height 65.5 inches 5'5.50" Weight 278.00 lb Respiratory Rate 16 /min Pain Level 0 BMI (Body Mass Index) 45.6 kg/m2 04/06/2017 10:35am Height 65.5 inches 5'5.50" Weight 280.00 lb Heart Rate 64 /min BP Systolic Sitting 118 mmHg BP Diastolic Sitting 70 mmHg Respiratory Rate 14 /min O2 % BldC Oximetry 97 % BMI (Body Mass Index) 45.9 kg/m2 03/27/2017 1:59pm Height 65.5 inches 5'5.50" Weight 278.00 lb BP Systolic 130 mmHg BP Diastolic 86 mmHg Body Temperature 96.8 F Pain Level 8 BMI (Body Mass Index) 45.6 kg/m2 02/23/2017 10:34am Height 65 inches 5'5" Weight 270.00 lb Heart Rate 89 /min BP Systolic Sitting 128 mmHg BP Diastolic Sitting 72 mmHg Respiratory Rate 18 /min O2 % BldC Oximetry 98 % BMI (Body Mass Index) 44.9 kg/m2 12/24/2016 10:19am Height 65 inches 5'5" Weight 275.50 lb Heart Rate 86 /min BP Systolic 118 mmHg BP Diastolic 70 mmHg Respiratory Rate 14 /min O2 % BldC Oximetry 98 % BMI (Body Mass Index) 45.8 kg/m2 10/31/2016 10:58am Height 65 inches 5'5" Weight 270.00 lb Heart Rate 100 /min BP Systolic Sitting 136 mmHg BP Diastolic Sitting 80 mmHg Respiratory Rate 18 /min O2 % BldC Oximetry 97 % BMI (Body Mass Index) 44.9 kg/m2 Neck Circumference in inches 17 06/01/2015 12:05pm Height 64 inches 5'4" Weight 221.50 lb Heart Rate 79 /min BP Systolic Sitting 132 mmHg BP Diastolic Sitting 78 mmHg Body Temperature 98.2 F O2 % BldC Oximetry 98 % BMI (Body Mass Index) 38.0 kg/m2 12/08/2014 10:18am Height 64 inches 5'4" Weight 212.50 lb Heart Rate 78 /min BP Systolic Sitting 114 mmHg BP Diastolic Sitting 70 mmHg Body Temperature 98.4 F BMI (Body Mass Index) 36.5 kg/m2 10/30/2014 4:39pm Height 54 inches 4'6" Weight 205.00 lb Pain Level 0 BMI (Body Mass Index) 49.4 kg/m2 09/18/2014 11:30am Height 64 inches 5'4" Weight 205.00 lb Heart Rate 79 /min BP Systolic 113 mmHg BP Diastolic 72 mmHg BMI (Body Mass Index) 35.2 kg/m2 09/15/2014 3:56pm Weight 204.00 lb Heart Rate 90 /min BP Systolic Sitting 120 mmHg BP Diastolic Sitting 82 mmHg 08/29/2014 1:49pm Weight 204.00 lb Heart Rate 70 /min BP Systolic Sitting 118 mmHg BP Diastolic Sitting 74 mmHg Body Temperature 98.7 F 06/20/2014 9:35am Height 66.5 inches 5'6.50" Weight 198.00 lb Heart Rate 73 /min BP Systolic Sitting 112 mmHg BP Diastolic Sitting 81 mmHg BMI (Body Mass Index) 31.5 kg/m2 01/06/2014 11:35am Height 66.5 inches 5'6.50" Weight 202.00 lb Heart Rate 76 /min BP Systolic Sitting 108 mmHg BP Diastolic Sitting 70 mmHg Body Temperature 97.6 F O2 % BldC Oximetry 98 % BMI (Body Mass Index) 32.1 kg/m2 01/03/2014 3:51pm Height 66.5 inches 5'6.50" Weight 200.00 lb Heart Rate 74 /min BP Systolic Sitting 90 mmHg BP Diastolic Sitting 68 mmHg Body Temperature 99.1 F BMI (Body Mass Index) 31.8 kg/m2 12/20/2013 3:03pm Height 66.5 inches 5'6.50" Weight 202.00 lb Heart Rate 78 /min BP Systolic Sitting 110 mmHg BP Diastolic Sitting 78 mmHg Body Temperature 98.3 F BMI (Body Mass Index) 32.1 kg/m2 10/18/2013 10:40am Weight 193.00 lb Heart Rate 72 /min BP Systolic Sitting 108 mmHg BP Diastolic Sitting 76 mmHg Body Temperature 98.1 F O2 % BldC Oximetry 98 % 09/06/2013 3:52pm Weight 192.75 lb Heart Rate 78 /min BP Systolic Sitting 112 mmHg BP Diastolic Sitting 74 mmHg 08/16/2013 2:46pm Weight 190.00 lb Heart Rate 72 /min BP Systolic Sitting 103 mmHg BP Diastolic Sitting 66 mmHg 05/26/2013 2:20pm Weight 188.00 lb Heart Rate 71 /min BP Systolic Sitting 112 mmHg BP Diastolic Sitting 67 mmHg 05/16/2013 1:46pm Weight 187.00 lb Heart Rate 91 /min BP Systolic Sitting 109 mmHg BP Diastolic Sitting 78 mmHg O2 % BldC Oximetry 99 % 12/21/2012 11:00am Height 65.25 inches 5'5.25" Weight 182.25 lb Heart Rate 78 /min BP Systolic Sitting 105 mmHg BP Diastolic Sitting 73 mmHg BMI (Body Mass Index) 30.1 kg/m2 11/08/2012 12:01pm Height 65.25 inches 5'5.25" Weight 188.00 lb Heart Rate 80 /min BP Systolic Sitting 100 mmHg BP Diastolic Sitting 84 mmHg BMI (Body Mass Index) 31.0 kg/m2 08/12/2012 10:13am Height 65.25 inches 5'5.25" Weight 187.00 lb Heart Rate 72 /min BP Systolic Sitting 108 mmHg BP Diastolic Sitting 70 mmHg BMI (Body Mass Index) 30.9 kg/m2 07/13/2012 10:03am Height 65.25 inches 5'5.25" Weight 191.00 lb Heart Rate 78 /min BP Systolic Sitting 110 mmHg BP Diastolic Sitting 70 mmHg BMI (Body Mass Index) 31.5 kg/m2 06/18/2012 10:45am Height 65.25 inches 5'5.25" Weight 194.00 lb Heart Rate 60 /min BP Systolic Sitting 116 mmHg BP Diastolic Sitting 82 mmHg BMI (Body Mass Index) 32.0 kg/m2 06/08/2012 11:59am Height 65.25 inches 5'5.25" Weight 190.00 lb Heart Rate 72 /min BP Systolic Sitting 110 mmHg BP Diastolic Sitting 70 mmHg BMI (Body Mass Index) 31.4 kg/m2 05/31/2012 4:27pm Height 65.25 inches 5'5.25" Weight 192.00 lb Heart Rate 70 /min BP Systolic Sitting 116 mmHg BP Diastolic Sitting 72 mmHg BMI (Body Mass Index) 31.7 kg/m2 05/11/2012 10:11am Height 65.25 inches 5'5.25" Weight 193.00 lb Heart Rate 64 /min BP Systolic Sitting 108 mmHg BP Diastolic Sitting 80 mmHg BMI (Body Mass Index) 31.9 kg/m2 04/29/2012 10:27am Height 65.25 inches 5'5.25" Weight 200.00 lb Heart Rate 64 /min BP Systolic Sitting 110 mmHg L BP Diastolic Sitting 62 mmHg L BMI (Body Mass Index) 33.0 kg/m2 04/23/2012 9:09am Height 65.25 inches 5'5.25" Weight 195.00 lb Heart Rate 73 /min BP Systolic Sitting 112 mmHg BP Diastolic Sitting 80 mmHg BMI (Body Mass Index) 32.2 kg/m2 03/16/2012 11:42am Height 65.25 inches 5'5.25" Weight 191.00 lb Heart Rate 75 /min BP Systolic Sitting 116 mmHg BP Diastolic Sitting 70 mmHg Body Temperature 97.7 F BMI (Body Mass Index) 31.5 kg/m2 12/18/2011 1:34pm Height 65.25 inches 5'5.25" Weight 189.00 lb Heart Rate 64 /min BP Systolic Sitting 114 mmHg BP Diastolic Sitting 70 mmHg BMI (Body Mass Index) 31.2 kg/m2 11/27/2011 10:55am Height 65.25 inches 5'5.25" Weight 191.00 lb Heart Rate 81 /min BP Systolic Sitting 118 mmHg BP Diastolic Sitting 82 mmHg BMI (Body Mass Index) 31.5 kg/m2 11/06/2011 10:50am Height 65.25 inches 5'5.25" Weight 197.00 lb Heart Rate 60 /min BP Systolic Sitting 120 mmHg L BP Diastolic Sitting 92 mmHg L BMI (Body Mass Index) 32.5 kg/m2 09/04/2011 1:09pm Weight 197.00 lb Heart Rate 76 /min BP Systolic Sitting 118 mmHg BP Diastolic Sitting 80 mmHg 07/10/2011 11:00am Height 65.50 inches 5'5.50" Weight 194.00 lb Heart Rate 72 /min BP Systolic Sitting 105 mmHg BP Diastolic Sitting 75 mmHg BMI (Body Mass Index) 31.8 kg/m2 Results Test Date Facility Test Result H/L Range Note Urinalysis Profile 11/09/2016 [facility] Urine Color Yellow N [address] [place] [address] [phone] Urine Appearance Cloudy N Urine Specific Romeo 1.014 N 1.010-1.030 Urine pH 7.0 N 5-9 Urine Urobilinogen Negative N Negative Urine Ketones Negative N Negative Urine Protein Negative N Negative Urine Leukocytes Negative N Negative Urine Blood Negative N Negative Urine Nitrite Negative N Negative Urine Bilirubin Negative N Negative Urine Glucose Negative N Negative Laboratory test 05/27/2015 [facility] HCG Qualitative Negative N Negative finding [address] [place] [address] [phone] CBC Auto Diff 04/12/2015 [facility] White Blood 7.9 10^3/uL N 4.8-10.[address] [place] [address] [phone] Red Blood Count 4.57 10^6/uL N 4.0-5.4 Hemoglobin 12.0 g/dL N 12.0-16.0 Hematocrit 37 % N 35-47 Mean Corpuscular Volume 82 fL N 80-97 Mean Corpuscular Hemoglobin 26 pg Low 27-31 Mean Corpuscular HGB Conc 32 g/dL N 31-36 Red Cell Distribution Width 16 % High 10.5-15 Platelet Count 244 10^3/uL N 150-450 Mean Platelet Volume 9 um3 N 7.4-10.4 Abs Neutrophils 5.8 10^3/uL N 1.5-7.7 Abs Lymphocytes 1.4 10^3/uL N 1.0-4.8 Abs Monocytes 0.5 10^3/uL N 0-0.8 Abs Eosinophils 0.2 10^3/uL N 0-0.6 Abs Basophils 0 10^3/uL N 0-0.2 Abs Nucleated RBC 0 10^3/uL N Granulocyte % 73.5 % N 38-83 Lymphocyte % 17.3 % Low 25-47 Monocyte % 6.4 % N 1-9 Eosinophil % 2.3 % N 0-6 Basophil % 0.5 % N 0-2 Nucleated Red Blood Cells % 0 N Laboratory test 04/12/2015 [facility] Serum Negative N Negative [address] [place] [address] [phone] Comp Metabolic 04/12/2015 [facility] Sodium 137 mmol/L N 133- [address] [place] [address] [phone] Potassium 4.1 mmol/L N 3.5-5.0 Chloride 108 mmol/L N 101-111 Co2 Carbon Dioxide 23 mmol/L N 22-32 Anion Gap 6 mmol/L N 2-11 Glucose 82 mg/dL N 70-100 Blood Urea Nitrogen 9 mg/dL N 6-24 Creatinine 0.79 mg/dL N 0.51-0.95 BUN/Creatinine Ratio 11.4 N 8-20 Calcium 9.1 mg/dL N 8.6-10.3 Total Protein 6.7 g/dL N 6.4-8.9 Albumin 3.7 g/dL N 3.2-5.2 Globulin 3.0 g/dL N 2-4 Albumin/Globulin Ratio 1.2 N 1-3 Total Bilirubin 0.20 mg/dL N 0.2-1.0 Alkaline Phosphatase 65 U/L N 34-104 Alt 33 U/L N 7-52 Ast 24 U/L N 13-39 Egfr Non- 88.7 N >60 Egfr 114.0 N >60 2 Laboratory test 04/12/2015 [facility] Acetaminophen < 15 g/mL N 3 finding [address] [place] [address] [phone] Alcohol < 10 mg/dL N <10 Salicylate < 2.50 mg/dL N <30 TSH (Thyroid Stim Horm) 3.82 ?IU/mL N 0.34-5.60 Urinalysis Profile 04/12/2015 [facility] Urine Color Straw [address] [place] [address] [phone] Urine Appearance Clear N Urine Specific Romeo 1.006 Low 1.010-1.030 Urine pH 6.0 N 5-9 Urine Urobilinogen Negative N Negative Urine Ketones Negative N Negative Urine Protein Negative N Negative Urine Leukocytes Negative N Negative Urine Blood Negative N Negative Urine Nitrite Negative N Negative Urine Bilirubin Negative N Negative Urine Glucose Negative N Negative Urine Drug 04/12/2015 [facility] Amphetamine Ur None Detected N None Detect SCR ED & [address] [place] [address] [phone] Barbiturates Urine Screen None Detected N None Detect Benzodiazepine Urine Screen None Detected N None Detect Urine Cannabinoids Screen None Detected N None Detect Urine Cocaine Screen None Detected N None Detect Urine Opiates Screen None Detected N None Detect Urine Phencyclidine Screen None Detected N None Detect 4 Urinalysis Profile 04/08/2015 [facility] Urine Color Yellow [address] [place] [address] [phone] Urine Appearance Clear N Urine Specific Romeo 1.011 N 1.010-1.030 Urine pH 5.0 N 5-9 Urine Urobilinogen Negative N Negative Urine Ketones Negative N Negative Urine Protein Negative N Negative Urine Leukocytes Trace Abnormal Negative Urine Blood 1+ Abnormal Negative Urine Nitrite Negative N Negative Urine Bilirubin Negative N Negative Urine Glucose Negative N Negative Urine White Blood Cell Trace(0-5/hpf) N Absent Urine Red Blood Cell Trace(0-2/hpf) N Absent Urine Bacteria 1+ Abnormal Absent Urine Squamous Epithelial Cell Present Abnormal Absent Urine Drug 04/08/2015 [facility] Amphetamine Ur None Detected N None Detect SCR ED & [address] [place] [address] [phone] Barbiturates Urine Screen None Detected N None Detect Benzodiazepine Urine Screen None Detected N None Detect Urine Cannabinoids Screen None Detected N None Detect Urine Cocaine Screen None Detected N None Detect Urine Opiates Screen None Detected N None Detect Urine Phencyclidine Screen None Detected N None Detect 5 CBC Auto Diff 04/08/2015 [facility] White Blood 8.6 10^3/uL N 4.8-10.[address] [place] [address] [phone] Red Blood Count 4.61 10^6/uL N 4.0-5.4 Hemoglobin 12.1 g/dL N 12.0-16.0 Hematocrit 38 % N 35-47 Mean Corpuscular Volume 81 fL N 80-97 Mean Corpuscular Hemoglobin 26 pg Low 27-31 Mean Corpuscular HGB Conc 32 g/dL N 31-36 Red Cell Distribution Width 16 % High 10.5-15 Platelet Count 271 10^3/uL N 150-450 Mean Platelet Volume 9 um3 N 7.4-10.4 Abs Neutrophils 6.4 10^3/uL N 1.5-7.7 Abs Lymphocytes 1.5 10^3/uL N 1.0-4.8 Abs Monocytes 0.6 10^3/uL N 0-0.8 Abs Eosinophils 0.1 10^3/uL N 0-0.6 Abs Basophils 0 10^3/uL N 0-0.2 Abs Nucleated RBC 0 10^3/uL N Granulocyte % 74.0 % N 38-83 Lymphocyte % 16.9 % Low 25-47 Monocyte % 7.2 % N 1-9 Eosinophil % 1.5 % N 0-6 Basophil % 0.4 % N 0-2 Nucleated Red Blood Cells % 0 N Laboratory test 04/08/2015 [facility] Serum Negative N Negative [address] [place] [address] [phone] Lactic Acid 1.5 mmol/L N 0.5-2.2 Comp Metabolic Panel 04/08/2015 [facility] Sodium 136 mmol/L N 133-[address] [place] [address] [phone] Potassium 3.9 mmol/L N 3.5-5.0 Chloride 105 mmol/L N 101-111 Co2 Carbon Dioxide 25 mmol/L N 22-32 Anion Gap 6 mmol/L N 2-11 Glucose 92 mg/dL N 70-100 Blood Urea Nitrogen 14 mg/dL N 6-24 Creatinine 0.81 mg/dL N 0.51-0.95 BUN/Creatinine Ratio 17.3 N 8-20 Calcium 9.2 mg/dL N 8.6-10.3 Total Protein 6.6 g/dL N 6.4-8.9 Albumin 3.8 g/dL N 3.2-5.2 Globulin 2.8 g/dL N 2-4 Albumin/Globulin Ratio 1.4 N 1-3 Total Bilirubin 0.20 mg/dL N 0.2-1.0 Alkaline Phosphatase 63 U/L N 34-104 Alt 29 U/L N 7-52 Ast 21 U/L N 13-39 Egfr Non- 86.2 N >60 Egfr 110.8 N >60 7 Laboratory test 04/08/2015 [facility] Creatine 89 U/L N 10- 223 finding 101 [facility] Kinase(CK) [place] [address] [phone] Valproic Acid (Depakene) 74.0 g/mL N 50-100 Acetaminophen < 15 g/mL N 8 Alcohol < 10 mg/dL N <10 Salicylate < 2.50 mg/dL N <30 TSH (Thyroid Stim Horm) 5.35 ?IU/mL N 0.34-5.60 Urine Culture And Sensitivities SEE RESULT BELOW 9 Laboratory 03/07/2015 [facility] Valproic Acid 88.0 N 50.0- 100.0 10, [address] ?g/mL [place], [place] [id number] [phone] Laboratory 03/07/2015 [facility] TSH (Thyroid 3.07 N 0.34- 5.60 12 test finding [address] Stimulating ?IU/[place] [address] Horm) [phone] Free T4 0.80 ng/mL N 0.61-1.12 13 Urinalysis Profile 02/25/2015 [facility] Urine Color Straw N [address] [place], [place] [id number] [phone] Urine Appearance Clear N Urine Specific Romeo 1.005 Low 1.010-1.030 Urine pH 6.0 N 5-9 Urine Urobilinogen Negative N Negative Urine Ketones Negative N Negative Urine Protein Negative N Negative Urine Leukocytes Negative N Negative Urine Blood Negative N Negative Urine Nitrite Negative N Negative Urine Bilirubin Negative N Negative Urine Glucose Negative N Negative CBC Auto Diff 02/25/2015 [facility] White Blood 7.7 10^3/uL N 4.8-10.[address] [place] [address] [phone] Red Blood Count 4.83 10^6/uL N 4.0-5.4 Hemoglobin 12.8 g/dL N 12.0-16.0 Hematocrit 39 % N 35-47 Mean Corpuscular Volume 80 fL N 80-97 Mean Corpuscular Hemoglobin 26 pg Low 27-31 Mean Corpuscular HGB Conc 33 g/dL N 31-36 Red Cell Distribution Width 16 % High 10.5-15 Platelet Count 273 10^3/uL N 150-450 Mean Platelet Volume 9 um3 N 7.4-10.4 Abs Neutrophils 5.6 10^3/uL N 1.5-7.7 Abs Lymphocytes 1.4 10^3/uL N 1.0-4.8 Abs Monocytes 0.5 10^3/uL N 0-0.8 Abs Eosinophils 0.1 10^3/uL N 0-0.6 Abs Basophils 0 10^3/uL N 0-0.2 Abs Nucleated RBC 0.01 10^3/uL N Granulocyte % 72.8 % N 38-83 Lymphocyte % 18.1 % Low 25-47 Monocyte % 6.9 % N 1-9 Eosinophil % 1.7 % N 0-6 Basophil % 0.5 % N 0-2 Nucleated Red Blood Cells % 0.1 N Urine Drug 02/25/2015 [facility] Amphetamine Ur None Detected N None Detect SCR ED & [address] [place] [place] [address] [phone] Barbiturates Urine Screen None Detected N None Detect Benzodiazepine Urine Screen None Detected N None Detect Urine Cannabinoids Screen None Detected N None Detect Urine Cocaine Screen None Detected N None Detect Urine Opiates Screen None Detected N None Detect Urine Phencyclidine Screen None Detected N None Detect 14 Comp Metabolic Panel 02/25/2015 [facility] Sodium 137 mmol/L N 133-[address] [place] [address] [phone] Potassium 4.0 mmol/L N 3.5-5.0 Chloride 106 mmol/L N 101-111 Co2 Carbon Dioxide 25 mmol/L N 22-32 Anion Gap 6 mmol/L N 2-11 Glucose 88 mg/dL N 70-100 Blood Urea Nitrogen 10 mg/dL N 6-24 Creatinine 0.83 mg/dL N 0.51-0.95 BUN/Creatinine Ratio 12.0 N 8-20 Calcium 9.4 mg/dL N 8.6-10.3 Total Protein 6.9 g/dL N 6.4-8.9 Albumin 4.0 g/dL N 3.2-5.2 Globulin 2.9 g/dL N 2-4 Albumin/Globulin Ratio 1.4 N 1-3 Total Bilirubin 0.20 mg/dL N 0.2-1.0 Alkaline Phosphatase 68 U/L N 34-104 Alt 40 U/L N 7-52 [place] 30 U/L N 13-39 Egfr Non- 83.8 N >60 Egfr 107.7 N >60 15 Laboratory test 02/25/2015 [facility] Valproic Acid 50.0 g/mL N 50.0-100.[address] [place] [address] [phone] Acetaminophen < 15 g/mL N 16 Alcohol < 10 mg/dL N <10 Salicylate < 2.50 mg/dL N <30 TSH (Thyroid Stimulating Horm) 4.07 IU/mL N 0.34-5.60 Laboratory test 02/25/2015 [facility] Serum Negative N Negative [address] [place] [address] [phone] Urinalysis 02/18/2015 [facility] Urine Color Straw N Profile [address] [place] [address] [phone] Urine Appearance Clear N Urine Specific Romeo 1.002 Low 1.010-1.030 Urine pH 6.0 N 5-9 Urine Urobilinogen Negative N Negative Urine Ketones Negative N Negative Urine Protein Negative N Negative Urine Leukocytes Negative N Negative Urine Blood Negative N Negative Urine Nitrite Negative N Negative Urine Bilirubin Negative N Negative Urine Glucose Negative N Negative Urine Drug 02/18/2015 [facility] Amphetamine Ur None Detected N None Detect SCR ED & [address] [place] [address] [phone] Barbiturates Urine Screen None Detected N None Detect Benzodiazepine Urine Screen None Detected N None Detect Urine Cannabinoids Screen None Detected N None Detect Urine Cocaine Screen None Detected N None Detect Urine Opiates Screen None Detected N None Detect Urine Phencyclidine Screen None Detected N None Detect 18 CBC Auto Diff 02/18/2015 [facility] White Blood 6.4 10^3/uL N 4.8-10.[address] [place] [address] [phone] Red Blood Count 4.71 10^6/uL N 4.0-5.4 Hemoglobin 12.3 g/dL N 12.0-16.0 Hematocrit 37 % N 35-47 Mean Corpuscular Volume 79 fL Low 80-97 Mean Corpuscular Hemoglobin 26 pg Low 27-31 Mean Corpuscular HGB Conc 33 g/dL N 31-36 Red Cell Distribution Width 17 % High 10.5-15 Platelet Count 228 10^3/uL N 150-450 Mean Platelet Volume 9 um3 N 7.4-10.4 Abs Neutrophils 4.5 10^3/uL N 1.5-7.7 Abs Lymphocytes 1.2 10^3/uL N 1.0-4.8 Abs Monocytes 0.5 10^3/uL N 0-0.8 Abs Eosinophils 0.2 10^3/uL N 0-0.6 Abs Basophils 0 10^3/uL N 0-0.2 Abs Nucleated RBC 0 10^3/uL N Granulocyte % 70.8 % N 38-83 Lymphocyte % 18.7 % Low 25-47 Monocyte % 7.5 % N 1-9 Eosinophil % 2.5 % N 0-6 Basophil % 0.5 % N 0-2 Nucleated Red Blood Cells % 0 N Comp Metabolic Panel 02/18/2015 [facility] Sodium 136 mmol/L N 133-[address] [place] [address] [phone] Potassium 3.8 mmol/L N 3.5-5.0 Chloride 106 mmol/L N 101-111 Co2 Carbon Dioxide 23 mmol/L N 22-32 Anion Gap 7 mmol/L N 2-11 Glucose 89 mg/dL N 70-100 Blood Urea Nitrogen 10 mg/dL N 6-24 Creatinine 0.78 mg/dL N 0.51-0.95 BUN/Creatinine Ratio 12.8 N 8-20 Calcium 8.7 mg/dL N 8.6-10.3 Total Protein 6.7 g/dL N 6.4-8.9 Albumin 3.9 g/dL N 3.2-5.2 Globulin 2.8 g/dL N 2-4 Albumin/Globulin Ratio 1.4 N 1-3 Total Bilirubin 0.20 mg/dL N 0.2-1.0 Alkaline Phosphatase 58 U/L N 34-104 Alt 28 U/L N 7-52 [place] 28 U/L N 13-39 Egfr Non- 90.0 N >60 Egfr 115.7 N >60 19 Laboratory test 02/18/2015 [facility] Acetaminophen < 15 g/mL N [address] [place] [address] [phone] Alcohol < 10 mg/dL N <10 Salicylate < 2.50 mg/dL N <30 TSH (Thyroid Stimulating Horm) 2.31 IU/mL N 0.34-5.60 CBC Auto Diff 02/11/2015 [facility] White Blood 8.7 10^3/uL N 4.8-10.[address] [place] [address] [phone] Red Blood Count 4.58 10^6/uL N 4.0-5.4 Hemoglobin 12.1 g/dL N 12.0-16.0 Hematocrit 37 % N 35-47 Mean Corpuscular Volume 80 fL N 80-97 Mean Corpuscular Hemoglobin 26 pg Low 27-31 Mean Corpuscular HGB Conc 33 g/dL N 31-36 Red Cell Distribution Width 16 % High 10.5-15 Platelet Count 255 10^3/uL N 150-450 Mean Platelet Volume 8 um3 N 7.4-10.4 Abs Neutrophils 6.5 10^3/uL N 1.5-7.7 Abs Lymphocytes 1.5 10^3/uL N 1.0-4.8 Abs Monocytes 0.5 10^3/uL N 0-0.8 Abs Eosinophils 0.1 10^3/uL N 0-0.6 Abs Basophils 0 10^3/uL N 0-0.2 Abs Nucleated RBC 0 10^3/uL N Granulocyte % 75.1 % N 38-83 Lymphocyte % 16.8 % Low 25-47 Monocyte % 6.3 % N 1-9 Eosinophil % 1.4 % N 0-6 Basophil % 0.4 % N 0-2 Nucleated Red Blood Cells % 0 N Urinalysis Profile 02/11/2015 [facility] Urine Color Straw N [address] [place] [address] [phone] Urine Appearance Clear N Urine Specific Romeo 1.003 Low 1.010-1.030 Urine pH 6.0 N 5-9 Urine Urobilinogen Negative N Negative Urine Ketones Negative N Negative Urine Protein Negative N Negative Urine Leukocytes Trace Abnormal Negative Urine Blood 3+ Abnormal Negative Urine Nitrite Negative N Negative Urine Bilirubin Negative N Negative Urine Glucose Negative N Negative Urine White Blood Cell 1+(6-10/hpf) Abnormal Absent Urine Red Blood Cell 2+(6-10/hpf) Abnormal Absent Urine Bacteria 1+ Abnormal Absent Urine Squamous Epithelial Cell Present Abnormal Absent Urine Drug 02/11/2015 [facility] Amphetamine Ur None Detected N None Detect SCR ED & [address] [place] [address] [phone] Barbiturates Urine Screen None Detected N None Detect Benzodiazepine Urine Screen None Detected N None Detect Urine Cannabinoids Screen None Detected N None Detect Urine Cocaine Screen None Detected N None Detect Urine Opiates Screen None Detected N None Detect Urine Phencyclidine Screen None Detected N None Detect 21 Urine Culture And 02/11/2015 [facility] Urine Culture (SEE NOTE ) [address] [place] [address] [phone] Laboratory test 02/11/2015 [facility] Serum Negative N Negative [address] [place] [address] [phone] Comp Metabolic 02/11/2015 [facility] Sodium 136 mmol/L N 133- [address] [place] [address] [phone] Potassium 3.9 mmol/L N 3.5-5.0 Chloride 106 mmol/L N 101-111 Co2 Carbon Dioxide 23 mmol/L N 22-32 Anion Gap 7 mmol/L N 2-11 Glucose 96 mg/dL N 70-100 Blood Urea Nitrogen 16 mg/dL N 6-24 Creatinine 0.83 mg/dL N 0.51-0.95 BUN/Creatinine Ratio 19.3 N 8-20 Calcium 8.9 mg/dL N 8.6-10.3 Total Protein 6.7 g/dL N 6.4-8.9 Albumin 3.9 g/dL N 3.2-5.2 Globulin 2.8 g/dL N 2-4 Albumin/Globulin Ratio 1.4 N 1-3 Total Bilirubin 0.20 mg/dL N 0.2-1.0 Alkaline Phosphatase 63 U/L N 34-104 Alt 26 U/L N 7-52 [place] 26 U/L N 13-39 Egfr Non- 83.8 N >60 Egfr 107.7 N >60 24 Laboratory test 02/11/2015 [facility] Acetaminophen < 15 g/mL N [address] [place] [address] [phone] Alcohol < 10 mg/dL N <10 Salicylate < 2.50 mg/dL N <30 TSH (Thyroid Stimulating Horm) 3.52 IU/mL N 0.34-5.60 CBC Auto Diff 01/12/2015 [facility] White Blood 6.6 10^3/uL N 4.8-10.[address] [place] [address] [phone] Red Blood Count 4.37 10^6/uL N 4.0-5.4 Hemoglobin 11.3 g/dL Low 12.0-16.0 Hematocrit 35 % N 35-47 Mean Corpuscular Volume 80 fL N 80-97 Mean Corpuscular Hemoglobin 26 pg Low 27-31 Mean Corpuscular HGB Conc 33 g/dL N 31-36 Red Cell Distribution Width 17 % High 10.5-15 Platelet Count 243 10^3/uL N 150-450 Mean Platelet Volume 9 um3 N 7.4-10.4 Abs Neutrophils 4.3 10^3/uL N 1.5-7.7 Abs Lymphocytes 1.5 10^3/uL N 1.0-4.8 Abs Monocytes 0.5 10^3/uL N 0-0.8 Abs Eosinophils 0.2 10^3/uL N 0-0.6 Abs Basophils 0.1 10^3/uL N 0-0.2 Abs Nucleated RBC 0.01 10^3/uL N Granulocyte % 65.2 % N 38-83 Lymphocyte % 22.3 % Low 25-47 Monocyte % 8.0 % N 1-9 Eosinophil % 3.1 % N 0-6 Basophil % 1.4 % N 0-2 Nucleated Red Blood Cells % 0.1 N Comp Metabolic Panel 01/12/2015 [facility] Sodium 141 mmol/L N 133-[address] [place] [address] [phone] Potassium 4.0 mmol/L N 3.5-5.0 Chloride 110 mmol/L N 101-111 Co2 Carbon Dioxide 24 mmol/L N 22-32 Anion Gap 7 mmol/L N 2-11 Glucose 104 mg/dL High 70-100 Blood Urea Nitrogen 10 mg/dL N 6-24 Creatinine 0.73 mg/dL N 0.51-0.95 BUN/Creatinine Ratio 13.7 N 8-20 Calcium 8.9 mg/dL N 8.6-10.3 Total Protein 6.4 g/dL N 6.4-8.9 Albumin 3.6 g/dL N 3.2-5.2 Globulin 2.8 g/dL N 2-4 Albumin/Globulin Ratio 1.3 N 1-3 Total Bilirubin 0.20 mg/dL N 0.2-1.0 Alkaline Phosphatase 68 U/L N 34-104 Alt 13 U/L N 7-52 [place] 17 U/L N 13-39 Egfr Non- 97.1 N >60 Egfr 124.9 N >60 26 Laboratory test 01/12/2015 [facility] Acetaminophen < 15 g/mL N [address] [place] [address] [phone] Alcohol < 10 mg/dL N <10 Salicylate < 2.50 mg/dL N <30 TSH (Thyroid Stimulating Horm) 8.64 IU/mL High 0.34-5.60 Urinalysis Profile 01/12/2015 [facility] Urine Color Yellow N [address] [place] [address] [phone] Urine Appearance Clear N Urine Specific Romeo 1.018 N 1.010-1.030 Urine pH 6.0 N 5-9 Urine Urobilinogen Negative N Negative Urine Ketones Negative N Negative Urine Protein Negative N Negative Urine Leukocytes Negative N Negative Urine Blood Negative N Negative Urine Nitrite Negative N Negative Urine Bilirubin Negative N Negative Urine Glucose Negative N Negative Urine Drug 01/12/2015 [facility] Amphetamine Ur None Detected N None Detect SCR ED & [address] [facility] [place] [place] [address] [phone] Barbiturates Urine Screen None Detected N None Detect Benzodiazepine Urine Screen None Detected N None Detect Urine Cannabinoids Screen None Detected N None Detect Urine Cocaine Screen None Detected N None Detect Urine Opiates Screen None Detected N None Detect Urine Phencyclidine Screen None Detected N None Detect 28 Lipid Profile 01/11/2015 [facility] Triglycerides 157 mg/dL N 29 (Trig/Chol/HDL) [address] [place], [place] [id number] [phone] Cholesterol 162 mg/dL N 30 HDL Cholesterol 36.5 mg/dL N 31 LDL Cholesterol 94 mg/dL N 32 Iron & Iron Binding 01/11/2015 [facility] Iron 34 g/dL Low 50-212 Capacity [address] [place], [place] [id number] [phone] Unsaturated Iron Binding 477 g/dL N Total Iron Binding Capacity 511 g/dL High 250-450 % Iron Saturation 7 % Low 15-55 Laboratory test 01/11/2015 [facility] Ferritin < 10.0 ng/mL Low 11-307 finding [address] [place] [address] [phone] Hemoglobin A1c 5.6 % N Less than 6.0 33 Urinalysis Profile 11/27/2014 [facility] Urine Color Yellow N [address] [place] [address] [phone] Urine Appearance Cloudy N Urine Specific Romeo 1.010 N 1.010-1.030 Urine pH 5.0 N 5-9 Urine Urobilinogen Negative N Negative Urine Ketones Negative N Negative Urine Protein Negative N Negative Urine Leukocytes 1+ Abnormal Negative Urine Blood Negative N Negative Urine Nitrite Negative N Negative Urine Bilirubin Negative N Negative Urine Glucose Negative N Negative Urine White Blood Cell Trace(0-5/hpf) N Absent Urine Red Blood Cell Trace(0-2/hpf) N Absent Urine Bacteria 3+ Abnormal Absent Urine Squamous Epithelial Cell Present Abnormal Absent Laboratory test 11/27/2014 [facility] Urine Negative N Negative [address] [place] [address] [phone] CBC Auto Diff 11/27/2014 [facility] White Blood 10.6 10^3/uL N 4.8-10.[address] [place] [address] [phone] Red Blood Count 5.16 10^6/uL N 4.0-5.4 Hemoglobin 13.1 g/dL N 12.0-16.0 Hematocrit 40 % N 35-47 Mean Corpuscular Volume 78 fL Low 80-97 Mean Corpuscular Hemoglobin 26 pg Low 27-31 Mean Corpuscular HGB Conc 33 g/dL N 31-36 Red Cell Distribution Width 16 % High 10.5-15 Platelet Count 277 10^3/uL N 150-450 Mean Platelet Volume 9 um3 N 7.4-10.4 Abs Neutrophils 8.4 10^3/uL High 1.5-7.7 Abs Lymphocytes 1.6 10^3/uL N 1.0-4.8 Abs Monocytes 0.5 10^3/uL N 0-0.8 Abs Eosinophils 0.1 10^3/uL N 0-0.6 Abs Basophils 0 10^3/uL N 0-0.2 Abs Nucleated RBC 0 10^3/uL N Granulocyte % 79.1 % N 38-83 Lymphocyte % 14.9 % Low 25-47 Monocyte % 4.4 % N 1-9 Eosinophil % 1.3 % N 0-6 Basophil % 0.3 % N 0-2 Nucleated Red Blood Cells % 0 N Urine Drug 11/27/2014 [facility] Amphetamine Ur None Detected N None Detect SCR ED & [address] [place] [address] [phone] Barbiturates Urine Screen None Detected N None Detect Benzodiazepine Urine Screen None Detected N None Detect Urine Cannabinoids Screen None Detected N None Detect Urine Cocaine Screen None Detected N None Detect Urine Opiates Screen None Detected N None Detect Urine Phencyclidine Screen None Detected N None Detect 35 Comp Metabolic Panel 11/27/2014 [facility] Sodium 135 mmol/L N 133-[address] [place] [address] [phone] Potassium 3.9 mmol/L N 3.5-5.0 Chloride 103 mmol/L N 101-111 Co2 Carbon Dioxide 25 mmol/L N 22-32 Anion Gap 7 mmol/L N 2-11 Glucose 108 mg/dL High 70-100 Blood Urea Nitrogen 13 mg/dL N 6-24 Creatinine 0.78 mg/dL N 0.51-0.95 BUN/Creatinine Ratio 16.7 N 8-20 Calcium 9.8 mg/dL N 8.6-10.3 Total Protein 7.2 g/dL N 6.4-8.9 Albumin 4.3 g/dL N 3.2-5.2 Globulin 2.9 g/dL N 2-4 Albumin/Globulin Ratio 1.5 N 1-3 Total Bilirubin 0.30 mg/dL N 0.2-1.0 Alkaline Phosphatase 67 U/L N 34-104 Alt 12 U/L N 7-52 [place] 14 U/L N 13-39 Egfr Non- 90.7 N >60 Egfr 116.7 N >60 36 Laboratory test 11/27/2014 [facility] Acetaminophen < 15 g/mL N [address] [place] [address] [phone] Alcohol < 10 mg/dL N <10 Salicylate < 2.50 mg/dL N <30 TSH (Thyroid Stimulating Horm) 2.90 IU/mL N 0.34-5.60 CBC Auto Diff 11/16/2014 [facility] White Blood 8.5 10^3/uL N 4.8-10.[address] [place] [address] [phone] Red Blood Count 4.66 10^6/uL N 4.0-5.4 Hemoglobin 11.7 g/dL Low 12.0-16.0 Hematocrit 36 % N 35-47 Mean Corpuscular Volume 78 fL Low 80-97 Mean Corpuscular Hemoglobin 25 pg Low 27-31 Mean Corpuscular HGB Conc 32 g/dL N 31-36 Red Cell Distribution Width 15 % N 10.5-15 Platelet Count 249 10^3/uL N 150-450 Mean Platelet Volume 8 um3 N 7.4-10.4 Abs Neutrophils 6.2 10^3/uL N 1.5-7.7 Abs Lymphocytes 1.6 10^3/uL N 1.0-4.8 Abs Monocytes 0.4 10^3/uL N 0-0.8 Abs Eosinophils 0.2 10^3/uL N 0-0.6 Abs Basophils 0 10^3/uL N 0-0.2 Abs Nucleated RBC 0.01 10^3/uL N Granulocyte % 72.9 % N 38-83 Lymphocyte % 18.8 % Low 25-47 Monocyte % 5.1 % N 1-9 Eosinophil % 2.7 % N 0-6 Basophil % 0.5 % N 0-2 Nucleated Red Blood Cells % 0.1 N Comp Metabolic Panel 11/16/2014 [facility] Sodium 137 mmol/L N 133-[address] [place] [address] [phone] Potassium 3.7 mmol/L N 3.5-5.0 Chloride 105 mmol/L N 101-111 Co2 Carbon Dioxide 25 mmol/L N 22-32 Anion Gap 7 mmol/L N 2-11 Glucose 106 mg/dL High 70-100 Blood Urea Nitrogen 12 mg/dL N 6-24 Creatinine 0.92 mg/dL N 0.51-0.95 BUN/Creatinine Ratio 13.0 N 8-20 Calcium 9.1 mg/dL N 8.6-10.3 Total Protein 6.8 g/dL N 6.4-8.9 Albumin 3.9 g/dL N 3.2-5.2 Globulin 2.9 g/dL N 2-4 Albumin/Globulin Ratio 1.3 N 1-3 Total Bilirubin 0.20 mg/dL N 0.2-1.0 Alkaline Phosphatase 71 U/L N 34-104 Alt 25 U/L N 7-52 [place] 23 U/L N 13-39 Egfr Non- 75.0 N >60 Egfr 96.5 N >60 38 Laboratory test 11/16/2014 [facility] Acetaminophen < 15 g/mL N [address] [place] [address] [phone] Alcohol < 10 mg/dL N <10 Salicylate < 2.50 mg/dL N <30 TSH (Thyroid Stimulating Horm) 2.79 IU/mL N 0.34-5.60 Urine Drug 11/16/2014 [facility] Amphetamine Ur None Detected N None Detect SCR ED & [address] [place] [address] [phone] Barbiturates Urine Screen None Detected N None Detect Benzodiazepine Urine Screen None Detected N None Detect Urine Cannabinoids Screen None Detected N None Detect Urine Cocaine Screen None Detected N None Detect Urine Opiates Screen None Detected N None Detect Urine Phencyclidine Screen None Detected N None Detect 40 Urinalysis Profile 11/16/2014 [facility] Urine Color Straw N [address] [place] [address] [phone] Urine Appearance Clear N Urine Specific Romeo 1.004 Low 1.010-1.030 Urine pH 6.0 N 5-9 Urine Urobilinogen Negative N Negative Urine Ketones Negative N Negative Urine Protein Negative N Negative Urine Leukocytes Negative N Negative Urine Blood 3+ Abnormal Negative Urine Nitrite Negative N Negative Urine Bilirubin Negative N Negative Urine Glucose Negative N Negative Urine White Blood Cell Trace(0-5/hpf) N Absent Urine Red Blood Cell Trace(0-2/hpf) N Absent Urine Bacteria 1+ Abnormal Absent Urine Squamous Epithelial Cell Present Abnormal Absent Urine Culture And 11/16/2014 [facility] Urine Culture (SEE NOTE ) [address] [place] [address] [phone] CBC Auto Diff 10/07/2014 [facility] White Blood 7.0 10^3/uL N 4.8-[address] Count .8 [place] [address] [phone] Red Blood Count 4.84 10^6/uL N 4.0-5.4 Hemoglobin 12.6 g/dL N 12.0-16.0 Hematocrit 38 % N 35-47 Mean Corpuscular Volume 78 fL Low 80-97 Mean Corpuscular Hemoglobin 26 pg Low 27-31 Mean Corpuscular HGB Conc 33 g/dL N 31-36 Red Cell Distribution Width 15 % N 10.5-15 Platelet Count 253 10^3/uL N 150-450 Mean Platelet Volume 9 um3 N 7.4-10.4 Abs Neutrophils 4.8 10^3/uL N 1.5-7.7 Abs Lymphocytes 1.4 10^3/uL N 1.0-4.8 Abs Monocytes 0.5 10^3/uL N 0-0.8 Abs Eosinophils 0.3 10^3/uL N 0-0.6 Abs Basophils 0 10^3/uL N 0-0.2 Abs Nucleated RBC 0 10^3/uL N Granulocyte % 68.6 % N 38-83 Lymphocyte % 19.5 % Low 25-47 Monocyte % 7.5 % N 1-9 Eosinophil % 3.9 % N 0-6 Basophil % 0.5 % N 0-2 Nucleated Red Blood Cells % 0 N Comp Metabolic Panel 10/07/2014 [facility] Sodium 136 mmol/L N 133-145 [address] [place] [address] [phone] Potassium 4.2 mmol/L N 3.5-5.0 Chloride 107 mmol/L N 101-111 Co2 Carbon Dioxide 25 mmol/L N 22-32 Anion Gap 4 mmol/L N 2-11 Glucose 80 mg/dL N 70-100 Blood Urea Nitrogen 10 mg/dL N 6-24 Creatinine 0.86 mg/dL N 0.51-0.95 BUN/Creatinine Ratio 11.6 N 8-20 Calcium 9.2 mg/dL N 8.6-10.3 Total Protein 6.9 g/dL N 6.4-8.9 Albumin 3.9 g/dL N 3.2-5.2 Globulin 3.0 g/dL N 2-4 Albumin/Globulin Ratio 1.3 N 1-3 Total Bilirubin 0.70 mg/dL N 0.2-1.0 Alkaline Phosphatase 65 U/L N 34-104 Alt 19 U/L N 7-52 Ast 24 U/L N 13-39 Egfr Non- 81.1 N >60 Egfr 104.3 N >60 43 Lipid Profile 10/07/2014 [facility] Triglycerides 128 mg/dL N 44 (Trig/Chol/HDL) [address] [place] [address] [phone] Cholesterol 171 mg/dL N 45 HDL Cholesterol 36.1 mg/dL N 46 LDL Cholesterol 109 mg/dL N 47 Urine Culture And 04/01/2014 [facility] Urine Culture (SEE NOTE ) 48 Sensitivities [address] [place] [address] [phone] Lipid Profile 12/20/2013 [facility] Triglycerides 126 mg/dL 49 (Trig/Chol/HDL) [address] [place], [place] [id number] [phone] Cholesterol 128 mg/dL 50 HDL Cholesterol 37.8 mg/dL 51 LDL Cholesterol 65 mg/dL 52 Lipid Profile 07/27/2013 [facility] Triglycerides 78 mg/dL 40 -200 (Trig/Chol/HDL) [address] [place] [address] [phone] Cholesterol 156 mg/dL Less than 200 HDL Cholesterol 38 mg/dL Low 40-60 53 Cholesterol/HDL Ratio 4.1 Average 1-4.44 LDL Cholesterol 102.4 High Less Than 100 54 Comp Metabolic Panel 07/27/2013 [facility] Sodium 139 mmol/L 133-145 [address] [place] [address] [phone] Potassium 4.2 mmol/L 3.5-5.0 Chloride 108 mmol/L 101-111 Co2 Carbon Dioxide 27.0 mmol/L 22-32 Anion Gap 4.0 mmol/L 2-11 Glucose 89 mg/dL 70-100 Blood Urea Nitrogen 13 mg/dL 6-24 Creatinine 0.80 mg/dL 0.50-1.40 BUN/Creatinine Ratio 16.3 8-20 Calcium 9.1 mg/dL 8.1-9.9 Total Protein 5.7 g/dL Low 6.2-8.1 Albumin 3.5 g/dL Low 3.6-5.4 Globulin 2.2 g/dL 2-4 Albumin/Globulin Ratio 1.6 1-3 Total Bilirubin 0.4 mg/dL 0.4-1.5 Alkaline Phosphatase 57 U/L 30-110 Alt 16 U/L 14-54 Ast 20 U/L 12-42 Egfr Non- 88.9 >60 Egfr 114.3 >60 55 Lipid Profile 04/19/2013 [facility] Triglycerides 97 mg/dL 40 -200 (Trig/Chol/HDL) [address] [place] [address] [phone] Cholesterol 149 mg/dL Less than 200 HDL Cholesterol 38 mg/dL Low 40-60 56 Cholesterol/HDL Ratio 3.9 Average 1-4.44 LDL Cholesterol 91.6 Less Than 100 57 Comp Metabolic Panel 04/19/2013 [facility] Sodium 139 mmol/L 133-145 [address] [place] [address] [phone] Potassium 3.8 mmol/L 3.5-5.0 Chloride 106 mmol/L 101-111 Co2 Carbon Dioxide 26.0 mmol/L 22-32 Anion Gap 7.0 mmol/L 2-11 Glucose 85 mg/dL 70-100 Blood Urea Nitrogen 8 mg/dL 6-24 Creatinine 0.80 mg/dL 0.50-1.40 BUN/Creatinine Ratio 10.0 8-20 Calcium 9.4 mg/dL 8.1-9.9 Total Protein 6.0 g/dL Low 6.2-8.1 Albumin 3.6 g/dL 3.6-5.4 Globulin 2.4 g/dL 2-4 Albumin/Globulin Ratio 1.5 1-3 Total Bilirubin 0.5 mg/dL 0.4-1.5 Alkaline Phosphatase 64 U/L 30-110 Alt 21 U/L 14-54 Ast 23 U/L 12-42 Egfr Non- 88.9 >60 Egfr 114.3 >60 58 Comp Metabolic Panel 01/07/2013 [facility] Sodium 140 mmol/L 133-145 [address] [place] [address] [phone] Potassium 4.5 mmol/L 3.5-5.0 Chloride 108 mmol/L 101-111 Co2 Carbon Dioxide 26.0 mmol/L 22-32 Anion Gap 6.0 mmol/L 2-11 Glucose 84 mg/dL 70-100 Blood Urea Nitrogen 17 mg/dL 6-24 Creatinine 0.80 mg/dL 0.50-1.40 BUN/Creatinine Ratio 21.3 High 8-20 Calcium 9.5 mg/dL 8.1-9.9 Total Protein 6.2 g/dL 6.2-8.1 Albumin 3.8 g/dL 3.6-5.4 Globulin 2.4 g/dL 2-4 Albumin/Globulin Ratio 1.6 1-3 Total Bilirubin 0.4 mg/dL 0.4-1.5 Alkaline Phosphatase 58 U/L 30-110 Alt 18 U/L 14-54 Ast 23 U/L 12-42 Egfr Non- 88.9 >60 Egfr 114.3 >60 59 Lipid Profile 01/07/2013 [facility] Triglycerides 46 mg/dL 40 -200 (Trig/Chol/HDL) [address] [place] [address] [phone] Cholesterol 137 mg/dL Less than 200 HDL Cholesterol 37 mg/dL Low 40-60 60 Cholesterol/HDL Ratio 3.7 Average 1-4.44 LDL Cholesterol 90.8 mg/dL Less Than 100 61 Laboratory test 08/12/2012 [facility] Hepatitis Be Negative Negative [address] [place] [address] [phone] Laboratory test 07/13/2012 [facility] Cytology [address] ---- <[place] [address] NOTE> [phone] 1 If is still suspected, please repeat test after 48 to 72 hours. This test detects intact HCG only and is indicated for the early detection of . 2 Because ethnic data is not always readily available, this report includes an eGFR for both -Americans and non- Americans. The National Kidney Disease Education Program (NKDEP) does not endorse the use of the MDRD equation for patients that are not between the ages of 18 and 70, are , have extremes of body size, muscle mass, or nutritional status, or are non- or non-. According to the National Kidney Foundation, irrespective of diagnosis, the stage of the disease is based on the level of kidney function: Stage Description GFR(mL/min/1.73 m(2)) 1 Kidney damage with normal or decreased GFR 90 2 Kidney damage with mild decrease in GFR 60-89 3 Moderate decrease in GFR 30-59 4 Severe decrease in GFR 15-29 5 Kidney failure <15 (or dialysis) 3 Therapeutic concentration: <50 ug/mL Toxic concentration: >120 ug/mL 4 The urine specimen was tested at the listed cutoffs: Drug class test level (ng/mL) Amphetamines 500 Barbituates 200 Benzodiazepine metabolites 200 Cocaine metabolites 150 Cannabinoids 50 Opiates 300 Pcp 25 This is a screening procedure. Positive results are not confirmed. Specimen was received without chain of custody. Results should be used for medical purposes only. 5 The urine specimen was tested at the listed cutoffs: Drug class test level (ng/mL) Amphetamines 500 Barbituates 200 Benzodiazepine metabolites 200 Cocaine metabolites 150 Cannabinoids 50 Opiates 300 Pcp 25 This is a screening procedure. Positive results are not confirmed. Specimen was received without chain of custody. Results should be used for medical purposes only. 6 This test detects intact HCG only and is indicated for the early detection of . 7 Because ethnic data is not always readily available, this report includes an eGFR for both -Americans and non- Americans. The National Kidney Disease Education Program (NKDEP) does not endorse the use of the MDRD equation for patients that are not between the ages of 18 and 70, are , have extremes of body size, muscle mass, or nutritional status, or are non- or non-. According to the National Kidney Foundation, irrespective of diagnosis, the stage of the disease is based on the level of kidney function: Stage Description GFR(mL/min/1.73 m(2)) 1 Kidney damage with normal or decreased GFR 90 2 Kidney damage with mild decrease in GFR 60-89 3 Moderate decrease in GFR 30-59 4 Severe decrease in GFR 15-29 5 Kidney failure <15 (or dialysis) 8 Therapeutic concentration: <50 ug/mL Toxic concentration: >120 ug/mL 9 SEE RESULT BELOW Name: JAMIE WISE : [address]: Eron Hook DO Acct: [id number] Unit: [id number] AGE: 24 Location: ED Re04/08/15 SEX: F Status: DEP ER SPEC: [id number] MARCIA: 04/08/[address]: Eron Hook DO REQ: [id number] RECD: 04/08/15 STATUS: KURT SMITH DR: Macie Sanchez MD _ SOURCE: URINE SPDESC: ORDERED: Urine Culture Procedure Result Verified Site Urine Culture Final 04/10/15- 1032 ML No Growth Day 2 (<1,000 CFU/mL) * ML - MAIN LAB ([facility]) . END OF REPORT * ML=Testing performed at Main Lab DEPARTMENT OF PATHOLOGY, [address] [place] [address] Devaughn Coleman M.D. Director [facility] # [id number] 10 [facility] [address] [facility] [address] 11 [facility] [address] [facility] [address] [address] [facility] [address] [facility] [address] 13 [facility] [address] [facility] [address] 14 The urine specimen was tested at the listed cutoffs: Drug class test level (ng/mL) Amphetamines 500 Barbituates 200 Benzodiazepine metabolites 200 Cocaine metabolites 150 Cannabinoids 50 Opiates 300 Pcp 25 This is a screening procedure. Positive results are not confirmed. Specimen was received without chain of custody. Results should be used for medical purposes only. 15 Because ethnic data is not always readily available, this report includes an eGFR for both -Americans and non- Americans. The National Kidney Disease Education Program (NKDEP) does not endorse the use of the MDRD equation for patients that are not between the ages of 18 and 70, are , have extremes of body size, muscle mass, or nutritional status, or are non- or non-. According to the National Kidney Foundation, irrespective of diagnosis, the stage of the disease is based on the level of kidney function: Stage Description GFR(mL/min/1.73 m(2)) 1 Kidney damage with normal or decreased GFR 90 2 Kidney damage with mild decrease in GFR 60-89 3 Moderate decrease in GFR 30-59 4 Severe decrease in GFR 15-29 5 Kidney failure <15 (or dialysis) 16 Therapeutic concentration: <50 ug/mL Toxic concentration: >120 ug/mL 17 This test detects intact HCG only and is indicated for the early detection of . 18 The urine specimen was tested at the listed cutoffs: Drug class test level (ng/mL) Amphetamines 500 Barbituates 200 Benzodiazepine metabolites 200 Cocaine metabolites 150 Cannabinoids 50 Opiates 300 Pcp 25 This is a screening procedure. Positive results are not confirmed. Specimen was received without chain of custody. Results should be used for medical purposes only. 19 Because ethnic data is not always readily available, this report includes an eGFR for both -Americans and non- Americans. The National Kidney Disease Education Program (NKDEP) does not endorse the use of the MDRD equation for patients that are not between the ages of 18 and 70, are , have extremes of body size, muscle mass, or nutritional status, or are non- or non-. According to the National Kidney Foundation, irrespective of diagnosis, the stage of the disease is based on the level of kidney function: Stage Description GFR(mL/min/1.73 m(2)) 1 Kidney damage with normal or decreased GFR 90 2 Kidney damage with mild decrease in GFR 60-89 3 Moderate decrease in GFR 30-59 4 Severe decrease in GFR 15-29 5 Kidney failure <15 (or dialysis) 20 Therapeutic concentration: <50 ug/mL Toxic concentration: >120 ug/mL 21 The urine specimen was tested at the listed cutoffs: Drug class test level (ng/mL) Amphetamines 500 Barbituates 200 Benzodiazepine metabolites 200 Cocaine metabolites 150 Cannabinoids 50 Opiates 300 Pcp 25 This is a screening procedure. Positive results are not confirmed. Specimen was received without chain of custody. Results should be used for medical purposes only. 22 RUN DATE: 02/14/15 [facility] LAB LIVE PAGE 1 RUN TIME: 1021 [address] [place], [place] [address] Specimen Inquiry Name: JAMIE WISE : [address]: Ray Uribe MD Acct: [id number] Unit: [id number] AGE: 24 Location: ED Re02/11/15 SEX: F Status: DEP ER SPEC: [id number] MARCIA: 02/11/15-[address] [facility] [address]: Ray Uribe MD REQ: [id number] RECD: 02/12/150 STATUS: COMP [facility] DR: Macie B Jarrett MD _ SOURCE: URINE SPDESC: ORDERED: Urine Culture Procedure Result Verified Site Urine Culture Final 02/14/15- 1020 ML Organism 1 NORMAL VIRIDIANA [place] Count 1-10,000 (Few) CFU/ML * ML - MAIN LAB ([facility]) . END OF REPORT * ML=Testing performed at Main Lab DEPARTMENT OF PATHOLOGY, [address] [place] [address] Devaughn Coleman M.D. Director [facility] # [id number] 23 This test detects intact HCG only and is indicated for the early detection of . 24 Because ethnic data is not always readily available, this report includes an eGFR for both -Americans and non- Americans. The National Kidney Disease Education Program (NKDEP) does not endorse the use of the MDRD equation for patients that are not between the ages of 18 and 70, are , have extremes of body size, muscle mass, or nutritional status, or are non- or non-. According to the National Kidney Foundation, irrespective of diagnosis, the stage of the disease is based on the level of kidney function: Stage Description GFR(mL/min/1.73 m(2)) 1 Kidney damage with normal or decreased GFR 90 2 Kidney damage with mild decrease in GFR 60-89 3 Moderate decrease in GFR 30-59 4 Severe decrease in GFR 15-29 5 Kidney failure <15 (or dialysis) 25 Therapeutic concentration: <50 ug/mL Toxic concentration: >120 ug/mL 26 Because ethnic data is not always readily available, this report includes an eGFR for both -Americans and non- Americans. The National Kidney Disease Education Program (NKDEP) does not endorse the use of the MDRD equation for patients that are not between the ages of 18 and 70, are , have extremes of body size, muscle mass, or nutritional status, or are non- or non-. According to the National Kidney Foundation, irrespective of diagnosis, the stage of the disease is based on the level of kidney function: Stage Description GFR(mL/min/1.73 m(2)) 1 Kidney damage with normal or decreased GFR 90 2 Kidney damage with mild decrease in GFR 60-89 3 Moderate decrease in GFR 30-59 4 Severe decrease in GFR 15-29 5 Kidney failure <15 (or dialysis) 27 Therapeutic concentration: <50 ug/mL Toxic concentration: >120 ug/mL 28 The urine specimen was tested at the listed cutoffs: Drug class test level (ng/mL) Amphetamines 500 Barbituates 200 Benzodiazepine metabolites 200 Cocaine metabolites 150 Cannabinoids 50 Opiates 300 Pcp 25 This is a screening procedure. Positive results are not confirmed. Specimen was received without chain of custody. Results should be used for medical purposes only. 29 Desirable <150 Borderline high 150-199 High 200-499 Very High >500 30 Desirable <200 Borderline high 200-239 High >239 31 Low <40 Desirable: 40-60 High: >60 32 Desirable: <100 mg/dL Near Optimal: 100-129 mg/dL Borderline High: 130-159 mg/dL High: 160-189 mg/dL Very High: >189 mg/dL 33 Therapeutic target for the treatment of diabetes Mellitus patients is <7% HBA1C, and in selective patients <6.0%.Please refer to [place] [employer] Diabetic care guidelines for further information. 34 If is still suspected, please repeat test after 48 to 72 hours. This test detects intact HCG only and is indicated for the early detection of . 35 The urine specimen was tested at the listed cutoffs: Drug class test level (ng/mL) Amphetamines 500 Barbituates 200 Benzodiazepine metabolites 200 Cocaine metabolites 150 Cannabinoids 50 Opiates 300 Pcp 25 This is a screening procedure. Positive results are not confirmed. Specimen was received without chain of custody. Results should be used for medical purposes only. 36 Because ethnic data is not always readily available, this report includes an eGFR for both -Americans and non- Americans. The National Kidney Disease Education Program (NKDEP) does not endorse the use of the MDRD equation for patients that are not between the ages of 18 and 70, are , have extremes of body size, muscle mass, or nutritional status, or are non- or non-. According to the National Kidney Foundation, irrespective of diagnosis, the stage of the disease is based on the level of kidney function: Stage Description GFR(mL/min/1.73 m(2)) 1 Kidney damage with normal or decreased GFR 90 2 Kidney damage with mild decrease in GFR 60-89 3 Moderate decrease in GFR 30-59 4 Severe decrease in GFR 15-29 5 Kidney failure <15 (or dialysis) 37 Therapeutic concentration: <50 ug/mL Toxic concentration: >120 ug/mL 38 Because ethnic data is not always readily available, this report includes an eGFR for both -Americans and non- Americans. The National Kidney Disease Education Program (NKDEP) does not endorse the use of the MDRD equation for patients that are not between the ages of 18 and 70, are , have extremes of body size, muscle mass, or nutritional status, or are non- or non-. According to the National Kidney Foundation, irrespective of diagnosis, the stage of the disease is based on the level of kidney function: Stage Description GFR(mL/min/1.73 m(2)) 1 Kidney damage with normal or decreased GFR 90 2 Kidney damage with mild decrease in GFR 60-89 3 Moderate decrease in GFR 30-59 4 Severe decrease in GFR 15-29 5 Kidney failure <15 (or dialysis) 39 Therapeutic concentration: <50 ug/mL Toxic concentration: >120 ug/mL 40 The urine specimen was tested at the listed cutoffs: Drug class test level (ng/mL) Amphetamines 500 Barbituates 200 Benzodiazepine metabolites 200 Cocaine metabolites 150 Cannabinoids 50 Opiates 300 Pcp 25 This is a screening procedure. Positive results are not confirmed. Specimen was received without chain of custody. Results should be used for medical purposes only. 41 RUN DATE: 11/17/14 [facility] LAB LIVE PAGE 1 RUN TIME: 7669 [address] [place], [place] [address] Specimen Inquiry Name: JAMIE WISE : [address]: Ray Johnson MD Acct: [id number] Unit: [id number] AGE: 23 Location: ED Re11/16/14 SEX: F Status: REG ER SPEC: [id number] MARCIA: 11/16/[address] [facility] [address]: Ray Johnson MD REQ: [id number] RECD: 11/16/14 STATUS: RES LUIS DR: [facility] Macie Jarrett MD _ SOURCE: URINE SPDESC: ORDERED: Urine Culture Procedure Result Verified Site Urine Culture Preliminary 11/17/14- 1154 ML No Growth Day 1 (<1,000 CFU/mL END OF REPORT * ML=Testing performed at Main Lab DEPARTMENT OF PATHOLOGY, [address] [place] [address] Devaughn Coleman M.D. Director [facility] # [id number] 42 [facility] 43 Because ethnic data is not always readily available, this report includes an eGFR for both -Americans and non- Americans. The National Kidney Disease Education Program (NKDEP) does not endorse the use of the MDRD equation for patients that are not between the ages of 18 and 70, are , have extremes of body size, muscle mass, or nutritional status, or are non- or non-. According to the National Kidney Foundation, irrespective of diagnosis, the stage of the disease is based on the level of kidney function: Stage Description GFR(mL/min/1.73 m(2)) 1 Kidney damage with normal or decreased GFR 90 2 Kidney damage with mild decrease in GFR 60-89 3 Moderate decrease in GFR 30-59 4 Severe decrease in GFR 15-29 5 Kidney failure <15 (or dialysis) 44 Desirable <150 Borderline high 150-199 High 200-499 Very High >500 45 Desirable <200 Borderline high 200-239 High >239 46 Low <40 Desirable: 40-60 High: >60 47 Desirable <100 Near Optimal 100-129 Borderline high 130-159 High 160-189 Very High >189 48 RUN DATE: 04/04/14 [facility] LAB LIVE PAGE 1 RUN TIME: [address] [place] [address] Specimen Inquiry Name: JAMIE WISE : [address]: Donna Lopez MD Acct: [id number] Unit: [id number] AGE: 23 Location[facility] Re04/01/14 SEX: F Status: DEP ER SPEC: [id number] MARCIA: 04/01/14-16[address] [facility] [address]: Donna Lopez MD REQ: [id number] RECD: 04/02/14-1223 STATUS: KURT SMITH DR: Macie Jarrett MD _ SOURCE: URINE SPDESC: ORDERED: Urine Culture Procedure Result Verified Site Urine Culture Final 04/04/14- 02 ML Organism 1 NORMAL VIRIDIANA [place] Count 50-75,000 (Many) CFU/ML END OF REPORT * ML=Testing performed at Main Lab DEPARTMENT OF PATHOLOGY, [address] [place] [address] Devaughn Coleman M.D. Director [facility] # [id number] 49 Desirable <150 Borderline high 150-199 High 200-499 Very High >500 50 Desirable <200 Borderline high 200-239 High >239 51 Low <40 Desirable: 40-60 High: >60 52 Desirable <100 Near Optimal 100-129 Borderline high 130-159 High 160-189 Very High >189 53 HDL Interpretation: Undesirable: High Risk: Less than 40 mg/dL Desirable: Low Risk: Greater than 60 mg/dL 54 LDL Interpretation: Low Risk Optimal Level: LDL Less than 100 mg/dL Near or Above Optimal: LDL 100-129 mg/dL Borderline High Risk: LDL 130-159 mg/dL High Risk: LDL 160-189 mg/dL Very High Risk: LDL Greater than 189 mg/dL 55 Because ethnic data is not always readily available, this report includes an eGFR for both -Americans and non- Americans. The National Kidney Disease Education Program (NKDEP) does not endorse the use of the MDRD equation for patients that are not between the ages of 18 and 70, are , have extremes of body size, muscle mass, or nutritional status, or are non- or non-. According to the National Kidney Foundation, irrespective of diagnosis, the stage of the disease is based on the level of kidney function: Stage Description GFR(mL/min/1.73 m(2)) 1 Kidney damage with normal or decreased GFR 90 2 Kidney damage with mild decrease in GFR 60-89 3 Moderate decrease in GFR 30-59 4 Severe decrease in GFR 15-29 5 Kidney failure <15 (or dialysis) 56 HDL Interpretation: Undesirable: High Risk: Less than 40 mg/dL Desirable: Low Risk: Greater than 60 mg/dL 57 LDL Interpretation: Low Risk Optimal Level: LDL Less than 100 mg/dL Near or Above Optimal: LDL 100-129 mg/dL Borderline High Risk: LDL 130-159 mg/dL High Risk: LDL 160-189 mg/dL Very High Risk: LDL Greater than 189 mg/dL 58 Because ethnic data is not always readily available, this report includes an eGFR for both -Americans and non- Americans. The National Kidney Disease Education Program (NKDEP) does not endorse the use of the MDRD equation for patients that are not between the ages of 18 and 70, are , have extremes of body size, muscle mass, or nutritional status, or are non- or non-. According to the National Kidney Foundation, irrespective of diagnosis, the stage of the disease is based on the level of kidney function: Stage Description GFR(mL/min/1.73 m(2)) 1 Kidney damage with normal or decreased GFR 90 2 Kidney damage with mild decrease in GFR 60-89 3 Moderate decrease in GFR 30-59 4 Severe decrease in GFR 15-29 5 Kidney failure <15 (or dialysis) 59 Because ethnic data is not always readily available, this report includes an eGFR for both -Americans and non- Americans. The National Kidney Disease Education Program (NKDEP) does not endorse the use of the MDRD equation for patients that are not between the ages of 18 and 70, are , have extremes of body size, muscle mass, or nutritional status, or are non- or non-. According to the National Kidney Foundation, irrespective of diagnosis, the stage of the disease is based on the level of kidney function: Stage Description GFR(mL/min/1.73 m(2)) 1 Kidney damage with normal or decreased GFR 90 2 Kidney damage with mild decrease in GFR 60-89 3 Moderate decrease in GFR 30-59 4 Severe decrease in GFR 15-29 5 Kidney failure <15 (or dialysis) 60 HDL Interpretation: Undesirable: High Risk: Less than 40 MG/DL Desirable: Low Risk: Greater than 60 MG/DL 61 LDL Interpretation: Low Risk Optimal Level: LDL Less than 100 MG/DL Near or Above Optimal: LDL 100-129 MG/DL Borderline High Risk: LDL 130-159 MG/DL High Risk: LDL 160-189 MG/DL Very High Risk: LDL Greater than 189 MG/DL 62 Test Performed by: [address] [address] Event Staff: Lon Mota III, M.D. R 63 ---- RUN DATE: 07/15/12 [facility] NMI LIVE PAGE 1 RUN TIME: 1548 Specimen Inquiry RUN USER: INTERFACE -- Name: BILLIEJAMIE Acclisa#: [id number] Status: REG REF Re07/13/12 Age/Sex: 21/F Unit#: [id number] Location: [facility] : [birth year] -- Specimen: [id number] SOUT Spec Date:07/13/[address]: Macie perez MD Spec Type: CYTOLOGY Received:07/14/12 Copies to: SOURCE ECTOCERVICAL/ENDOCERVICAL Thin Prep with Reflex HPV Test PATIENT INFORMATION ACTUAL COLLECTION DATE: 07/13/12 PREVIOUS ABNORMAL PAP SMEARS No PATIENT HISTORY: Last menstrual period not given. ADEQUACY OF SPECIMEN Satisfactory for evaluation * Transformation zone component identified * No menstrual history given * DIAGNOSIS NEGATIVE FOR INTRAEPITHELIAL LESION OR MALIGNANCY * Shift in viridiana suggestive of bacterial vaginosis * This Pap test was evaluated with the assistance of the [employer] Pap Test Imaging System. The Pap Smear is a screening test designed to aid in the detection of premalign ant and malignant conditions of the uterine cervix. It is not a diagnostic procedure a nd should not be used as the sole means of detecting cervical cancer. Both false- positiv e and false-negative reports do occur. Depending on your risk status, a Pap smear marco a uld be obtained and evaluated every one to three years. Initial evaluation performed by Sujata ALICEA(ASCP) 07/14/12 Final Interpretation electronically signed by: Sujata ALICEA(ASCP) 07/15/12 1548 -- -- DEPARTMENT OF PATHOLOGY, [address] [place] [address] [facility] Permit #[id number] Devaughn Coleman M.D. Director Iggy Espinal M.D. Manager Training And Development Dir madi -- Procedures Date Code Description Status 06/09/2017 12944 Polysomnography Sleep Staging 4+ Parameters W/Cpap Completed 03/27/2017 15508 Short Arm Cast Application Completed 10/23/2016 64068 Sleep Study Unattended,HRT Rate,Oxygen Sat,Resp Completed Effort/Airflow 10/06/2013 07682 Binocular Microscopy Completed 07/12/2012 04319 Remove Impacted Cerumen Completed Encounters Type Date Location Provider Dx Diagnosis Office Visit 08/04/2017 Orthopedic Andre Jaramillo S63.501D Unspecified sprain 2:30p [facility] of right wrist, subsequent encounter Office Visit 05/29/2017 Orthopedic Andre Jaramillo S63.502D Unspecified sprain 10:00a [facility] of left wrist, subsequent encounter Office Visit 05/08/2017 Orthopedic Andre Jaramillo S63.501D Unspecified sprain 1:30p [facility] of right wrist, subsequent encounter S63.502A Unspecified sprain of left wrist, initial encounter Office Visit 04/10/2017 Orthopedic Andre Jaramillo, S63.501D Unspecified 1:15p [facility] sprain of right C.M.A. wrist, subsequent encounter Office Visit 04/06/2017 Pulmonology And Cristina G47.33 Obstructive 10:30a [facility] Bear RN, sleep apnea [facility] (adult) (pediatric) E66.09 Other obesity due to excess calories Z68.41 Body mass index (BMI) 40.0-44.9, adult Office Visit 03/27/2017 Orthopedic Andre Jaramillo, S63.501A Unspecified 2:00p [facility] sprain of right C.M.A. wrist, initial encounter Office Visit 02/23/2017 Pul[facility] Cristina G47.33 Obstructive 10:30a [facility] Bear RN, sleep apnea [facility]- (adult) (pediatric) E66.09 Other obesity due to excess calories Z68.41 Body mass index (BMI) 40.0-44.9, adult Office Visit 12/24/2016 Pulmon[facility] And Cristina G47.33 Obstructive sleep 10:00a [facility] Bear RN, apnea (adult) [facility] (pediatric) E66.09 Other obesity due to excess calories Z68.41 Body mass index (BMI) 40.0-44.9, adult Office Visit 10/31/2016 11:00a Pulmonology And Kimberlyn G47.33 Obstructive sleep [facility] Herlinda apnea (adult) [facility] (pediatric) E66.09 Other obesity due to excess calories Z68.41 Body mass index (BMI) 40.0-44.9, adult Office Visit 06/01/2015 11:40a [facility] Internal Macie Jarrett, 311 Depressive Medicine M.DAndrew Disorder Not Elsewhere Spec 314.01 Attention Deficit Disorder W/ Hyperactivity Office Visit 12/08/2014 10:00a [facility] Internal Macie Jarrett, V70.0 Examination Medicine M.D. General Medical Routine AT Health Care Facility 272.2 Hyperlipidemia Mixed 790.6 Abnormal Blood Chemistry Other 380.4 Impacted Cerumen 278.00 Obesity Unspec 787.21 Dysphagia, Oral Phase 790.29 Other Abnormal Glucose Office Visit 10/30/2014 1:00p [facility] Renetta 844.9 [facility] [place] [facility] Unspec C.M.A. Office Visit 09/18/2014 11:00a Orthopedic Remi Worrell 844.9 [facility] [place] [facility] Unspec C.M.A. Office Visit 09/15/2014 4:00p [facility] Internal Macie Jarrett, 691.8 Dermatitis Atopic Medicine M.D. & Related Conditions Other Office Visit 08/29/2014 1:40p [facility] Internal Macie Jarrett, 691.8 Dermatitis Atopic Medicine M.D. 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 Wall Office Visit 01/03/2014 4:00p [facility] Internal Macie Jarrett, 842.09 Sprains & Medicine M.D. Strains Wrist & Hand Other 691.8 Dermatitis Atopic & Related Conditions Other Office Visit 12/20/2013 3:00p [facility] Internal Macie Jarrett, 466.0 Bronchitis Acute Medicine M.D. 842.09 Sprains & Strains Wrist & Hand Other Office Visit 10/18/2013 10:40a [facility] Internal Macie Jarrett, 466.0 Bronchitis Acute Medicine M.D. 690.11 Seborrhea Capitis 272.2 Hyperlipidemia Mixed Office Visit 10/06/2013 9:15a [facility] [place], 388.72 Otalgia C.M.A. AT M.D. Referred Pain [place] 380.23 Otitis Externa Other Chronic 465.8 Upper Respiratory Infections Acute Other Multiple Sites Office Visit 09/06/2013 3:40p [facility] Internal Macie Jarrett, 690.11 Seborrhea Capitis Medicine M.D. Office Visit 08/16/2013 3:00p [facility] Internal Macie Jarrett, V70.0 Examination Medicine M.D. 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 Strains Wrist & Hand Other Office Visit 05/16/2013 1:40p [facility] Internal Macie Jarrett, 842.09 Sprains & Medicine M.D. Strains Wrist & Hand Other 466.0 Bronchitis Acute Office Visit 01/10/2013 9:30a [facility] 380.22 Otitis Externa [facility] Acute [place] Office Visit 12/27/2012 9:50a [facility] Internal Nurse Visit C 380.4 Impacted Cerumen Medicine Office Visit 12/21/2012 11:00a [facility] Internal Macie Jarrett, V70.0 Examination Medicine M.DAndrew General Medical Routine AT Health Care Facility V18.19 Family HX Of Other Endocrine And Metabolic Diseases 380.4 Impacted Cerumen Office Visit 11/08/2012 11:40a [facility] Internal Bigg Eller 465.9 URI Upper Marley Boyd M.D. Respiratory Infections Acute Unspec Sites Office Visit 09/06/2012 10:15a [facility] 380.22 Otitis Externa [facility] Other Acute [place] Office Visit 08/12/2012 10:00a [facility] Internal Macie Jarrett, V70.0 Examination Medicine M.DAndrew General Medical Routine AT Health Care Facility V04.89 Need For Prophylactic Vaccination & Inoculation Other Virus Office Visit 07/13/2012 10:00a [facility] Internal Macie Jarrett, V76.2 Screening Medicine M.DAndrew Malignant Neoplasm Cervix V76.19 Screening Breast Exam Malignant Neoplasms Other V04.81 Need For Prophylactic Vaccination & Inoculation/Influenza V04.89 Need For Prophylactic Vaccination & Inoculation Other Virus V72.31 Routine Testing Tech Examination Office Visit 07/12/2012 9:30a [facility] 380.4 Impacted [facility] [place] 380.22 Otitis Externa Other Acute Office Visit 06/18/2012 10:40a [facility] Internal Macie Jarrett, 840.8 Sprains & Medicine M.D. Strains Shoulder & Upper Arm Other Spec Sites 842.00 Sprains & Strains Wrist & Hand Unspec Site Office Visit 06/08/2012 11:50a [facility] Internal Marcela Vogle, 840.8 Sprains & Medicine M.D. Strains Shoulder & Upper Arm Other Spec Sites 528.00 Stomatitis And Mucositis, Unspecified Office Visit 05/31/2012 [facility] Macie E986 Injury By 4:20p Marley Jarrett M.D. Cutting/Piercing Instruments Undetermined Acc/Purp Office Visit 05/11/2012 [facility] Sy Quijano 842.00 Sprains & Strains 10:00a Marley Jarrett M.D. Wrist & Hand Unspec Site E986 Injury By Cutting/Piercing Instruments Undetermined Acc/Purp V06.1 Exebqzfwtq-Etnloio-Rpibvmwo Combined (DTaP) Office Visit 04/29/2012 [facility] Internal Macie Jarrett, 842.00 Sprains & Strains 10:40a Marley Arreola Wrist & Hand Unspec Site Office Visit 04/23/2012 Nicko Jarrett 842.00 Sprains & Strains 9:20a Marley Arreola Wrist & Hand Unspec Site Office Visit 04/01/2012 [facility] 718.86 Derangement Joint 1:15p [facility] Other Not Elsewhere C.M.A. Class Lower Leg Office Visit 03/16/2012 [facility] Internal Macie Jarrett, 041.02 Streptococcus Group 11:30a Marley Arreola B Office Visit 01/19/2012 [facility] [place] 381.81 Eustachian Tube 9:30a [facility]. [facility] 380.4 Impacted Cerumen Office Visit 01/13/2012 1:00p [facility] 718.86 Derangement Joint [facility] Other Not C.M.A. Elsewhere Class Lower Leg Office Visit 12/22/2011 10:30a [facility] [place] 381.81 Eustachian Tube C.M.A. AT [facility] 389.10 Hearing Loss Sensorineural Unspec Office Visit 12/18/2011 2:00p Nicko Jarrett 692.9 Dermatitis Unspec Medicine MIzabella Cause Due To Spec Agents Other 461.9 Sinusitis Acute Unspec Office Visit 11/27/2011 11:00a [facility] Sy Jarrett 692.9 Dermatitis Unspec Medicine MIzabella Cause Due To Spec Agents Other Office Visit 11/06/2011 11:20a [facility] Sy Jarrett, 054.9 Herpes Simplex W/O Medicine .Rinku Complication 706.1 Acne Other Office Visit 09/04/2011 12:40p DO Not Use C Software 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
--- NOTE | 2019-02-14 10:18 | ED ---
HPI Cardiac - HPI Summary HPI Summary: Patient is a 28-year-old female presenting to the ED with chest pain and shortness of breath which was acute onset since last evening. She states this has remained intermittent. She has a long history of depression and anxiety and takes multiple medications. She states this is not her usual anxiety symptoms. She has never had a history of DVT or PE. She has never had a history of asthma, pneumonia, bronchitis or any cardiac pathologies. Patient is overweight, is a nonsmoker. Denies any recent travel and denies any OCP use. She denies any cough or cough with production. She denies any allergies. She states this never happened to her before. Pain is most notably over the midsternal region as it is nonradiating. - History of Current Complaint Chief Complaint: EDChestPainROMI Stated Complaint: CHEST PAIN/SOB PER PT Time Seen by Provider: 02/14/19 09:27 Hx Obtained From: Patient Hx Last Menstrual Period: unsure Onset/Duration: Started Hours Ago Timing: Constant Initial Severity: Moderate Current Severity: Moderate Pain Intensity: 10 Pain Scale Used: 0-10 Numeric Alleviating Factor(s): Nothing Associated Signs and Symptoms: Positive: Chest Pain - Risk Factors Pulmonary Embolism Risk Factors: Negative Cardiac Risk Factors: Negative Atrial Fibrillation Risk Factors: Negative TAD Risk Factors: Negative - Additional Pertinent History Primary Care Physician: DARCI - Allergy/Home Medications Allergies/Adverse Reactions: Allergies Allergy/AdvReac Type Severity Reaction Status Date / Time amoxicillin [From Augmentin] Allergy Rash Verified 02/14/19 09:24 clavulanic acid Allergy Rash Verified 02/14/19 09:24 [From Augmentin] PMH/Surg Hx/FS Hx/Imm Hx Previously Healthy: Yes Endocrine/Hematology History: Reports: Hx Thyroid Disease - hypo Denies: Hx Anticoagulant Therapy, Hx Diabetes Cardiovascular History: Denies: Hx Hypertension Respiratory History: Reports: Hx Seasonal Allergies Denies: Hx Asthma, Hx Chronic Obstructive Pulmonary Disease (COPD) GI History: Denies: Hx Gastroesophageal Reflux Disease, Hx Ulcer History: Denies: Hx Renal Disease Sensory History: Reports: Hx Contacts or Glasses - Reportedly uses contacts, unconfirmed by Pt at this time. Denies: Hx Hearing Aid Opthamlomology History: Reports: Hx Contacts or Glasses - Reportedly uses contacts, unconfirmed by Pt at this time. Neurological History: Reports: Hx Developmental Delay Psychiatric History: Reports: Hx Anxiety, Hx Attention Deficit Hyperactivity Disorder, Hx Depression, Hx Inpatient Treatment, Hx Community Mental Health Tx, Hx Suicide Attempt, Hx of Violent Episodes Against Others, Other Psychiatric Issues/Disorders - developmental delays Denies: Hx Eating Disorder - Surgical History Surgery Procedure, Year, and Place: none - Immunization History Date of Influenza Vaccine: 08/2017 Hx Pertussis Vaccination: No Immunizations Up to Date: Yes Infectious Disease History: No Infectious Disease History: Denies: Hx Clostridium Difficile, Hx Hepatitis, Hx Human Immunodeficiency Virus (HIV), Hx of Known/Suspected MRSA, Hx Shingles, Hx Tuberculosis, Hx Known/ Suspected VRE, Hx Known/Suspected VRSA, History Other Infectious Disease, Traveled Outside the [place] in Last 30 Days - Family History Known Family History: Positive: Cardiac Disease, Respiratory Disease, Other - pos: depression Negative: Hypertension - Social History Occupation: Unemployed Lives: With Family Alcohol Use: None Hx Substance Use: No Substance Use Type: Reports: None Hx Tobacco Use: No Smoking Status (MU): Never Smoked Tobacco Amount Used/How Often: pt does not and has never used tobacco products of any kind Have You Smoked in the Last Year: No Review of Systems Constitutional: Negative Negative: Fever, Chills, Fatigue, Skin Diaphoresis Positive: Chest Pain - midsternal, nonradiating. Negative: Palpitations Positive: Shortness Of Breath. Negative: Cough Genitourinary: Negative Positive: no symptoms reported, see HPI Negative: Arthralgia, Myalgia Skin: Negative Positive: Anxious All Other Systems Reviewed And Are Negative: Yes Physical Exam Triage Information Reviewed: Yes Vital Signs On Initial Exam: Initial Vitals Temp Pulse Resp BP Pulse Ox 98.0 F 113 20 133/105 97 02/14/19 09:23 02/14/19 09:23 02/14/19 09:23 02/14/19 09:23 02/14/19 09:23 Vital Signs Reviewed: Yes Appearance: Positive: Well-Appearing, Well-Nourished Skin: Positive: Warm, Skin Color Reflects Adequate Perfusion Head/Face: Positive: Normal Head/Face Inspection Eyes: Positive: EOMI, Conjunctiva Clear Neck: Positive: Supple, No Lymphadenopathy Respiratory/Lung Sounds: Positive: Clear to Auscultation, Breath Sounds Present Cardiovascular: Positive: RRR, Pulses are Symmetrical in both Upper and Lower Extremities Musculoskeletal: Positive: Normal, Strength/ROM Intact Neurological: Positive: Speech Normal Psychiatric: Positive: Anxious - Patient appears very anxious and appears to be hyperventilating Diagnostics - Vital Signs Vital Signs Temp Pulse Resp BP Pulse Ox 02/14/19 09:23 98.0 F 113 20 133/105 97 - Laboratory Lab Results: Lab Results 02/14/19 02/14/19 02/14/19 Range/Units 09:38 09:38 09:38 WBC 6.0 (3.5-10.8) 10^3/uL RBC 4.38 (3.70-4.87) 10^6 /uL Hgb 12.6 (12.0-16.0) g/dL Hct 38 (33-41) % MCV 87 (80-97) fL MCH 29 (27-31) pg MCHC 33 (31-36) g/dL RDW 14 (10.5-15) % Plt Count 228 (150-450) 10^3/uL MPV 7.9 (7.4-10.4) fL Neut % (Auto) 61.2 % Lymph % (Auto) 24.7 % [place] % (Auto) 10.0 % Eos % (Auto) 3.5 % Baso % (Auto) 0.6 % Absolute Neuts (auto) 3.7 (1.5-7.7) 10^3/ul Absolute Lymphs (auto) 1.5 (1.0-4.8) 10^3/ul Absolute Monos (auto) 0.6 (0-0.8) 10^3/ul Absolute Eos (auto) 0.2 (0-0.6) 10^3/ul Absolute Basos (auto) 0 (0-0.2) 10^3/ul Absolute Nucleated RBC 0 10^3/ul Nucleated RBC % 0.2 Sodium 138 (135-145) mmol/L Potassium 3.9 (3.5-5.0) mmol/L Chloride 111 (101-111) mmol/L Carbon Dioxide 21 L (22-32) mmol/L Anion Gap 6 (2-11) mmol/L BUN 6 (6-24) mg/dL Creatinine 0.77 (0.51-0.95) mg/dL Est GFR ( Amer) 107.2 (>60) Est GFR (Non-Af Amer) 88.6 (>60) BUN/Creatinine Ratio 7.8 L (8-20) Glucose 156 H (70-100) mg/dL Lactic Acid 2.4 H* (0.5-2.0) mmol/L Calcium 8.7 (8.6-10.3) mg/dL Magnesium 1.8 L (1.9-2.7) mg/dL Total Bilirubin 0.30 (0.2-1.0) mg/dL AST 30 (13-39) U/L ALT 38 (7-52) U/L Alkaline Phosphatase 57 (34-104) U/L Troponin I 0.00 (<0.04) ng/mL Total Protein 6.7 (6.4-8.9) g/dL Albumin 3.6 (3.2-5.2) g/dL Globulin 3.1 (2-4) g/dL Albumin/Globulin Ratio 1.2 (1-3) Beta HCG, Quant Pending Result Diagrams: 02/14/19 09:38 02/14/19 09:38 Lab Statement: Any lab studies that have been ordered have been reviewed, and results considered in the medical decision making process. Disposition - Course Course Of Treatment: During this treatment, the patient's evaluated for shortness of breath and chest pain. The symptoms were acute onset last evening and it remained constant. She continues to take her antidepressants and anxiolytic medications. She states this feels different than her typical anxiety symptoms. She denies any OCP use, smoking history, however patient is morbidly obese. PERC score is negative. Vital signs are stable and patient is not tachycardic. She is afebrile. There is no cough or cough production noted on exam. Lungs CTA. RRR. Patient appears anxious and begins to breathe in a bag when she arrives. Labs obtained and are unremarkable including a troponin and d-dimer is negative. Lactic is 2.4. Patient is feeling improved on reexamination and is okay for discharge at this time. EKG unremarkable except for tachycardia. She will be diagnosed with anxiety. - Differential Dx - Cardiopulmonary Differential Diagnoses - Cardiopulmonary: Other - Anxiety, chest pain, short of breath - Diagnoses Provider Diagnoses: Anxiety Discharge - Sign-Out/Discharge Documenting (check all that apply): Patient Departure Patient Received Moderate/Deep Sedation with Procedure: No - Discharge Plan Condition: Stable Disposition: HOME Referrals: Radha Obrien MD [Primary Care Provider] - Additional Instructions: I believe you may have had a anxiety attack which is causing some of your shortness of breath and chest pain On exam today, there was no findings on your lab work and this was explained to you Continues take all your medications at home as scheduled Return if he develop any worsening or changing symptoms - Billing Disposition and Condition Condition: STABLE Disposition: Home
[2019-02-14 11:20] VITALS: BP 122/63
== END 2019-02-14 11:15 | disposition home or self-care (01) ==
LOC: ED 09:22
DX: F41.9 Anxiety disorder, unspecified (principal); E03.9 Hypothyroidism, unspecified; E66.3 Overweight; Z68.42 Body mass index [BMI] 45.0-49.9, adult; Z88.3 Allergy status to other anti-infective agents; R94.31 Abnormal electrocardiogram [ECG] [EKG]
CPT/HCPCS: 36415; 71046; 80053; 83605; 83735; 84484; 84702; 85025; 85379; 85610; 93005; 99282

== ENCOUNTER 2019-06-07 15:38 | Emergency (ER) | payer MEDICARE, MEDICAID ==
--- NOTE | 2019-06-07 15:44 | UC ---
Cardiac HPI - HPI Summary HPI Summary: 28 yo female presents with sharp left sided and sternal chest pain for the last hour. She tells me that she was at the [facility] exercising on a bicycle when she developed sudden onset SOB and chest pain. Pain has persisted since that time. She has not taken any medications for her symptoms. She feels that she cannot breathe without pain. Slightly lightheaded and dizzy. Feels nauseous. - History of Current Complaint Stated Complaint: CHEST PAIN Time Seen by Provider: 06/07/19 15:44 Hx Obtained From: Patient Hx Last Menstrual Period: unsure Onset/Duration: Sudden Onset Initial Severity: Severe Current Severity: Severe Pain Intensity: 10 - Allergy/Home Medications Allergies/Adverse Reactions: Allergies Allergy/AdvReac Type Severity Reaction Status Date / Time amoxicillin [From Augmentin] Allergy Rash Verified 06/07/19 15:54 clavulanic acid Allergy Rash Verified 06/07/19 15:54 [From Augmentin] PMH/Surg Hx/FS Hx/Imm Hx Psychological History: Anxiety, Depression, Bipolar Disorder Other History Of: Negative For: Anticoagulant Therapy - Surgical History Surgical History: None Surgery Procedure, Year, and Place: none - Family History Known Family History: Positive: Cardiac Disease, Respiratory Disease, Other - pos: depression Negative: Hypertension - Social History Lives: With Family Alcohol Use: None Substance Use Type: None Smoking Status (MU): Never Smoked Tobacco Amount Used/How Often: pt does not and has never used tobacco products of any kind Have You Smoked in the Last Year: No - Immunization History Most Recent Influenza Vaccination: 08/2017 Most Recent Tetanus Shot: unknown Most Recent Pneumonia Vaccination: never Review of Systems All Other Systems Reviewed And Are Negative: Yes Constitutional: Positive: Negative Skin: Positive: Negative Eyes: Positive: Negative ENT: Positive: Negative Respiratory: Positive: Shortness Of Breath Cardiovascular: Positive: Chest Pain Gastrointestinal: Positive: Nausea Genitourinary: Positive: Negative Neurovascular: Positive: Negative Neurological: Positive: Negative Psychological: Positive: Negative Physical Exam - Summary Physical Exam Summary: GENERAL: Anxious appearing. SKIN: No rashes, sores, lesions, or open wounds. NECK: Supple. Nontender. No lymphadenopathy. CHEST: CTAB. No r/r/w. No accessory muscle use CV: Tachy. Without m/r/g. Pulses intact. Cap refill <2seconds ABDOMEN: Soft. NTTP. No CVA tenderness. Bowel sounds present NEURO: Alert. PSYCH: Anxious Triage Information Reviewed: Yes Vital Signs: Vital Signs: Temp Pulse Resp BP Pulse Ox 98 F 110 18 133/73 98 06/07/19 15:51 06/07/19 15:51 06/07/19 15:51 06/07/19 15:51 06/07/19 15:51 Vital Signs Reviewed: Yes - Assessment/Plan Course Of Treatment: EKG 107bpm sinus tach. No ST changes compared to 02/14/[address] Pan. Discussed transfer to ED for further evaluation of her chest pain via EMS - pt was agreeable to this. She was given 324 ASA in the clinic and left stable via EMS. Report called to Dr. Tyler PARTIDA in the ED. - Clinical Impression Provider Diagnosis: Chest pain, SOB (shortness of breath) Discharge - Sign-Out/Discharge Documenting (check all that apply): Patient Departure All imaging exams completed and their final reports reviewed: No Studies - Discharge Plan Condition: Stable Disposition: TRANS HIGHER LVL OF CARE FAC Referrals: Radha Obrien MD [Primary Care Provider] - - Billing Disposition and Condition Condition: STABLE Disposition: Trans Higher Lvl of Care Fac
[2019-06-07] MEDS ORDERED: Aspirin 81 mg CHEW TAB* 81 MG TAB.CHEW PO ONE (15:53)
[2019-06-07 15:54] VITALS: BP 133/73
== END 2019-06-07 16:05 | disposition short-term general hospital (02) ==
LOC: UCEAST 15:38
DX: R07.9 Chest pain, unspecified (principal); R06.02 Shortness of breath; F41.9 Anxiety disorder, unspecified; F32.9 Major depressive disorder, single episode, unspecified; F31.9 Bipolar disorder, unspecified
CPT/HCPCS: 93005; 99213; A9270-GY; G0463

== ENCOUNTER 2019-06-07 16:31 | Emergency (ER) | payer MEDICARE, MEDICAID ==
--- NOTE | 2019-06-07 16:34 | ED ---
HPI Chest Pain - HPI Summary HPI Summary: The patient is a 28 y/o F arriving by ambulance to [facility] from [facility] with a chief complaint of sharp mid-sternal and left anterior CP starting around 1330 today. She reports that she went to Urgent Care after the pain developed while riding a sit-up bicycle this afternoon at [facility]. At time of onset, she was also experiencing SOB. The pain is aggravated by deep breathing and does not radiate. Pain is also worse with palpation upper extremities. She additionally c/o lightheadedness, dizziness, and nausea. The pain is still currently present and rated 9/10 in severity. She has had this pain before, but she hasnt been evaluated previously until today. At [facility], she was given ASA, and the EKG showed sinus tachycardia. No hx of blood clots in herself or her family, but mother has hx of PR at age 45. LNMP: 04/25/19 (states that it is normal for a late cycle to occur). She takes Depakote but hasnt gotten her levels checked recently. Patients medications reviewed this visit. - History of Current Complaint Hx Obtained From: Patient Hx Last Menstrual Period: [id number] Onset/Duration: Started Hours Ago - at 1500, Still Present Timing: Constant, Lasting Hours Initial Severity: Severe Current Severity: Severe Pain Intensity: 9 Pain Scale Used: 0-10 Numeric Chest Pain Location: Mid Sternal, Left Anterior Chest Pain Radiates: No Character: Sharp/Stabbing Aggravating Factor(s): Deep Breaths Alleviating Factor(s): Nothing Associated Signs and Symptoms: Positive: Chest Pain, Dizziness, Shortness of Breath, Lightheadedness, Nausea - Additional Pertinent History Primary Care Physician: [id number] - Allergy/Home Medications Allergies/Adverse Reactions: Allergies Allergy/AdvReac Type Severity Reaction Status Date / Time amoxicillin [From Augmentin] Allergy Rash Verified 06/07/19 15:54 clavulanic acid Allergy Rash Verified 06/07/19 15:54 [From Augmentin] PMH/Surg Hx/FS Hx/Imm Hx Previously Healthy: Yes Endocrine/Hematology History: Reports: Hx Thyroid Disease - hypo Denies: Hx Anticoagulant Therapy, Hx Diabetes Cardiovascular History: Denies: Hx Hypertension Respiratory History: Reports: Hx Seasonal Allergies Denies: Hx Asthma, Hx Chronic Obstructive Pulmonary Disease (COPD) GI History: Denies: Hx Gastroesophageal Reflux Disease, Hx Ulcer History: Denies: Hx Renal Disease Sensory History: Reports: Hx Contacts or Glasses - Reportedly uses contacts, unconfirmed by Pt at this time. Denies: Hx Hearing Aid Opthamlomology History: Reports: Hx Contacts or Glasses - Reportedly uses contacts, unconfirmed by Pt at this time. Neurological History: Reports: Hx Developmental Delay Psychiatric History: Reports: Hx Anxiety, Hx Attention Deficit Hyperactivity Disorder, Hx Depression, Hx Inpatient Treatment, Hx Community Mental Health Tx, Hx Suicide Attempt, Hx of Violent Episodes Against Others, Other Psychiatric Issues/Disorders - developmental delays Denies: Hx Eating Disorder - Surgical History Surgical History: None Surgery Procedure, Year, and Place: none - Immunization History Date of Influenza Vaccine: 08/2017 Infectious Disease History: Denies: Hx Clostridium Difficile, Hx Hepatitis, Hx Human Immunodeficiency Virus (HIV), Hx of Known/Suspected MRSA, Hx Shingles, Hx Tuberculosis, Hx Known/ Suspected VRE, Hx Known/Suspected VRSA, History Other Infectious Disease - Family History Known Family History: Positive: Cardiac Disease, Respiratory Disease, Other - pos: depression Negative: Hypertension - Social History Occupation: Disabled Lives: With Family Alcohol Use: None Hx Substance Use: No Substance Use Type: Reports: None Hx Tobacco Use: No Smoking Status (MU): Never Smoked Tobacco Amount Used/How Often: pt does not and has never used tobacco products of any kind Have You Smoked in the Last Year: No Review of Systems Positive: Chest Pain - mid-sternal, left anterior Positive: Shortness Of Breath Positive: Vomiting - one episode secondary to anxiety, Nausea Neurological: Other - lightheaded, dizzy All Other Systems Reviewed And Are Negative: Yes Physical Exam - Summary Physical Exam Summary: Vital Signs Reviewed: Yes A+Ox3, holding chest, mild anxious Eyes: Conjunctiva Clear, RITA. EOM intact and full ENT: Hearing grossly normal TM x 2 clear, mmoist, uvula midline, no exudate, no erythema Neck: Positive: Supple, no bruits Respiratory: Positive: No respiratory distress, No accessory muscle use + CTA throughout no w/r Cardiovascular: tachycardia,regular nl s1, s2 no m/r CBT <2 sec, reproducible chest wall pain along left sternal border- pt states same pain abd soft + BS nt/nd no guarding, no distension Musculoskeletal Exam: PARADA x 4 without difficulty Strength Intact, ROM Intact pain in anterior left sternal border with ROM upper ext Neurological: Positive: Alert, + sensation throughout Psychological: Positive: Normal Response To examiner Skin: Positive: no rash, no ecchymosis Triage Information Reviewed: Yes Vital Signs Reviewed: Yes Diagnostics - Laboratory Result Diagrams: 06/07/19 17:05 06/07/19 17:05 Lab Statement: Any lab studies that have been ordered have been reviewed, and results considered in the medical decision making process. - Radiology CXR Radiology Interpretation Completed By: Radiologist Summary of Radiographic Findings: Impression: Probable small inflammatory infiltrate at the LEFT lung base. ED physician has reviewed this radiology report. - EKG 1639 Cardiac Rate: Tachycardia - 106 bpm EKG Rhythm: Sinus Tachycardia Summary of EKG Findings: No acute ST or T-wave changes. No STEMI. Re-Evaluation - Re-Evaluation First Eval Re-Evaluation Time: 17:35 Comment: She is doing markedly better, pain is almost gone. She is requesting juice. We discussed labs and CXR. will give abx given CXR. will give APAP HR improved 100 Second Eval Re-Evaluation Time: 17:55 Comment: Patient is pain-free, no SOB at this time, states ready to go home. reviewed TSH with pt - will add T4, T3 - will f/u with pcp 5-7 pt in agreement with plan She drank all of her juice. She feels ready to go home. Rx Doxy Chest Pain Course/Dx - Course Course Of Treatment: Patient presents to the emergency department by EMS urgent care. Patient is a 28-year-old female with a history of anxiety, depression who presents with chest pain that started while she was exercising at the gym. Patient states she was on a pedal bike when it started. Patient states pain is worse with movement and deep breaths prepay states initially she felt short of breath now less so. No trauma. No nausea vomiting. Patient with a mild cough earlier this week that has improved. Nonproductive. No fevers or chills. Patient vital signs show mild tachycardia. Patient's pain is reproducible on the chest wall. EKG here shows sinus tach without acute changes. We'll check labs including troponin and d-dimer. We'll give patient some Toradol. We'll continue to monitor. Patient comfortable in agreement with plan. - Diagnoses Provider Diagnoses: Chest wall pain, Pneumonia Discharge - Sign-Out/Discharge Documenting (check all that apply): Patient Departure - Patient will be discharged home. Patient Received Moderate/Deep Sedation with Procedure: No - Discharge Plan Condition: Stable Disposition: HOME Prescriptions: DOXYcycline CAP(*) [DOXYcycline 100MG CAP(*)] 100 mg PO BID #20 cap Patient Education Materials: Pneumonia (ED), Chest Wall Pain (ED) Referrals: Radha Obrien MD [Primary Care Provider] - Additional Instructions: As discussed, your chest radiograph suggested a possible early pneumonia - you were started on an antibiotic As discussed, your blood work suggests over active thyroid activity - It is recommended you follow-up with your primary care provider - you had additionally blood work to evaluate your thyroid ordered at today's visit. - stay well hydrated. Drink plenty of non-alcoholic, non-caffinated beverages - take antibiotics 2 times a day as prescribed until gone - alternate ibuprofen (Advil, Motrin) and tylenol every 3hours for pain. Take with food. Do not take for more than 4-5 days - Contact your doctor to schedule a follow-up appointment in the next 5-7 days. - Billing Disposition and Condition Condition: STABLE Disposition: Home - Attestation Statements Document Initiated by Randi: Yes Documenting Scribe: Brianna Robertson Provider For Whom Randi is Documenting (Include Credential): Dr. Silva Scott MD Scribe Attestation: Brianna Kulkarni scribed for Dr. Silva Scott MD on 06/07/19 at 1822. Scribe Documentation Reviewed: Yes Provider Attestation: The documentation as recorded by the Brianna jordan accurately reflects the service I personally performed and the decisions made by me, Dr. Silva Scott MD Status of Scribmeredith Document: Viewed
[2019-06-07] MEDS ORDERED: NS 0.9% 1000 ML** 1,000 ML IV ONE (16:49)
[2019-06-07] MEDS ORDERED: Ketorolac INJ* 30 MG/ML 1 ML VIAL IV PUSH ONE (16:54)
[2019-06-07 17:17] LABS: ABS Basophils 0.1 10^3/ul (0-0.2); ABS Eosinophils 0.3 10^3/ul (0-0.6); ABS Lymphocytes 1.9 10^3/ul (1.0-4.8); ABS Monocytes 0.7 10^3/ul (0-0.8); Eosinophil % 3.6 %; Hematocrit 40 % (35-47); Hemoglobin 13.9 g/dL (12.0-16.0); Lymphocyte % 21.4 %; Mean Corpuscular HGB Conc 35 g/dL (31-36); Mean Corpuscular Hemoglobin 29 pg (27-31); Mean Corpuscular Volume 85 fL (80-97); Mean Platelet Volume 8.4 fL (7.4-10.4); Nucleated Red Blood Cells % 0.1; Platelet Count 258 10^3/uL (150-450); Red Blood Count 4.72 10^6 /uL (3.70-4.87); Red Cell Distribution Width 15 % (10-15)
[2019-06-07 17:17] LABS: Urine Appearance Clear; Urine Bilirubin Negative (Negative); Urine Blood Negative (Negative); Urine Color Yellow; Urine Glucose Negative (Negative); Urine Ketones Negative (Negative); Urine Nitrite Negative (Negative); Urine Protein Negative (Negative); Urine Specific Gravity 1.012 (1.010-1.030); Urine Urobilinogen Negative (Negative)
[2019-06-07 17:37] LABS: ALT 67 U/L (7-52); AST 43 U/L (13-39); Albumin 4.1 g/dL (3.2-5.2); Albumin/Globulin Ratio 1.4 (1-3); Alkaline Phosphatase 74 U/L (34-104); Anion Gap 9 mmol/L (2-11); BUN/Creatinine Ratio 8.1 (8-20); Blood Urea Nitrogen 7 mg/dL (6-24); CO2 Carbon Dioxide 22 mmol/L (22-32); Calcium 9.6 mg/dL (8.6-10.3); Chloride 107 mmol/L (101-111); EGFR African American 94.4 (>60); Globulin 2.9 g/dL (2-4); Glucose 106 mg/dL (70-100); Potassium 3.7 mmol/L (3.5-5.0); Sodium 138 mmol/L (135-145)
[2019-06-07] MEDS ORDERED: Acetaminophen TAB* 325 MG PO ONE (17:40)
[2019-06-07 17:43] LABS: HCG Pregnancy < 0.60 mIU/mL
[2019-06-07] MEDS ORDERED: DOXYcycline CAP(*) 100 MG PO ONE (17:57)
[2019-06-07 18:02] LABS: TSH (Thyroid Stimulating Horm) 6.51 mcIU/mL (0.34-5.60)
[2019-06-07 18:18] VITALS: BP 117/87
[2019-06-07 18:46] LABS: T4, Total 8.52 mcg/dL (6.09-12.23)
[2019-06-07 18:52] LABS: Free T4 0.92 ng/dL (0.61-1.12)
== END 2019-06-07 18:18 | disposition home or self-care (01) ==
LOC: ED 16:31
DX: J18.9 Pneumonia, unspecified organism (principal); R07.89 Other chest pain; E03.9 Hypothyroidism, unspecified; F41.9 Anxiety disorder, unspecified; F90.9 Attention-deficit hyperactivity disorder, unspecified type; F32.9 Major depressive disorder, single episode, unspecified; Z88.1 Allergy status to other antibiotic agents; Z88.0 Allergy status to penicillin; Z79.899 Other long term (current) drug therapy
CPT/HCPCS: 36415; 71045; 80053; 80164; 81003; 84436; 84439; 84443; 84479; 84484; 84702; 85025; 85379; 93005; 96361; 96374; 99213; 99284; A9270-GY; G0463; J1885

== ENCOUNTER 2019-07-05 15:58 | Emergency (ER) | payer MEDICARE, MEDICAID ==
[2019-07-05 16:08] VITALS: BP 113/92
--- NOTE | 2019-07-05 16:09 | UC ---
Lower Extremity/Ankle HPI - HPI Summary HPI Summary: 28 yo female presents with RIGHT foot injury. She tells me that earlier today she was working and tripped in a pot hole, rolling her right ankle and foot. Since that time has had pain with ambulation and weight bearing. She has not taken anything OTC for her discomfort. Denies numbness or tingling. - History of Current Complaint Chief Complaint: UCLowerExtremity Stated Complaint: ANKLE INJURY Time Seen by Provider: 07/05/19 16:08 Hx Obtained From: Patient Hx Last Menstrual Period: april 252018 irregular Onset/Duration: Sudden Onset Severity Initially: Severe Severity Currently: Severe Pain Intensity: 10 Pain Scale Used: 0-10 Numeric - Allergies/Home Medications Allergies/Adverse Reactions: Allergies Allergy/AdvReac Type Severity Reaction Status Date / Time amoxicillin [From Augmentin] Allergy Rash Verified 07/05/19 16:08 clavulanic acid Allergy Rash Verified 07/05/19 16:08 [From Augmentin] PMH/Surg Hx/FS Hx/Imm Hx - Additional Past Medical History Additional PMH: ADHD Bipolar Psychological History: Depression Other History Of: Negative For: Anticoagulant Therapy - Surgical History Surgical History: None Surgery Procedure, Year, and Place: none - Family History Known Family History: Positive: Cardiac Disease, Respiratory Disease, Other - pos: depression Negative: Hypertension - Social History Lives: With Family Alcohol Use: None Substance Use Type: None Smoking Status (MU): Never Smoked Tobacco Amount Used/How Often: pt does not and has never used tobacco products of any kind Have You Smoked in the Last Year: No - Immunization History Most Recent Influenza Vaccination: 08/2017 Most Recent Tetanus Shot: unknown Most Recent Pneumonia Vaccination: never Review of Systems All Other Systems Reviewed And Are Negative: No Constitutional: Positive: Negative Skin: Positive: Negative Respiratory: Positive: Negative Cardiovascular: Positive: Negative Neurovascular: Positive: Negative Musculoskeletal: Positive: Other: - Right ankle pain Neurological: Positive: Negative Psychological: Positive: Negative Physical Exam - Summary Physical Exam Summary: GENERAL: NAD. WDWN. No pain distress. SKIN: No rashes, sores, lesions, or open wounds. CHEST: No accessory muscle use. Breathing comfortably and in no distress. CV: Pulses intact PT and DP. Cap refill <2seconds MSK: RIGHT ANKLE: Slight TTP about entire ankle. FROM. Strength 5/5. No edema or obvious bony deformities. RIGHT FOOT: Mild TTP about dorsal midfoot. Moves all toes without pain NEURO: Alert. Sensations intact and symmetric B/L LEs PSYCH: Age appropriate behavior. Triage Information Reviewed: Yes Vital Signs: Initial Vital Signs Temp 97.3 F 07/05/19 16:04 Pulse 123 07/05/19 16:04 Resp 20 07/05/19 16:04 BP 113/92 07/05/19 16:04 Pulse Ox 99 07/05/19 16:04 Vital Signs Reviewed: Yes Diagnostics - Radiology XR ankle Radiology Interpretation Completed By: Radiologist Summary of Radiographic Findings: IMPRESSION: NO ACUTE OSSEOUS INJURY. IF SYMPTOMS PERSIST, RECOMMEND REPEAT IMAGING. XR foot Radiology Interpretation Completed By: Radiologist Summary of Radiographic Findings: IMPRESSION: NO ACUTE OSSEOUS INJURY. IF SYMPTOMS PERSIST, RECOMMEND REPEAT IMAGING. Lower Extremity Course/Dx - Course Course Of Treatment: XRs as above. Suspect foot sprain. Pt was given ibuprofen in the clinic and placed in an CASEY wrap and provided with crutches for comfort. Advised to RICE and f/u with Ortho if symptoms do not improve. - Differential Dx/Diagnosis Provider Diagnosis: Foot sprain Discharge ED - Sign-Out/Discharge Documenting (check all that apply): Patient Departure All imaging exams completed and their final reports reviewed: Yes - Discharge Plan Condition: Stable Disposition: HOME Patient Education Materials: Foot Sprain (ED) Forms: *Work Release Referrals: Radha Obrien MD [Primary Care Provider] - Additional Instructions: If you develop a fever, shortness of breath, chest pain, new or worsening symptoms - please call your PCP or go to the ED immediately. 1) Rest, Ice, and elevate your foot intermittently throughout the day to reduce pain 2) Use the crutches as needed for comfort - Billing Disposition and Condition Condition: STABLE Disposition: Home
[2019-07-05] MEDS ORDERED: Ibuprofen TAB* 600 MG PO ONE (16:54)
== END 2019-07-05 17:41 | disposition home or self-care (01) ==
LOC: UCEAST 15:58
DX: S93.601A Unspecified sprain of right foot, initial encounter (principal); W18.30XA Fall on same level, unspecified, initial encounter; Y92.9 Unspecified place or not applicable; F90.9 Attention-deficit hyperactivity disorder, unspecified type; F32.9 Major depressive disorder, single episode, unspecified
CPT/HCPCS: 99213; A9270-GY; G0463

== ENCOUNTER 2019-08-18 16:24 | Inpatient (IN) | payer MEDICARE, MEDICAID ==
[2019-08-18 16:56] LABS: Urine Appearance Cloudy; Urine Bilirubin Negative (Negative); Urine Blood Negative (Negative); Urine Color Yellow; Urine Glucose Negative (Negative); Urine Ketones Negative (Negative); Urine Nitrite Negative (Negative); Urine Protein Negative (Negative); Urine Specific Gravity 1.013 (1.010-1.030); Urine Urobilinogen Negative (Negative)
[2019-08-18 17:17] LABS: ABS Eosinophils 0.4 10^3/ul (0-0.6); ABS Lymphocytes 2.2 10^3/ul (1.0-4.8); ABS Monocytes 0.5 10^3/ul (0-0.8); ABS Neutrophils 5.9 10^3/ul (1.5-7.7); Eosinophil % 4.1 %; Hematocrit 38 % (35-47); Hemoglobin 12.9 g/dL (12.0-16.0); Lymphocyte % 24.7 %; Mean Corpuscular HGB Conc 34 g/dL (31-36); Mean Corpuscular Hemoglobin 29 pg (27-31); Mean Corpuscular Volume 83 fL (80-97); Mean Platelet Volume 8.4 fL (7.4-10.4); Platelet Count 282 10^3/uL (150-450); Red Blood Count 4.51 10^6 /uL (3.70-4.87); Red Cell Distribution Width 14 % (10-15)
[2019-08-18 17:25] LABS: Urine Benzodiazepine Screen None Detected (None Detect); Urine Opiates Screen None Detected (None Detect)
[2019-08-18 17:31] LABS: ALT 32 U/L (7-52); AST 24 U/L (13-39); Acetaminophen < 15 mcg/mL; Albumin 4.1 g/dL (3.2-5.2); Albumin/Globulin Ratio 1.3 (1-3); Alcohol < 10 mg/dL (<10); Alkaline Phosphatase 65 U/L (34-104); Anion Gap 9 mmol/L (2-11); BUN/Creatinine Ratio 7.9 (8-20); Blood Urea Nitrogen 7 mg/dL (6-24); CO2 Carbon Dioxide 20 mmol/L (22-32); Calcium 9.5 mg/dL (8.6-10.3); Chloride 109 mmol/L (101-111); EGFR African American 90.7 (>60); Globulin 3.1 g/dL (2-4); Glucose 88 mg/dL (70-100); Potassium 3.7 mmol/L (3.5-5.0); Salicylate < 2.50 mg/dL (<30); Sodium 138 mmol/L (135-145); Total Protein 7.2 g/dL (6.4-8.9)
[2019-08-18 17:53] LABS: TSH (Thyroid Stimulating Horm) 3.75 mcIU/mL (0.34-5.60)
--- OUTSIDE RECORDS SUMMARY | 2019-08-18 17:57 | XMS REPORT | Summary of Care ---
:1990 Author Organization [facility] Address [address] [facility] [facility] [place] [address] Care Team Providers Name Role Phone Radha Obrien Primary Care Provider Reason for Visit Reason Comments Other Pt c/o increased anxiety and mood swings, unable to see doctor at mental health currently there is not one available per pt. Encounter Details Date Type Department Care Team Description 07/26/2019 Office Visit [facility] Benitez, Liamgo (Primary Dx ); Practice [facility] Hypothyroidism, unspecified type; [address] [place] [address] Anxiety and depression; [place] [address] [place] [address] Nasal congestion [phone] Allergies Active Allergy Reactions Severity Noted Date Comments Augmentin Rash, GI Reaction 08/24/2018 documented as of this encounter (statuses as of 07/26/2019) Medications Medication Sig Dispensed Refills Start End Date Status Date chlorhexidine 15 mL by 0 Active gluconate (PERIDEX) Mouth/Throat 0.12 % Mouth/Throat route TWICE Solution DAILY. Emollient by Apply 0 Active (AQUAPHOR) Apply externally externally Ointment route. hydrocortisone by Topical 0 Active (HYTONE) 1 % Apply route THREE externally Cream TIMES DAILY. divalproex sodium Take 500 mg by 0 Active (DEPAKOTE) 500 MG mouth THREE Oral Tab EC TIMES DAILY. Triamcinolone Brohard in nose. 0 Active Acetonide (NASACORT ALLERGY 24HR) 55 MCG/ACT Nasal Aerosol venlafaxine Take 150 mg by 0 Active (EFFEXOR XR) 150 MG mouth. Oral CAPSULE SR 24 HR hydrOXYzine HCL Take 25 mg by 0 Active (ATARAX) 25 MG Oral mouth THREE Tab TIMES DAILY NEEDED. mirtazapine Take 15 mg by 0 Active (REMERON) 15 MG mouth EVERY Oral Tab BEDTIME. triamcinolone Apply to rash 80 g 0 Active (KENALOG,ARISTOCORT on inner elbows 8 ) 0.1 % Apply and between externally breasts twice a CreamIndications: day for 2 weeks Eczema, unspecified then as needed type for rash Levothyroxine Take 25 mcg by 30 Cap 0 Active Sodium 25 MCG Oral mouth DAILY. 9 Cap benzonatate Take 1 Cap by 30 Cap 0 Active (TESSALON PERLES) mouth THREE 9 100 MG Oral TIMES DAILY CapIndications: NEEDED for Cough cough. Ferrous Sulfate 325 Take 1 Tab by 30 Tab 1 Active (65 Fe) MG Oral Tab mouth DAILY. 9 EC risperidone Take 1 Tab by 60 Tab 0 Active (RISPERDAL) 1 MG mouth TWICE 9 Oral DAILY. TabIndications: Anxiety and depression Topiramate Take 1 Tab by 60 Tab 0 Active (TOPAMAX) 50 MG mouth TWICE 9 Oral DAILY. TabIndications: Anxiety and depression fexofenadine Take 1 Tab by 30 Tab 5 Active (PRETTY ALLERGY) mouth DAILY. 9 180 MG Oral TabIndications: Nasal congestion mupirocin Apply to sores 30 g 2 Active (BACTROBAN) 2 % at nose and 9 Apply externally forehead 3 OintmentIndications times a day for : Impetigo a week fexofenadine Take 1 Tab by 30 Tab 5 07/26/20 Discontinued (PRETTY ALLERGY) mouth DAILY. 8 19 (Reorder) 180 MG Oral Tab documented as of this encounter (statuses as of 07/26/2019) Active Problems Problem Noted Date Tendinitis of right wrist 09/15/2018 Eczema 09/08/2018 Seborrheic dermatitis of scalp ADHD Allergic rhinitis Hypothyroidism documented as of this encounter (statuses as of 07/26/2019) Immunizations Name Administration Dates Next Due Human Papillomavirus 05/30/2016, 01/29/2016, 10/04/2015 Influenza (IM) Preservative Free 09/08/2018 TDAP Vaccine 08/28/2017 documented as of this encounter Social History Tobacco Use Types Packs/Day Years Used Date Never Smoker Smokeless Tobacco: Never Used Alcohol Use Drinks/Week oz/Week Comments No Sex Assigned at Date Recorded Not on file Job Start Date Occupation Industry Not on file Not on file Not on file Travel History Travel Start Travel End No recent travel history available. documented as of this encounter Last Filed Vital Signs Vital Sign Reading Time Taken Comments Blood Pressure 124/86 07/26/2019 2:21 PM EDT Pulse 80 07/26/2019 2:21 PM EDT Temperature - - Respiratory Rate - - Oxygen Saturation - - Inhaled Oxygen Concentration - - Weight 123.4 kg (272 lb) 07/26/2019 2:21 PM EDT Height 164.5 cm (5' 4.75") 07/26/2019 2:21 PM EDT Body Mass Index 45.61 07/26/2019 2:21 PM EDT documented in this encounter Patient Instructions Patient InstructionsTaylor Teresa FNP - 07/26/2019 3:00 PM EDTRestart Pretty Bactroban as directed to sores Frequent hand washing Call [facility] about anxiety documented in this encounter Progress Notes Taylor Teresa FNP - 07/26/2019 3:00 PM EDT PATIENT: Lyndsey Can : 1990 DATE OF SERVICE: 07/26/2019 CHIEF COMPLAINT: Chief Complaint Patient presents with Other Pt c/o increased anxiety and mood swings, unable to see doctor at mental health currently there isnot one available per pt. Subjective HISTORY OF PRESENT ILLNESS: Lyndsey Can is a 28-y.o. female. HPI Sores on nose x 2 days Increased nasal congestion - not taking Pretty Increased anxiety - pt states no counselor at [facility] , still gets meds there Past Medical History: Diagnosis Date ADHD Allergic rhinitis Eczema Hypothyroidism Mental retardation Seborrheic dermatitis of scalp Sleep apnea auto CPAP Family History Problem Relation Age of Onset Heart Mother No Known Problems Father No Known Problems Sister No Known Problems Brother Anesth Problems No family history Arthritis No family history Cancer No family history Clotting Disorder No family history Diabetes No family history Heart Disease No family history Hypertension No family history Kidney Disease No family history Thyroid Disease No family history Current Outpatient Medications Medication Sig benzonatate (TESSALON PERLES) 100 MG Oral Cap Take 1 Cap by mouth THREE TIMES DAILY NEEDEDfor cough. chlorhexidine gluconate (PERIDEX) 0.12 % Mouth/Throat Solution 15 mL by Mouth/Throat route TWICE DAILY. divalproex sodium (DEPAKOTE) 500 MG Oral Tab EC Take 500 mg by mouth THREE TIMES DAILY. Emollient (AQUAPHOR) Apply externally Ointment by Apply externally route. Ferrous Sulfate 325 (65 Fe) MG Oral Tab EC Take 1 Tab by mouth DAILY. fexofenadine (PRETTY ALLERGY) 180 MG Oral Tab Take 1 Tab by mouth DAILY. hydrocortisone (HYTONE) 1 % Apply externally Cream by Topical route THREE TIMES DAILY. hydrOXYzine HCL (ATARAX) 25 MG Oral Tab Take 25 mg by mouth THREE TIMES DAILY NEEDED. Levothyroxine Sodium 25 MCG Oral Cap Take 25 mcg by mouth DAILY. mirtazapine (REMERON) 15 MG Oral Tab Take 15 mg by mouth EVERY BEDTIME. mupirocin (BACTROBAN) 2 % Apply externally Ointment Apply to sores at nose and forehead 3 times a day for a week risperidone (RISPERDAL) 1 MG Oral Tab Take 1 Tab by mouth TWICE DAILY. Topiramate (TOPAMAX) 50 MG Oral Tab Take 1 Tab by mouth TWICE DAILY. triamcinolone (KENALOG,ARISTOCORT) 0.1 % Apply externally Cream Apply to rash on inner elbowsand between breasts twice a day for 2 weeks then as needed for rash Triamcinolone Acetonide (NASACORT ALLERGY 24HR) 55 MCG/ACT Nasal Aerosol Brohard in nose. venlafaxine (EFFEXOR XR) 150 MG Oral CAPSULE SR 24 HR Take 150 mg by mouth. No current facility-administered medications for this visit. Allergies Allergen Reactions Augmentin Rash and GI Reaction Social History Socioeconomic History Marital status: Single Spouse name: Not on file Number of children: Not on file Years of education: Not on file Highest education level: Not on file Occupational History Not on file Social Needs Financial resource strain: Not on file Food insecurity: Worry: Not on file Inability: Not on file Transportation needs: Medical: Not on file Non-medical: Not on file Tobacco Use Smoking status: Never Smoker Smokeless tobacco: Never Used Substance and Sexual Activity Alcohol use: No Drug use: No Sexual activity: Never control/protection: Pill Lifestyle Physical activity: Days per week: Not on file Minutes per session: Not on file Stress: Not on file Relationships Social connections: Talks on phone: Not on file Gets together: Not on file Attends gnosticist service: Not on file Active member of club or organization: Not on file Attends meetings of clubs or organizations: Not on file Relationship status: Not on file Intimate partner violence: Fear of current or ex partner: Not on file Emotionally abused: Not on file Physically abused: Not on file Forced sexual activity: Not on file Other Topics Concern Back Care Not Asked Bike Helmet Not Asked Blood Transfusions Not Asked Caffeine Concern Not Asked Exercise Not Asked Hobby Hazards Not Asked International Travel Not Asked Service Not Asked Occupational Exposure Not Asked Seat Belt Yes Self-Exams Not Asked Sleep Concern Not Asked Special Diet Not Asked Stress Concern Not Asked Weight Concern Not Asked Social History Narrative Not on file REVIEW OF SYSTEMS: Review of Systems Constitutional: Positive for malaise/fatigue. Negative for chills and fever. HENT: Positive for congestion. Negative for ear pain. Respiratory: Positive for cough. Skin: Positive for rash. Negative for itching. Psychiatric/Behavioral: Positive for depression. Negative for hallucinations, substance abuse and suicidal ideas. The patient is nervous/anxious. Objective PHYSICAL EXAM: VITALS: BP 124/86 | Pulse 80 | Ht 5' 4.75" (1.645 m) | Wt 272 lb (123.4 kg) | BMI 45.61 kg/m Body mass index is 45.61 kg/m. Physical Exam Vitals signs reviewed. Constitutional: Appearance: Normal appearance. HENT: Right Ear: Tympanic membrane normal. Left Ear: Tympanic membrane normal. Nose: Congestion and rhinorrhea present. No mucosal edema. Eyes: Pupils: Pupils are equal, round, and reactive to light. Neck: Musculoskeletal: Normal range of motion. Cardiovascular: Rate and Rhythm: Normal rate and regular rhythm. Pulmonary: Effort: Pulmonary effort is normal. Breath sounds: Normal breath sounds. Lymphadenopathy: Cervical: No cervical adenopathy. Neurological: Mental Status: She is alert and oriented to person, place, and time. Psychiatric: Mood and Affect: Mood is not anxious or depressed. Behavior: Behavior is cooperative. Comments: Advised pt I can not change medications Rx by Psych - she will need to call [facility] ASSESSMENT / IMPRESSION: ICD-9-CM ICD-10-CM 1. Impetigo 684 L01.00 mupirocin (BACTROBAN) 2 % Apply externally Ointment 2. Hypothyroidism, unspecified type 244.9 E03.9 THYROID STIMULATING HORMONE 3. Anxiety and depression 300.00 F41.9 risperidone (RISPERDAL) 1 MG Oral Tab 311 F32.9 Topiramate (TOPAMAX) 50 MG Oral Tab 4. Nasal congestion 478.19 R09.81 fexofenadine (PRETTY ALLERGY) 180 MG Oral Tab Plan Restart Pretty Bactroban as directed to sores Frequent hand washing Call Mental Health about anxiety Author: KERRI Huynh 07/26/2019 14:44 documented in this encounter Plan of Treatment Name Type Priority Associated Diagnoses Order Schedule THYROID STIMULATING Lab Routine Hypothyroidism, Expected: 07/26/2019 HORMONE unspecified type (Approximate), Expires: 01/22/2020 Health Maintenance Due Date Last Done Comments MEDICARE ANNUAL WELLNESS VISIT 1990 DEPRESSION SCREENING 2001 PAP SMEAR 10/04/2018 10/04/2015 INFLUENZA VACCINE (#1) 2019 09/08/2018 HPV IMMUNIZATION SERIES Completed 05/30/2016, 01/29/2016, 10/04/2015 MENINGOCOCCAL VACCINE IMM Aged Out No longer eligible based on patient's age to complete this topic PNEUMOCOCCAL 0-64 YRS Aged Out No longer eligible based on patient's age to complete this topic documented as of this encounter Results Not on filedocumented in this encounter Visit Diagnoses Diagnosis Impetigo - Primary Hypothyroidism, unspecified type Anxiety and depression Dysthymic disorder Nasal congestion Other diseases of nasal cavity and sinuses documented in this encounter Insurance Payer Benefit Plan / Subscriber ID Effective Dates Phone Address Type Group MEDICARE MEDICARE PART A xxxxxxxxxxx 2014-Present Medicare & B MEDICAID [facility] xxxxxxxx 2018-Present Medicaid [place] documented as of this encounter
[2019-08-18] MEDS ORDERED: Haloperidol TAB* 2 MG PO ONE (18:29)
[2019-08-18] MEDS ORDERED: LORazepam TAB(*) 1 MG PO ONE ×2 (18:29→19:36)
--- NOTE | 2019-08-18 19:04 | ED ---
Psychiatric Complaint - HPI Summary HPI Summary: Pt is a 28 y/o F presenting to the ED via police on a code 941 for a psychiatric complaint. Pt was found by police banging her head on a window on the bus. Pt states she has a plan to stab herself using a knife. Per medical records, pt has had similar symptoms around the same time each year. Pt denies any fever, chills, erythema of eyes, sore throat, CP, SOB, cough, abdominal pain , N/V, dysuria, hematuria, myalgia, edema, rash, or dizziness. Pt has been to the ED for similar symptoms in the past. Medications reviewed. - History Of Current Complaint Chief Complaint: ED[facility]entalHealth Time Seen by Provider: 08/18/19 16:27 Hx Obtained From: Patient, Medical Records Hx Last Menstrual Period: april 252018 irregular Onset/Duration: Sudden Onset, Still Present Timing: Constant Severity Initially: Moderate Severity Currently: Moderate Aggravating Factor(s): Nothing Alleviating Factor(s): Nothing Associated Signs And Symptoms: Positive: Negative Has Suicidal: Reports: Thoughts, With A Plan - Allergies/Home Medications Allergies/Adverse Reactions: Allergies Allergy/AdvReac Type Severity Reaction Status Date / Time amoxicillin [From Augmentin] Allergy Rash Verified 08/18/19 22:47 clavulanic acid Allergy Rash Verified 08/18/19 22:47 [From Augmentin] Home Medications: Home Medications Mirtazapine TAB* [Remeron TAB*] 15 mg PO BEDTIME 08/18/19 [History Confirmed ] Topiramate TAB(*) [Topamax 25 MG tab] 25 mg PO BID 08/18/19 [History Confirmed 08/18/19] risperiDONE TAB* [RisperDAL*] 1 mg PO BID 08/18/19 [History Confirmed 08/18/19] PMH/Surg Hx/FS Hx/Imm Hx Previously Healthy: Yes Endocrine/Hematology History: Reports: Hx Thyroid Disease - hypo Denies: Hx Anticoagulant Therapy, Hx Diabetes Cardiovascular History: Denies: Hx Hypertension Respiratory History: Reports: Hx Seasonal Allergies Denies: Hx Asthma, Hx Chronic Obstructive Pulmonary Disease (COPD) GI History: Denies: Hx Gastroesophageal Reflux Disease, Hx Ulcer History: Denies: Hx Renal Disease Sensory History: Reports: Hx Contacts or Glasses - Reportedly uses contacts, unconfirmed by Pt at this time. Denies: Hx Hearing Aid Opthamlomology History: Reports: Hx Contacts or Glasses - Reportedly uses contacts, unconfirmed by Pt at this time. Neurological History: Reports: Hx Developmental Delay Psychiatric History: Reports: Hx Anxiety, Hx Attention Deficit Hyperactivity Disorder, Hx Depression, Hx Inpatient Treatment, Hx Community Mental Health Tx, Hx Suicide Attempt, Hx of Violent Episodes Against Others, Other Psychiatric Issues/Disorders - developmental delays Denies: Hx Eating Disorder - Surgical History Surgical History: None Surgery Procedure, Year, and Place: none - Immunization History Date of Influenza Vaccine: 08/2017 Infectious Disease History: No Infectious Disease History: Denies: Hx Clostridium Difficile, Hx Hepatitis, Hx Human Immunodeficiency Virus (HIV), Hx of Known/Suspected MRSA, Hx Shingles, Hx Tuberculosis, Hx Known/ Suspected VRE, Hx Known/Suspected VRSA, History Other Infectious Disease, Traveled Outside the [place] in Last 30 Days - Family History Known Family History: Positive: Cardiac Disease, Respiratory Disease, Other - pos: depression Negative: Hypertension - Social History Alcohol Use: None Hx Substance Use: No Substance Use Type: Reports: None Hx Tobacco Use: No Smoking Status (MU): Never Smoked Tobacco Amount Used/How Often: pt does not and has never used tobacco products of any kind Have You Smoked in the Last Year: No Review of Systems Negative: Fever, Chills Negative: Erythema Negative: Sore Throat Negative: Chest Pain Negative: Shortness Of Breath, Cough Negative: Abdominal Pain, Vomiting, Nausea Negative: dysuria, hematuria Negative: Myalgia, Edema Negative: Rash Neurological: Other - Negative dizziness Positive: Other - Positive SI and self-harm All Other Systems Reviewed And Are Negative: Yes Physical Exam - Summary Physical Exam Summary: General: Well appearing, no distress, agitated, pressured speech, obese Cardiovascular: Skin is well perfused Pulmonary: No respiratory distress, no tachypnea Abdomen: Non-distended Skin: Warm, pink, dry Psych: Normal affect Neuro: A&Ox3 Triage Information Reviewed: Yes Vital Signs On Initial Exam: Initial Vitals Temp Pulse Resp BP Pulse Ox 98.6 F 123 18 131/87 97 08/18/19 16:38 08/18/19 16:38 08/18/19 16:38 08/18/19 16:38 08/18/19 16:38 Vital Signs Reviewed: Yes Procedures - Sedation Patient Received Moderate/Deep Sedation with Procedure: No Diagnostics - Vital Signs Vital Signs Temp Pulse Resp BP Pulse Ox 08/18/19 18:38 20 08/18/19 16:38 98.6 F 123 18 131/87 97 - Laboratory Lab Results: Lab Results 08/18/19 08/18/19 08/18/19 Range/Units 16:35 16:35 16:54 WBC 9.0 (3.5-10.8) 10^3/uL RBC 4.51 (3.70-4.87) 10^6 /uL Hgb 12.9 (12.0-16.0) g/dL Hct 38 (35-47) % MCV 83 (80-97) fL MCH 29 (27-31) pg MCHC 34 (31-36) g/dL RDW 14 (10-15) % Plt Count 282 (150-450) 10^3/uL MPV 8.4 (7.4-10.4) fL Neut % (Auto) 65.2 % Lymph % (Auto) 24.7 % [place] % (Auto) 5.5 % Eos % (Auto) 4.1 % Baso % (Auto) 0.5 % Absolute Neuts (auto) 5.9 (1.5-7.7) 10^3/ul Absolute Lymphs (auto) 2.2 (1.0-4.8) 10^3/ul Absolute Monos (auto) 0.5 (0-0.8) 10^3/ul Absolute Eos (auto) 0.4 (0-0.6) 10^3/ul Absolute Basos (auto) 0.0 (0-0.2) 10^3/ul Absolute Nucleated RBC 0.0 10^3/ul Nucleated RBC % 0.0 Sodium (135-145) mmol/L Potassium (3.5-5.0) mmol/L Chloride (101-111) mmol/L Carbon Dioxide (22-32) mmol/L Anion Gap (2-11) mmol/L BUN (6-24) mg/dL Creatinine (0.51-0.95) mg/dL Est GFR ( Amer) (>60) Est GFR (Non-Af Amer) (>60) BUN/Creatinine Ratio (8-20) Glucose (70-100) mg/dL Calcium (8.6-10.3) mg/dL Total Bilirubin (0.2-1.0) mg/dL AST (13-39) U/L ALT (7-52) U/L Alkaline Phosphatase (34-104) U/L Total Protein (6.4-8.9) g/dL Albumin (3.2-5.2) g/dL Globulin (2-4) g/dL Albumin/Globulin Ratio (1-3) TSH (0.34-5.60) mcIU/mL Urine Color Yellow Urine Appearance Cloudy Urine pH 5.0 (5-9) Ur Specific [place] 1.013 (1.010-1.030) Urine Protein Negative (Negative) Urine Ketones Negative (Negative) Urine Blood Negative (Negative) Urine Nitrate Negative (Negative) Urine Bilirubin Negative (Negative) Urine Urobilinogen Negative (Negative) Ur Leukocyte Esterase Negative (Negative) Urine Glucose Negative (Negative) Salicylates (<30) mg/dL Urine Opiates Screen None detected (None Detect) Acetaminophen mcg/mL Ur Barbiturates Screen None detected (None Detect) Ur Phencyclidine Scrn None detected (None Detect) Ur Amphetamines Screen None detected (None Detect) U Benzodiazepines Scrn None detected (None Detect) Urine Cocaine Screen None detected (None Detect) U Cannabinoids Screen None detected (None Detect) Serum Alcohol (<10) mg/dL 08/18/19 Range/Units 16:54 WBC (3.5-10.8) 10^3/uL RBC (3.70-4.87) 10^6 /uL Hgb (12.0-16.0) g/dL Hct (35-47) % MCV (80-97) fL MCH (27-31) pg MCHC (31-36) g/dL RDW (10-15) % Plt Count (150-450) 10^3/uL MPV (7.4-10.4) fL Neut % (Auto) % Lymph % (Auto) % [place] % (Auto) % Eos % (Auto) % Baso % (Auto) % Absolute Neuts (auto) (1.5-7.7) 10^3/ul Absolute Lymphs (auto) (1.0-4.8) 10^3/ul Absolute Monos (auto) (0-0.8) 10^3/ul Absolute Eos (auto) (0-0.6) 10^3/ul Absolute Basos (auto) (0-0.2) 10^3/ul Absolute Nucleated RBC 10^3/ul Nucleated RBC % Sodium 138 (135-145) mmol/L Potassium 3.7 (3.5-5.0) mmol/L Chloride 109 (101-111) mmol/L Carbon Dioxide 20 L (22-32) mmol/L Anion Gap 9 (2-11) mmol/L BUN 7 (6-24) mg/dL Creatinine 0.89 (0.51-0.95) mg/dL Est GFR ( Amer) 90.7 (>60) Est GFR (Non-Af Amer) 75.0 (>60) BUN/Creatinine Ratio 7.9 L (8-20) Glucose 88 (70-100) mg/dL Calcium 9.5 (8.6-10.3) mg/dL Total Bilirubin 0.30 (0.2-1.0) mg/dL AST 24 (13-39) U/L ALT 32 (7-52) U/L Alkaline Phosphatase 65 (34-104) U/L Total Protein 7.2 (6.4-8.9) g/dL Albumin 4.1 (3.2-5.2) g/dL Globulin 3.1 (2-4) g/dL Albumin/Globulin Ratio 1.3 (1-3) TSH 3.75 (0.34-5.60) mcIU/mL Urine Color Urine Appearance Urine pH (5-9) Ur Specific [place] (1.010-1.030) Urine Protein (Negative) Urine Ketones (Negative) Urine Blood (Negative) Urine Nitrate (Negative) Urine Bilirubin (Negative) Urine Urobilinogen (Negative) Ur Leukocyte Esterase (Negative) Urine Glucose (Negative) Salicylates < 2.50 (<30) mg/dL Urine Opiates Screen (None Detect) Acetaminophen < 15 mcg/mL Ur Barbiturates Screen (None Detect) Ur Phencyclidine Scrn (None Detect) Ur Amphetamines Screen (None Detect) U Benzodiazepines Scrn (None Detect) Urine Cocaine Screen (None Detect) U Cannabinoids Screen (None Detect) Serum Alcohol < 10 (<10) mg/dL Result Diagrams: 08/18/19 16:54 08/18/19 16:54 Lab Statement: Any lab studies that have been ordered have been reviewed, and results considered in the medical decision making process. Re-Evaluation - Re-Evaluation First Eval Re-Evaluation Time: 16:30 Change: Unchanged Comment: At 16:30, pt is medically cleared for a MH evaluation. Course/Dx - Course Course Of Treatment: Pt is a 28 y/o F presenting to the ED via police on a code 941 for a psychiatric complaint. Pt was found by police banging her head on a window on the bus. Pt states she has a plan to stab herself using a knife. Per medical records, pt has had similar symptoms around the same time each year. Pt denies any fever, chills, erythema of eyes, sore throat, CP, SOB, cough, abdominal pain, N/V, dysuria, hematuria, myalgia, edema, rash, or dizziness. Pt has been to the ED for similar symptoms in the past. Medications reviewed. At 16:30, pt is medically cleared for a MH evaluation. Laboratory abnormal findings: carbon dioxide 20, BUN/creatinine ratio 7.9. Pt will be signed out to Dr. Chanell Richardson MD to Dr. Jhon Adame MD at 19:00 on 08/18/19 at shift change, pending a MH evaluation and disposition. - Differential Dx/Clinical Impression Provider Diagnosis: Suicidal ideation Discharge ED - Sign-Out/Discharge Documenting (check all that apply): Sign-Out Patient Signing out patient TO: Chanell Richardson - 19:00 on 08/18/19 - Discharge Plan Condition: Stable [place] [place]illing Disposition and Condition Condition: STABLE Disposition: Psychiatric [place] [facility] [place] Attestation Statements Document Initiated by Scribe: Yes Documenting Scribe: Shira Crowe Provider For Whom Feliciaibmeredith is Documenting (Include Credential): Jhon Adame MD Scribe Attestation: Shira Kulkarni, feliciaibed for Jhon Adame MD on 08/21/19 at 0737. Scribe Documentation Reviewed: Yes Provider Attestation: The documentation as recorded by the Shira jordan accurately reflects the service I personally performed and the decisions made by me, Jhon Adame MD Status of Scribe Document: Viewed
--- NOTE | 2019-08-18 19:31 | ED ---
Progress - Progress Note Progress Note: This pt is a sign out from Dr. Adame to Dr. Richardson at shift change 1900 pending a MHE and disposition. Re-Evaluation - Re-Evaluation First Eval Re-Evaluation Time: 16:30 Change: Unchanged Comment: At 16:30, pt is medically cleared for a MH evaluation. Course/Dx - Course Course Of Treatment: Pt is a 28 y/o F presenting to the ED via police on a code 941 for a psychiatric complaint. Pt was found by police banging her head on a window on the bus. Pt states she has a plan to stab herself using a knife. Per medical records, pt has had similar symptoms around the same time each year. Pt denies any fever, chills, erythema of eyes, sore throat, CP, SOB, cough, abdominal pain, N/V, dysuria, hematuria, myalgia, edema, rash, or dizziness. Pt has been to the ED for similar symptoms in the past. Medications reviewed. At 16:30, pt is medically cleared for a MH evaluation. Laboratory abnormal findings: carbon dioxide 20, BUN/creatinine ratio 7.9. Pt will be signed out to Dr. Chanell Richardson MD to Dr. Jhon Adame MD at 19:00 on 08/18/19 at shift change, pending a MH evaluation and disposition. - Diagnoses Provider Diagnoses: Suicidal ideation Discharge ED - Sign-Out/Discharge Documenting (check all that apply): Patient Departure - Discharge Plan Condition: Stable Disposition: PSYCHIATRIC FACILITY-[facility] [place] - Billing Disposition and Condition Condition: STABLE Disposition: Psychiatric Facility [facility] [place] - Attestation Statements Document Initiated by Scribe: Yes Documenting Scribe: William Kee Provider For Whom Scribe is Documenting (Include Credential): Chanell Richardson MD Scribe Attestation: William Kulkarni, scribed for Chanell Richardson MD on 08/19/19 at 0720. Scribe Documentation Reviewed: Yes Provider Attestation: The documentation as recorded by the William jordan accurately reflects the service I personally performed and the decisions made by me, Chanell Richardson MD Status of Scribe Document: Viewed
[2019-08-18] MEDS ORDERED: Al Hydrox/Mg Hydrox/Simet LIQ* 30 ML UDC PO PRN (22:10)
[2019-08-18] MEDS ORDERED: Albuterol HFA INHALER* 8 gm MDI INH PRN (22:43)
[2019-08-19] MEDS: risperiDONE TAB* 1 MG PO SCH ×3 (03:17→21:48)
[2019-08-19] MEDS: Divalproex DR TAB(*) 500 MG PO SCH ×4 (03:17→21:48)
[2019-08-19] MEDS: Topiramate TAB(*) 25 MG PO SCH ×3 (03:17→21:48)
[2019-08-19] MEDS: Mirtazapine TAB* 15 MG PO SCH ×2 (03:17→21:49)
[2019-08-19] MEDS ORDERED: LORazepam TAB(*) 1 MG ONE (05:58)
[2019-08-19] MEDS ORDERED: LORazepam TAB(*) 1 MG PO ONE (06:30)
[2019-08-19] MEDS: Venlafaxine EXT RELEASE CAP* 75 MG PO SCH (07:52)
[2019-08-19] MEDS: Multivitamins/Minerals TAB PO SCH (07:52)
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
[2019-08-20] MEDS: Venlafaxine EXT RELEASE CAP* 75 MG PO SCH (08:55)
[2019-08-20] MEDS: Multivitamins/Minerals TAB PO SCH (08:56)
[2019-08-20] MEDS: Topiramate TAB(*) 25 MG PO SCH ×2 (08:56→21:33)
[2019-08-20] MEDS: Divalproex DR TAB(*) 500 MG PO SCH ×3 (08:56→21:33)
[2019-08-20] MEDS: risperiDONE TAB* 1 MG PO SCH ×2 (08:56→21:33)
[2019-08-20] MEDS ORDERED: Influenza VAC *QUAD* 2019-20* 0.5 ML SYRINGE IM ONE (09:00)
[2019-08-20] MEDS: Acetaminophen TAB* 325 MG PO PRN (11:11)
[2019-08-20] MEDS ORDERED: hydrOXYzine HCL TAB* 50 MG ONE (13:49)
--- NOTE | 2019-08-20 15:06 | PN ---
Subjective - Subjective Date of Service: 08/20/19 Service Type: 14123 Hosp care 15 min low complexity Subjective: Lyndsey is anxious and states that she's still having SI with thoughts of cutting herself with a knife or fork. With that being said, she says she should be ready for discharge by "Thursday or Thursday." She continues to be med-seeking , hoping for lorazepam. Objective - General Observations Appearance: Disheveled Appears Stated Age: Yes Stature: Overweight Posture: WNL Eye Contact: Average Behavior/Activity: WNL - Interaction Observations Attitude Towards Examiner: Cooperative Stated Mood: Anxious Affect: Full Speech Pattern/Tone: Clear Thought Process: Goal Directed Thought Content: WNL Thought Process: Lethality: Suicidal Planning Hallucination Type: None Delusion Type: None - Cognitive Function Level of Consciousness: Awake Cognition: WNL Estimated Intelligence: MR Range Insight: WNL Judgment Within Normal Limits: Yes - Medication Compliance Cooperative with Inpatient Medication Regimen: Yes - Group Participation Participates in Group Activities: Yes Assessment - Assessment Merits Inpatient Hospitalization: Consolidate Improvements, Pending Safe DC Plan Inpatient DSM-V Dx: F60.3 - acute decompensation Clinical Impression: Primary borderline personality disorder overlying mild intellectual disability. Is prone to be manipulative in her acting and to primitively express rage by wild statements (e.g. will express anger by threatening to stab someone or sadness by threatening to kill herself but not truly planning either). Medication can help with affective acting out but for now she resists rationalizing her doses. She does not have an active mood disorder at this time. She may well make wild, manipulative gestures either for attention or for Ativan. She repeatedly told me that Dr. Melchor gives her Ativan, but this did not show up on a list of community medications or on the [employer] database. Merits admission for stabilization of acute decompensation of borderline personality disorder. Plan - Plan Treatment Plan: Will give prn hydroxyzine for anxiety. Likely d/c on Thursday, August 22. Continued Medication Management: Continue Outpt Medication Medications: Current Medications Acetaminophen (Tylenol Tab*) 650 mg PO Q4H PRN PRN Reason: PAIN; OR TEMP >101 Last Admin: 08/20/19 11:11 Dose: 650 mg Al Hydrox/Mg Hydrox/Simethicone (Maalox Plus*) 30 ml PO Q4H PRN PRN Reason: INDIGESTION Albuterol (Ventolin Hfa Inhaler*) 2 puff INH Q6H PRN PRN Reason: SHORTNESS OF BREATH Divalproex Sodium (Depakote Dr Tab(*)) 500 mg PO TID [facility] Last Admin: 08/20/19 13:04 Dose: 500 mg Hydroxyzine HCl (Atarax Tab*) 50 mg PO Q6H PRN PRN Reason: .ANXIETY Mirtazapine (Remeron Tab*) 15 mg PO BEDTIME [facility] Last Admin: 08/19/19 21:49 Dose: 15 mg Multivitamins/Minerals (Theragran/Minerals Tab*) 1 tab PO DAILY [facility] Last Admin: 08/20/19 08:56 Dose: 1 tab Risperidone (Risperdal*) 1 mg PO BID [facility] Last Admin: 08/20/19 08:56 Dose: 1 mg Topiramate (Topamax(*)) 25 mg PO BID [facility] Last Admin: 08/20/19 08:56 Dose: 25 mg Venlafaxine HCl (Effexor Xr Cap*) 150 mg PO DAILY [facility] Last Admin: 08/20/19 08:55 Dose: 150 mg - Discharge Plan Discharge Plan: [facility]
[2019-08-20] MEDS ORDERED: cloNIDine TAB* 0.1 MG PO PRN (18:51)
[2019-08-20] MEDS: hydrOXYzine HCL TAB* 50 MG PO PRN (22:20)
[2019-08-20] MEDS: Mirtazapine TAB* 15 MG PO SCH (22:20)
[2019-08-21] MEDS: hydrOXYzine HCL TAB* 50 MG PO PRN ×3 (06:15→19:19)
[2019-08-21] MEDS: Venlafaxine EXT RELEASE CAP* 75 MG PO SCH (07:00)
[2019-08-21] MEDS: risperiDONE TAB* 1 MG PO SCH ×2 (07:00→20:04)
[2019-08-21] MEDS: Topiramate TAB(*) 25 MG PO SCH ×2 (07:00→20:04)
[2019-08-21] MEDS: Divalproex DR TAB(*) 500 MG PO SCH ×3 (07:00→20:04)
[2019-08-21] MEDS: Multivitamins/Minerals TAB PO SCH (07:00)
[2019-08-21] MEDS: Acetaminophen TAB* 325 MG PO PRN (08:14)
[2019-08-21] MEDS: Mirtazapine TAB* 15 MG PO SCH (22:32)
[2019-08-22] MEDS: hydrOXYzine HCL TAB* 50 MG PO PRN ×3 (02:10→16:50)
[2019-08-22] MEDS: Acetaminophen TAB* 325 MG PO PRN ×3 (02:10→13:53)
[2019-08-22] MEDS: Topiramate TAB(*) 25 MG PO SCH ×2 (07:10→19:46)
[2019-08-22] MEDS: risperiDONE TAB* 1 MG PO SCH ×2 (07:10→19:45)
[2019-08-22] MEDS: Divalproex DR TAB(*) 500 MG PO SCH ×3 (07:10→19:46)
[2019-08-22] MEDS: Venlafaxine EXT RELEASE CAP* 75 MG PO SCH (07:10)
[2019-08-22] MEDS: Multivitamins/Minerals TAB PO SCH (07:10)
--- NOTE | 2019-08-22 10:57 | PN ---
Subjective - Subjective Date of Service: 08/22/19 Service Type: 38844 Hosp care 15 min low complexity Subjective: Lyndsey is seen for follow up. She continues to endorse vague thoughts of self harm and does not want to leave today. She negotiates to stay in the hospital an additional day. Staff reports indicate that she is attention seeking and needy. Objective - General Observations Appearance: Well Groomed Appears Stated Age: Yes Stature: Overweight Posture: WNL Eye Contact: Average Behavior/Activity: WNL - Interaction Observations Attitude Towards Examiner: Cooperative Stated Mood: Anxious Affect: Full Speech Pattern/Tone: Clear Thought Process: Goal Directed Perception: WNL Thought Content: WNL Thought Process: Lethality: Suicidal Planning Hallucination Type: None Delusion Type: None - Cognitive Function Orientation: A&O x 4 Level of Consciousness: Awake Cognition: WNL Estimated Intelligence: MR Range Insight: WNL Judgment Within Normal Limits: Yes - Medication Compliance Cooperative with Inpatient Medication Regimen: Yes - Group Participation Participates in Group Activities: Yes Assessment - Assessment Merits Inpatient Hospitalization: Consolidate Improvements, Pending Safe DC Plan Inpatient DSM-V Dx: F60.3 - acute decompensation Clinical Impression: Primary borderline personality disorder overlying mild intellectual disability. Is prone to be manipulative in her acting and to primitively express rage by wild statements (e.g. will express anger by threatening to stab someone or sadness by threatening to kill herself but not truly planning either). Medication can help with affective acting out but for now she resists rationalizing her doses. She does not have an active mood disorder at this time. She may well make wild, manipulative gestures either for attention or for Ativan. She repeatedly told me that Dr. Melchor gives her Ativan, but this did not show up on a list of community medications or on the [employer] database. Merits admission for stabilization of acute decompensation of borderline personality disorder. Plan - Plan Treatment Plan: The patient is highly borderline and further hospitalization is unlikely to make meaningful contributions to her wellness. We will strongly work on persuading her to accept discharge to home tomorrow, 08/23. Continued Medication Management: Continue Outpt Medication Medications: Current Medications Acetaminophen (Tylenol Tab*) 650 mg PO Q4H PRN PRN Reason: PAIN; OR TEMP >101 Last Admin: 08/22/19 07:10 Dose: 650 mg Al Hydrox/Mg Hydrox/Simethicone (Maalox Plus*) 30 ml PO Q4H PRN PRN Reason: INDIGESTION Albuterol (Ventolin Hfa Inhaler*) 2 puff INH Q6H PRN PRN Reason: SHORTNESS OF BREATH Divalproex Sodium (Depakote Dr Tab(*)) 500 mg PO TID [facility] Last Admin: 08/22/19 07:10 Dose: 500 mg Hydroxyzine HCl (Atarax Tab*) 50 mg PO Q6H PRN PRN Reason: .ANXIETY Last Admin: 08/22/19 09:58 Dose: 50 mg Mirtazapine (Remeron Tab*) 15 mg PO BEDTIME [facility] Last Admin: 08/21/19 22:32 Dose: 15 mg Multivitamins/Minerals (Theragran/Minerals Tab*) 1 tab PO DAILY [facility] Last Admin: 08/22/19 07:10 Dose: 1 tab Risperidone (Risperdal*) 1 mg PO BID [facility] Last Admin: 08/22/19 07:10 Dose: 1 mg Topiramate (Topamax(*)) 25 mg PO BID [facility] Last Admin: 08/22/19 07:10 Dose: 25 mg Venlafaxine HCl (Effexor Xr Cap*) 150 mg PO DAILY [facility] Last Admin: 08/22/19 07:10 Dose: 150 mg - Discharge Plan Discharge Plan: Outpatient Follow Up Outpatient Program: [facility]
[2019-08-22] MEDS: Mirtazapine TAB* 15 MG PO SCH (21:52)
[2019-08-23] MEDS: hydrOXYzine HCL TAB* 50 MG PO PRN ×2 (01:32→09:03)
[2019-08-23] MEDS ORDERED: Haloperidol TAB* 5 MG PO ONE (02:03)
[2019-08-23] MEDS ORDERED: diPHENhydraMINE PO* 50 MG PO ONE (02:03)
[2019-08-23] MEDS ORDERED: Haloperidol TAB* 5 MG ONE (02:06)
[2019-08-23] MEDS ORDERED: diPHENhydraMINE PO* 50 MG ONE (02:06)
[2019-08-23] MEDS: risperiDONE TAB* 1 MG PO SCH (08:57)
[2019-08-23] MEDS: Topiramate TAB(*) 25 MG PO SCH (08:57)
[2019-08-23] MEDS: Divalproex DR TAB(*) 500 MG PO SCH (08:57)
[2019-08-23] MEDS: Multivitamins/Minerals TAB PO SCH (08:57)
[2019-08-23] MEDS: Venlafaxine EXT RELEASE CAP* 75 MG PO SCH (08:57)
[2019-08-23 09:28] VITALS: BP 127/83
--- NOTE | 2019-08-23 12:13 | DS ---
DATE OF ADMISSION: 08/18/2019. DATE OF DISCHARGE: 08/23/2019. DISCHARGE DIAGNOSES: AXIS I: Schizoaffective disorder, bipolar type. AXIS II: Borderline personality disorder (primary diagnosis); borderline intellectual functioning. CONDITION AT THE TIME OF DISCHARGE: Guarded. Lyndsey is acting out on our unit, trying to seek further hospitalization. She is not in favor of the discharge plan, insisting that she is unsafe to leave the hospital. In spite of this, we have observed her for several days laughing and socializing with peers, eating, drinking and grooming at her baseline. When confronted about the inconsistencies of her behavior compared to her stated mood of "depressed" and "anxious", she insists that she is not safe. It should be also mentioned that the patient has a standing diagnosis of borderline personality disorder and she has a fairly primitive variant of this, as she can be crude in her attempts to gain attention and validation. In this clinician's experience inpatient psychiatric hospitalization has a history of making her behavior worse. At this time, we feel the most appropriate treatment setting for her is in the outpatient environment and for this reason we have set her up with close follow- up at the [facility]. In two days, she is to report to psychiatrist Dr. Oxana Melchor's office for an appointment at 3:00 p.m. The patient is aware of this and we are getting a Medicaid cab to transport her home. Because of the primacy of her borderline personality diagnosis at this time, we have not adjusted her medications on the unit and she is reporting that she has a supply of these at home. Essentially Lyndsey has not done well here and given her diagnostic profile I do not think that she would benefit from any further inpatient care. In fact, it is likely that this would make her worse. For this reason, we are discharging her to the outpatient environment over her objection. MENTAL STATUS EXAM AT THE TIME OF DISCHARGE: Lyndsey is a young, white female who is morbidly obese. She is somewhat hirsute with limited grooming. She is uncooperative and hostile towards this observer. Speech is simplistic and includes profanity. Mood is agitated with an irritable affect. Thought process is linear and very much goal-directed. Thought content is significant for her demands to stay in the hospital despite what the treatment team is recommending. She is endorsing thoughts of self-harm, stating that she will cut herself with scissors. She is denying homicidality. The patient denies auditory or visual hallucinations. Insight and judgment are limited given her disagreement with recommended treatment. Cognitively, she is awake and alert with a subaverage intellect by virtue of her history of intellectual delay. LABORATORY DATA: The patient refused metabolic lab studies despite being on antipsychotic medications. DISCHARGE INSTRUCTIONS TO THE PATIENT: A. Medications: She is on a Ventolin inhaler two puffs inhaled every 6 hours as needed for wheezing, Risperdal 1 mg p.o. b.i.d., Remeron 15 mg p.o. at bedtime, Depakote 500 mg p.o. t.i.d., Topamax 25 mg p.o. b.i.d., Effexor XR 150 mg p.o. daily. B. Diet: Regular. C. Activities: As tolerated. The patient is a nonsmoker. There are no laboratory or diagnostic studies pending at the time of discharge. D. Follow-up care: The patient has an appointment with her outpatient psychiatrist, Dr. Oxana Melchor, at the [facility] which is scheduled for August 25 at 3:00 p.m. E. Substance abuse follow-up is nonapplicable. F. Disposition: The patient is going home. HOSPITAL COURSE - PART A: Reason for admission: The patient is a 28-year-old, obese, white female with a history of primitive borderline personality pathology , as well as intellectual deficits and putative schizoaffective disorder who was brought by the police because she refused to get off the [employer] bus and was threatening to kill herself. She told observers in the emergency room that she had tried to stab herself with a knife and that her mother stopped her, but the chart history indicated that she was brought in refusing to get off the [employer] bus, only saying that "she wanted to stab herself." In the emergency room, she threaten to stab an ER staff member, but did not really have a weapon. While on our unit, she stood by the firearm threatening to pull it and got Ativan for this. During Dr. Joseph Ruelas's initial work-up, she was asking for Ativan saying that it helps her and that Dr. Melchor prescribes it as an outpatient. This was not confirmed in the I-STOP database and was not on the list of community pharmacy medications, and so it was apparent that she was manipulating to try to get benzodiazepines. In any case, the patient has a history of numerous admissions to the hospital within the last few years. She often would present feeling depressed, impulsive, or presenting with suicidal ideations. She has not made a suicide attempt despite all of her threats. In 2017, she had her most recent admission. She has been in the [facility] day treatment program in the past, but because she started working at [employer], she is back in the regular outpatient mental health treatment program at [facility]. In the past, she lived at a nursing home at the [facility] and then an apartment, but currently she lives with her parents and her 27-year-old sister. HOSPITAL COURSE - PART B: Psychiatric treatment rendered: The patient was admitted to the Adult Behavioral Health Unit where she was placed on q.15 minute checks for her own safety. The patient acclimated well to the unit, being social, interacting often with staff and peers, appearing to enjoy the environment. She asked for Ativan multiple times from her original provider, Dr. Ruelas, and then again from Dr. Fernando Avila when that clinician took over her care on the 22 of August. The patient appeared to be acting out as a means of receiving Ativan and when confronted about this, stated that she needs Ativan to help her feel better. My sense of this patient is that she tends to get worse in the inpatient setting due to manipulative tendencies. Her borderline personality pathology was on display as she demonstrated easy rage, abandonment fears, staff splitting, and inappropriate control over her affect. We got together as a treatment team and discussed her care on the morning of August 23 and felt mutually that this hospitalization was not benefiting her in any way and therefore determined that the safest course of treatment was to return her to the outpatient setting. Lyndsey disagreed with this determination and struggled to stay on the unit and ultimately needed escort by security staff to leave the grounds of the hospital. We have arranged follow-up treatment in the community which I think is the safest plan moving forward. This is a very difficult patient with high chronic suicide risks given her intellectual delay and borderline personality pathology. Nonetheless, she has never had a significant suicide attempt that we are aware of and has not shown any signs of harming herself on our unit over a five-day hospitalization. For this reason, we are determined to discharge her to a more appropriate community centered level of care. It should be noted that just prior to being escorted off our unit the patient was observed laughing with peers and coloring pictures with crayons to give to staff as presents. [id number]/CPS #: [id number] MADELINE
== END 2019-08-23 10:40 | disposition home or self-care (01) | DRG 885 ==
LOC: ED 16:24 → BSU 21:15 → ED 21:49
PROVIDERS: ADMIT Psychiatry & Neurology Psychiatry; ATTEND Psychiatry & Neurology Psychiatry
DX: F25.0 Schizoaffective disorder, bipolar type (principal); F60.3 Borderline personality disorder; R41.83 Borderline intellectual functioning; E66.01 Morbid (severe) obesity due to excess calories; Z68.27 Body mass index [BMI] 27.0-27.9, adult; Z79.899 Other long term (current) drug therapy
CPT/HCPCS: 36415; 80053; 80307; 80320; 80329; 81003; 84443; 85025; 90686; 99222; 99231; 99238; 99284; A9270-GY; G0480

== ENCOUNTER 2019-09-07 15:08 | Emergency (ER) | payer MEDICARE, MEDICAID ==
[2019-09-07 15:45] LABS: ABS Basophils 0.1 10^3/ul (0-0.2); ABS Eosinophils 0.4 10^3/ul (0-0.6); ABS Lymphocytes 1.7 10^3/ul (1.0-4.8); ABS Monocytes 0.6 10^3/ul (0-0.8); ABS Neutrophils 5.9 10^3/ul (1.5-7.7); Eosinophil % 4.4 %; Hematocrit 40 % (35-47); Hemoglobin 13.4 g/dL (12.0-16.0); Lymphocyte % 19.9 %; Mean Corpuscular HGB Conc 33 g/dL (31-36); Mean Corpuscular Hemoglobin 28 pg (27-31); Mean Corpuscular Volume 84 fL (80-97); Mean Platelet Volume 8.2 fL (7.4-10.4); Nucleated Red Blood Cells % 0.1; Platelet Count 287 10^3/uL (150-450); Red Cell Distribution Width 14 % (10-15); White Blood Count 8.6 10^3/uL (3.5-10.8)
[2019-09-07 16:03] LABS: ALT 20 U/L (7-52); AST 18 U/L (13-39); Albumin 3.9 g/dL (3.2-5.2); Albumin/Globulin Ratio 1.2 (1-3); Alkaline Phosphatase 68 U/L (34-104); Anion Gap 9 mmol/L (2-11); BUN/Creatinine Ratio 11.5 (8-20); Blood Urea Nitrogen 9 mg/dL (6-24); CO2 Carbon Dioxide 19 mmol/L (22-32); Chloride 110 mmol/L (101-111); EGFR African American 105.7 (>60); EGFR Non-African American 87.3 (>60); Globulin 3.2 g/dL (2-4); Glucose 112 mg/dL (70-100); Potassium 3.8 mmol/L (3.5-5.0); Sodium 138 mmol/L (135-145); Total Protein 7.1 g/dL (6.4-8.9)
[2019-09-07 16:04] LABS: HCG Pregnancy < 0.60 mIU/mL
[2019-09-07 16:05] LABS: Urine Appearance Cloudy; Urine Bacteria Absent (Absent); Urine Bilirubin Negative (Negative); Urine Blood 1+ (Negative); Urine Color Yellow; Urine Glucose Negative (Negative); Urine Ketones Negative (Negative); Urine Nitrite Negative (Negative); Urine Protein Negative (Negative); Urine Red Blood Cell Trace(0-2/hpf) (Absent); Urine Specific Gravity 1.012 (1.010-1.030); Urine Squamous Epithelial Cell Present (Absent); Urine Urobilinogen Negative (Negative); Urine White Blood Cell Trace(0-5/hpf) (Absent)
[2019-09-07] MEDS ORDERED: Acetaminophen TAB* 325 MG PO ONE (16:09)
--- NOTE | 2019-09-07 16:10 | ED ---
Psychiatric Complaint - HPI Summary HPI Summary: Pt is a 28 y/o F presenting to the ED brought in by EMS for suicidal thoughts. Per EMS, pt called 911 saying that she wanted to kill herself and had an extremely bad day. Pt states she wanted to take a knife and stab my heart, and that her anxiety is extreme today. She stabbed her L hand with a pen which she states is painful. No analgesia taken. states tetanus UTD. Pt denies any self injury, ingestion today. No fever, chills no cp, sob, abd pain. no n/v/ d. She has hx of self-harm. Patients medications reviewed this visit, states she is on Depakote. - History Of Current Complaint Chief Complaint: EDSuicidal Time Seen by Provider: 09/07/19 15:12 Hx Obtained From: Patient Hx Last Menstrual Period: april 252018 irregular Onset/Duration: Gradual Onset, Lasting Hours Timing: Hours Severity Initially: Moderate Severity Currently: Moderate Character: Depressed, Anxious Aggravating Factor(s): Nothing Alleviating Factor(s): Nothing Associated Signs And Symptoms: Positive: Negative Related History: Positive For: Prior Psychiatric Issues Has Suicidal: Reports: Thoughts, With A Plan - Allergies/Home Medications Allergies/Adverse Reactions: Allergies Allergy/AdvReac Type Severity Reaction Status Date / Time amoxicillin [From Augmentin] Allergy Rash Verified 08/18/19 22:47 clavulanic acid Allergy Rash Verified 08/18/19 22:47 [From Augmentin] Home Medications: Home Medications Cetirizine* [ZyrTEC 10 MG TAB*] 10 mg PO DAILY PRN 09/07/19 [History Confirmed 09/07/19] Divalproex DR TAB(*) [Depakote DR(*)] 500 mg PO TID 09/07/19 [History Confirmed 09/07/19] Levothyroxine TAB* [Synthroid TAB*] 25 mcg PO DAILY 09/07/19 [History Confirmed 09/07/19] Venlafaxine EXT RELEASE CAP* [Effexor Xr CAP*] 75 mg PO QAM 09/07/19 [History Confirmed 09/07/19] PMH/Surg Hx/FS Hx/Imm Hx Previously Healthy: Yes Endocrine/Hematology History: Reports: Hx Thyroid Disease - hypo Denies: Hx Anticoagulant Therapy, Hx Diabetes Cardiovascular History: Denies: Hx Hypertension Respiratory History: Reports: Hx Seasonal Allergies Denies: Hx Asthma, Hx Chronic Obstructive Pulmonary Disease (COPD) GI History: Denies: Hx Gastroesophageal Reflux Disease, Hx Ulcer History: Denies: Hx Renal Disease Sensory History: Reports: Hx Contacts or Glasses - Reportedly uses contacts, unconfirmed by Pt at this time. Denies: Hx Hearing Aid Opthamlomology History: Reports: Hx Contacts or Glasses - Reportedly uses contacts, unconfirmed by Pt at this time. Neurological History: Reports: Hx Developmental Delay Psychiatric History: Reports: Hx Anxiety, Hx Attention Deficit Hyperactivity Disorder, Hx Depression, Hx Inpatient Treatment, Hx Community Mental Health Tx, Hx Suicide Attempt, Hx of Violent Episodes Against Others, Other Psychiatric Issues/Disorders - developmental delays Denies: Hx Eating Disorder - Surgical History Surgery Procedure, Year, and Place: none - Immunization History Date of Influenza Vaccine: 08/2017 Infectious Disease History: No Infectious Disease History: Denies: Hx Clostridium Difficile, Hx Hepatitis, Hx Human Immunodeficiency Virus (HIV), Hx of Known/Suspected MRSA, Hx Shingles, Hx Tuberculosis, Hx Known/ Suspected VRE, Hx Known/Suspected VRSA, History Other Infectious Disease, Traveled Outside the [place] in Last 30 Days - Family History Known Family History: Positive: Cardiac Disease, Respiratory Disease, Other - pos: depression Negative: Hypertension - Social History Alcohol Use: None Hx Substance Use: No Substance Use Type: Reports: None Hx Tobacco Use: No Smoking Status (MU): Never Smoked Tobacco Amount Used/How Often: pt does not and has never used tobacco products of any kind Have You Smoked in the Last Year: No Review of Systems Positive: Myalgia - L hand Positive: Anxious, Depressed All Other Systems Reviewed And Are Negative: Yes Physical Exam - Summary Physical Exam Summary: Vital Signs Reviewed: Yes A+Ox3, no distress, intermittently tearful, then laughing Eyes: Conjunctiva Clear, RITA. EOM intact and full ENT: Hearing grossly normal, mmoist Neck: Positive: Supple Respiratory: Positive: No respiratory distress, No accessory muscle use + CTA throughout no w/r Cardiovascular: RRR nl s1, s2 no m/r CBT <2 sec abd soft + BS nt/nd no guarding, no distension Musculoskeletal Exam: PARADA x 4 without difficulty Strength Intact, ROM Intact Neurological: Positive: Alert, + sensation throughout Psychological: Positive: Normal Response To examiner Skin: Positive: no rash, no ecchymosis. dorsu left hand - pt with small abraison non suturable Triage Information Reviewed: Yes Vital Signs On Initial Exam: Initial Vitals Temp Pulse Resp BP Pulse Ox 97.8 F 104 18 123/57 99 09/07/19 15:12 09/07/19 15:12 09/07/19 15:12 09/07/19 15:12 09/07/19 15:12 Vital Signs Reviewed: Yes Procedures - Sedation Patient Received Moderate/Deep Sedation with Procedure: No Diagnostics - Vital Signs Vital Signs Temp Pulse Resp BP Pulse Ox 09/07/19 15:12 97.8 F 104 18 123/57 99 - Laboratory Lab Results: Lab Results 09/07/19 09/07/19 09/07/19 Range/Units 15:20 15:34 15:34 WBC 8.6 (3.5-10.8) 10^3/uL RBC 4.80 (3.70-4.87) 10^6 /uL Hgb 13.4 (12.0-16.0) g/dL Hct 40 (35-47) % MCV 84 (80-97) fL MCH 28 (27-31) pg MCHC 33 (31-36) g/dL RDW 14 (10-15) % Plt Count 287 (150-450) 10^3/uL MPV 8.2 (7.4-10.4) fL Neut % (Auto) 68.7 % Lymph % (Auto) 19.9 % [place] % (Auto) 6.4 % Eos % (Auto) 4.4 % Baso % (Auto) 0.6 % Absolute Neuts (auto) 5.9 (1.5-7.7) 10^3/ul Absolute Lymphs (auto) 1.7 (1.0-4.8) 10^3/ul Absolute Monos (auto) 0.6 (0-0.8) 10^3/ul Absolute Eos (auto) 0.4 (0-0.6) 10^3/ul Absolute Basos (auto) 0.1 (0-0.2) 10^3/ul Absolute Nucleated RBC 0.0 10^3/ul Nucleated RBC % 0.1 Sodium 138 (135-145) mmol/L Potassium 3.8 (3.5-5.0) mmol/L Chloride 110 (101-111) mmol/L Carbon Dioxide 19 L (22-32) mmol/L Anion Gap 9 (2-11) mmol/L BUN 9 (6-24) mg/dL Creatinine 0.78 (0.51-0.95) mg/dL Est GFR ( Amer) 105.7 (>60) Est GFR (Non-Af Amer) 87.3 (>60) BUN/Creatinine Ratio 11.5 (8-20) Glucose 112 H (70-100) mg/dL Calcium 9.0 (8.6-10.3) mg/dL Total Bilirubin 0.30 (0.2-1.0) mg/dL AST 18 (13-39) U/L ALT 20 (7-52) U/L Alkaline Phosphatase 68 (34-104) U/L Total Protein 7.1 (6.4-8.9) g/dL Albumin 3.9 (3.2-5.2) g/dL Globulin 3.2 (2-4) g/dL Albumin/Globulin Ratio 1.2 (1-3) TSH Pending Beta HCG, Quant < 0.60 mIU/mL Urine Color Yellow Urine Appearance Cloudy Urine pH 6.0 (5-9) Ur Specific [place] 1.012 (1.010-1.030) Urine Protein Negative (Negative) Urine Ketones Negative (Negative) Urine Blood 1+ A (Negative) Urine Nitrate Negative (Negative) Urine Bilirubin Negative (Negative) Urine Urobilinogen Negative (Negative) Ur Leukocyte Esterase Negative (Negative) Urine WBC (Auto) Trace(0-5/hpf) (Absent) Urine RBC (Auto) Trace(0-2/hpf) (Absent) Ur Squamous Epith Cells Present A (Absent) Urine Bacteria Absent (Absent) Urine Glucose Negative (Negative) Urine Ascorbic Acid * A (Negative) Salicylates Pending Acetaminophen Pending Serum Alcohol Pending Result Diagrams: 09/07/19 15:34 09/07/19 15:34 Lab Statement: Any lab studies that have been ordered have been reviewed, and results considered in the medical decision making process. Course/Dx - Course Course Of Treatment: Patient presents emergency she feels very anxious and thought of hurting herself. Patient states she has not missed any medications. Patient stabbed her left hand with a pen yesterday. Patient without any injury today. Patient, she didn't feel she could control her anxiety at home. Patient's vital signs reviewed. Patient exam concerning. patient with small abrasion to her left hand. Tetanus is up-to-date. No suture indicated. Labs will be some Ativan to help relax and requested mental health eval. Patient comfortable and agreeable with plan. - Differential Dx/Clinical Impression Provider Diagnosis: Mood disorder, Borderline personality disorder Discharge ED - Sign-Out/Discharge Documenting (check all that apply): Sign-Out Patient Signing out patient TO: Kellen Gray - Discharge Plan Condition: Stable Disposition: HOME Referrals: [facility] [Other] (YOU HAVE AN APPOINTMENT ON 09-15-19 AT 2 :[address] HERNDON AT [facility]) Radha Obrien MD [Primary Care Provider] - - Billing Disposition and Condition Condition: STABLE Disposition: Home - Attestation Statements Document Initiated by Scribe: Yes Documenting Scribe: Tamar Fraga Provider For Whom Randi is Documenting (Include Credential): Silva Scott MD. Scribe Attestation: Tamar Kulkarni, scribed for Silva Scott MD. on 09/11/19 at 1455. Scribe Documentation Reviewed: Yes Provider Attestation: The documentation as recorded by the Tamar jordan accurately reflects the service I personally performed and the decisions made by , Silva Scott MD. Status of Scribe Document: Viewed
[2019-09-07 16:22] LABS: Urine Benzodiazepine Screen None Detected (None Detect); Urine Opiates Screen None Detected (None Detect)
[2019-09-07 16:24] LABS: Acetaminophen < 15 mcg/mL; Alcohol < 10 mg/dL (<10); Salicylate < 2.50 mg/dL (<30)
[2019-09-07] MEDS ORDERED: LORazepam TAB(*) 1 MG PO ONE (16:25)
[2019-09-07 16:39] LABS: TSH (Thyroid Stimulating Horm) 4.39 mcIU/mL (0.34-5.60)
--- NOTE | 2019-09-07 19:32 | ED ---
Progress - Progress Note Progress Note: Patient is received as a sign out from Dr. Scott to Dr. Gray at 1900 shift change pending disposition of this mental health patient. 0027 - Patient is agitated and unwilling to stay in stretcher. Ativan 2 mg and Bendaryl 50 mg were administered to assist patient sleep. 0054 - Patient continues to be agitated and uncooperative with staff. Bendaryl, Ativan, and Haldol will be administered for chemical restraint of behavior. 0101 - Patient continues to be agitated and refuses chemical restraints. She required physical restraints. 0131 - Patient is resting in bed, physical restraints were removed as patient met all criteria to have this done. 0201 - Patient is sleeping soundly, no complaints. 0425 - Patient is asleep at this time. Patient is signed out to Dr. Morris at 0700 09/08/19 shift change pending disposition of this mental health patient. - Consult/PCP Time Called: 18:00 Re-Evaluation - Re-Evaluation First Eval Re-Evaluation Time: 00:27 Comment: Patient is agitated and unwilling to stay in stretcher. Ativan 2 mg and Bendaryl 50 mg were administered to assist patient sleep. Second Eval Re-Evaluation Time: 00:54 Comment: Patient continues to be agitated and uncooperative with staff. Bendaryl , Ativan, and Haldol will be administered for chemical restraint of behavior. Third Eval Re-Evaluation Time: 01:01 Comment: Patient continues to be agitated and refuses chemical restraints. She required physical restraints. Fourth Eval Re-Evaluation Time: 01:31 Comment: Patient is resting in bed, physical restraints were removed as patient met all criteria to have this done. Fifth Eval Re-Evaluation Time: 02:01 Comment: Patient is sleeping soundly, no complaints. Sixth + Eval Re-Evaluation Time: 04:25 Comment: Patient remains asleep at this time. Course/Dx - Course Course Of Treatment: Night medications were ordered. Patient received Topamax 75 mg PO, Risperdal 1 mg PO, Remeron 15 mg PO, and Depakote 500 mg PO. Patient is agitated and unwilling to stay in stretcher. Ativan 2 mg and Bendaryl 50 mg were administered to assist patient sleep. Patient continued to be agitated and uncooperative with staff after these medications. Bendaryl 50 mg, Ativan 2 mg, and Haldol 5 mg administered for chemical restraint of behavior. - Diagnoses Provider Diagnoses: Mood disorder Discharge ED - Sign-Out/Discharge Documenting (check all that apply): Sign-Out Patient, Receiving Sign-Out Signing out patient TO: Kei Morris Receiving patient FROM: Silva Scott - Discharge Plan Condition: Stable Referrals: Radha Obrien MD [Primary Care Provider] - - Billing Disposition and Condition Condition: STABLE - Attestation Statements Document Initiated by Scribe: Yes Documenting Scribe: NITO LYLE Provider For Whom Scribe is Documenting (Include Credential): HAI GRAY MD Scribe Attestation: NITO Kulkarni, scribed for HAI GRAY MD on 09/08/19 at 0629. Scribe Documentation Reviewed: Yes Provider Attestation: The documentation as recorded by the scribeNITO accurately reflects the service I personally performed and the decisions made by me, HAI GRAY MD Status of Scribe Document: Viewed - Assessment for Patient Restraint Evaluation of the Patient's Immediate Situation: patient is agitated, violent. unable to be redirected. po meds not helping patient sleep. Patient's Reaction to Intervention: patient quickly calmed down and relaxed. able to rest Patient's Medication and Behavioral Condition: after intervention patient is calm and cooperative Evaluate Need for Continued Restraint: Continue - patient to be constantly monitored and restraints discontinued as appropriate
[2019-09-07] MEDS ORDERED: Lorazepam PYXIS KEY PRN (20:28)
[2019-09-07] MEDS ORDERED: LORazepam INJ* 2 MG/ML 1 ML VIAL IM ONE (20:28)
[2019-09-07] MEDS ORDERED: Lorazepam PYXIS KEY ONE (20:32)
[2019-09-07] MEDS ORDERED: LORazepam INJ* 2 MG/ML 1 ML VIAL ONE (20:32)
[2019-09-07] MEDS ORDERED: Mirtazapine TAB* 15 MG PO PRN (21:53)
[2019-09-07] MEDS ORDERED: Divalproex DR TAB(*) 500 MG PO SCH (22:00)
[2019-09-07] MEDS ORDERED: risperiDONE TAB* 1 MG PO SCH (22:00)
[2019-09-07] MEDS ORDERED: Topiramate TAB(*) 25 MG PO SCH (23:00)
[2019-09-08] MEDS ORDERED: LORazepam TAB(*) 1 MG PO ONE (00:23)
[2019-09-08] MEDS ORDERED: diPHENhydraMINE PO* 50 MG PO ONE (00:23)
[2019-09-08] MEDS ORDERED: Haloperidol INJ IV/IM* 5 MG/ML AMP IM ONE (00:54)
[2019-09-08] MEDS ORDERED: diPHENhydraMINE IV* 50 MG/ML 1 ml VIAL (BENADRYL) IM ONE (00:54)
[2019-09-08] MEDS ORDERED: LORazepam INJ* 2 MG/ML 1 ML VIAL ONE (00:55)
--- NOTE | 2019-09-08 07:12 | ED ---
Progress - Progress Note Progress Note: Patient is a sign-out at 07:00 on 09/08/[address] Kellen Gray MD to Dr. Kei Morris MD at shift change, pending hold. At 09:11, plant machinist reports that patient's case was reviewed by Dr. Fernando Avila. Patient is will be discharged with a diagnosis of borderline personality disorder and mood disorder. - Consult/PCP Time Called: 18:00 Re-Evaluation - Re-Evaluation First Eval Re-Evaluation Time: 00:27 Comment: Patient is agitated and unwilling to stay in stretcher. Ativan 2 mg and Bendaryl 50 mg were administered to assist patient sleep. Second Eval Re-Evaluation Time: 00:54 Comment: Patient continues to be agitated and uncooperative with staff. Bendaryl , Ativan, and Haldol will be administered for chemical restraint of behavior. Third Eval Re-Evaluation Time: 01:01 Comment: Patient continues to be agitated and refuses chemical restraints. She required physical restraints. Fourth Eval Re-Evaluation Time: 01:31 Comment: Patient is resting in bed, physical restraints were removed as patient met all criteria to have this done. Fifth Eval Re-Evaluation Time: 02:01 Comment: Patient is sleeping soundly, no complaints. Sixth + Eval Re-Evaluation Time: 04:25 Comment: Patient remains asleep at this time. Sixth Eval Re-Evaluation Time: 04:25 Comment: Patient remains asleep at this time. Seventh Eval Re-Evaluation Time: 10:44 Change: Unchanged Comment: Patient is sleeping and will be discharged. Course/Dx - Course Course Of Treatment: Patient is a sign-out at 07:00 on 09/08/[address] Kellen Gray MD to Dr. Kei Morris MD at shift change, pending hold. At 09:11 , plant machinist reports that patient's case was reviewed by Dr. Fernando Avila. Patient is will be discharged with a diagnosis of borderline personality disorder and mood disorder. - Diagnoses Provider Diagnoses: Mood disorder, Borderline personality disorder - Provider Notifications Discussed Care Of Patient With: Fernando Avila - At 09:11, plant machinist reports that patient's case was reviewed by Dr. Fernando Avila. Patient is will be discharged with a diagnosis of borderline personality disorder and mood disorder. Time Discussed With Above Provider: 09:11 Discharge ED - Sign-Out/Discharge Documenting (check all that apply): Patient Departure - Discharge, Receiving Sign-Out Receiving patient FROM: Kellen Gray - 07:00 on 09/08/19 - Discharge Plan Condition: Stable Disposition: HOME Referrals: [facility] [Other] (YOU HAVE AN APPOINTMENT ON 09-15-19 AT 2 :[address] HERNDON AT [facility]) Radha Obrien MD [Primary Care Provider] - - Billing Disposition and Condition Condition: STABLE Disposition: Home - Attestation Statements Document Initiated by Randi: Yes Documenting Scribe: Shira Crowe Provider For Whom Randi is Documenting (Include Credential): Kei Morris MD Scribe Attestation: Shira Kulkarni, scribed for Kei Morris MD on 09/08/19 at 1327. Scribe Documentation Reviewed: Yes Provider Attestation: The documentation as recorded by the Shira jordan accurately reflects the service I personally performed and the decisions made by , Kei Morris MD Status of Scribe Document: Viewed
[2019-09-08 09:09] VITALS: BP 119/88
== END 2019-09-08 11:15 | disposition home or self-care (01) ==
LOC: ED 15:08
DX: F39 Unspecified mood [affective] disorder (principal); F60.3 Borderline personality disorder; F41.9 Anxiety disorder, unspecified; Z32.02 Encounter for pregnancy test, result negative; E03.9 Hypothyroidism, unspecified; Z88.1 Allergy status to other antibiotic agents; Z88.0 Allergy status to penicillin
CPT/HCPCS: 36415; 80053; 80164; 80307; 80320; 80329; 81003; 81015; 84443; 84702; 85025; 87086; 99285; A9270-GY; G0480; J1200; J1630; J2060

== ENCOUNTER 2019-09-09 12:18 | Emergency (ER) | payer MEDICARE, MEDICAID ==
[2019-09-09] MEDS ORDERED: LORazepam TAB(*) 1 MG PO ONE (13:27)
--- NOTE | 2019-09-09 14:06 | ED ---
Psychiatric Complaint - HPI Summary HPI Summary: This patient is a 28-year-old female presenting to the ED for the second time in 3 days stating suicidal ideation. She states she would like to run out in front of a bus. She states her symptoms are worse than they were from 2 days ago. She states "they didn't do anything for me!" Patient appears very upset that she did not get admitted. She continues to request admission. She states she had self-harm 3 days ago and was treated for this, however denies any self- harm the past 2 days. She states if she is discharged she will run in front of a bus. She denies any other complaints on this date. She continues to take all your medications as prescribed. - History Of Current Complaint Chief Complaint: EDSuicidal Time Seen by Provider: 09/09/19 12:24 Hx Obtained From: Patient Hx Last Menstrual Period: april 252018 irregular ?: No Onset/Duration: Sudden Onset Timing: Constant Severity Initially: Severe Severity Currently: Severe Character: Depressed, Anxious Aggravating Factor(s): Nothing Alleviating Factor(s): Nothing Associated Signs And Symptoms: Positive: Negative Has Suicidal: Reports: Thoughts, With A Plan - Allergies/Home Medications Allergies/Adverse Reactions: Allergies Allergy/AdvReac Type Severity Reaction Status Date / Time amoxicillin [From Augmentin] Allergy Rash Verified 08/18/19 22:47 clavulanic acid Allergy Rash Verified 08/18/19 22:47 [From Augmentin] PMH/Surg Hx/FS Hx/Imm Hx Previously Healthy: Yes Endocrine/Hematology History: Reports: Hx Thyroid Disease - hypo Denies: Hx Anticoagulant Therapy, Hx Diabetes Cardiovascular History: Denies: Hx Hypertension Respiratory History: Reports: Hx Seasonal Allergies Denies: Hx Asthma, Hx Chronic Obstructive Pulmonary Disease (COPD) GI History: Denies: Hx Gastroesophageal Reflux Disease, Hx Ulcer History: Denies: Hx Renal Disease Sensory History: Reports: Hx Contacts or Glasses - Reportedly uses contacts, unconfirmed by Pt at this time. Denies: Hx Hearing Aid Opthamlomology History: Reports: Hx Contacts or Glasses - Reportedly uses contacts, unconfirmed by Pt at this time. Neurological History: Reports: Hx Developmental Delay Psychiatric History: Reports: Hx Anxiety, Hx Attention Deficit Hyperactivity Disorder, Hx Depression, Hx Inpatient Treatment, Hx Community Mental Health Tx, Hx Suicide Attempt, Hx of Violent Episodes Against Others, Other Psychiatric Issues/Disorders - developmental delays Denies: Hx Eating Disorder - Surgical History Surgery Procedure, Year, and Place: none - Immunization History Date of Influenza Vaccine: 08/2017 Hx Pertussis Vaccination: No Immunizations Up to Date: Yes Infectious Disease History: No Infectious Disease History: Denies: Hx Clostridium Difficile, Hx Hepatitis, Hx Human Immunodeficiency Virus (HIV), Hx of Known/Suspected MRSA, Hx Shingles, Hx Tuberculosis, Hx Known/ Suspected VRE, Hx Known/Suspected VRSA, History Other Infectious Disease, Traveled Outside the [place] in Last 30 Days - Family History Known Family History: Positive: Cardiac Disease, Respiratory Disease, Other - pos: depression Negative: Hypertension - Social History Occupation: Employed Full-time Lives: With Family Alcohol Use: None Hx Substance Use: No Substance Use Type: Reports: None Hx Tobacco Use: No Smoking Status (MU): Never Smoked Tobacco Amount Used/How Often: pt does not and has never used tobacco products of any kind Have You Smoked in the Last Year: No Review of Systems Negative: Fever, Chills, Fatigue, Skin Diaphoresis Negative: Palpitations, Chest Pain Negative: Shortness Of Breath, Cough Genitourinary: Negative Positive: no symptoms reported, see HPI Negative: Arthralgia, Myalgia Skin: Negative Neurological: Negative All Other Systems Reviewed And Are Negative: Yes Physical Exam Triage Information Reviewed: Yes Vital Signs On Initial Exam: Initial Vitals Temp Pulse Resp BP Pulse Ox 98.1 F 103 18 124/93 95 09/09/19 12:29 09/09/19 12:29 09/09/19 12:29 09/09/19 12:29 09/09/19 12:29 Vital Signs Reviewed: Yes Appearance: Positive: Well-Appearing Skin: Positive: Warm, Skin Color Reflects Adequate Perfusion Head/Face: Positive: Normal Head/Face Inspection Eyes: Positive: EOMI, RITA, Conjunctiva Clear Neck: Positive: Supple, No Lymphadenopathy Respiratory/Lung Sounds: Positive: Clear to Auscultation, Breath Sounds Present Cardiovascular: Positive: RRR, Pulses are Symmetrical in both Upper and Lower Extremities Musculoskeletal: Positive: Normal, Strength/ROM Intact Neurological: Positive: Sensory/Motor Intact, Alert, Oriented to Person Place, Time Psychiatric: Positive: Anxious, Depressed AVPU Assessment: Alert Procedures - Sedation Patient Received Moderate/Deep Sedation with Procedure: No Diagnostics - Vital Signs Vital Signs Temp Pulse Resp BP Pulse Ox 09/09/19 13:47 18 09/09/19 12:29 98.1 F 103 18 124/93 95 - Laboratory Lab Statement: Any lab studies that have been ordered have been reviewed, and results considered in the medical decision making process. Course/Dx - Course Course Of Treatment: During his course of treatment, the patient is evaluated for suicidal thoughts and depression. Denies other symptoms. Patient is cleared for mental health evaluation. Observation status is Q15. Patient is cleared by mental health and is able to be discharged home. He does not appear that the patient is actively suicidal. She is very tearful and continuing to state she would like to stay, stating "I want to go home." It was explained to the patient by the charge nurse, Suzette as well as myself that we are unable to hold her in the ED due to the fact she just does not want to go home. Patient is given a three-day supply of Ativan for her anxiety. She is agreeable to go home at this time. - Differential Dx/Clinical Impression Differential Diagnosis/HQI/PQRI: Positive: Anxiety, Depression Provider Diagnosis: Anxiety, Depression, Intermittent explosive disorder Discharge ED - Sign-Out/Discharge Documenting (check all that apply): Patient Departure - Discharge Plan Condition: Good Disposition: HOME Prescriptions: LORazepam TAB(*) [Ativan 1 MG TAB (*)] 1 mg PO Q8H PRN #9 tab MDD 3 PRN Reason: Anxiety Patient Education Materials: Mood Disorders (ED), Depression (ED) Referrals: Radha Obrien MD [Primary Care Provider] - - Billing Disposition and Condition Condition: GOOD Disposition: Home - Attestation Statements Provider Attestation: I was available for consultation for this patient. I did not evaluate the patient or participate in any medical decision making or disposition decisions unless I am specifically named in the chart as having consulted on the patient. If I have consulted on the patient, please see my own ED note on the patient encounter. Chanell Richardson MD
[2019-09-09 15:21] VITALS: BP 111/82
== END 2019-09-09 15:20 | disposition home or self-care (01) ==
LOC: ED 12:18
DX: F41.9 Anxiety disorder, unspecified (principal); F32.9 Major depressive disorder, single episode, unspecified; F63.81 Intermittent explosive disorder; E03.9 Hypothyroidism, unspecified; F90.9 Attention-deficit hyperactivity disorder, unspecified type; Z88.1 Allergy status to other antibiotic agents; Z88.0 Allergy status to penicillin; Z79.899 Other long term (current) drug therapy
CPT/HCPCS: 99285; A9270-GY

== ENCOUNTER 2019-09-19 21:24 | Emergency (ER) | payer MEDICARE, MEDICAID ==
--- NOTE | 2019-09-19 21:49 | ED ---
Psychiatric Complaint - HPI Summary HPI Summary: Pt is a 28 y/o F presenting to the ED brought in by EMS for a psychiatric complaint. Pt states shes felt suicidal since earlier today, 09/19/19, and that she'd use a knife to try and kill herself. It was not necessarily brought on by anything. Staff at the respite house she currently lives at called EMS for her. She denies drug or alcohol use. She self-harmed earlier today by cutting her L wrist, but denies any other physical complaints. - History Of Current Complaint Chief Complaint: EDMentalHealth Time Seen by Provider: 09/19/19 21:35 Hx Obtained From: Patient Hx Last Menstrual Period: april 252018 irregular Onset/Duration: Gradual Onset, Lasting Hours, Still Present Timing: Hours Severity Initially: Moderate Severity Currently: Moderate Character: Depressed Aggravating Factor(s): Nothing Alleviating Factor(s): Nothing Associated Signs And Symptoms: Positive: Negative Related History: Positive For: Prior Psychiatric Issues Has Suicidal: Reports: Thoughts, With A Plan - with a knife - Allergies/Home Medications Allergies/Adverse Reactions: Allergies Allergy/AdvReac Type Severity Reaction Status Date / Time amoxicillin [From Augmentin] Allergy Rash Verified 08/18/19 22:47 clavulanic acid Allergy Rash Verified 08/18/19 22:47 [From Augmentin] PMH/Surg Hx/FS Hx/Imm Hx Previously Healthy: Yes Endocrine/Hematology History: Reports: Hx Thyroid Disease - hypo Denies: Hx Anticoagulant Therapy, Hx Diabetes Cardiovascular History: Denies: Hx Hypertension Respiratory History: Reports: Hx Seasonal Allergies Denies: Hx Asthma, Hx Chronic Obstructive Pulmonary Disease (COPD) GI History: Denies: Hx Gastroesophageal Reflux Disease, Hx Ulcer History: Denies: Hx Renal Disease Sensory History: Reports: Hx Contacts or Glasses - Reportedly uses contacts, unconfirmed by Pt at this time. Denies: Hx Hearing Aid Opthamlomology History: Reports: Hx Contacts or Glasses - Reportedly uses contacts, unconfirmed by Pt at this time. Neurological History: Reports: Hx Developmental Delay Psychiatric History: Reports: Hx Anxiety, Hx Attention Deficit Hyperactivity Disorder, Hx Depression, Hx Inpatient Treatment, Hx Community Mental Health Tx, Hx Suicide Attempt, Hx of Violent Episodes Against Others, Other Psychiatric Issues/Disorders - developmental delays Denies: Hx Eating Disorder - Surgical History Surgery Procedure, Year, and Place: none - Immunization History Date of Influenza Vaccine: 08/2017 Infectious Disease History: Denies: Hx Clostridium Difficile, Hx Hepatitis, Hx Human Immunodeficiency Virus (HIV), Hx of Known/Suspected MRSA, Hx Shingles, Hx Tuberculosis, Hx Known/ Suspected VRE, Hx Known/Suspected VRSA, History Other Infectious Disease - Family History Known Family History: Positive: Cardiac Disease, Respiratory Disease, Other - pos: depression Negative: Hypertension - Social History Alcohol Use: None Hx Substance Use: No Substance Use Type: Reports: None Hx Tobacco Use: No Smoking Status (MU): Never Smoked Tobacco Amount Used/How Often: pt does not and has never used tobacco products of any kind Have You Smoked in the Last Year: No Review of Systems Positive: Other - self harm on L wrist - cutting Positive: Depressed All Other Systems Reviewed And Are Negative: Yes Physical Exam - Summary Physical Exam Summary: Appearance: Well-appearing, Well-nourished, lying in bed comfortable Skin: Warm, dry, no obvious rash. Superficial linear abrasions on the volar aspect of the L wrist, as well as areas on the dorsum of the L hand where she self-harmed with colored pencils previously. Eyes: sclera anicteric, no conjunctival pallor ENT: mucous membranes moist Neck: deferred Respiratory: No signs of respiratory distress Cardiovascular: Appears well perfused, pulses are nml Abdomen: deferred Musculoskeletal: Moving all 4 extremities without obvious discomfort Neurological: Awake and alert, mentation is normal, speech is fluent and appropriate Psychiatric: affect is normal, does not appear anxious or depressed Triage Information Reviewed: Yes Vital Signs Reviewed: Yes Procedures - Sedation Patient Received Moderate/Deep Sedation with Procedure: No Diagnostics - Laboratory Result Diagrams: 09/19/19 21:52 09/19/19 21:52 Lab Statement: Any lab studies that have been ordered have been reviewed, and results considered in the medical decision making process. - EKG 3 Cardiac Rate: Tachycardia - 113bpm EKG Rhythm: Sinus Tachycardia ST Segment: Normal Ectopy: None Summary of EKG Findings: EKG at 2143 shows sinus tachycardia at 113BPM, P waves , QRS complex, and T waves are within normal limits, T waves and intervals are normal, no ischemic changes. This is a normal EKG. ED physician has reviewed and interpreted this EKG. Course/Dx - Course Course Of Treatment: 28 y/o F presenting to ED brought in by EMS for SI. Pt has been suicidal since earlier today, and was thinking of using a knife to kill herself. Staff at the respite home she currently lives in called EMS for her. She self-harmed [employer] by cutting her L wrist, but denies any other physical complaints. No drug or alcohol use. Pt's physical exam shows superficial linear abrasions on the volar aspect of the L wrist, as well as areas on the dorsum of the L hand where she self-harmed with colored pencils previously. EKG at 2143 shows sinus tachycardia at 113BPM, P waves, QRS complex, and T waves are within normal limits, T waves and intervals are normal, no ischemic changes. This is a normal EKG. ED physician has reviewed and interpreted this EKG. Pt will be signed out to Dr. Wright at 0700 on 09/20/19 pending MHE. Dx suicidal ideation. - Differential Dx/Clinical Impression Provider Diagnosis: Suicidal ideation Discharge ED - Sign-Out/Discharge Documenting (check all that apply): Sign-Out Patient Signing out patient TO: Bigg Wright - Discharge Plan Referrals: Radha Obrien MD [Primary Care Provider] - - Attestation Statements Document Initiated by Scribe: Yes Documenting Scribe: Tamar Fraga Provider For Whom Randi is Documenting (Include Credential): Ray Díaz MD. Scribe Attestation: Tamar Kulkarni, surekhaed for Ray Díaz MD. on 09/20/19 at 0553. Scribe Documentation Reviewed: Yes Provider Attestation: The documentation as recorded by the Tamar jordan accurately reflects the service I personally performed and the decisions made by , Ray Díaz MD. Status of Scribe Document: Viewed
[2019-09-19 21:53] LABS: Urine Appearance Clear; Urine Bilirubin Negative (Negative); Urine Blood Negative (Negative); Urine Color Straw; Urine Glucose Negative (Negative); Urine Ketones Negative (Negative); Urine Nitrite Negative (Negative); Urine Protein Negative (Negative); Urine Urobilinogen Negative (Negative)
[2019-09-19 21:57] LABS: Hematocrit 38 % (35-47); Hemoglobin 12.9 g/dL (12.0-16.0); Mean Corpuscular HGB Conc 34 g/dL (31-36); Mean Corpuscular Hemoglobin 28 pg (27-31); Mean Corpuscular Volume 83 fL (80-97); Mean Platelet Volume 8.2 fL (7.4-10.4); Platelet Count 274 10^3/uL (150-450); Red Blood Count 4.54 10^6 /uL (3.70-4.87); Red Cell Distribution Width 14 % (10-15); White Blood Count 8.9 10^3/uL (3.5-10.8)
[2019-09-19 22:06] LABS: Urine Benzodiazepine Screen None Detected (None Detect); Urine Opiates Screen None Detected (None Detect)
[2019-09-19 22:14] LABS: ALT 17 U/L (7-52); AST 14 U/L (13-39); Albumin 3.8 g/dL (3.2-5.2); Albumin/Globulin Ratio 1.2 (1-3); Alkaline Phosphatase 67 U/L (34-104); Anion Gap 7 mmol/L (2-11); BUN/Creatinine Ratio 21.8 (8-20); Blood Urea Nitrogen 17 mg/dL (6-24); CO2 Carbon Dioxide 23 mmol/L (22-32); Calcium 9.5 mg/dL (8.6-10.3); Chloride 109 mmol/L (101-111); EGFR African American 105.7 (>60); EGFR Non-African American 87.3 (>60); Globulin 3.1 g/dL (2-4); Glucose 112 mg/dL (70-100); Potassium 4.1 mmol/L (3.5-5.0); Sodium 139 mmol/L (135-145); Total Protein 6.9 g/dL (6.4-8.9)
[2019-09-19 22:19] LABS: Alcohol < 10 mg/dL (<10); Salicylate < 2.50 mg/dL (<30)
[2019-09-19 22:21] LABS: HCG Pregnancy < 0.60 mIU/mL
[2019-09-19 22:33] LABS: TSH (Thyroid Stimulating Horm) 4.88 mcIU/mL (0.34-5.60)
[2019-09-19 22:51] LABS: ABS Basophils 0.1 10^3/ul (0-0.2); ABS Eosinophils 0.2 10^3/ul (0-0.6); ABS Lymphocytes 1.6 10^3/ul (1.0-4.8); ABS Monocytes 0.5 10^3/ul (0-0.8); ABS Neutrophils 6.6 10^3/ul (1.5-7.7); Eosinophil % 1.9 %; Lymphocyte % 18.2 %
[2019-09-20 00:09] LABS: Acetaminophen < 15 mcg/mL
--- NOTE | 2019-09-20 07:17 | ED ---
Progress - Progress Note Progress Note: The patient is a sign-out from Dr. Ray Díaz MD, to Dr. Bigg Wright MD, at change of shift at 0700 on 09/20/19, pending mental health evaluation and disposition. The patient is a sign-out from Dr. Bigg Wright MD, to Dr. Ray Díaz MD, at change of shift at 1900 on 09/20/19, pending mental health evaluation and disposition. Course/Dx - Course Course Of Treatment: The patient is a sign-out from Dr. Ray Díaz MD, to Dr. Bigg Wright MD, at change of shift at 0700 on 09/20/19, pending mental health evaluation and disposition. The patient is a sign-out from Dr. Bigg Wright MD, to Dr. Ray Díaz MD, at change of shift at 1900 on 09/20/19, pending mental health evaluation and disposition. - Diagnoses Provider Diagnoses: Suicidal ideation Discharge ED - Sign-Out/Discharge Documenting (check all that apply): Sign-Out Patient, Receiving Sign-Out Signing out patient TO: Ray Díaz - Patient is a sign-out to Dr. Ray Díaz MD, at change of shift at 1900 on 09/20/19, pending mental health evaluation and disposition. Receiving patient FROM: Ray Díaz - Patient is a sign-out from Dr. Ray Díaz MD, at change of shift at 0700 on 09/20/19, pending mental health evaluation and disposition. - Discharge Plan Referrals: Radha Obrien MD [Primary Care Provider] - - Attestation Statements Document Initiated by Randi: Yes Documenting Scribe: Brianna Robertson Provider For Whom Randi is Documenting (Include Credential): Dr. Bigg Wright MD Scribe Attestation: Brianna Kulkarni scribed for Dr. Bigg Wright MD on 09/20/19 at 1850. Scribe Documentation Reviewed: Yes Provider Attestation: The documentation as recorded by the Brianna jordan accurately reflects the service I personally performed and the decisions made by me, Dr. Bigg Wright MD Status of Scribe Document: Viewed Procedures - Sedation Patient Received Moderate/Deep Sedation with Procedure: No
[2019-09-20] MEDS ORDERED: LORazepam TAB(*) 1 MG PO ONE (12:43)
[2019-09-20] MEDS ORDERED: Acetaminophen TAB* 325 MG PO ONE (12:43)
[2019-09-20] MEDS ORDERED: Topiramate TAB(*) 25 MG PO ONE (12:55)
[2019-09-20] MEDS ORDERED: Divalproex DR TAB(*) 500 MG PO ONE (12:55)
[2019-09-20] MEDS ORDERED: Venlafaxine ER (NF) 150 MG CAP.ER PO ONE (12:59)
[2019-09-20] MEDS ORDERED: Venlafaxine EXT RELEASE CAP* 75 MG PO ONE (15:00)
[2019-09-20] MEDS ORDERED: risperiDONE TAB* 1 MG PO ONE (15:00)
--- NOTE | 2019-09-20 19:25 | ED ---
Progress - Progress Note Progress Note: The patient is a sign-out from Dr. Wright at 1900 on 09/20/19 pending disposition. - Consult/PCP Time Called: 07:50 Course/Dx - Course Course Of Treatment: The patient is a sign-out from Dr. Wright at 1900 on pending disposition. Pt d/c'ed home to stay with parents. - Diagnoses Provider Diagnoses: Suicidal ideation Discharge ED - Sign-Out/Discharge Documenting (check all that apply): Patient Departure, Receiving Sign-Out Receiving patient FROM: Bigg Wright - Discharge Plan Condition: Stable Disposition: HOME Referrals: Rahda Obrien MD [Primary Care Provider] - - Billing Disposition and Condition Condition: STABLE Disposition: Home - Attestation Statements Document Initiated by Feliciaibe: Yes Documenting Scribe: Tamar Fraga Provider For Whom Randi is Documenting (Include Credential): Ray Díaz MD. Scribe Attestation: Tamar Kulkarni scribed for Ray Díaz MD. on 09/21/19 at 0155. Scribe Documentation Reviewed: Yes Provider Attestation: The documentation as recorded by the Tamar jordan accurately reflects the service I personally performed and the decisions made by , Ray Díaz MD. Status of Scribe Document: Viewed
[2019-09-20 19:55] VITALS: BP 116/80
== END 2019-09-20 19:45 | disposition home or self-care (01) ==
LOC: ED 21:24
DX: F32.9 Major depressive disorder, single episode, unspecified (principal); R45.851 Suicidal ideations; E03.9 Hypothyroidism, unspecified; R62.50 Unspecified lack of expected normal physiological development in childhood; F90.9 Attention-deficit hyperactivity disorder, unspecified type
CPT/HCPCS: 36415; 80053; 80164; 80307; 80320; 80329; 81003; 84443; 84702; 85025; 85060; 99285; A9270-GY; G0480

== ENCOUNTER 2019-10-07 18:03 | Emergency (ER) | payer MEDICARE, MEDICAID ==
--- NOTE | 2019-10-07 18:25 | ED ---
Psychiatric Complaint - HPI Summary HPI Summary: Patient is a 28 y/o F presenting to the ED via EMS for a psychiatric complaint. Patient reports SI. She notes wanting to self-harm using a knife. Recently, her anxiety has worsened, but she denies any aggravating or alleviating factors. She denies HI, fever, headache, or myalgia. PMHx is significant for anxiety and depression for which she takes medication. She denies tobacco, alcohol, or drug use. Patient has had multiple visits to [facility] in the past for similar psychiatric complaints for which she had mental health evaluations. - History Of Current Complaint Chief Complaint: EDSuicidal Hx Obtained From: Patient Hx Last Menstrual Period: april 252018 irregular Onset/Duration: Gradual Onset, Still Present Timing: Constant Severity Initially: Moderate Severity Currently: Moderate Character: Depressed, Anxious Aggravating Factor(s): Nothing Alleviating Factor(s): Nothing Associated Signs And Symptoms: Positive: Negative Related History: Positive For: Prior Psychiatric Issues Has Suicidal: Reports: Thoughts Has Homicidal: Denies: Thoughts - Allergies/Home Medications Allergies/Adverse Reactions: Allergies Allergy/AdvReac Type Severity Reaction Status Date / Time amoxicillin [From Augmentin] Allergy Rash Verified 08/18/19 22:47 clavulanic acid Allergy Rash Verified 08/18/19 22:47 [From Augmentin] Home Medications: Home Medications Levothyroxine TAB* [Synthroid TAB*] 50 mcg PO DAILY 10/07/19 [History Confirmed 10/07/19] PMH/Surg Hx/FS Hx/Imm Hx Previously Healthy: Yes Endocrine/Hematology History: Reports: Hx Thyroid Disease - hypo Denies: Hx Anticoagulant Therapy, Hx Diabetes Cardiovascular History: Denies: Hx Hypercholesterolemia, Hx Hypertension Respiratory History: Reports: Hx Seasonal Allergies Denies: Hx Asthma, Hx Chronic Obstructive Pulmonary Disease (COPD) GI History: Denies: Hx Gastroesophageal Reflux Disease, Hx Ulcer History: Denies: Hx Renal Disease Sensory History: Reports: Hx Contacts or Glasses - Reportedly uses contacts, unconfirmed by Pt at this time. Denies: Hx Legally Blind, Hx Deafness, Hx Hearing Aid Opthamlomology History: Reports: Hx Contacts or Glasses - Reportedly uses contacts, unconfirmed by Pt at this time. Denies: Hx Legally Blind EENT History: Denies: Hx Deafness Neurological History: Reports: Hx Developmental Delay Psychiatric History: Reports: Hx Anxiety, Hx Attention Deficit Hyperactivity Disorder, Hx Depression, Hx Inpatient Treatment, Hx Community Mental Health Tx, Hx Suicide Attempt, Hx of Violent Episodes Against Others, Other Psychiatric Issues/Disorders - developmental delays Denies: Hx Eating Disorder - Surgical History Surgical History: None Surgery Procedure, Year, and Place: none - Immunization History Date of Influenza Vaccine: 08/2017 Infectious Disease History: No Infectious Disease History: Denies: Hx Clostridium Difficile, Hx Hepatitis, Hx Human Immunodeficiency Virus (HIV), Hx of Known/Suspected MRSA, Hx Shingles, Hx Tuberculosis, Hx Known/ Suspected VRE, Hx Known/Suspected VRSA, History Other Infectious Disease, Traveled Outside the [place] in Last 30 Days - Family History Known Family History: Positive: Cardiac Disease, Respiratory Disease, Other - pos: depression Negative: Hypertension - Social History Occupation: Disabled Lives: With Family Alcohol Use: None Hx Substance Use: No Substance Use Type: Reports: None Hx Tobacco Use: No Smoking Status (MU): Never Smoked Tobacco Amount Used/How Often: pt does not and has never used tobacco products of any kind Have You Smoked in the Last Year: No Review of Systems Negative: Fever Negative: Myalgia Negative: Headache Psychological: Other - Positive SI; negative HI Positive: Anxious, Depressed All Other Systems Reviewed And Are Negative: Yes Physical Exam - Summary Physical Exam Summary: VITAL SIGNS: Reviewed. GENERAL: Patient is a well-developed and nourished FEMALE who is lying comfortable in the stretcher. Patient is not in any acute respiratory distress. HEAD AND FACE: No signs of trauma. No ecchymosis, hematomas or skull depressions. No sinus tenderness. EYES: PERRLA, EOMI x 2, No injected conjunctiva, no nystagmus. EARS: Hearing grossly intact. Ear canals and tympanic membranes are within normal limits. MOUTH: Oropharynx within normal limits. NECK: Supple, trachea is midline, no adenopathy, no JVD, no carotid bruit, no c- spine tenderness, neck with full ROM. CHEST: Symmetric, no tenderness at palpation. LUNGS: Clear to auscultation bilaterally. No wheezing or crackles. CVS: Regular rate and rhythm, S1 and S2 present, no murmurs or gallops appreciated. ABDOMEN: Soft, non-tender. No signs of distention. No rebound, no guarding, and no masses palpated. Bowel sounds are normal. EXTREMITIES: FROM in all major joints, no edema, no cyanosis or clubbing. NEURO: Alert and oriented x 3. No acute neurological deficits. Speech is normal and follows commands. SKIN: Dry and warm. PSYCH: Depressed, quiet, and denies any suicidal thoughts or plan. No homicidal thoughts or plan. No signs of psychosis or pressure speech. No tangential speech. Triage Information Reviewed: Yes Vital Signs On Initial Exam: Initial Vitals Temp Pulse Resp BP Pulse Ox 98.1 F 101 14 115/76 97 10/07/19 18:21 10/07/19 18:21 10/07/19 18:21 10/07/19 18:21 10/07/19 18:21 Vital Signs Reviewed: Yes Procedures - Sedation Patient Received Moderate/Deep Sedation with Procedure: No Diagnostics - Vital Signs Vital Signs Temp Pulse Resp BP Pulse Ox 10/07/19 18:21 98.1 F 101 14 115/76 97 - Laboratory Result Diagrams: 10/07/19 20:15 10/07/19 20:15 Lab Statement: Any lab studies that have been ordered have been reviewed, and results considered in the medical decision making process. Re-Evaluation - Re-Evaluation First Eval Re-Evaluation Time: 18:22 Change: Unchanged Comment: Patient is medically cleared for a mental health evaluation. Course/Dx - Course Assessment/Plan: Patient is a 28 y/o F presenting to the ED via EMS for a psychiatric complaint. Patient reports SI. She notes wanting to self-harm using a knife. Recently, her anxiety has worsened, but she denies any aggravating or alleviating factors. She denies HI, fever, headache, or myalgia. PMHx is significant for anxiety and depression for which she takes medication. She denies tobacco, alcohol, or drug use. Patient has had multiple visits to [facility] in the past for similar psychiatric complaints for which she had mental health evaluations. Patient has taken her medications in the last day. Blood work is w/o a significant abnormality. She is medically cleared. She is awaiting a MHE. Patient is hemodynamically stable and A+O x 3. Dr. Avila assessed the patient and recommends for the patient to be discharged home. Diagnosis of depressive disorder. - Differential Dx/Clinical Impression Differential Diagnosis/HQI/PQRI: Positive: Anxiety, Depression, Suicidal Ideation Provider Diagnosis: Depression - Physician Notifications Discussed Care Of Patient With: Fernando Avila - At 20:50, MH gore inserter reports that the patients case was reviewed by Dr. Fernando Avila who will discharge the patient with a diagnosis of depression. Time Discussed With Above Provider: 20:50 Instructed by Provider To: Other - Discharge Discharge ED - Sign-Out/Discharge Documenting (check all that apply): Patient Departure - Discharge - Discharge Plan Condition: Stable Disposition: HOME Patient Education Materials: Depression (ED) Referrals: Radha Obrien MD [Primary Care Provider] - Additional Instructions: Per completion of a mental health evaluation, you are cleared for release and do not require inpatient psychiatric hospitalization at this time. Please go to nearest emergency room or call 911 if safety concerns arise or condition worsens. Important Phone Numbers: [facility] ph:[phone] [facility] Crisis [facility] ph:[phone] National Suicide Prevention Lifeline ph:[phone] (8706) [facility] ph:[phone] Alcoholics Anonymous ph: [facility] ph:[phone] [employer] [place] [employer] ph:[phone] Recommendation: Follow up with [facility] on Thursday. Take medications as prescribed. - Billing Disposition and Condition Condition: STABLE Disposition: Home - Attestation Statements Document Initiated by Scribe: Yes Documenting Scribe: Shira Crowe Provider For Whom Scribe is Documenting (Include Credential): Bigg Wright MD Scribe Attestation: Shira Kulkarni scribed for Bigg Wright MD on 10/07/19 at 0067. Scribe Documentation Reviewed: Yes Provider Attestation: The documentation as recorded by the Shira jordan accurately reflects the service I personally performed and the decisions made by , Bigg Wright MD Status of Scribe Document: Viewed
--- OUTSIDE RECORDS SUMMARY | 2019-10-07 18:53 | XMS REPORT ---
:1990 Author Organization [facility] Care Team Providers Name Role Phone Paulette Andre Primary Care Physician Unavailable Allergies, Adverse Reactions, Alerts Allergy Code CodeSystem Reaction Severity Criticality Status Start Substance Date Moderate Medications Medication Medication Medication Start Stop Route Dose Status Fill Code CodeSystem Date Date Instructions venlafaxine 306959 RxNorm 2019- oral 150 mg completed for 30 -21 03-24 tablet day(s) extended release 24hr topiramate 314313 RxNorm 2019- oral 50 mg active for 30 - 08-22 tablet day(s) risperidone 097915 RxNorm 2019- oral 1 mg active for 30 2- 08-22 tablet day(s) Effexor XR 537795 RxNorm 2019- oral 150 mg active for 30 5-24 08-22 capsule,e day(s) xtended release 24hr divalproex 5899335 RxNorm 2019- oral 500 mg active for 30 -21 06-22 tablet,de day(s) layed release (DR/EC) mirtazapine 566415 RxNorm 2019- oral 15 mg active for 30 -21 06-22 tablet day(s) Problems Problem Name Code CodeSystem Alternate Alternate Start End Status Narrative Code CodeSystem Date Date 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 Intermittent 65597451 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 Relevant diagnostic tests/laboratory data Narrative No Information Procedures Procedure Code CodeSystem Target Date of Status Service Device Device Device Name Site Procedure Delivery Code Name UID Location Office or [id number] SNOMED-CT () 2019-08-25 complete Mental other 7 d Health- outpatient [facility] visit for [facility] the [address] [facility], [facility], [facility], established [id number] patient, [phone] which requires at least 2 of these 3 wilkins components: An expanded problem focused history; An expanded problem focused examination; Medical decision making of [place] Office or 612869 SNOMED-CT () 2019-03-18 complete Mental other 6 d Health- outpatient [facility] visit for [address], [facility], established [phone] patient, [phone] which requires at least 2 of these 3 wilkins components: A problem focused history; A problem focused examination; [place] medical decision making. Counselin SNOMED-CT () 2019-04-01 complete Mental d Health- [address], [id number] Encounters/Encounter Diagnoses Encounter Name Encounter Diagnosis Diagnosis Name Diagnosis Date of Service Code Code CodeSystem Diagnosis Delivery Location Established [id number] Intermittent SNOMED-CT 2019-08-25 Behavioral patient 15-29 explosive Health minutes [facility] [address] [place] [address], [phone] Vital Signs No Information Social History Element Description Description Start End Code CodeSystem AdditionalInfo Date Date SexAssignedAtBirth Female F AdministrativeGender 11-30 Hospital Discharge Instructions Reason For Referral Medical Equipment FDA Assessments
[2019-10-07 19:16] LABS: Urine Appearance Clear; Urine Bilirubin Negative (Negative); Urine Blood Negative (Negative); Urine Color Yellow; Urine Glucose Negative (Negative); Urine Ketones Negative (Negative); Urine Nitrite Negative (Negative); Urine Protein Negative (Negative); Urine Specific Gravity 1.009 (1.010-1.030); Urine Urobilinogen Negative (Negative)
[2019-10-07 19:19] LABS: Urine Bacteria Absent (Absent); Urine Red Blood Cell Trace(0-2/hpf) (Absent); Urine Squamous Epithelial Cell Present (Absent); Urine White Blood Cell Trace(0-5/hpf) (Absent)
[2019-10-07 19:41] LABS: Urine Benzodiazepine Screen None Detected (None Detect); Urine Opiates Screen None Detected (None Detect)
[2019-10-07 20:24] LABS: ABS Basophils 0.1 10^3/ul (0-0.2); ABS Eosinophils 0.3 10^3/ul (0-0.6); ABS Lymphocytes 1.6 10^3/ul (1.0-4.8); ABS Monocytes 0.7 10^3/ul (0-0.8); ABS Neutrophils 6.5 10^3/ul (1.5-7.7); Eosinophil % 3.1 %; Hematocrit 39 % (35-47); Hemoglobin 12.9 g/dL (12.0-16.0); Lymphocyte % 17.9 %; Mean Corpuscular HGB Conc 33 g/dL (31-36); Mean Corpuscular Hemoglobin 28 pg (27-31); Mean Corpuscular Volume 83 fL (80-97); Nucleated Red Blood Cells % 0.2; Platelet Count 275 10^3/uL (150-450); Red Blood Count 4.68 10^6 /uL (3.70-4.87); Red Cell Distribution Width 14 % (10-15); White Blood Count 9.1 10^3/uL (3.5-10.8)
[2019-10-07 20:40] LABS: ALT 25 U/L (7-52); AST 18 U/L (13-39); Albumin 3.8 g/dL (3.2-5.2); Albumin/Globulin Ratio 1.2 (1-3); Alkaline Phosphatase 71 U/L (34-104); Anion Gap 8 mmol/L (2-11); BUN/Creatinine Ratio 8.6 (8-20); Blood Urea Nitrogen 7 mg/dL (6-24); CO2 Carbon Dioxide 22 mmol/L (22-32); Calcium 9.3 mg/dL (8.6-10.3); Chloride 108 mmol/L (101-111); EGFR African American 101.2 (>60); EGFR Non-African American 83.6 (>60); Globulin 3.3 g/dL (2-4); Glucose 103 mg/dL (70-100); Sodium 138 mmol/L (135-145); Total Protein 7.1 g/dL (6.4-8.9)
[2019-10-07 20:52] LABS: Acetaminophen < 15 mcg/mL; Alcohol < 10 mg/dL (<10)
[2019-10-07 20:53] LABS: Salicylate < 2.50 mg/dL (<30)
[2019-10-07 21:06] LABS: TSH (Thyroid Stimulating Horm) 3.92 mcIU/mL (0.34-5.60)
[2019-10-07 21:13] VITALS: BP 114/95
== END 2019-10-07 21:28 | disposition home or self-care (01) ==
LOC: ED 18:03
DX: F32.9 Major depressive disorder, single episode, unspecified (principal); E03.9 Hypothyroidism, unspecified; F90.9 Attention-deficit hyperactivity disorder, unspecified type; R62.50 Unspecified lack of expected normal physiological development in childhood
CPT/HCPCS: 36415; 80053; 80307; 80320; 80329; 81003; 81015; 84443; 85025; 87086; 99285; G0480

== ENCOUNTER 2019-12-06 19:28 | Emergency (ER) | payer MEDICARE, MEDICAID ==
--- OUTSIDE RECORDS SUMMARY | 2019-12-06 20:00 | XMS REPORT ---
:1990 Author Organization [facility] Care Team Providers Name Role Phone Paulette Andre Primary Care Physician Unavailable Allergies, Adverse Reactions, Alerts Allergy Code CodeSystem Reaction Severity Criticality Status Start Substance Date Moderate Medications Medication Medication Medication Start Stop Route Dose Status Fill Code CodeSystem Date Date Instructions Effexor XR 526126 RxNorm 2019- oral 150 mg active for 30 -24 08-22 capsule,e day(s) xtended release 24hr risperidone 744475 RxNorm 2019- oral 1 mg active for 30 2- 08-22 tablet day(s) divalproex 1817998 RxNorm 2019- oral 500 mg active for 30 2- 08-22 tablet,de day(s) layed release (DR/EC) topiramate 997661 RxNorm 2019- oral 50 mg active for 30 2-27 08-22 tablet day(s) mirtazapine 226332 RxNorm 2019- oral 15 mg active for 30 2-27 08-22 tablet day(s) venlafaxine 816678 RxNorm 2019- oral 150 mg completed for 30 2-27 05-24 tablet day(s) extended release 24hr Problems Problem Name Code CodeSystem Alternate Alternate Start End Status Narrative Code CodeSystem Date Date Intermittent 16776421 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 Intermittent 87233914 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 Intermittent 71303539 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 Relevant diagnostic tests/laboratory data Narrative No Information Procedures Procedure Code CodeSystem Target Date of Status Service Device Device Device Name Site Procedure Delivery Code Name UID Location Office or [id number] SNOMED-CT () 2019-08-25 complete Mental other 7 d Health- outpatient [place] visit for County the [address] [place] [address], established [id number] patient, [phone] which requires at least 2 of these 3 wilkins components: An expanded problem focused history; An expanded problem focused examination; Medical decision making of [facility] Office or 378700 SNOMED-CT () 2019-03-18 complete Mental other 6 d Health- outpatient [place] visit for [address], established [id number] patient, [phone] which requires at least 2 of these 3 wilkins components: A problem focused history; A problem focused examination; [place] medical decision making. [place] Office or [id number] SNOMED-CT () 2019-09-15 complete Mental other 6 d Health- outpatient [place] visit for [address], [facility] [phone] patient, [phone] which requires at least 2 of these 3 wilkins components: A problem focused history; A problem focused examination; [place] medical decision making. Counselin SNOMED-CT () 2019-09-19 complete Mental d Health[address], [id number] [id number] SNOMED-CT () 2019-04-01 complete Mental d [address], [phone] Encounters/Encounter Diagnoses Encounter Name Encounter Diagnosis Diagnosis Name Diagnosis Date of Service Code Code CodeSystem Diagnosis Delivery Location [facility] [address]84 [id number] Intermittent SNOMED-CT 2019-09-19 Behavioral Individual 30 explosive Health min disorder Clinic [address] [place] [address], [phone] Vital Signs No Information Social History Element Description Description Start End Code CodeSystem AdditionalInfo Date Date SexAssignedAtBirth Female F AdministrativeGender 2-05 Hospital Discharge Instructions Reason For Referral Medical Equipment FDA Assessments
[2019-12-06 20:13] LABS: Urine Appearance Cloudy; Urine Bilirubin Negative (Negative); Urine Blood Negative (Negative); Urine Color Yellow; Urine Glucose Negative (Negative); Urine Ketones Trace (Negative); Urine Nitrite Negative (Negative); Urine Protein Negative (Negative); Urine Specific Gravity 1.012 (1.010-1.030); Urine Urobilinogen Negative (Negative)
--- NOTE | 2019-12-06 22:41 | ED ---
Abdominal Pain/Female - HPI Summary HPI Summary: Patient complains of right upper quadrant pain, nausea and diarrhea starting this morning. Right upper quadrant pain worse after eating, described as constant and severe. Medical history is ADHD, borderline personality. Abdominal surgical history is none. Tylenol at 4:30 PM with no relief. - History of Current Complaint Chief Complaint: EDAbdPain Stated Complaint: ABD PAIN PER PT Time Seen by Provider: 12/06/19 22:36 Hx Obtained From: Patient Hx Last Menstrual Period: april 252018 irregular Onset/Duration: Sudden Onset, Lasting Hours Timing: Constant Severity Initially: Severe Severity Currently: Severe Pain Intensity: 9 Pain Scale Used: 0-10 Numeric Location: Discrete At: RUQ Radiates: No Character: Sharp, Dull Aggravating Factor(s): Food Alleviating Factor(s): Nothing Associated Signs and Symptoms: Positive: Nausea, Vomiting, Diarrhea Allergies/Adverse Reactions: Allergies Allergy/AdvReac Type Severity Reaction Status Date / Time amoxicillin [From Augmentin] Allergy Rash Verified 12/07/19 01:11 clavulanic acid Allergy Rash Verified 12/07/19 01:11 [From Augmentin] PMH/Surg Hx/FS Hx/Imm Hx Endocrine/Hematology History: Reports: Hx Thyroid Disease - hypo Denies: Hx Anticoagulant Therapy, Hx Diabetes Cardiovascular History: Denies: Hx Hypercholesterolemia, Hx Hypertension Respiratory History: Reports: Hx Seasonal Allergies Denies: Hx Asthma, Hx Chronic Obstructive Pulmonary Disease (COPD) GI History: Denies: Hx Gastroesophageal Reflux Disease, Hx Ulcer History: Denies: Hx Renal Disease Sensory History: Reports: Hx Contacts or Glasses - Reportedly uses contacts, unconfirmed by Pt at this time. Denies: Hx Legally Blind, Hx Deafness, Hx Hearing Aid Opthamlomology History: Reports: Hx Contacts or Glasses - Reportedly uses contacts, unconfirmed by Pt at this time. Denies: Hx Legally Blind Neurological History: Reports: Hx Developmental Delay Psychiatric History: Reports: Hx Anxiety, Hx Attention Deficit Hyperactivity Disorder, Hx Depression, Hx Inpatient Treatment, Hx Community Mental Health Tx, Hx Suicide Attempt, Hx of Violent Episodes Against Others, Other Psychiatric Issues/Disorders - developmental delays Denies: Hx Eating Disorder, Hx Post Traumatic Stress Disorder, Hx Schizophrenia, Hx Bipolar Disorder - Surgical History Surgery Procedure, Year, and Place: none - Immunization History Date of Influenza Vaccine: 08/2017 Infectious Disease History: No Infectious Disease History: Denies: Hx Clostridium Difficile, Hx Hepatitis, Hx Human Immunodeficiency Virus (HIV), Hx of Known/Suspected MRSA, Hx Shingles, Hx Tuberculosis, Hx Known/ Suspected VRE, Hx Known/Suspected VRSA, History Other Infectious Disease, Traveled Outside the [place] in Last 30 Days - Family History Known Family History: Positive: Cardiac Disease, Respiratory Disease, Other - pos: depression Negative: Hypertension - Social History Alcohol Use: None Hx Substance Use: No Substance Use Type: Reports: None Hx Tobacco Use: No Smoking Status (MU): Never Smoked Tobacco Amount Used/How Often: pt does not and has never used tobacco products of any kind Have You Smoked in the Last Year: No Review of Systems Constitutional: Negative Eyes: Negative ENT: Negative Cardiovascular: Negative Respiratory: Negative Positive: Abdominal Pain, Vomiting, Diarrhea, Nausea Genitourinary: Negative Musculoskeletal: Negative Skin: Negative Neurological/Mental Status: Negative Psychological: Normal All Other Systems Reviewed And Are Negative: Yes Physical Exam Triage Information Reviewed: Yes Vital Signs On Initial Exam: Initial Vitals Temp Pulse Resp BP Pulse Ox 97.2 F 103 20 126/91 98 12/06/19 19:38 12/06/19 19:38 12/06/19 19:38 12/06/19 19:38 12/06/19 19:38 Vital Signs Reviewed: Yes Appearance: Positive: Well-Appearing Skin: Positive: Warm Head/Face: Positive: Normal Head/Face Inspection Eyes: Positive: Normal Neck: Positive: Supple Respiratory/Lung Sounds: Positive: Clear to Auscultation Cardiovascular: Positive: Normal Abdomen Description: Positive: Other: - Tenderness in epigastric and right upper quadrant. Abdominal exam otherwise unremarkable. Musculoskeletal: Positive: Normal Neurological: Positive: Normal Psychiatric: Positive: Normal AVPU Assessment: Alert - Mike Coma Scale Best Eye Response: 4 - Spontaneous Best Motor Response: 6 - Obeys Commands Best Verbal Response: 5 - Oriented Coma Scale Total: 15 Procedures - Sedation Patient Received Moderate/Deep Sedation with Procedure: No Diagnostics - Vital Signs Vital Signs Temp Pulse Resp BP Pulse Ox 12/06/19 19:38 97.2 F 103 20 126/91 98 - Laboratory Lab Results: Lab Results 12/06/19 Range/Units 19:50 Urine Color Yellow Urine Appearance Cloudy Urine pH 6.0 (5-9) Ur Specific [place] 1.012 (1.010-1.030) Urine Protein Negative (Negative) Urine Ketones Trace A (Negative) Urine Blood Negative (Negative) Urine Nitrate Negative (Negative) Urine Bilirubin Negative (Negative) Urine Urobilinogen Negative (Negative) Ur Leukocyte Esterase Negative (Negative) Urine Glucose Negative (Negative) Result Diagrams: 12/06/19 22:48 12/06/19 22:48 Lab Statement: Any lab studies that have been ordered have been reviewed, and results considered in the medical decision making process. Abdominal Pain Fem Course/Dx - Course Course Of Treatment: Patient complains of right upper quadrant pain, nausea and diarrhea starting this morning. Right upper quadrant pain worse after eating, described as constant and severe. Medical history is ADHD, borderline personality. Abdominal surgical history is none. Tylenol at 4:30 PM with no relief. Vital signs within normal limits. Lactate 2.2. 2 L normal saline administered. Labs otherwise unremarkable. Ultrasound gallbladder negative. No gallbladder visualized on ultrasound or on prior CT. Patient did not remember history of cholecystectomy. - Diagnoses Provider Diagnoses: RUQ abdominal pain Discharge ED - Sign-Out/Discharge Documenting (check all that apply): Patient Departure - Discharge Plan Condition: Stable Disposition: HOME Prescriptions: Promethazine 25 mg TAB [Phenergan TAB*] 25 mg PO Q8H PRN 5 Days #15 tab PRN Reason: Nausea Patient Education Materials: Acute Abdominal Pain (ED) Referrals: Radha Obrien MD [Primary Care Provider] - Additional Instructions: Alternate ibuprofen 600 mg with Tylenol 650 mg for abdominal pain. Take phenergan as directed for nausea if needed. Follow-up with primary care. Return to the ED for any new or worsening symptoms. - Billing Disposition and Condition Condition: STABLE Disposition: Home
[2019-12-06] MEDS ORDERED: Morphine 4 MG/ML VIAL (1 ml) 4 MG/ML VIAL IV ONE (22:54)
[2019-12-06] MEDS ORDERED: Ondansetron INJ* 2 MG/ML VIAL IV ONE (22:54)
[2019-12-06] MEDS ORDERED: NS 0.9% 1000 ML** 1,000 ML IV ONE ×2 (22:54→23:23)
[2019-12-06 22:59] LABS: ABS Basophils 0.1 10^3/ul (0-0.2); ABS Eosinophils 0.3 10^3/ul (0-0.6); ABS Monocytes 0.6 10^3/ul (0-0.8); ABS Neutrophils 4.7 10^3/ul (1.5-7.7); Eosinophil % 3.9 %; Hematocrit 39 % (35-47); Hemoglobin 13.2 g/dL (12.0-16.0); Lymphocyte % 26.2 %; Mean Corpuscular HGB Conc 34 g/dL (31-36); Mean Corpuscular Hemoglobin 28 pg (27-31); Mean Corpuscular Volume 83 fL (80-97); Mean Platelet Volume 8.1 fL (7.4-10.4); Nucleated Red Blood Cells % 0.2; Platelet Count 259 10^3/uL (150-450); Red Cell Distribution Width 15 % (10-15); White Blood Count 7.7 10^3/uL (3.5-10.8)
[2019-12-06 23:17] LABS: ALT 41 U/L (7-52); AST 27 U/L (13-39); Albumin/Globulin Ratio 1.3 (1-3); Alkaline Phosphatase 66 U/L (34-104); Anion Gap 10 mmol/L (2-11); BUN/Creatinine Ratio 5.4 (8-20); Blood Urea Nitrogen 4 mg/dL (6-24); C Reactive Protein 8.44 mg/L (<8.01); CO2 Carbon Dioxide 22 mmol/L (22-32); Calcium 9.1 mg/dL (8.6-10.3); Chloride 107 mmol/L (101-111); EGFR African American 111.5 (>60); EGFR Non-African American 92.1 (>60); Glucose 95 mg/dL (70-100); Potassium 4.1 mmol/L (3.5-5.0); Sodium 139 mmol/L (135-145)
[2019-12-06 23:24] LABS: HCG Pregnancy < 0.60 mIU/mL
[2019-12-07] MEDS ORDERED: Ketorolac INJ* 30 MG/ML 1 ML VIAL IM ONE (00:48)
[2019-12-07] MEDS ORDERED: Ondansetron ODT TAB* 4 MG PO ONE (00:50)
[2019-12-07] MEDS ORDERED: Ketorolac INJ* 30 MG/ML 1 ML VIAL IV ONE (01:04)
[2019-12-07] MEDS ORDERED: Acetaminophen TAB* 325 MG PO ONE (01:40)
[2019-12-07 01:52] VITALS: BP 121/84
== END 2019-12-07 01:51 | disposition home or self-care (01) ==
LOC: ED 19:28
DX: R11.2 Nausea with vomiting, unspecified (principal); R10.11 Right upper quadrant pain; F90.9 Attention-deficit hyperactivity disorder, unspecified type; Z88.0 Allergy status to penicillin; E03.9 Hypothyroidism, unspecified; R19.7 Diarrhea, unspecified
CPT/HCPCS: 36415; 76705; 80053; 81003; 83605; 83690; 84702; 85025; 86140; 96361; 96374; 96375; 99283; A9270-GY; J1885; J2270; J2405

== ENCOUNTER 2019-12-14 16:03 | Emergency (ER) | payer MEDICARE, MEDICAID ==
--- NOTE | 2019-12-14 16:29 | ED ---
Psychiatric Complaint - HPI Summary HPI Summary: Patient is a 29 y/o F presenting to [facility] with complaints of SI and anxiety. She states that she experienced onset of anxiety this morning, which caused an exacerbation of her SI. She states that she tried to grab a knife to kill herself. Mother intervened and prevented the patient from harming herself. Patient denies aggravating factors of her anxiety. Hx of bipolar disorder noted. She is currently on Depakote and Effexor. Patient notes Hx of self-harm by cutting. She states that she goes to see a psychiatrist every week and is currently living with her mother, father, and sister. Patient states that she feels safe at home. She denies HI and hallucinations. Patient denies cigarette, alcohol, and substance usage. No PSHx noted. Augmentin allergy noted. She denies any physical complaints and specifically denies abdominal pain, vomiting , and diarrhea. Home medications and allergies are reviewed. - History Of Current Complaint Chief Complaint: EDSuicidal Time Seen by Provider: 12/14/19 16:20 Hx Obtained From: Patient Hx Last Menstrual Period: april 252018 irregular Character: Depressed, Anxious Associated Signs And Symptoms: Negative: Hallucinating Has Suicidal: Reports: Thoughts, With A Plan, Demonstrates Gesture, Has Prior Attempt(s) Has Homicidal: Denies: Thoughts - Allergies/Home Medications Allergies/Adverse Reactions: Allergies Allergy/AdvReac Type Severity Reaction Status Date / Time amoxicillin [From Augmentin] Allergy Rash Verified 12/14/19 16:21 clavulanic acid Allergy Rash Verified 12/14/19 16:21 [From Augmentin] Home Medications: Home Medications Venlafaxine ER (NF) [Effexor ER (NF)] 150 mg PO DAILY 06/11/17 [History Confirmed 12/07/19] Mirtazapine TAB* [Remeron TAB*] 15 mg PO BEDTIME 08/18/19 [History Confirmed 10/14] Topiramate TAB(*) [Topamax 25 MG tab] 50 mg PO BID 08/18/19 [History Confirmed 12/07/19] risperiDONE TAB* [Risperdal*] 1 mg PO BID 08/18/19 [History Confirmed 12/07/19] Cetirizine* [ZyrTEC 10 MG TAB*] 10 mg PO DAILY PRN 09/07/19 [History Confirmed 12/07/19] Divalproex DR TAB(*) [Depakote DR(*)] 1,000 mg PO BID 09/07/19 [History Confirmed 12/07/19] Venlafaxine EXT RELEASE CAP* [Effexor Xr CAP*] 75 mg PO QAM 09/07/19 [History Confirmed 12/07/19] LORazepam TAB(*) [Ativan 1 MG TAB (*)] 1 mg PO Q8H PRN #9 tab MDD 3 09/09/19 [ Rx Confirmed 12/07/19] Levothyroxine TAB* [Synthroid TAB*] 50 mcg PO DAILY 10/07/19 [History Confirmed 12/07/19] Promethazine 25 mg TAB [Phenergan TAB*] 25 mg PO Q8H PRN 5 Days #15 tab [Rx] PMH/Surg Hx/FS Hx/Imm Hx Endocrine/Hematology History: Reports: Hx Thyroid Disease - hypo Denies: Hx Anticoagulant Therapy, Hx Diabetes Cardiovascular History: Denies: Hx Hypercholesterolemia, Hx Hypertension Respiratory History: Reports: Hx Seasonal Allergies Denies: Hx Asthma, Hx Chronic Obstructive Pulmonary Disease (COPD) GI History: Denies: Hx Gastroesophageal Reflux Disease, Hx Ulcer History: Denies: Hx Renal Disease Sensory History: Reports: Hx Contacts or Glasses - Reportedly uses contacts, unconfirmed by Pt at this time. Denies: Hx Legally Blind, Hx Deafness, Hx Hearing Aid Opthamlomology History: Reports: Hx Contacts or Glasses - Reportedly uses contacts, unconfirmed by Pt at this time. Denies: Hx Legally Blind Neurological History: Reports: Hx Developmental Delay Psychiatric History: Reports: Hx Anxiety, Hx Attention Deficit Hyperactivity Disorder, Hx Depression, Hx Inpatient Treatment, Hx Community Mental Health Tx, Hx Suicide Attempt, Hx of Violent Episodes Against Others, Other Psychiatric Issues/Disorders - developmental delays Denies: Hx Eating Disorder, Hx Post Traumatic Stress Disorder, Hx Schizophrenia, Hx Bipolar Disorder - Surgical History Surgery Procedure, Year, and Place: none - Immunization History Date of Influenza Vaccine: 08/2017 Infectious Disease History: No Infectious Disease History: Denies: Hx Clostridium Difficile, Hx Hepatitis, Hx Human Immunodeficiency Virus (HIV), Hx of Known/Suspected MRSA, Hx Shingles, Hx Tuberculosis, Hx Known/ Suspected VRE, Hx Known/Suspected VRSA, History Other Infectious Disease, Traveled Outside the [place] in Last 30 Days - Family History Known Family History: Positive: Cardiac Disease, Respiratory Disease, Other - pos: depression Negative: Hypertension - Social History Alcohol Use: None Hx Substance Use: No Substance Use Type: Reports: None Hx Tobacco Use: No Smoking Status (MU): Never Smoked Tobacco Amount Used/How Often: pt does not and has never used tobacco products of any kind Have You Smoked in the Last Year: No Review of Systems Negative: Abdominal Pain, Vomiting, Diarrhea Psychological: Other - positive - SI; negative - HI, hallucinations Positive: Anxious All Other Systems Reviewed And Are Negative: Yes Physical Exam - Summary Physical Exam Summary: Constitutional: Well-developed, Well-nourished, Alert. (-) Distressed Skin: Warm, Dry HENT: Normocephalic; Atraumatic Eyes: Conjunctiva normal Neck: Musculoskeletal ROM normal neck. (-) JVD, (-) Stridor, (-) Tracheal deviation Cardio: Rhythm regular, rate normal, Heart sounds normal; Intact distal pulses; Radial pulses are 2+ and symmetric. (-) Murmur Pulmonary/Chest wall: Effort normal. (-) Respiratory distress, (-) Wheezes, (-) Rales Abd: Soft, (-) tenderness, (-) Distension, (-) Guarding, (-) Rebound Musculoskeletal: (-) Edema Lymph: (-) Cervical adenopathy Neuro: Alert, Oriented x3 Psych: Mood and affect Normal Triage Information Reviewed: Yes Vital Signs On Initial Exam: Initial Vitals Temp Pulse Resp BP Pulse Ox 97.7 F 121 24 143/107 96 12/14/19 16:07 12/14/19 16:07 12/14/19 16:07 12/14/19 16:07 12/14/19 16:07 Vital Signs Reviewed: Yes Procedures - Sedation Patient Received Moderate/Deep Sedation with Procedure: No Diagnostics - Vital Signs Vital Signs Temp Pulse Resp BP Pulse Ox 12/14/19 16:07 97.7 F 121 24 143/107 96 - Laboratory Result Diagrams: 12/14/19 16:38 12/14/19 16:38 Lab Statement: Any lab studies that have been ordered have been reviewed, and results considered in the medical decision making process. Course/Dx - Course Course Of Treatment: Patient is here with depression and suicidal thoughts. Patient was medically cleared by myself. Patient was seen by the psychiatric team and they state she is at her baseline. Patient will be discharged with outpatient follow-up - Differential Dx/Clinical Impression Provider Diagnosis: Depressive episode - Physician Notifications Discussed Care Of Patient With: Fernando Avila Time Discussed With Above Provider: 20:42 Instructed by Provider To: Other - Patient's case was reviewed by Dr. Avila. Dr. Avila states that this is the patient's baseline and the patient can be discharged to home. Discharge ED - Sign-Out/Discharge Documenting (check all that apply): Patient Departure - discharge - Discharge Plan Condition: Stable Disposition: HOME Patient Education Materials: Depression (ED) Referrals: Radha Obrien MD [Primary Care Provider] - - Billing Disposition and Condition Condition: STABLE Disposition: Home - Attestation Statements Document Initiated by Randi: Yes Documenting Scribe: NITO LYLE Provider For Whom Randi is Documenting (Include Credential): TRISTAN HERNANDEZ MD Scribe Attestation: NITO Kulkarni, scribed for TRISTAN HERNANDEZ MD on 12/14/19 at 2054. Scribe Documentation Reviewed: Yes Provider Attestation: The documentation as recorded by the NITO jordan accurately reflects the service I personally performed and the decisions made by me, TRISTAN HERNANDEZ MD Status of Scribe Document: Viewed
[2019-12-14] MEDS ORDERED: LORazepam TAB(*) 1 MG PO ONE ×2 (16:31→19:51)
--- OUTSIDE RECORDS SUMMARY | 2019-12-14 16:36 | XMS REPORT ---
:1990 Author Organization [facility] Care Team Providers Name Role Phone JAKE JUANJOSE Primary Care Physician Unavailable Allergies, Adverse Reactions, Alerts Allergy Code CodeSystem Reaction Severity Criticality Status Start Substance Date Moderate Medications Medication Medication Medication Start Stop Route Dose Status Fill Code CodeSystem Date Date Instructions topiramate 790937 RxNorm 2019- oral 50 mg completed for 30 12-22- tablet day(s) Effexor XR 283451 RxNorm 2018- oral 150 mg completed for 30 03-18 capsule,e day(s) xtended release 24hr topiramate 399869 RxNorm 2019- oral 50 mg completed for 30 07-20-24 tablet day(s) Effexor XR 980672 RxNorm 2018-10 2020- oral 150 mg active for 30 12-06 03-10 capsule,e day(s) xtended release 24hr mirtazapine 057655 RxNorm 2020- oral 15 mg active for 30 07-20-29 tablet day(s) risperidone 056975 RxNorm 2018-10 2020- oral 1 mg active for 30 12-19-23 tablet day(s) venlafaxine 245900 RxNorm 2019- oral 150 mg completed for 30 12-22 05-24 tablet day(s) extended release 24hr risperidone 891750 RxNorm 2019- oral 1 mg completed for 30 12-22- tablet day(s) divalproex 6336733 RxNorm 2019- oral 500 mg completed for 30 07-20- tablet,de day(s) layed release (DR/EC) mirtazapine 745825 RxNorm 2019- oral 15 mg completed for 30 12-22-22 tablet day(s) mirtazapine 635577 RxNorm 2018- oral 15 mg completed for 30 - 12-24 tablet day(s) Effexor XR 829845 RxNorm 2018-10- oral 75 mg completed for 30 0- 12-11 capsule,e day(s) xtended release 24hr topiramate 720289 RxNorm 2018-10- oral 25 mg active for 30 0-25 11-29 tablet day(s) levothyroxine 856941 RxNorm 2018-10- oral 50 mcg 1 active 1 tablet 12-19- tablet once a day once a for 30 day(s) day risperidone 302810 RxNorm 2019- oral 1 mg completed for 30 07-20 12-24 tablet day(s) divalproex 6428035 RxNorm 2018- oral 500 mg completed for 30 12-22- tablet,de day(s) layed release (DR/EC) divalproex 9503531 RxNorm 2018-10- oral 500 mg 2 active Take 2 tablet 11-21 tablet,de twice a day layed for 30 day(s) release (DR/EC) twice a day Problems Problem Name Code CodeSystem Alternate Alternate Start End Status Narrative Code CodeSystem Date Date 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 14910881 SNOMED-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 Office or [id number] SNOMED-CT () 2019-03-18 complete Mental other 6 d Health- outpatient [facility] [address] [facility] [id number] patient, [id number] which requires at least 2 of these 3 wilkins components: A problem focused history; A problem focused examination; [place] medical decision making. Counselin Office or [id number] SNOMED-CT () 2019-09-15 complete Mental other 6 d Health- outpatient [facility] visit for [address], of an [place], established [id number] patient, [phone] which requires at least 2 of these 3 wilkins components: A problem focused history; A problem focused examination; [place] medical decision making. Counselin SNOMED-CT () 2019-09-19 complete Mental d Health[address], [id number] SNOMED-CT () 2019-04-01 complete Mental d [address], [id number] SNOMED-CT () 2019-11-16 complete Mental d Health[address], [id number] Encounters/Encounter Diagnoses Encounter Name Encounter Diagnosis Diagnosis Name Diagnosis Date of Service Code Code CodeSystem Diagnosis Delivery Location [facility] [id number] Intermittent SNOMED-CT 2019-11-16 Behavioral Individual 30 explosive Health min disorder Clinic [address] [place] [address], [id number] Vital Signs No Information Social History Element Description Description Start End Code CodeSystem AdditionalInfo Date Date SexAssignedAtBirth Female 1990- F AdministrativeGender 2-05 Hospital Discharge Instructions Reason For Referral Medical Equipment FDA Assessments
[2019-12-14 16:49] LABS: ABS Basophils 0.1 10^3/ul (0-0.2); ABS Eosinophils 0.3 10^3/ul (0-0.6); ABS Lymphocytes 1.7 10^3/ul (1.0-4.8); ABS Monocytes 0.6 10^3/ul (0-0.8); ABS Neutrophils 4.8 10^3/ul (1.5-7.7); Eosinophil % 4.1 %; Hematocrit 40 % (35-47); Hemoglobin 13.4 g/dL (12.0-16.0); Lymphocyte % 22.7 %; Mean Corpuscular HGB Conc 34 g/dL (31-36); Mean Corpuscular Hemoglobin 28 pg (27-31); Mean Corpuscular Volume 84 fL (80-97); Nucleated Red Blood Cells % 0.2; Platelet Count 264 10^3/uL (150-450); Red Blood Count 4.79 10^6 /uL (3.70-4.87); Red Cell Distribution Width 15 % (10-15); White Blood Count 7.5 10^3/uL (3.5-10.8)
[2019-12-14 17:05] LABS: ALT 35 U/L (7-52); AST 27 U/L (13-39); Albumin 4.1 g/dL (3.2-5.2); Albumin/Globulin Ratio 1.4 (1-3); Alkaline Phosphatase 73 U/L (34-104); Anion Gap 8 mmol/L (2-11); BUN/Creatinine Ratio 8.6 (8-20); Blood Urea Nitrogen 7 mg/dL (6-24); CO2 Carbon Dioxide 19 mmol/L (22-32); Calcium 9.1 mg/dL (8.6-10.3); Chloride 108 mmol/L (101-111); EGFR African American 100.5 (>60); Glucose 150 mg/dL (70-100); Potassium 3.7 mmol/L (3.5-5.0); Sodium 135 mmol/L (135-145); Total Protein 7.1 g/dL (6.4-8.9)
[2019-12-14 17:25] LABS: Acetaminophen < 15 mcg/mL; Alcohol < 10 mg/dL (<10); Salicylate < 2.50 mg/dL (<30)
[2019-12-14 18:08] LABS: Urine Appearance Clear; Urine Bilirubin Negative (Negative); Urine Blood Negative (Negative); Urine Color Straw; Urine Glucose Negative (Negative); Urine Ketones Negative (Negative); Urine Nitrite Negative (Negative); Urine Protein Negative (Negative); Urine Specific Gravity 1.004 (1.010-1.030); Urine Urobilinogen Negative (Negative)
[2019-12-14 18:22] LABS: Urine Benzodiazepine Screen None Detected (None Detect); Urine Opiates Screen None Detected (None Detect)
[2019-12-14 21:18] VITALS: BP 0/0
== END 2019-12-14 21:10 | disposition home or self-care (01) ==
LOC: ED 16:03
DX: F31.9 Bipolar disorder, unspecified (principal); E03.9 Hypothyroidism, unspecified; F41.9 Anxiety disorder, unspecified; F90.9 Attention-deficit hyperactivity disorder, unspecified type; Z79.890 Hormone replacement therapy; Z79.899 Other long term (current) drug therapy; Z88.0 Allergy status to penicillin; Z88.1 Allergy status to other antibiotic agents
CPT/HCPCS: 36415; 80053; 80307; 80320; 80329; 81003; 85025; 99284; A9270-GY; G0480

== ENCOUNTER 2020-01-11 12:34 | Emergency (ER) | payer MEDICARE, MEDICAID ==
--- NOTE | 2020-01-11 12:36 | ED ---
Psychiatric Complaint - HPI Summary HPI Summary: This patient is a 29 y/o female presenting to [facility] via EMS c/o suicidal ideation. Patient reports she has been having suicidal thoughts since yesterday. She states she tried to hurt herself with a knife on her left wrist. Denies any fever, chills, respiratory issues. Patient denies any recent travel. Per EMS patient's medications levels were increased 2 weeks ago. Patient's medications include Effexor, Depakote. Patient states her psychiatrist is Dr. Melchor. Patient is allergic to Augmentin. Home Medications Medication Instructions Recorded Confirmed Type Venlafaxine ER (NF) [Effexor ER 150 mg PO DAILY 06/11/17 12/07/19 History (NF)] Mirtazapine TAB* [Remeron TAB*] 15 mg PO BEDTIME 08/18/19 12/07/19 History Topiramate TAB(*) [Topamax 25 MG 50 mg PO BID 08/18/19 12/07/19 History tab] risperiDONE TAB* [Risperdal*] 1 mg PO BID 08/18/19 12/07/19 History Cetirizine* [ZyrTEC 10 MG TAB*] 10 mg PO DAILY PRN 09/07/19 12/07/[address] TAB(*) [Depakote 1,000 mg PO BID 09/07/19 12/07/[address](*)] Venlafaxine EXT RELEASE CAP* 75 mg PO QAM 09/07/19 12/07/19 History [Effexor Xr CAP*] LORazepam TAB(*) [Ativan 1 MG TAB 1 mg PO Q8H PRN #9 tab MDD 3 09/09/19 Rx (*)] Levothyroxine TAB* [Synthroid TAB*] 50 mcg PO DAILY 10/07/19 12/07/19 History Promethazine 25 mg TAB [Phenergan 25 mg PO Q8H PRN 5 Days #15 tab 12/07/19 Rx TAB*] - History Of Current Complaint Hx Obtained From: Patient, EMS Hx Last Menstrual Period: april 252018 irregular Onset/Duration: Lasting Days, Still Present Timing: Days Severity Currently: Moderate Aggravating Factor(s): Nothing Alleviating Factor(s): Nothing Associated Signs And Symptoms: Positive: Negative Related History: Positive For: Prior Psychiatric Issues Has Suicidal: Reports: Thoughts, With A Plan, Demonstrates Gesture Has Homicidal: Denies: Thoughts, With A Plan - Allergies/Home Medications Allergies/Adverse Reactions: Allergies Allergy/AdvReac Type Severity Reaction Status Date / Time amoxicillin [From Augmentin] Allergy Rash Verified 12/14/19 16:21 clavulanic acid Allergy Rash Verified 12/14/19 16:21 [From Augmentin] Home Medications: Home Medications Venlafaxine ER (NF) [Effexor ER (NF)] 150 mg PO DAILY 06/11/17 [History Confirmed 01/12/20] Mirtazapine TAB* [Remeron TAB*] 15 mg PO BEDTIME 08/18/19 [History Confirmed ] Topiramate TAB(*) [Topamax 25 MG tab] 50 mg PO BID 08/18/19 [History Confirmed 01/12/20] risperiDONE TAB* [Risperdal*] 1 mg PO BID 08/18/19 [History Confirmed 01/12/20] Cetirizine* [ZyrTEC 10 MG TAB*] 10 mg PO DAILY PRN 09/07/19 [History Confirmed 01/12/20] Divalproex DR TAB(*) [Depakote DR(*)] 1,000 mg PO BID 09/07/19 [History Confirmed 01/12/20] Venlafaxine EXT RELEASE CAP* [Effexor Xr CAP*] 75 mg PO QAM 09/07/19 [History Confirmed 01/12/20] Levothyroxine TAB* [Synthroid TAB*] 50 mcg PO DAILY 10/07/19 [History Confirmed 01/12/20] PMH/Surg Hx/FS Hx/Imm Hx Endocrine/Hematology History: Reports: Hx Thyroid Disease - hypo Denies: Hx Anticoagulant Therapy, Hx Diabetes Cardiovascular History: Denies: Hx Hypercholesterolemia, Hx Hypertension Respiratory History: Reports: Hx Seasonal Allergies Denies: Hx Asthma, Hx Chronic Obstructive Pulmonary Disease (COPD) GI History: Denies: Hx Gastroesophageal Reflux Disease, Hx Ulcer History: Denies: Hx Renal Disease Sensory History: Reports: Hx Contacts or Glasses - Reportedly uses contacts, unconfirmed by Pt at this time. Denies: Hx Legally Blind, Hx Deafness, Hx Hearing Aid Opthamlomology History: Reports: Hx Contacts or Glasses - Reportedly uses contacts, unconfirmed by Pt at this time. Denies: Hx Legally Blind Neurological History: Reports: Hx Developmental Delay Psychiatric History: Reports: Hx Anxiety, Hx Attention Deficit Hyperactivity Disorder, Hx Depression, Hx Inpatient Treatment, Hx Community Mental Health Tx, Hx Suicide Attempt, Hx of Violent Episodes Against Others, Other Psychiatric Issues/Disorders - developmental delays Denies: Hx Eating Disorder, Hx Post Traumatic Stress Disorder, Hx Schizophrenia, Hx Bipolar Disorder - Surgical History Surgical History: None - Immunization History Date of Influenza Vaccine: 08/2017 Infectious Disease History: Denies: Hx Clostridium Difficile, Hx Hepatitis, Hx Human Immunodeficiency Virus (HIV), Hx of Known/Suspected MRSA, Hx Shingles, Hx Tuberculosis, Hx Known/ Suspected VRE, Hx Known/Suspected VRSA, History Other Infectious Disease - Family History Known Family History: Positive: Cardiac Disease, Respiratory Disease, Other - pos: depression Negative: Hypertension - Social History Alcohol Use: None Alcohol Amount: 0 Hx Substance Use: No Substance Use Type: Reports: None Hx Tobacco Use: No Smoking Status (MU): Never Smoked Tobacco Amount Used/How Often: pt does not and has never used tobacco products of any kind Have You Smoked in the Last Year: No Review of Systems Negative: Fever, Chills Negative: Shortness Of Breath, Cough, Other - NEGATIVE: respiratory issues Psychological: Other - POSITIVE: SI Negative: Other - NEGATIVE: HI All Other Systems Reviewed And Are Negative: Yes Physical Exam - Summary Physical Exam Summary: VITAL SIGNS: Reviewed. GENERAL: Patient is a well-developed and nourished female. Patient is not in any acute respiratory distress. HEAD AND FACE: No signs of trauma. No ecchymosis, hematomas or skull depressions. No sinus tenderness. EYES: PERRLA, EOMI x 2, No injected conjunctiva, no nystagmus. EARS: Hearing grossly intact. Ear canals and tympanic membranes are within normal limits. MOUTH: Oropharynx within normal limits. NECK: Supple, trachea is midline, no adenopathy, no JVD, no carotid bruit, no c- spine tenderness, neck with full ROM. CHEST: Symmetric, no tenderness at palpation LUNGS: Clear to auscultation bilaterally. No wheezing or crackles. CVS: Regular rate and rhythm, S1 and S2 present, no murmurs or gallops appreciated. ABDOMEN: Soft, non-tender. No signs of distention. No rebound, no guarding, and no masses palpated. Bowel sounds are normal. EXTREMITIES: FROM in all major joints, no edema, no cyanosis or clubbing. NEURO: Alert and oriented x 3. No acute neurological deficits. Speech is normal and follows commands. SKIN: Dry and warm Triage Information Reviewed: Yes Vital Signs On Initial Exam: Initial Vitals Temp Pulse Resp BP Pulse Ox 98.1 F 112 14 135/97 98 01/11/20 13:00 01/11/20 13:00 01/11/20 13:00 01/11/20 13:00 01/11/20 13:00 Vital Signs Reviewed: Yes Procedures - Sedation Patient Received Moderate/Deep Sedation with Procedure: No Diagnostics - Laboratory Result Diagrams: 01/11/20 13:41 01/11/20 13:41 Lab Statement: Any lab studies that have been ordered have been reviewed, and results considered in the medical decision making process. Course/Dx - Course Assessment/Plan: This patient is a 29 y/o female presenting to [facility] via EMS c/ o suicidal ideation. Patient reports she has been having suicidal thoughts since yesterday. She states she tried to hurt herself with a knife on her left wrist. Denies any fever, chills, respiratory issues. Patient denies any recent travel. Per EMS patient's medications levels were increased 2 weeks ago. Patient 's medications include Effexor, Depakote. Her psychiatrist is Dr. Melchor. Patient is allergic to Augmentin. Blood work w/o any significant abnormality. She is medically cleared. She is waiting for a MHE. Patient is hemodynamically stable and A+O x 3. Patient had a mental health evaluation and her case was reviewed by Dr. Avila, psychiatrist. Per mental health tanning consultant, Dr. Avila cleared the patient for discharge with dx adjustment disorder. - Differential Dx/Clinical Impression Provider Diagnosis: Adjustment disorder Discharge ED - Sign-Out/Discharge Documenting (check all that apply): Patient Departure - Discharge home - Discharge Plan Condition: Stable Disposition: HOME Referrals: Radha Obrien MD [Primary Care Provider] - - Billing Disposition and Condition Condition: STABLE Disposition: Home - Attestation Statements Document Initiated by Scribe: Yes Documenting Scribe: Stacey Odell Provider For Whom Scribe is Documenting (Include Credential): Bigg Wright MD Scribe Attestation: I, Stacey Odell, scribed for Bigg Wright MD on 01/13/20 at 0349. Scribe Documentation Reviewed: Yes Provider Attestation: The documentation as recorded by the scribe, Stacey Odell accurately reflects the service I personally performed and the decisions made by me, Bigg Wright MD Status of Scribe Document: Viewed
--- OUTSIDE RECORDS SUMMARY | 2020-01-11 14:03 | XMS REPORT | Summary of Care ---
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 Solution Emollient (AQUAPHOR) by Apply 0 Active Apply externally externally route. Ointment hydrocortisone by Topical route 0 Active (HYTONE) 1 % Apply THREE TIMES DAILY. externally Cream divalproex sodium Take 500 mg by 0 Active (DEPAKOTE) 500 MG Oral mouth THREE TIMES Tab EC DAILY. Triamcinolone [place] in nose. 0 Active Acetonide (NASACORT ALLERGY 24HR) 55 MCG/ACT Nasal Aerosol venlafaxine (EFFEXOR Take 150 mg by 0 Active XR) 150 MG Oral mouth. CAPSULE SR 24 HR hydrOXYzine HCL Take 25 mg by 0 Active (ATARAX) 25 MG Oral mouth THREE TIMES Tab DAILY NEEDED. mirtazapine (REMERON) Take 15 mg by 0 Active 15 MG Oral Tab mouth EVERY BEDTIME. triamcinolone Apply to rash on 80 g 0 10/25/2018 Active (KENALOG,ARISTOCORT) inner elbows and 0.1 % Apply externally between breasts CreamIndications: twice a day for 2 Eczema, unspecified weeks then as type needed for rash Levothyroxine Sodium Take 25 mcg by 30 Cap 0 02/08/2019 Active 25 MCG Oral Cap mouth DAILY. benzonatate (TESSALON Take 1 Cap by 30 Cap 0 02/24/2019 Active PERLES) 100 MG Oral mouth THREE TIMES CapIndications: Cough DAILY NEEDED for cough. Ferrous Sulfate 325 Take 1 Tab by 30 Tab 1 03/01/2019 Active (65 Fe) MG Oral Tab EC mouth DAILY. risperidone Take 1 Tab by 60 Tab 0 07/26/2019 Active (RISPERDAL) 1 MG Oral mouth TWICE DAILY. TabIndications: Anxiety and depression fexofenadine (PRETTY Take 1 Tab by 30 Tab 5 07/26/2019 Active ALLERGY) 180 MG Oral mouth DAILY. TabIndications: Nasal congestion mupirocin (BACTROBAN) Apply to sores at 30 g 2 07/26/2019 Active 2 % Apply externally nose and forehead OintmentIndications: 3 times a day for Impetigo a week cetirizine (ZYRTEC) 10 Take 1 Tab by 30 Tab 5 08/12/2019 Active MG Oral Tab mouth DAILY. Topiramate 50 MG Oral TAKE 1 TABLET BY 180 Tab 0 11/28/2019 Active TabIndications: MOUTH TWICE DAILY Anxiety and depression documented as of this encounter (statuses as of 12/26/2019) Active Problems Problem Noted Date Tendinitis of right wrist 09/15/2018 Eczema 09/08/2018 Seborrheic dermatitis of scalp ADHD Allergic rhinitis Hypothyroidism documented as of this encounter (statuses as of 12/26/2019) Immunizations Name Administration Dates Next Due Human Papillomavirus 05/30/2016, 01/29/2016, 10/04/2015 Influenza (IM) Preservative Free 11/01/2019, 09/08/2018 TDAP Vaccine 08/28/2017 documented as of this encounter Social History Tobacco Use Types Packs/Day Years Used Date Never Smoker Smokeless Tobacco: Never Used Alcohol Use Drinks/Week oz/Week Comments No Sex Assigned at Date Recorded Not on file documented as of this encounter Last Filed Vital Signs Vital Sign Reading Time Taken Comments Blood Pressure 140/72 12/26/2019 8:52 AM EST Pulse 115 12/26/2019 8:52 AM EST Temperature - - Respiratory Rate - - Oxygen Saturation 98% 12/26/2019 8:52 AM EST Inhaled Oxygen Concentration - - Weight 134.3 kg (296 lb) 12/26/2019 8:52 AM EST Height 164.5 cm (5' 4.75") 12/26/2019 8:52 AM EST Body Mass Index 49.64 12/26/2019 8:52 AM EST documented in this encounter Patient Instructions Patient InstructionsTaylor Teresa FNP - 12/26/2019 9:[address] pap with Dr Obrien when readyElectronically signed by Taylor Teresa FNP at 11/2019 9:01 AM EST documented in this encounter Progress Notes Taylor Teresa FNP - 12/26/2019 9:00 AM EST SUBJECTIVE: 29-y.o. female scheduled for routine Pap and checkup. Pt very anxious - does not want to do pap - states she is not sexually active Current Outpatient Medications Medication Sig ? benzonatate (TESSALON PERLES) 100 MG Oral Cap Take 1 Cap by mouth THREE TIMES DAILY NEEDED for cough. ? cetirizine (ZYRTEC) 10 MG Oral Tab Take 1 Tab by mouth DAILY. ? chlorhexidine gluconate (PERIDEX) 0.12 % Mouth/Throat Solution 15 mL by Mouth/Throat route TWICE DAILY. ? divalproex sodium (DEPAKOTE) 500 MG Oral Tab EC Take 500 mg by mouth THREE TIMES DAILY. ? Emollient (AQUAPHOR) Apply externally Ointment by Apply externally route. ? Ferrous Sulfate 325 (65 Fe) MG Oral Tab EC Take 1 Tab by mouth DAILY. ? fexofenadine (PRETTY ALLERGY) 180 MG Oral Tab Take 1 Tab by mouth DAILY. ? hydrocortisone (HYTONE) 1 % Apply externally Cream by Topical route THREE TIMES DAILY. ? hydrOXYzine HCL (ATARAX) 25 MG Oral Tab Take 25 mg by mouth THREE TIMES DAILY NEEDED. ? Levothyroxine Sodium 25 MCG Oral Cap Take 25 mcg by mouth DAILY. ? mirtazapine (REMERON) 15 MG Oral Tab Take 15 mg by mouth EVERY BEDTIME. ? mupirocin (BACTROBAN) 2 % Apply externally Ointment Apply to sores at nose and forehead 3 times a day for a week ? risperidone (RISPERDAL) 1 MG Oral Tab Take 1 Tab by mouth TWICE DAILY. ? Topiramate 50 MG Oral Tab TAKE 1 TABLET BY MOUTH TWICE DAILY ? triamcinolone (KENALOG,ARISTOCORT) 0.1 % Apply externally Cream Apply to rash on inner elbows and between breasts twice a day for 2 weeks then as needed for rash ? Triamcinolone Acetonide (NASACORT ALLERGY 24HR) 55 MCG/ACT Nasal Aerosol [place] in nose. ? venlafaxine (EFFEXOR XR) 150 MG Oral CAPSULE SR 24 HR Take 150 mg by mouth. No current facility-administered medications for this visit. Allergies: Augmentin No LMP recorded. Patient is premenopausal. ROS: Feeling well. No dyspnea or chest pain on exertion. No abdominal pain, change in bowel habits, black or bloody stools. No urinary tract symptoms. BACKWINDER ROS: normal menses, no abnormal bleeding, pelvic pain or discharge, no breast pain or new or enlarging lumps on self exam. No neurological complaints. OBJECTIVE: The patient appears well, alert, oriented x 3, in no distress. BP 140/72 | Pulse (!) 115 | Ht 5' 4.75" (1.645 m) | Wt 296 lb (134.3 kg) | SpO2 98% | BMI 49.64kg/m ENT normal. Neck supple. No adenopathy or thyromegaly. STEPHY. Lungs are clear, good air entry, no wheezes, rhonchi or rales. S1 and S2 normal, no murmurs, regular rate and rhythm. Abdomen soft withouttenderness, guarding, mass or organomegaly. Extremities show no edema, normal peripheral pulses. Neurological is normal, no focal findings. PELVIC EXAM: exam declined by the patient ASSESSMENT: ICD-9-CM ICD-10-CM 1. Routine general medical examination at a health care facility V70.0 Z00.00 PLAN: Schedule pap with Dr Obrien when ready documented in this encounter Plan of Treatment Health Maintenance Due Date Last Done Comments MEDICARE ANNUAL WELLNESS VISIT 1990 PAP SMEAR 10/04/2018 10/04/2015 DEPRESSION SCREENING 12/25/2020 12/26/2019 DTaP/Tdap/Td Vaccines (2 - 08/28/2027 08/28/2017 Tdap) HPV IMMUNIZATION SERIES Completed 05/30/2016, 01/29/2016, 10/04/2015 INFLUENZA VACCINE Completed 11/01/2019, 09/08/2018 HEPATITIS A IMMUNIZATION Aged Out No longer eligible based SERIES on patient's age to complete this topic MENINGOCOCCAL VACCINE IMM Aged Out No longer eligible based on patient's age to complete this topic PNEUMOCOCCAL 0-64 YRS Aged Out No longer eligible based on patient's age to complete this topic documented as of this encounter Goals Goal Patient Goal Associated Recent Patient-Stated? Author Type Problems Progress Depression Depression No shaheen Teresa (PHQ-9) KERRI Vazquez total score < 5 Note: This is an individualized treatment (depression) goal for Lyndsey Can: Displayed above is your goal for a depression screening (PHQ-9) score that would indicate good control of your depression. Keep a regular sleep schedule Lifestyle No Taylor Teresa FNP Note: This is an individualized lifestyle goal for Lyndsey Can: Please maintain a regular sleep schedule. This may help with some symptoms of depression. Take all prescribed medications as Self-management No Taylor Teresa FNP directed Note: This is an individualized self-management goal for Lyndsey Can: Please take all prescribed medications as directed. 1. Do not skip doses. If you cannot afford your medications, talk with your doctor. 2. Use a pill reminder system such as a pill box if needed. Your pharmacist can help you with this. 3. Contact your Pharmacy 5 days before your medication runs out. If you cannot take your medications for any reasons, talk with your doctor. 4. Please bring all of your medication bottles and inhalers (or a list of all your medications/inhalers) with you to every visit. Potential barriers to meeting all of your care plan goals will continue to be addressed on an ongoing basis. documented as of this encounter Results Not on filedocumented in this encounter Visit Diagnoses Diagnosis Routine general medical examination at a health care facility documented in this encounter Insurance Payer Benefit Plan / Subscriber ID Effective Dates Phone Address Type Group MEDICARE MEDICARE PART A [id number] 2014-Present Medicare & B MEDICAID [facility] [id number] 2018-Present Medicaid [place] ([place]) [place] [address] documented as of this encounter
--- OUTSIDE RECORDS SUMMARY | 2020-01-11 14:03 | XMS REPORT ---
:1990 Author Organization [facility] Care Team Providers Name Role Phone JUANJOSE JOSEPH Primary Care Physician Unavailable Allergies, Adverse Reactions, Alerts Allergy Code CodeSystem Reaction Severity Criticality Status Start Substance Date Moderate Medications Medication Medication Medication Start Stop Route Dose Status Fill Code CodeSystem Date Date Instructions risperidone 266837 RxNorm 2019- oral 1 mg completed for 30 07-20- tablet day(s) divalproex 5285616 RxNorm 2018-10- oral 500 mg 2 active Take 2 tablet 11-21 tablet,de twice a day layed for 30 day(s) release (DR/EC) twice a day Effexor XR 581628 RxNorm 2018-10- oral 150 mg active for 30 12-06 03-10 capsule,e day(s) xtended release 24hr divalproex 5250160 RxNorm 2019- oral 500 mg completed for 30 07-20- tablet,de day(s) layed release (DR/EC) levothyroxine 217044 RxNorm 2018-10- oral 50 mcg 1 active 1 tablet 12-19- tablet once a day once a for 30 day(s) day risperidone 667974 RxNorm 2018-10 2020- oral 1 mg active for 30 12-19- tablet day(s) mirtazapine 336976 RxNorm 2020- oral 15 mg active for 30 07-20- tablet day(s) risperidone 178224 RxNorm 2019- oral 1 mg completed for 30 12-22- tablet day(s) topiramate 790940 RxNorm 2019- oral 50 mg completed for 30 12-22- tablet day(s) Effexor XR 108379 RxNorm 2019- oral 150 mg completed for 30 03-18- capsule,e day(s) xtended release 24hr Effexor XR 644814 RxNorm 2018-10- oral 75 mg completed for 30 0- 12-11 capsule,e day(s) xtended release 24hr topiramate 300079 RxNorm 2018-10- oral 25 mg active for 30 0-25 11-29 tablet day(s) divalproex 8900734 RxNorm 2018- oral 500 mg completed for 30 12-22- tablet,de day(s) layed release (DR/EC) topiramate 433229 RxNorm 2019- oral 50 mg completed for 30 07-20 12-24 tablet day(s) mirtazapine 165721 RxNorm 2019- oral 15 mg completed for 30 12-22- tablet day(s) venlafaxine 991309 RxNorm 2018- oral 150 mg completed for 30 12-22 05-24 tablet day(s) extended release 24hr mirtazapine 475710 RxNorm 2019- oral 15 mg completed for 30 07-20 12-24 tablet day(s) Problems Problem Name Code CodeSystem Alternate Alternate Start End Status Narrative Code CodeSystem Date Date 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 Kate SNOMED-CT () 2019-04-01 complete Mental d Health- [place], [id number] Office or [id number] SNOMED-CT () 2019-08-25 complete Mental other 7 d Health- outpatient [place] visit for [address], established [id number] patient, [id number] which requires at least 2 of these 3 wilkins components: An expanded problem focused history; An expanded problem focused examination; Medical decision making of [facility] Office or 139290 SNOMED-CT () 2019-09-15 complete Mental other 6 d Health- outpatient [place] visit for [address], established [id number] patient, [id number] which requires at least 2 of these 3 wilkins components: A problem focused history; A problem focused examination; Straight[place]w [place] medical decision making. Counselin SNOMED-CT () 2019-09-19 complete Mental d [address], [id number] SNOMED-CT () 2019-11-16 complete Mental d [address], [id number] [id number] SNOMED-CT () 2019 complete Mental d Health[address], [id number] Encounters/Encounter Diagnoses Encounter Encounter Diagnosis Diagnosis Name Diagnosis Date of Service Name Code Code CodeSystem Diagnosis Delivery Location [facility] [id number] Intermittent SNOMED-CT 2019-12-06 Behavioral Monitoring - explosive Health [facility] min disorder Clinic , , , Vital Signs No Information Social History Element Description Description Start End Code CodeSystem AdditionalInfo Date Date SexAssignedAtBirth Female F AdministrativeGender - Hospital Discharge Instructions Reason For Referral Medical Equipment FDA Assessments
[2020-01-11] MEDS: LORazepam TAB(*) 1 MG PO ONE (14:04)
[2020-01-11 14:10] LABS: ABS Eosinophils 0.2 10^3/ul (0-0.6); ABS Lymphocytes 1.9 10^3/ul (1.0-4.8); ABS Monocytes 0.7 10^3/ul (0-0.8); ABS Neutrophils 5.3 10^3/ul (1.5-7.7); Eosinophil % 2.5 %; Hematocrit 39 % (35-47); Hemoglobin 13.1 g/dL (12.0-16.0); Lymphocyte % 23.6 %; Mean Corpuscular HGB Conc 34 g/dL (31-36); Mean Corpuscular Hemoglobin 28 pg (27-31); Mean Corpuscular Volume 84 fL (80-97); Mean Platelet Volume 7.9 fL (7.4-10.4); Nucleated Red Blood Cells % 0.2; Platelet Count 260 10^3/uL (150-450); Red Blood Count 4.65 10^6 /uL (3.70-4.87); Red Cell Distribution Width 15 % (10-15); White Blood Count 8.1 10^3/uL (3.5-10.8)
[2020-01-11 14:11] LABS: Urine Appearance Cloudy; Urine Bilirubin Negative (Negative); Urine Blood Negative (Negative); Urine Color Straw; Urine Glucose Negative (Negative); Urine Ketones Negative (Negative); Urine Nitrite Negative (Negative); Urine Protein Negative (Negative); Urine Specific Gravity 1.004 (1.010-1.030); Urine Urobilinogen Negative (Negative)
[2020-01-11 14:20] LABS: ALT 63 U/L (7-52); AST 55 U/L (13-39); Albumin 3.8 g/dL (3.2-5.2); Albumin/Globulin Ratio 1.2 (1-3); Alkaline Phosphatase 71 U/L (34-104); Anion Gap 9 mmol/L (2-11); BUN/Creatinine Ratio 7.8 (8-20); Blood Urea Nitrogen 6 mg/dL (6-24); CO2 Carbon Dioxide 20 mmol/L (22-32); Calcium 9.1 mg/dL (8.6-10.3); Chloride 109 mmol/L (101-111); EGFR African American 106.5 (>60); Globulin 3.2 g/dL (2-4); Glucose 96 mg/dL (70-100); Potassium 3.8 mmol/L (3.5-5.0); Sodium 138 mmol/L (135-145)
[2020-01-11 14:23] LABS: Urine Benzodiazepine Screen None Detected (None Detect); Urine Opiates Screen None Detected (None Detect)
[2020-01-11 14:33] LABS: Acetaminophen < 15 mcg/mL; Alcohol < 10 mg/dL (<10); Salicylate < 2.50 mg/dL (<30)
[2020-01-11 16:04] VITALS: BP 124/91
== END 2020-01-11 15:15 | disposition home or self-care (01) ==
LOC: ED 12:34
DX: F43.20 Adjustment disorder, unspecified (principal); E03.9 Hypothyroidism, unspecified; R62.50 Unspecified lack of expected normal physiological development in childhood; F41.9 Anxiety disorder, unspecified; F90.9 Attention-deficit hyperactivity disorder, unspecified type; F32.9 Major depressive disorder, single episode, unspecified; Z79.890 Hormone replacement therapy; Z79.899 Other long term (current) drug therapy; Z88.0 Allergy status to penicillin; Z88.1 Allergy status to other antibiotic agents
CPT/HCPCS: 36415; 80053; 80164; 80307; 80320; 80329; 81003; 84443; 85025; 99285; A9270-GY; G0480

== ENCOUNTER 2020-01-12 16:33 | Emergency (ER) | payer MEDICARE, MEDICAID ==
--- NOTE | 2020-01-12 16:40 | ED ---
Psychiatric Complaint - HPI Summary HPI Summary: 29 year old F presenting to [facility] accompanied by the police with a chief complaint of suicidal ideations today. The patient rates the pain 0/10 in severity. Symptoms aggravated by nothing. Symptoms alleviated by nothing. Patient reports that she "just feels like killing" herself. She states that her life "sucks" and she was seen here yesterday. Per the police [place] prec[place] with her the patient's friends were at her house on their arrival and she said that she wanted to kill herself and was trying to access knives. The patient states that if she were to kill herself she would use a knife or a rope on a bridge. Patient denies any cough. Medication list reviewed. Allergy list reviewed. - History Of Current Complaint Hx Obtained From: Patient, Other: - Police Hx Last Menstrual Period: april 252018 irregular Onset/Duration: Lasting Hours Timing: Constant Aggravating Factor(s): Nothing Alleviating Factor(s): Nothing Has Suicidal: Reports: Thoughts, With A Plan, Has Prior Attempt(s) - Allergies/Home Medications Allergies/Adverse Reactions: Allergies Allergy/AdvReac Type Severity Reaction Status Date / Time amoxicillin [From Augmentin] Allergy Rash Verified 12/14/19 16:21 clavulanic acid Allergy Rash Verified 12/14/19 16:21 [From Augmentin] Home Medications: Home Medications Venlafaxine ER (NF) [Effexor ER (NF)] 150 mg PO DAILY 06/11/17 [History Confirmed 01/12/20] Mirtazapine TAB* [Remeron TAB*] 15 mg PO BEDTIME 08/18/19 [History Confirmed ] Topiramate TAB(*) [Topamax 25 MG tab] 50 mg PO BID 08/18/19 [History Confirmed 01/12/20] risperiDONE TAB* [Risperdal*] 1 mg PO BID 08/18/19 [History Confirmed 01/12/20] Cetirizine* [ZyrTEC 10 MG TAB*] 10 mg PO DAILY PRN 09/07/19 [History Confirmed 01/12/20] Divalproex DR TAB(*) [Depakote DR(*)] 1,000 mg PO BID 09/07/19 [History Confirmed 01/12/20] Venlafaxine EXT RELEASE CAP* [Effexor Xr CAP*] 75 mg PO QAM 09/07/19 [History Confirmed 01/12/20] Levothyroxine TAB* [Synthroid TAB*] 50 mcg PO DAILY 10/07/19 [History Confirmed 01/12/20] PMH/Surg Hx/FS Hx/Imm Hx Endocrine/Hematology History: Reports: Hx Thyroid Disease - hypo Denies: Hx Anticoagulant Therapy, Hx Diabetes Cardiovascular History: Denies: Hx Hypercholesterolemia, Hx Hypertension Respiratory History: Reports: Hx Seasonal Allergies Denies: Hx Asthma, Hx Chronic Obstructive Pulmonary Disease (COPD) GI History: Denies: Hx Gastroesophageal Reflux Disease, Hx Ulcer History: Denies: Hx Renal Disease Sensory History: Reports: Hx Contacts or Glasses - Reportedly uses contacts, unconfirmed by Pt at this time. Denies: Hx Legally Blind, Hx Deafness, Hx Hearing Aid Opthamlomology History: Reports: Hx Contacts or Glasses - Reportedly uses contacts, unconfirmed by Pt at this time. Denies: Hx Legally Blind Neurological History: Reports: Hx Developmental Delay Psychiatric History: Reports: Hx Anxiety, Hx Attention Deficit Hyperactivity Disorder, Hx Depression, Hx Inpatient Treatment, Hx Community Mental Health Tx, Hx Suicide Attempt, Hx of Violent Episodes Against Others, Other Psychiatric Issues/Disorders - developmental delays Denies: Hx Eating Disorder, Hx Post Traumatic Stress Disorder, Hx Schizophrenia, Hx Bipolar Disorder - Surgical History Surgical History: None Surgery Procedure, Year, and Place: none - Immunization History Date of Influenza Vaccine: 08/2017 Infectious Disease History: Denies: Hx Clostridium Difficile, Hx Hepatitis, Hx Human Immunodeficiency Virus (HIV), Hx of Known/Suspected MRSA, Hx Shingles, Hx Tuberculosis, Hx Known/ Suspected VRE, Hx Known/Suspected VRSA, History Other Infectious Disease - Family History Known Family History: Positive: Cardiac Disease, Respiratory Disease, Other - pos: depression Negative: Hypertension - Social History Alcohol Use: None Alcohol Amount: 0 Hx Substance Use: No Substance Use Type: Reports: None Hx Tobacco Use: No Smoking Status (MU): Never Smoked Tobacco Amount Used/How Often: pt does not and has never used tobacco products of any kind Have You Smoked in the Last Year: No Review of Systems Negative: Cough Positive: Other - Suicidal ideation All Other Systems Reviewed And Are Negative: Yes Physical Exam - Summary Physical Exam Summary: Constitutional: Well-developed, Well-nourished, Alert. (-) Distressed Skin: Warm, Dry HENT: Normocephalic; Atraumatic Eyes: Conjunctiva normal Neck: Musculoskeletal ROM normal neck. (-) JVD, (-) Stridor, (-) Tracheal deviation Cardio: Rhythm regular, rate normal, Heart sounds normal; Intact distal pulses; Radial pulses are 2+ and symmetric. (-) Murmur Pulmonary/Chest wall: Effort normal. (-) Respiratory distress, (-) Wheezes, (-) Rales Abd: Soft, (-) tenderness, (-) Distension, (-) Guarding, (-) Rebound Musculoskeletal: (-) Edema Lymph: (-) Cervical adenopathy Neuro: Alert, Oriented x3 Psych: Mood and affect Normal Triage Information Reviewed: Yes Vital Signs Reviewed: Yes Procedures - Sedation Patient Received Moderate/Deep Sedation with Procedure: No Course/Dx - Course Course Of Treatment: Patient is here with suicidal ideation. Patient is here frequently including yesterday where she was discharged. She'll have labs performed yesterday. Patient is medically cleared by myself. Patient was evaluated by the psychiatric team and they think she is better fit for outpatient management - Differential Dx/Clinical Impression Provider Diagnosis: Depressive episode Discharge ED - Sign-Out/Discharge Documenting (check all that apply): Patient Departure - discharge - Discharge Plan Condition: Stable Disposition: HOME Referrals: [facility] [Other] (follow up with Alexis ortiz therapist on 01-13-2020) Radha Obrien MD [Primary Care Provider] - - Billing Disposition and Condition Condition: STABLE Disposition: Home - Attestation Statements Document Initiated by Randi: Yes Documenting Scribe: Farzana Woodson Provider For Whom Randi is Documenting (Include Credential): Willie Richmond MD Scribe Attestation: Cayla, Farzana Woodson, scribed for Willie Richmond MD on 01/12/20 at 1839. Scribe Documentation Reviewed: Yes Provider Attestation: The documentation as recorded by the Farzana jordan accurately reflects the service I personally performed and the decisions made by me, Willie Richmond MD Status of Scribe Document: Viewed
[2020-01-12 16:44] VITALS: BP 147/101
[2020-01-12] MEDS ORDERED: LORazepam TAB(*) 1 MG PO ONE (17:04)
== END 2020-01-12 18:21 | disposition home or self-care (01) ==
LOC: ED 16:33
DX: R45.851 Suicidal ideations (principal); F32.9 Major depressive disorder, single episode, unspecified; E03.9 Hypothyroidism, unspecified; Z88.0 Allergy status to penicillin; Z79.899 Other long term (current) drug therapy; Z79.890 Hormone replacement therapy
CPT/HCPCS: 99284; A9270-GY

== ENCOUNTER 2020-02-19 11:09 | Emergency (ER) | payer MEDICARE, MEDICAID ==
--- OUTSIDE RECORDS SUMMARY | 2020-02-19 11:30 | XMS REPORT | Summary of Care ---
:1990 Author Organization [facility] Address [address] [facility] [address] [place] [address] Care Team Providers Name Role Phone Radha Obrien Primary Care Provider Reason for Visit Reason Comments Cough Breathing Problem Encounter Details Date Type Department Care Team Description 01/19/2020 Office Visit Aundrea Gamez Micah, Respiratory illness ( Primary Dx); Practice MD Radha Cough [address] [place] [address] [place] [address] [phone] Allergies Active Allergy Reactions Severity Noted Date Comments Augmentin Rash, GI Reaction 08/24/2018 documented as of this encounter (statuses as of 01/19/2020) Medications Medication Sig Dispensed Refills Start Date End Date Status chlorhexidine 15 mL by 0 Active gluconate (PERIDEX) Mouth/Throat route 0.12 % Mouth/Throat TWICE DAILY. Solution Emollient (AQUAPHOR) by Apply 0 Active Apply externally externally route. Ointment hydrocortisone by Topical route 0 Active (HYTONE) 1 % Apply THREE TIMES DAILY. externally Cream divalproex sodium Take 1,000 mg by 0 Active (DEPAKOTE) 500 MG Oral mouth TWICE DAILY. Tab EC Triamcinolone Meridian in nose. 0 Active Acetonide (NASACORT ALLERGY [...] TWICE DAILY. TabIndications: Anxiety and depression fexofenadine (PERTTY Take 1 Tab by 30 Tab 5 [...] as of this encounter (statuses as of 01/19/2020) Active Problems Problem Noted Date Tendinitis of right wrist 09/15/2018 Eczema 09/08/2018 Seborrheic dermatitis of scalp ADHD Allergic rhinitis Hypothyroidism documented as of this encounter (statuses as of 01/19/2020) Immunizations Name Administration Dates Next Due Human [...] Sign Reading Time Taken Comments Blood Pressure 120/70 01/19/2020 1:56 PM EDT Pulse 78 01/19/2020 1:56 PM EDT Temperature 37 01/19/2020 1:56 PM EDT C (98.6 F) Respiratory Rate - - Oxygen Saturation 97% 01/19/2020 1:56 PM EDT RA at rest Inhaled Oxygen Concentration - - Weight - - Height - - Body Mass Index - - documented in this encounter Patient Instructions Patient InstructionsRadha Obrien MD - 01/19/2020 2:00 PM EDT1. You were tested today for COVID 19. Until we have results - please stay at home 2. Mucinex 600 mg 2 times a day 3. Tylenol as needed for fever 4. Take plenty of fluids, rest 5. If running high fever, significant sob- go to the ER documented in this encounter Progress Notes Radha Obrien MD - 01/19/2020 2:00 PM EDT PATIENT: Lyndsey Can : 1990 DATE OF SERVICE: 01/19/2020 Subjective SUBJECTIVE: Lyndsey Can is a 29-y.o. female who presents for evaluation of nonproductive cough, exertional SOB. Symptoms began 3 days ago and are gradually worsening since that time. She denies fever, sore throat, nasal congestion No recent travel, no contact with the patient with known or suspected COVID 19 infection. Past Medical History: Diagnosis Date ? ADHD ? Allergic rhinitis ? Borderline intellectual functioning ? Borderline personality disorder (HCC) ? Eczema ? Hypothyroidism ? Schizoaffective disorder, bipolar type (HCC) ? Seborrheic dermatitis of scalp ? Sleep apnea auto CPAP Family History Problem Relation Age of Onset ? Heart Mother ? No Known Problems Father ? No Known Problems Sister ? No Known Problems Brother ? Anesth Problems No family history ? Arthritis No family history ? Cancer No family history ? Clotting Disorder No family history ? Diabetes No family history ? Heart Disease No family history ? Hypertension No family history ? Kidney Disease No family history ? Thyroid Disease No family history Current Outpatient Medications Medication Sig ? benzonatate (TESSALON PERLES) 100 MG Oral Cap Take 1 Cap by mouth THREE TIMES DAILY NEEDED for cough. ? cetirizine (ZYRTEC) 10 MG Oral Tab Take 1 Tab by mouth DAILY. ? chlorhexidine gluconate (PERIDEX) 0.12 % Mouth/Throat Solution 15 mL by Mouth/Throat route TWICE DAILY. ? divalproex sodium (DEPAKOTE) 500 MG Oral Tab EC Take 1,000 mg by mouth TWICE DAILY. ? Emollient (AQUAPHOR) Apply externally Ointment [...] (NASACORT ALLERGY 24HR) 55 MCG/ACT Nasal Aerosol Meridian in nose. ? venlafaxine (EFFEXOR XR) 150 MG Oral CAPSULE SR 24 HR Take 150 mg by mouth. No current facility-administered medications for this visit. Allergies Allergen Reactions ? Augmentin Rash and GI Reaction Social History Socioeconomic History ? Marital status: Single Spouse name: Not on file ? Number of children: Not on file ? Years of education: Not on file ? Highest education level: Not on file Occupational History ? Not on file Social Needs ? Financial resource strain: Not on file ? Food insecurity Worry: Not on file Inability: Not on file ? Transportation needs Medical: Not on file Non-medical: Not on file Tobacco Use ? Smoking status: Never Smoker ? Smokeless tobacco: Never Used Substance and Sexual Activity ? Alcohol use: No ? Drug use: No ? Sexual activity: Never control/protection: Pill Lifestyle ? Physical activity Days per week: Not on file Minutes per session: Not on file ? Stress: Not on file Relationships ? Social connections Talks on phone: Not on file Gets together: Not on file Attends church service: Not on file Active member of club or organization: Not on file Attends meetings of clubs or organizations: Not on file Relationship status: Not on file ? Intimate partner violence Fear of current or ex partner: Not on file Emotionally abused: Not on file Physically abused: Not on file Forced sexual activity: Not on file Other Topics Concern ? Back Care Not Asked ? Bike Helmet Not Asked ? Blood Transfusions Not Asked ? Caffeine Concern Not Asked ? Exercise Not Asked ? Hobby Hazards Not Asked ? International Travel Not Asked ? Service Not Asked ? Occupational Exposure Not Asked ? Seat Belt Yes ? Self-Exams Not Asked ? Sleep Concern Not Asked ? Special Diet Not Asked ? Stress Concern Not Asked ? Weight Concern Not Asked Social History Narrative ? Not on file REVIEW OF SYSTEMS: All remaining review of systems was negative. Objective OBJECTIVE: BP 120/70 (BP Location: Right arm, Patient Position: Sitting) | Pulse 78 | Temp 98.6 F (37 C) | SpO2 97% Comment: RA at rest GENERAL: alert, fatigued. HEENT: neck without nodes, pharynx erythematous without exudate, sinuses non tender and nasal mucosa congested. LUNGS: clear to auscultation bilaterally. HEART: regular rate and rhythm, S1, S2 normal, no murmur, click, rub or gallop. Chest X-ray-: increased bibasilar markings, no previous study available for comparison.Study is possibly done in incomplete inspiration. Early infiltrates vs hypoventilation? ICD-9-CM ICD-10-CM 1. Respiratory illness 519.9 J98.9 2. Cough 786.2 R05 XR CHEST 2 VIEW PA AND LATERAL (STANDARD) SARS COV-2 RNA, QUAL RT-PCR FLU A/FLU B/RSV PCR ASSAY (TESTED AT [facility] ONLY) FLU A/FLU B/RSV PCR ASSAY (TESTED AT [facility] ONLY) SARS COV-2 RNA, QUAL RT-PCR Patient Instructions 1. You were tested today for COVID 19. Until we have results - please stay at home 2. Mucinex 600 mg 2 times a day 3. Tylenol as needed for fever 4. Take plenty of fluids, rest 5. If running high fever, significant sob- go to the ER Author: Radha Obrien MD 01/19/2020 16:46 documented in this encounter Plan of Treatment Name Type Priority Associated Diagnoses Date/Time SARS COV-2 RNA, QUAL Lab Routine Cough 01/19/2020 2:50 PM EDT RT-PCR FLU A/FLU B/RSV PCR ASSAY Lab Routine Cough 01/19/2020 2:50 PM EDT (TESTED AT [facility] ONLY) Name Type Priority Associated Diagnoses Order Schedule SARS COV-2 RNA, QUAL Lab Routine Cough Expected: 01/19/2020 RT-PCR (Approximate), Expires: 01/18/2021 FLU A/FLU B/RSV PCR Lab Routine Cough 1 Occurrences starting ASSAY (TESTED AT [facility] 01/19/2020 until 07/17/2020 LAB ONLY) Health Maintenance Due Date Last Done Comments [...] an individualized treatment (depression) goal for Lyndsey Juan José: Displayed above is your goal for a depression screening (PHQ-9) score that would indicate good control of your depression. Keep a regular sleep schedule Lifestyle No Taylor Teresa FNP Note: This is an individualized lifestyle goal for Lyndsey Can: Please maintain a regular sleep schedule. This may help with some symptoms of depression. Take all prescribed medications as Self-management No Taylor Teresa, KERRI directed Note: This is an individualized self-management [...] ongoing basis. documented as of this encounter Procedures Procedure Name Priority Date/Time Associated Diagnosis Comments XR CHEST 2 VIEW PA STAT 01/19/2020 2:33 PM Cough Results for this AND LATERAL EDT procedure are in (STANDARD) the results section. documented in this encounter Results XR CHEST 2 VIEW PA AND LATERAL (STANDARD) (01/19/2020 2:33 PM EDT) Specimen Impressions Performed At Bilateral patchy airspace opacities in basilar region, indicating atelectasis versus early infiltrates. No pleural effusion is seen. Urgency: IMPORTANT. This report contains IMPORTANT results which require clinical attention. Recommendation: No specific imaging recommendation. Signed by Dayanna Pearce MD, MHA, FCPS on 01/19/2020 2:38 PM Narrative Performed At Procedure(s): XR CHEST 2 VIEW PA AND LATERAL (STANDARD) Date of service: 01/19/2020 2:22 PM Provided clinical information: 29 years, Female, "cough" Procedure and materials: Standard protocol. Procedure: CHEST 2 VIEWS Technique: PA and lateral views of the chest were acquired. Comparison: None Findings: Mild hypoventilation Bilateral patchy airspace opacity in basilar region. No pleural effusion is seen. Cardioaortic silhouette appears unremarkable. There is normal pulmonary vascularity. The jose are normal. No pneumothorax is seen. Trachea midline. No acute bony abnormality is seen. Procedure Note Interface, Rad Results - 01/19/2020 2:40 PM EDT Procedure(s): XR CHEST 2 VIEW PA AND LATERAL (STANDARD) Date of service: 01/19/2020 2:22 PM Provided clinical information: 29 years, Female, "cough" Procedure and materials: Standard protocol. Procedure: CHEST 2 VIEWS Technique: PA and lateral views of the chest were acquired. Comparison: None Findings: Mild hypoventilation Bilateral patchy airspace opacity in basilar region. No pleural effusion is seen. Cardioaortic silhouette appears unremarkable. There is normal pulmonary vascularity. The jose are normal. No pneumothorax is seen. Trachea midline. No acute bony abnormality is seen. IMPRESSION Bilateral patchy airspace opacities in basilar region, indicating atelectasis versus early infiltrates. No pleural effusion is seen. Urgency: IMPORTANT. This report contains IMPORTANT results which require clinical attention. Recommendation: No specific imaging recommendation. Signed by Dayanna Pearce MD, MHA, FCPS on 01/19/2020 2:38 PM documented in this encounter Visit Diagnoses Diagnosis Cough Respiratory illness documented in this encounter Insurance Payer Benefit Plan / Subscriber ID Effective Dates Phone Address Type Group MEDICARE MEDICARE PART A [id number] 2014-Present Medicare & B MEDICAID [facility] [id number] 2018-Present Medicaid [place] MEDICAID documented as of this encounter
[2020-02-19 11:40] VITALS: BP 143/76
--- NOTE | 2020-02-19 11:45 | UC ---
Dental HPI - HPI Summary HPI Summary: 29-year-old female presents with left upper dental pain that started yesterday. Reports developed mild left-sided facial swelling overnight. Has taken acetaminophen with little relief in the pain. Denies fever, chills, dysphagia, trismus, or dranage. - History of Current Complaint Chief Complaint: UCDentalProblem Stated Complaint: DENTAL PAIN Time Seen by Provider: 02/19/20 11:30 Hx Obtained From: Patient Hx Last Menstrual Period: 1 month ago Pain Intensity: 8 - Allergies/Home Medications Allergies/Adverse Reactions: Allergies Allergy/AdvReac Type Severity Reaction Status Date / Time amoxicillin [From Augmentin] Allergy Rash Verified 02/19/20 11:32 clavulanic acid Allergy Rash Verified 02/19/20 11:32 [From Augmentin] Home Medications: Home Medications Venlafaxine ER (NF) [Effexor ER (NF)] 150 mg PO BEDTIME 06/11/17 [History Confirmed 02/19/20] Mirtazapine TAB* [Remeron TAB*] 15 mg PO BEDTIME 08/18/19 [History Confirmed ] Topiramate TAB(*) [Topamax 25 MG tab] 50 mg PO BID 08/18/19 [History Confirmed 02/19/20] risperiDONE TAB* [Risperdal*] 1 mg PO BID 08/18/19 [History Confirmed 02/19/20] Cetirizine* [ZyrTEC 10 MG TAB*] 10 mg PO DAILY PRN 09/07/19 [History Confirmed 02/19/20] Divalproex DR TAB(*) [Depakote DR(*)] 1,000 mg PO BID 09/07/19 [History Confirmed 02/19/20] Venlafaxine EXT RELEASE CAP* [Effexor Xr CAP*] 75 mg PO DAILY 09/07/19 [History Confirmed 02/19/20] Levothyroxine TAB* [Synthroid TAB*] 50 mcg PO DAILY 10/07/19 [History Confirmed 02/19/20] Acetaminophen TAB* [Tylenol TAB*] 325 mg PO Q4H PRN 02/19/20 [History Confirmed 02/19/20] Ibuprofen TAB* [Motrin TAB* 600 MG] 600 mg PO Q8H PRN #30 tab 02/19/20 [Rx] clindamycin HCL [Clindamycin HCl] 300 mg PO TID 10 Days #30 capsule 02/19/20 [Rx ] PMH/Surg Hx/FS Hx/Imm Hx Endocrine History: Thyroid Disease Psychological History: Depression, Other - Borderline Personality Disorder, ADHD , Intellectual disability Other History Of: Negative For: Anticoagulant Therapy - Surgical History Surgical History: None Surgery Procedure, Year, and Place: none - Family History Known Family History: Positive: Cardiac Disease, Respiratory Disease, Other - pos: depression Negative: Hypertension - Social History Alcohol Use: None Alcohol Amount: 0 Substance Use Type: None Smoking Status (MU): Never Smoked Tobacco Amount Used/How Often: pt does not and has never used tobacco products of any kind Have You Smoked in the Last Year: No - Immunization History Most Recent Influenza Vaccination: 08/20/19 Most Recent Tetanus Shot: unknown Most Recent Pneumonia Vaccination: never Review of Systems All Other Systems Reviewed And Are Negative: Yes Constitutional: Negative: Fever, Chills Skin: Positive: Negative Eyes: Negative: Drainage, Eye Redness ENT: Positive: Dental Pain - See HPI. Negative: Sore Throat, Ear Ache, Nasal Discharge, Sinus Congestion, Sinus Pain/Tenderness Respiratory: Positive: Negative Cardiovascular: Positive: Negative Gastrointestinal: Positive: Negative Musculoskeletal: Positive: Negative Neurological/Mental Status: Positive: Negative Is Patient Immunocompromised?: No Physical Exam - Summary Physical Exam Summary: GENERAL APPEARANCE: Alert and cooperative obese adult female who appears to be in no acute distress. HEAD: Atraumatic. Normocephalic. Mild left-sided facial edema. EYES: Conjunctiva clear. No drainage. EARS: External auditory canals and tympanic membranes clear, hearing grossly intact. NOSE: No nasal discharge. THROAT: Pharynx normal. No tonsilar inflammation, swelling, exudate, or lesions. Uvula midline. Teeth and gingiva in overall poor condition with mutilpe teeth missing or in various degrees of decay. The left first upper molar with significant decay and gingival erythema and swelling without induration, fluctuance, or discharge. NECK: Neck supple, non-tender without lymphadenopathy. CARDIAC: Normal S1 and S2. No S3, S4 or murmurs. Rhythm is regular. There is no peripheral edema, cyanosis or pallor. Extremities are warm and well perfused. Capillary refill is less than 2 seconds. Peripheral pulses intact. LUNGS: Clear to auscultation without rales, rhonchi, wheezing or diminished breath sounds. ABDOMEN: Positive bowel sounds. Soft, nondistended, nontender. No guarding or rebound. No masses or hepatosplenomegally. MUSKULOSKELETAL: ROM intact to all extremities. No joint erythema or tenderness. Normal muscular development. Normal gait. SKIN: Skin normal color, texture and turgor with no lesions or eruptions. Triage Information Reviewed: Yes Vital Signs: Initial Vital Signs Temp 97.8 F 02/19/20 11:29 Pulse 118 02/19/20 11:29 Resp 16 02/19/20 11:29 BP 143/76 02/19/20 11:29 Pulse Ox 99 02/19/20 11:29 Vital Signs Reviewed: Yes Dental Complaint Course/Dx - Course Course Of Treatment: 29-year-old female presents with left upper dental pain that started yesterday. Reports developed mild left-sided facial swelling overnight. Has taken acetaminophen with little relief in the pain. Denies fever, chills, dysphagia, trismus, or dranage. Afebrile. Mildly hypertensive and tachycardic otherwise vital signs stable. On exam that patient was noted to have some mild left-sided facial swelling. Her teeth and gingiva were noted to be in overall poor condition with mutilpe teeth missing or in various degrees of decay. The left first upper molar had significant decay with gingival erythema and edema. No induration, fluctuance, or discharge was noted. Remainder of exam was unremarkable. Will treat for a likely dental infection with clindamycin 300 mg TID x 10 days as patient has a documented allergy to Augmentin. Will provide her with a prescription for ibuprofen 600 mg q8h as needed for pain. She is to follow-up with her dentist at the next available appointment. Anticipatory guidance and warning signs reviewed with the patient. Verbalizes understanding and agrees with plan of care. - Differential Dx/Diagnosis Differential Diagnosis/Dx: Dental Abscess, Dental Caries, Fractured Tooth, Gingivitis, Giovani's Angina, Odontogenic Pain, Peridontic Disease Provider Diagnosis: Dental infection Discharge ED - Sign-Out/Discharge Documenting (check all that apply): Patient Departure All imaging exams completed and their final reports reviewed: No Studies - Discharge Plan Condition: Stable Disposition: HOME Prescriptions: clindamycin HCL [Clindamycin HCl] 300 mg PO TID 10 Days #30 capsule Ibuprofen TAB* [Motrin TAB* 600 MG] 600 mg PO Q8H PRN #30 tab PRN Reason: Pain - Moderate Patient Education Materials: Toothache (ED) Referrals: Radha Obrien MD [Primary Care Provider] - Additional Instructions: Start clindamycin 300 mg 1 capsule three times a day for 10 days. Be sure to take the entire course even if feeling better. Take ibuprofen 600 mg 1 tab every 8 hours as needed for pain. Be sure to rinse your mouth out with a warm salt water solution after every time you eat to remove any debris. Make an appointment with your dentist at next available appointment. Seek immediate medical attention in the emergency room if you develop fever greater than 100.5 F, you are unable to open of close your mouth, are unable to swallow, have difficulty breathing, or any worsening of symptoms. - Billing Disposition and Condition Condition: STABLE Disposition: Home
== END 2020-02-19 11:54 | disposition home or self-care (01) ==
LOC: UCEAST 11:09
DX: K04.7 Periapical abscess without sinus (principal); K02.9 Dental caries, unspecified; E07.9 Disorder of thyroid, unspecified; F90.9 Attention-deficit hyperactivity disorder, unspecified type; F32.9 Major depressive disorder, single episode, unspecified; Z79.890 Hormone replacement therapy; Z79.899 Other long term (current) drug therapy; Z88.1 Allergy status to other antibiotic agents; Z88.0 Allergy status to penicillin
CPT/HCPCS: 99212; G0463